=== PATIENT | female | born 1955 | race Caucasian/White ===

== ENCOUNTER 2020-02-16 14:04 | Inpatient (IN) | payer MEDICARE ==
[~2020-02-16] VITALS: Ht 165.1 cm; Wt 108.5 kg
--- NOTE | 2020-02-16 14:41 | EKG ---
[facility] [address] [place] [address] Test Date: 2020-02-16 Test Time: 14:36:49 Pat Name: AZEB PABON Department: Room: Gender: F Principal Scientist: : 1955 Requested By: GLENROY LEACH Order Number: [id number] Reading MD: Chivo Mcclendon Measurements Intervals [place] Rate: 96 P: 3 [place]: 142 QRS: -36 QRSD: 96 T: 28 QT: 350 QTc: 449 Interpretive Statements SINUS RHYTHM ABNORMAL LEFT AXIS DEVIATION QRS(T) CONTOUR ABNORMALITY CONSISTENT WITH INFERIOR INFARCT PROBABLY OLD ABNORMAL ECG RI6.01 No previous ECG available for comparison Electronically Signed On 02-17-2020 12:02:42 CDT by Chivo Mcclendon
--- NOTE | 2020-02-16 14:55 | RAD ---
PORTABLE CHEST 1V History: Reason: cough / Spl. Instructions: / History: Comparison: None. Findings: Low lung volumes with patchy bibasilar opacities. No pleural effusion. No pneumothorax. Normal heart size. Impression: 1. Low lung volumes with patchy bibasilar opacities, most likely atelectasis. Electronically signed by: Theo Reyes DO (02/16/2020 2:53 PM) [id number]
--- NOTE | 2020-02-16 14:58 | PHYS DOC ---
Past Medical History Past Medical History: Diabetes-Type II, Hypertension, Stroke Additional Past Medical Histor: RT SIDE DEFICIT Past Surgical History: No Surgical History Smoking Status: Former Smoker Alcohol Use: None General Adult EDM: Chief Complaint: ABDOMINAL PAIN HPI: HPI: Patient is a 64 year old female who presents with here by EMS for right-sided abdominal pain. Is unknown how long the patient has had pain. Patient has had a past stroke of which she has some speech deficits and right-sided deficits. Patient is a poor historian. Patient lives at a care facility. Patient states that she was at [facility] this morning and had a scan but unable to tell me what kind of scan or if she was in the ED or who her primary care provider is. I did have my ER provider looked the patient up at [facility] and there is nothing showing for a inpatient or outpatient CT or visit today. Patient's mother came in to the ED and I spoke with her and she states she does not know either. She states she does not know what is going on with her daughter but just knew that she sounded different on the phone so she brought her in. Patient also complains of a cough. She is denies chest pain, shortness of breath, fever, back pain, dizziness, headache, new weakness, vision change. Patient does try to answer all questions appropriately. She is alert and oriented. Patient unable to give me a # when asked about her pain. Review of Systems: Review of Systems: GI: Right-sided abdominal pain, denies nausea, vomiting, bloody stools. + diarrhea. [] Heart Score: Risk Factors: Risk Factors: DM, Current or recent (<one month) smoker, HTN, HLP, family history of CAD, obesity. Risk Scores: Score 0 - 3: 2.5% MACE over next 6 weeks - Discharge Home Score 4 - 6: 20.3% MACE over next 6 weeks - Admit for Clinical Observation Score 7 - 10: 72.7% MACE over next 6 weeks - Early Invasive Strategies Current Medications: Current Medications Medications (Trade) Dose Ordered Sig/Perlita Start Time Stop Time Status Last Admin Dose Admin Fentanyl Citrate (Fentanyl 2ml Vial) 50 mcg 1X ONCE 02/16/20 15:15 02/16/20 15:16 Allergies: Allergies: Allergies Coded Allergies Type Severity Reaction Last Updated Verified No Known Drug Allergies 02/16/20 No Physical Exam: PE: Constitutional: Well developed, well nourished, no acute distress, non-toxic appearance. [] HENT: Normocephalic, atraumatic, bilateral external ears normal, oropharynx moist, no oral exudates, nose normal. [] Eyes: PERRLA, EOMI, conjunctiva normal, no discharge. [] Neck: Normal range of motion, no tenderness, supple, no stridor. [] Cardiovascular:Heart rate regular rhythm, no murmur [] Lungs & Thorax: Bilateral breath sounds clear to auscultation [] Abdomen: Bowel sounds normal, soft, right side tenderness, no masses, no pulsatile masses. [] Skin: Warm, dry, no erythema, no rash. [] Back: No tenderness, no CVA tenderness. [] Extremities: No tenderness, no cyanosis, no clubbing, ROM intact, no edema. [] Neurologic: Alert and oriented X 3, normal motor function, normal sensory function, no focal deficits noted. [] Psychologic: Affect normal, judgement normal, mood normal. [] Current Patient Data: Vital Signs: Vital Signs Date Time Temp Pulse Resp B/P (MAP) Pulse Ox O2 Delivery O2 Flow Rate FiO2 02/16/20 14:04 98.0 95 16 165/82 (109) 96 Room Air 98.0 EKG: EK and read by DR Lagunas as Sinus Rhythm and no STEMI[] Radiology/Procedures: Radiology/Procedures: [] Impression: [facility] [address] [place], [place] [id number] IMAGING REPORT Signed PATIENT: AZEB PABON ACCOUNT: [id number] : 1955 LOCATION: ER AGE: 64 SEX: F EXAM STATUS: PRE ER ORD. PHYSICIAN: GLENROY LEACH APRN REASON: cough PROCEDURE: PORTABLE CHEST 1V PORTABLE CHEST 1V History: Reason: cough / Spl. Instructions: / History: Comparison: None. Findings: Low lung volumes with patchy bibasilar opacities. No pleural effusion. No pneumothorax. Normal heart size. Impression: 1. Low lung volumes with patchy bibasilar opacities, most likely atelectasis. Electronically signed by: Theo Reyes DO (02/16/2020 2:53 PM) [id number] DICTATED and SIGNED BY: THEO REYES DO DATE: 02/16/20 1451 [facility] [address] [place] [address] IMAGING REPORT Signed PATIENT: AZEB PABON ACCOUNT: [id number] : 1955 LOCATION: ER AGE: 64 SEX: F EXAM STATUS: REG ER ORD. PHYSICIAN: GLENROY LEACH APRN REASON: gall bladder, pancreatitis, ct done at [facility] PROCEDURE: ABDOMEN LTD ABDOMEN LTD History: Reason: gall bladder, pancreatitis, ct done at [facility] / [facility]. Instructions: / History: Comparison: CT February 16, 2020. Technique: Transabdominal ultrasound images are obtained of the right upper quadrant. Findings: Visualized pancreas is normal seen due to overlying bowel gas. Liver is increased in echogenicity. Right hepatic lobe measures 20.1 cm. Portal flow is hepatopedal. Cholelithiasis. No gallbladder wall thickening. No pericholecystic fluid. Dilated common bile duct measures up to 1.1 cm. The right kidney measures 11.8 x 4.9 x 5.5 cm. No hydronephrosis. IVC not well seen due to overlying bowel gas. IMPRESSION: 1. Dilated common bile duct. MRCP can further evaluate as clinically warranted. 2. Cholelithiasis. 3. Hepatomegaly with increased echotexture, may indicate steatosis. Electronically signed by: Theo Reyes DO (02/16/2020 4:58 PM) [id number] DICTATED and SIGNED BY: THEO REYES DO DATE: 02/16/20 1658 Course & Med Decision Making: Course & Med Decision Making Pertinent Labs and Imaging studies reviewed. (See chart for details) COVID-19 CRITERIA: The patient was evaluated during the global COVID-19 pandemic, and that diagnosis was suspected/considered upon their initial presentation. Their evaluation, treatment and testing was consistent with current guidelines for patients who present with complaints or symptoms that may be related to COVID-19. Patient has right-sided abdominal pain tenderness palpation. Abdomen is otherwise soft and nontender. Patient denies vomiting. Patient states she does have diarrhea. Again it is unknown how long this is been going on for. Kaycee lemus has a history of diabetes, hypertension and a previous stroke. Patient has never been to this facility before. Patient's EKG is sinus rhythm and no STEMI. Lungs are clear in upper lobes and diminished in lower lobes. Patient denies any blood in her stools. Patient given 1G Rocephin in the ED for UTI. Patient to be admitted for pancreatitis to Dr Reynolds. Dr Reynolds states to call surgery. I have called spoken to Dr Villafana who states the pancreatitis has to be taken care of first and to consult GI. I will consult GI. [] Robinson Disclaimer: Robinson Disclaimer: This electronic medical record was generated, in whole or in part, using a voice recognition dictation system. COVID-19 Patient Risks: Age 65 or older: No Sign of co-morbidity: Yes Exp to person + for COVID: No Exp to PUI: No Travel from affected area: No Lower respiratory symptoms: Yes Other: No PPE Use: Full PPE with N95 mask or PAPR: Yes Departure Departure Impression: Primary Impression: Pancreatitis Qualified Codes: K85.90 - Acute pancreatitis without necrosis or infection, unspecified Additional Impressions: Suspected 2019 novel coronavirus infection UTI (urinary tract infection) Qualified Codes: N39.0 - Urinary tract infection, site not specified Disposition: ADMITTED INPATIENT Admitting Physician: IRMA Condition: STABLE 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
[2020-02-16] MEDS ORDERED: fentaNYL PF VIAL 100 MCG/2 ML VIAL IVP ONE ×2 (15:15→17:15)
[2020-02-16 15:21] LABS: BASO # 0.1 x10^3/uL (0.0-0.2); BASO % 1 % (0-3); EOS % 0 % (0-3); HEMATOCRIT 46.7 % (36.0-47.0); HEMOGLOBIN 15.9 g/dL (12.0-15.5); LYMPH # 1.5 x10^3/uL (1.0-4.8); LYMPH % 5 % (24-48); MEAN CORPUSCULAR HEMOGLOBIN 30 pg (25-35); MEAN CORPUSCULAR HGB CONC 34 g/dL (31-37); MEAN CORPUSCULAR VOLUME 87 fL (79-100); MONO # 1.8 x10^3/uL (0.0-1.1); MONO % 6 % (0-9); NEUT # 25.3 x10^3/uL (1.8-7.7); NEUT % 88 % (31-73); PLATELET COUNT 622 x10^3/uL (140-400); RED BLOOD COUNT 5.36 x10^6/uL (3.50-5.40); RED CELL DISTRIBUTION WIDTH 19.4 % (11.5-14.5); WHITE BLOOD COUNT 28.8 x10^3/uL (4.0-11.0)
[2020-02-16 15:23] LABS: BILIRUBIN,URINE LARGE (NEG); CLARITY,URINE CLOUDY; COLOR,URINE RED; NITRITE,URINE POSITIVE (NEG); PROTEIN,URINE 30 mg/dL (NEG-TRACE)
[2020-02-16 15:30] LABS: BARBITURATES NEG (NEG); BENZODIAZEPINES NEG (NEG); CANNABINOIDS NEG (NEG); COCAINE NEG (NEG); METHADONE NEG (NEG); OPIATES NEG (NEG); PHENCYCLIDINE NEG (NEG)
[2020-02-16 15:32] LABS: BACTERIA,URINE MANY /HPF (0-FEW); RBC,URINE 0 /HPF (0-2); SQUAMOUS EPITHELIAL CELL,UR FEW /LPF; WBC,URINE >40 /HPF (0-4)
[2020-02-16 15:35] LABS: AMPHETAMINE/METHAMPHETAMINE NEG (NEG)
[2020-02-16 16:26] LABS: CALCIUM 9.4 mg/dL (8.5-10.1); CREATININE 0.8 mg/dL (0.6-1.0); GFR 72.7; POTASSIUM 3.6 mmol/L (3.5-5.1)
[2020-02-16] MEDS ORDERED: IV NORMAL SALINE 1000ML BAG 1,000 ML IV ONE ×2 (16:30→17:15)
[2020-02-16] MEDS ORDERED: cefTRIAXone IV Push 1 GM VIAL. IVP ONE (16:30)
[2020-02-16 16:38] LABS: ALBUMIN 3.5 g/dL (3.4-5.0); PROTHROMBIN TIME PATIENT 14.7 SEC (11.7-14.0); TOTAL BILIRUBIN 7.6 mg/dL (0.2-1.0); TOTAL PROTEIN 6.9 g/dL (6.4-8.2)
[2020-02-16 16:49] LABS: % BANDS 1 % (0-9); % BASOS 1 % (0-3); % LYMPHS 6 % (24-48); % METAS 3 % (0-0); % MONOS 4 % (0-10); % SEGS 85 % (35-66)
[2020-02-16 16:50] LABS: ANISOCYTOSIS SLIGHT; PLT ESTIMATE INCREASED (ADEQUATE)
--- NOTE | 2020-02-16 17:01 | RAD ---
ABDOMEN LTD History: Reason: gall bladder, pancreatitis, ct done at [facility]. Instructions: / History: Comparison: CT February 16, 2020. Technique: Transabdominal ultrasound images are obtained of the right upper quadrant. Findings: Visualized pancreas is normal seen due to overlying bowel gas. Liver is increased in echogenicity. Right hepatic lobe measures 20.1 cm. Portal flow is hepatopedal. Cholelithiasis. No gallbladder wall thickening. No pericholecystic fluid. Dilated common bile duct measures up to 1.1 cm. The right kidney measures 11.8 x 4.9 x 5.5 cm. No hydronephrosis. IVC not well seen due to overlying bowel gas. IMPRESSION: 1. Dilated common bile duct. MRCP can further evaluate as clinically warranted. 2. Cholelithiasis. 3. Hepatomegaly with increased echotexture, may indicate steatosis. Electronically signed by: Theo Reyes DO (02/16/2020 4:58 PM) [id number]
[2020-02-16] MEDS ORDERED: ONDANSETRON PF 4 MG/2 ML VIAL. IV PRN ×2 (17:15→17:45)
--- NOTE | 2020-02-16 17:36 | PDOC1 ---
History and Physical Date of Admission Date of Admission DATE: 02/16/20 TIME: 17:29 Identification/Chief Complaint Chief Complaint SEEN IN ER WITH 15 DAY HX EPIGASTRIC PAIN , 64 year old female who presents with here by EMS for right-sided abdominal pain. Patient has had a past stroke of which she has some speech deficits and right- sided deficits. Patient is a poor historian. Patient lives at a care facility. Patient states that she was at [facility] this morning and had a scan but unable to tell me what kind of scan or if she was in the ED Past Medical History Past Medical History Past Medical History Past Medical History: Diabetes-Type II, Hypertension, Stroke Additional Past Medical Histor: RT SIDE DEFICIT Past Surgical History: No Surgical History Smoking Status: Former Smoker Alcohol Use: None fhx OBESITY Cardiovascular: HTN Musculoskeletal: Osteoarthritis Endocrine: Diabetes Family History Family History: High Cholestrol, Hypertension Social History Smoke: No ALCOHOL: none Drugs: None Current Problem List Problem List Problems Medical Problems: (1) Pancreatitis Status: Acute (2) Suspected 2019 novel coronavirus infection Status: Acute (3) UTI (urinary tract infection) Status: Acute Current Medications Current Medications Current Medications Fentanyl Citrate (Fentanyl 2ml Vial) 50 mcg 1X ONCE IVP Last administered on 02/16/20at 15:11; Start 02/16/20 at 15:15; Stop 02/16/20 at 15:16; Status DC Ceftriaxone Sodium (Rocephin) 1 gm 1X ONCE IVP Last administered on 02/16/20at 17:02; Start 02/16/20 at 16:30; Stop 02/16/20 at 16:31; Status DC Sodium Chloride 1,000 ml @ 1,000 mls/hr 1X ONCE IV Last administered on 02/16/20at 17:02; Start 02/16/20 at 16:30; Stop 02/16/20 at 17:29 Fentanyl Citrate (Fentanyl 2ml Vial) 50 mcg 1X ONCE IVP Last administered on 02/16/20at 17:11; Start 02/16/20 at 17:15; Stop 02/16/20 at 17:16; Status DC Sodium Chloride 1,000 ml @ 1,000 mls/hr 1X ONCE IV Last administered on 02/16/20at 17:11; Start 02/16/20 at 17:15; Stop 02/16/20 at 18:14 Ondansetron HCl (Zofran) 4 mg PRN Q8HRS PRN IV NAUSEA/VOMITING; Start 02/16/20 at 17:15; Stop 02/17/20 at 17:14 Fentanyl Citrate (Fentanyl 2ml Vial) 50 mcg PRN Q1HR PRN IV PAIN; Start 02/16/20 at 17:15; Stop 02/17/20 at 17:14 Sodium Chloride 1,000 ml @ 150 mls/hr Q6H40M IV ; Start 02/16/20 at 17:14; Stop 02/17/20 at 17:13 Allergies Allergies: Coded Allergies: No Known Drug Allergies (Unverified , 02/16/20) ROS Review of System GI: Right-sided abdominal pain X 15 DAYS , denies nausea, vomiting, bloody stools. + diarrhea. [] 14 PT ROS OTHERWISE NEG General: YES: Fatigue; No: Chills, Night Sweats, Malaise, Appetite, Other PSYCHOLOGICAL ROS: No: Anxiety, Behavioral Disorder, Concentration difficultie, Decreased libido, Depression, Disorientation, Hallucinations, Hostility, Irrit ablity, Memory difficulties, Mood Swings, Obsessive thoughts, Physical abuse, Sexual abuse, Sleep disturbances, Suicidal ideation, Other Eyes: No Blurry vision, No Decreased vision, No Double vision, No Dry eyes, No Excessive tearing, No Eye Pain, No Itchy Eyes, No Loss of vision, No Photophobia, No Scotomata, No Uses contacts, No Uses glasses, No Other HEENT: No: Heacaches, Visual Changes, Hearing change, Nasal congestion, Nasal discharge, Oral lesions, Sinus pain, Sore Throat, Epistaxis, Sneezing, Snoring, Tinnitus, Vertigo, Vocal changes, Other ALLERGY AND IMMUNOLOGY: No: Hives, Insect Bite Sensitivity, Itchy/Watery Eyes, Nasal Congestion, Post Nasal Drip, Seasonal Allergies, Other Hematological and Lymphatic: No: Bleeding Problems, Blood Clots, Blood Transfusions, Brusing, Night Sweats, Pallor, Swollen Lymph Nodes, Other ENDOCRINE: No: Breast Changes, Galactorrhea, Hair Pattern Changes, Hot Flashes, Malaise/lethargy, Mood Swings, Palpitations, Polydipsia/polyuria, Skin Changes, Temperature Intolerance, Unexpected Weight Changes, Other Respiratory: No: Cough, Hemoptysis, Orthopnea, Pleuritic Pain, Shortness of breath, SOB with excertion, Sputum Changes, Stridor, Tachypnea, Wheezing, Other Cardiovascular: No Chest Pain, No Palpitations, No Orthopnea, No Paroxysmal Noc. Dyspnea, No Edema, No Lt Headedness, No Other Gastrointestinal: Yes Abdominal Pain, Yes Diarrhea; No Nausea, No Vomiting, No Constipation, No Melena, No Hematochezia, No Other Genitourinary: No Dysuria, No Frequency, No Incontinence, No Hematuria, No Retention, No Discharge, No Urgency, No Pain, No Flank Pain, No Other, No , No , No , No , No , No , No Musculoskeletal: Yes Gait Disturbance, Yes Joint Stiffness, Yes Muscular Weakness Neurological: Yes Confusion, Yes Gait Disturbance, Yes Other (remote cva); No Behavorial Changes, No Bowel/Bladder ControlChng, No Dizziness, No Headaches, No Impaired Coord/balance, No Memory Loss, No Numbness/Tingling, No Seizures, No Speech Problems, No Tremors, No Visual Changes, No Weakness Skin: No Dry Skin, No Eczema, No Hair Changes, No Lumps, No Mole Changes, No Mottling, No Nail Changes, No Pruritus, No Rash, No Skin Lesion Changes, No Other, No Acne Physical Exam Physical Exam Constitutional: Well developed, well nourished, no acute distress, non-toxic appearance. [] HENT: Normocephalic, atraumatic, bilateral external ears normal, oropharynx moist, no oral exudates, nose normal. [] Eyes: PERRLA, EOMI, conjunctiva normal, no discharge. [] Neck: Normal range of motion, no tenderness, supple, no stridor. [] Cardiovascular:Heart rate regular rhythm, no murmur [] Lungs & Thorax: Bilateral breath sounds clear to auscultation [] Abdomen: Bowel sounds normal, soft, right side tenderness, no masses, no pulsatile masses. [] Skin: Warm, dry, no erythema, POS JAUNDICE [] Back: No tenderness, no CVA tenderness. [] Extremities: No tenderness, no cyanosis, no clubbing, ROM intact, no edema. [] Neurologic: Alert no focal deficits noted. [] Psychologic: Affect normal,mood normal. [] General: Alert, Cooperative, No acute distress HEENT: Atraumatic, EOMI, Other (ICTERIC) Lungs: Clear to auscultation, Normal air movement Heart: RRR, no thrills Breasts: Not examined Abdomen: Other (EPIGASTRIC TENDERNESS) Rectal Exam: not examined PELVIC: Examination not indicated Extremities: No cyanosis, No edema Skin: Other (JAUNDICED) Neuro: Cranial nerves 3-12 NL Vitals Vitals Vital Signs Date Time Temp Pulse Resp B/P (MAP) Pulse Ox O2 Delivery O2 Flow Rate FiO2 02/16/20 17:11 15 94 Room Air 02/16/20 17:00 108 168/71 (103) 02/16/20 14:04 98.0 98.0 Labs Labs Laboratory Tests Test 02/16/20 14:45 02/16/20 15:10 02/16/20 16:02 White Blood Count 28.8 x10^3/uL (4.0-11.0) Red Blood Count 5.36 x10^6/uL (3.50-5.40) Hemoglobin 15.9 g/dL (12.0-15.5) Hematocrit 46.7 % (36.0-47.0) Mean Corpuscular Volume 87 fL (79-100) Mean Corpuscular Hemoglobin 30 pg (25-35) Mean Corpuscular Hemoglobin Concent 34 g/dL (31-37) Red Cell Distribution Width 19.4 % (11.5-14.5) Platelet Count 622 x10^3/uL (140-400) Neutrophils (%) (Auto) 88 % (31-73) Lymphocytes (%) (Auto) 5 % (24-48) Monocytes (%) (Auto) 6 % (0-9) Eosinophils (%) (Auto) 0 % (0-3) Basophils (%) (Auto) 1 % (0-3) Neutrophils # (Auto) 25.3 x10^3/uL (1.8-7.7) Lymphocytes # (Auto) 1.5 x10^3/uL (1.0-4.8) Monocytes # (Auto) 1.8 x10^3/uL (0.0-1.1) Eosinophils # (Auto) 0.0 x10^3/uL (0.0-0.7) Basophils # (Auto) 0.1 x10^3/uL (0.0-0.2) Segmented Neutrophils % 85 % (35-66) Band Neutrophils % 1 % (0-9) Lymphocytes % 6 % (24-48) Monocytes % 4 % (0-10) Basophils % 1 % (0-3) Metamyelocytes % 3 % (0-0) Platelet Estimate Increased (ADEQUATE) Large Platelets Few Giant Platelets Occ Anisocytosis Slight Urine Collection Type Unknown Urine Color Red Urine Clarity Cloudy Urine pH 5.0 (<5.0-8.0) Urine Specific Pattison >=1.030 (1.000-1.030) Urine Protein 30 mg/dL (NEG-TRACE) Urine Glucose (UA) Negative mg/dL (NEG) Urine Ketones (Stick) 15 mg/dL (NEG) Urine Blood Negative (NEG) Urine Nitrite Positive (NEG) Urine Bilirubin Large (NEG) Urine Urobilinogen Dipstick 2.0 mg/dL (0.2 mg/dL) Urine Leukocyte Esterase Moderate (NEG) Urine RBC 0 /HPF (0-2) Urine WBC >40 /HPF (0-4) Urine Squamous Epithelial Cells Few /LPF Urine Bacteria Many /HPF (0-FEW) Urine Opiates Screen Neg (NEG) Urine Methadone Screen Neg (NEG) Urine Barbiturates Neg (NEG) Urine Phencyclidine Screen Neg (NEG) Urine Amphetamine/Methamphetamine Neg (NEG) Urine Benzodiazepines Screen Neg (NEG) Urine Cocaine Screen Neg (NEG) Urine Cannabinoids Screen Neg (NEG) Urine Ethyl Alcohol Neg (NEG) Prothrombin Time 14.7 SEC (11.7-14.0) Prothromb Time International Ratio 1.2 (0.8-1.1) Sodium Level 138 mmol/L (136-145) Potassium Level 3.6 mmol/L (3.5-5.1) Chloride Level 99 mmol/L (98-107) Carbon Dioxide Level 25 mmol/L (21-32) Anion Gap 14 (6-14) Blood Urea Nitrogen 17 mg/dL (7-20) Creatinine 0.8 mg/dL (0.6-1.0) Estimated GFR (Cockcroft-Gault) 72.7 BUN/Creatinine Ratio 21 (6-20) Glucose Level 123 mg/dL (70-99) Lactic Acid Level 1.4 mmol/L (0.4-2.0) Calcium Level 9.4 mg/dL (8.5-10.1) Total Bilirubin 7.6 mg/dL (0.2-1.0) Aspartate Amino Transf (AST/SGOT) 208 U/L (15-37) Alanine Aminotransferase (ALT/SGPT) 249 U/L (14-59) Alkaline Phosphatase 380 U/L (46-116) Troponin I Quantitative < 0.017 ng/mL (0.000-0.055) Total Protein 6.9 g/dL (6.4-8.2) Albumin 3.5 g/dL (3.4-5.0) Albumin/Globulin Ratio 1.0 (1.0-1.7) Lipase 4679 U/L (73-393) Laboratory Tests Test 02/16/20 14:45 02/16/20 15:10 02/16/20 16:02 White Blood Count 28.8 x10^3/uL (4.0-11.0) Red Blood Count 5.36 x10^6/uL (3.50-5.40) Hemoglobin 15.9 g/dL (12.0-15.5) Hematocrit 46.7 % (36.0-47.0) Mean Corpuscular Volume 87 fL (79-100) Mean Corpuscular Hemoglobin 30 pg (25-35) Mean Corpuscular Hemoglobin Concent 34 g/dL (31-37) Red Cell Distribution Width 19.4 % (11.5-14.5) Platelet Count 622 x10^3/uL (140-400) Neutrophils (%) (Auto) 88 % (31-73) Lymphocytes (%) (Auto) 5 % (24-48) Monocytes (%) (Auto) 6 % (0-9) Eosinophils (%) (Auto) 0 % (0-3) Basophils (%) (Auto) 1 % (0-3) Neutrophils # (Auto) 25.3 x10^3/uL (1.8-7.7) Lymphocytes # (Auto) 1.5 x10^3/uL (1.0-4.8) Monocytes # (Auto) 1.8 x10^3/uL (0.0-1.1) Eosinophils # (Auto) 0.0 x10^3/uL (0.0-0.7) Basophils # (Auto) 0.1 x10^3/uL (0.0-0.2) Segmented Neutrophils % 85 % (35-66) Band Neutrophils % 1 % (0-9) Lymphocytes % 6 % (24-48) Monocytes % 4 % (0-10) Basophils % 1 % (0-3) Metamyelocytes % 3 % (0-0) Platelet Estimate Increased (ADEQUATE) Large Platelets Few Giant Platelets Occ Anisocytosis Slight Urine Collection Type Unknown Urine Color Red Urine Clarity Cloudy Urine pH 5.0 (<5.0-8.0) Urine Specific Pattison >=1.030 (1.000-1.030) Urine Protein 30 mg/dL (NEG-TRACE) Urine Glucose (UA) Negative mg/dL (NEG) Urine Ketones (Stick) 15 mg/dL (NEG) Urine Blood Negative (NEG) Urine Nitrite Positive (NEG) Urine Bilirubin Large (NEG) Urine Urobilinogen Dipstick 2.0 mg/dL (0.2 mg/dL) Urine Leukocyte Esterase Moderate (NEG) Urine RBC 0 /HPF (0-2) Urine WBC >40 /HPF (0-4) Urine Squamous Epithelial Cells Few /LPF Urine Bacteria Many /HPF (0-FEW) Urine Opiates Screen Neg (NEG) Urine Methadone Screen Neg (NEG) Urine Barbiturates Neg (NEG) Urine Phencyclidine Screen Neg (NEG) Urine Amphetamine/Methamphetamine Neg (NEG) Urine Benzodiazepines Screen Neg (NEG) Urine Cocaine Screen Neg (NEG) Urine Cannabinoids Screen Neg (NEG) Urine Ethyl Alcohol Neg (NEG) Prothrombin Time 14.7 SEC (11.7-14.0) Prothromb Time International Ratio 1.2 (0.8-1.1) Sodium Level 138 mmol/L (136-145) Potassium Level 3.6 mmol/L (3.5-5.1) Chloride Level 99 mmol/L (98-107) Carbon Dioxide Level 25 mmol/L (21-32) Anion Gap 14 (6-14) Blood Urea Nitrogen 17 mg/dL (7-20) Creatinine 0.8 mg/dL (0.6-1.0) Estimated GFR (Cockcroft-Gault) 72.7 BUN/Creatinine Ratio 21 (6-20) Glucose Level 123 mg/dL (70-99) Lactic Acid Level 1.4 mmol/L (0.4-2.0) Calcium Level 9.4 mg/dL (8.5-10.1) Total Bilirubin 7.6 mg/dL (0.2-1.0) Aspartate Amino Transf (AST/SGOT) 208 U/L (15-37) Alanine Aminotransferase (ALT/SGPT) 249 U/L (14-59) Alkaline Phosphatase 380 U/L (46-116) Troponin I Quantitative < 0.017 ng/mL (0.000-0.055) Total Protein 6.9 g/dL (6.4-8.2) Albumin 3.5 g/dL (3.4-5.0) Albumin/Globulin Ratio 1.0 (1.0-1.7) Lipase 4679 U/L (73-393) Images Images PORTABLE CHEST 1V History: Reason: cough / Spl. Instructions: / History: Comparison: None. Findings: Low lung volumes with patchy bibasilar opacities. No pleural effusion. No pneumothorax. Normal heart size. Impression: 1. Low lung volumes with patchy bibasilar opacities, most likely atelectasis. Electronically signed by: Vibha Jackson DO (02/16/2020 2:53 PM) [id number] DICTATED and SIGNED BY: VIBHA JACKSON DO DATE: 02/16/20 1453 ABDOMEN LTD History: Reason: gall bladder, pancreatitis, ct done at [facility] / Spl. Instructions: / History: Comparison: CT February 16, 2020. Technique: Transabdominal ultrasound images are obtained of the right upper quadrant. Findings: Visualized pancreas is normal seen due to overlying bowel gas. Liver is increased in echogenicity. Right hepatic lobe measures 20.1 cm. Portal flow is hepatopedal. Cholelithiasis. No gallbladder wall thickening. No pericholecystic fluid. Dilated common bile duct measures up to 1.1 cm. The right kidney measures 11.8 x 4.9 x 5.5 cm. No hydronephrosis. IVC not well seen due to overlying bowel gas. IMPRESSION: 1. Dilated common bile duct. MRCP can further evaluate as clinically warranted. 2. Cholelithiasis. 3. Hepatomegaly with increased echotexture, may indicate steatosis. Electronically signed by: Vibha Jackson DO (02/16/2020 4:58 PM) [id number] DICTATED and SIGNED BY: VIBHA JACKSON DO DATE: 02/16/20 1658 VTE Prophylaxis Ordered VTE Prophylaxis Devices: Yes VTE Pharmacological Prophylaxi: Yes Assessment/Plan Assessment/Plan IMPRESSION: 1. GALLSTONE Pancreatitis, acute 2. Dilated common bile duct. MRCP can further evaluate as clinically warranted. 3. Cholelithiasis. 4. Hepatomegaly with increased echotexture, // steatosis. 5. morbid obesity 6. transaminitis 7. diabetes 8. HYPERTENSION 9. HX CVA 10. UTI 11. Low lung volumes with patchy bibasilar opacities, most likely atelectasis. plan admit nop iv fluid SUPPORT CONSULT GI Bowel rest HEPATITIS DX PANEL GEN SURGERY CONSULT FALL PRECAUTIONS EMPERIC IV ZOSYN DVT prophylaxis iv pain control incentive spirometry accuchecks 75 min pt exam, chart review, > 50% of time spent with exam, chart review, pt care coordination Justicifation of Admission Dx: Justifications for Admission: Justification of Admission Dx: Yes Chronic Renal Failure: Hypertension Sepsis: Infection FIORELLA KATE MD Feb 16, 2020 17:36
[2020-02-16] MEDS ORDERED: ALBUTEROL SULFATE 2.5 MG/3 ML NEBU. NEB PRN (17:45)
[2020-02-16] MEDS ORDERED: 0.9 % SODIUM CHLORIDE 10 ML DISP.SYRIN. IV PRN (17:45)
[2020-02-16] MEDS ORDERED: SODIUM PHOSPHATES 19/7GM 133 ML ENEMA. PR PRN (17:45)
[2020-02-16] MEDS ORDERED: ACETAMINOPHEN 650 MG SUPP.RECT. PR PRN (17:45)
[2020-02-16] MEDS ORDERED: guaiFENesin ORAL 200 MG/10 ML LIQUID. PO PRN (17:45)
[2020-02-16] MEDS ORDERED: DOCUSATE SODIUM 100 MG CAPSULE. PO PRN (17:45)
[2020-02-16 18:30] VITALS: BP 139/66
[2020-02-16] MEDS: PIPERACILLIN/TAZOBACTAM 3.375 GM in IV NORMAL SALINE 50ML 50 ML IV SCH (18:33)
[2020-02-16] MEDS: IV NORMAL SALINE 1000ML BAG 1,000 ML IV SCH ×2 (18:33→23:54)
[2020-02-16 20:00] VITALS: BP 166/70
[2020-02-16] MEDS ORDERED: ENOXAPARIN 40 MG/0.4 ML SYRINGE. SQ SCH (21:00)
[2020-02-17] VITALS (7 sets, daily range): BP systolic 111–147; BP diastolic 60–76
[2020-02-17] MEDS: PIPERACILLIN/TAZOBACTAM 3.375 GM in IV NORMAL SALINE 50ML 50 ML IV SCH ×5 (00:32→23:43)
[2020-02-17] MEDS ORDERED: CRESTOR5 MG PO (01:21)
[2020-02-17] MEDS ORDERED: BENA10TA55 PO (01:21)
[2020-02-17] MEDS ORDERED: PANT40TA77 PO (01:21)
[2020-02-17] MEDS ORDERED: CITA20TA6 PO (01:21)
[2020-02-17] MEDS ORDERED: METO-313 PO (01:21)
[2020-02-17] MEDS: IV NORMAL SALINE 1000ML BAG 1,000 ML IV SCH ×6 (02:45→23:43)
[2020-02-17 05:20] LABS: BASO # 0.2 x10^3/uL (0.0-0.2); BASO % 1 % (0-3); EOS % 0 % (0-3); HEMATOCRIT 46.1 % (36.0-47.0); HEMOGLOBIN 15.2 g/dL (12.0-15.5); LYMPH # 1.2 x10^3/uL (1.0-4.8); LYMPH % 5 % (24-48); MEAN CORPUSCULAR HEMOGLOBIN 29 pg (25-35); MEAN CORPUSCULAR HGB CONC 33 g/dL (31-37); MEAN CORPUSCULAR VOLUME 88 fL (79-100); MONO # 1.2 x10^3/uL (0.0-1.1); MONO % 5 % (0-9); NEUT # 19.8 x10^3/uL (1.8-7.7); NEUT % 88 % (31-73); PLATELET COUNT 486 x10^3/uL (140-400); RED BLOOD COUNT 5.24 x10^6/uL (3.50-5.40); RED CELL DISTRIBUTION WIDTH 19.3 % (11.5-14.5); WHITE BLOOD COUNT 22.5 x10^3/uL (4.0-11.0)
[2020-02-17 05:38] LABS: ALBUMIN 2.9 g/dL (3.4-5.0); ALBUMIN/GLOBULIN RATIO 0.8 (1.0-1.7); CALCIUM 8.9 mg/dL (8.5-10.1); CREATININE 0.9 mg/dL (0.6-1.0); GFR 63.4; POTASSIUM 3.3 mmol/L (3.5-5.1); TOTAL BILIRUBIN 4.6 mg/dL (0.2-1.0); TOTAL PROTEIN 6.7 g/dL (6.4-8.2)
[2020-02-17] MEDS: fentaNYL PF VIAL 100 MCG/2 ML VIAL IV PRN ×2 (08:30→15:55)
--- NOTE | 2020-02-17 08:56 | PDOC2 ---
CONSULT Date of Consult Date of Consult DATE: 02/17/20 TIME: 08:51 History of Present Illness Reason for Visit: The patient is a 64 year old female who was admitted due to abdominal pain. There is concern for potential covid infection and she is currently in the covid unit. Her covid test is pending and I elected to postpone examination until that result is known. Her records show evaluation for abdominal pain with findings consistent with gallstone pancreatitis and abnormal liver testing. Past Medical History Cardiovascular: HTN Musculoskeletal: Osteoarthritis Endocrine: Diabetes Family History Family History: High Cholestrol, Hypertension Social History No ALCOHOL: none Drugs: None Current Problem List Problem List Problems Medical Problems: (1) Pancreatitis Status: Acute (2) Suspected 2019 novel coronavirus infection Status: Acute (3) UTI (urinary tract infection) Status: Acute Current Medications Current Medications Current Medications Fentanyl Citrate (Fentanyl 2ml Vial) 50 mcg 1X ONCE IVP Last administered on 02/16/20at 15:11; Start 02/16/20 at 15:15; Stop 02/16/20 at 15:16; Status DC Ceftriaxone Sodium (Rocephin) 1 gm 1X ONCE IVP Last administered on 02/16/20at 17:02; Start 02/16/20 at 16:30; Stop 02/16/20 at 16:31; Status DC Sodium Chloride 1,000 ml @ 1,000 mls/hr 1X ONCE IV Last administered on 02/16/20at 17:02; Start 02/16/20 at 16:30; Stop 02/16/20 at 17:29; Status DC Fentanyl Citrate (Fentanyl 2ml Vial) 50 mcg 1X ONCE IVP Last administered on 02/16/20at 17:11; Start 02/16/20 at 17:15; Stop 02/16/20 at 17:16; Status DC Sodium Chloride 1,000 ml @ 1,000 mls/hr 1X ONCE IV Last administered on 02/16/20at 17:11; Start 02/16/20 at 17:15; Stop 02/16/20 at 18:14; Status DC Ondansetron HCl (Zofran) 4 mg PRN Q8HRS PRN IV NAUSEA/VOMITING; Start 02/16/20 at 17:15; Stop 02/17/20 at 17:14 Fentanyl Citrate (Fentanyl 2ml Vial) 50 mcg PRN Q1HR PRN IV PAIN Last administered on 02/17/20at 08:30; Start 02/16/20 at 17:15; Stop 02/17/20 at 17:14 Sodium Chloride 1,000 ml @ 150 mls/hr Q6H40M IV Last administered on 02/16/20at 18:33; Start 02/16/20 at 17:14; Stop 02/17/20 at 17:13 Hydralazine HCl (Apresoline Inj) 10 mg PRN Q4HRS PRN IVP ELEVATED BP, SEE COMMENTS; Start 02/16/20 at 17:45 Sodium Chloride (Normal Saline Flush) 3 ml QSHIFT PRN IV AFTER MEDS AND BLOOD DRAWS; Start 02/16/20 at 17:45 Sodium Chloride 1,000 ml @ 100 mls/hr Q10H IV Last administered on 02/17/20at 02:45; Start 02/16/20 at 17:43 Ondansetron HCl (Zofran) 4 mg PRN Q4HRS PRN IV NAUSEA/VOMITING Last administered on 02/16/20at 23:39; Start 02/16/20 at 17:45 Acetaminophen (Tylenol Supp) 650 mg PRN Q4HRS PRN HI TEMP OVER 100.4F OR MILD PAIN; Start 02/16/20 at 17:45 Sodium Monofluorophosphate (Fleet Adult) 133 ml PRN DAILY PRN HI CONSTIPATION; Start 02/16/20 at 17:45 Docusate Sodium (Colace) 100 mg PRN BID PRN PO HARD STOOLS; Start 02/16/20 at 17:45 Albuterol Sulfate (Ventolin Neb Soln) 2.5 mg PRN Q4HRS PRN NEB SHORTNESS OF BREATH; Start 02/16/20 at 17:45 Guaifenesin (Robitussin) 200 mg PRN Q4HRS PRN PO COUGH; Start 02/16/20 at 17:45 Lorazepam (Ativan) 0.5 mg PRN Q4HRS PRN PO ANXIETY / AGITATION; Start 02/16/20 at 17:45 Enoxaparin Sodium (Lovenox 40mg Syringe) 40 mg BID SQ Last administered on 02/16/20at 22:16; Start 02/16/20 at 21:00; Stop 02/17/20 at 08:18; Status DC Piperacillin Sod/ Tazobactam Sod 3.375 gm/Sodium Chloride 50 ml @ 100 mls/hr Q6HRS IV Last administered on 02/17/20at 06:11; Start 02/16/20 at 18:00 Enoxaparin Sodium (Lovenox 40mg Syringe) 40 mg Q24H SQ ; Start 02/17/20 at 21:00 Active Scripts Active Reported Crestor (Rosuvastatin Calcium) 5 Mg Tablet 10 Mg PO HS Pantoprazole Sodium (Pantoprazole Sodium) 40 Mg Tablet.dr 40 Mg PO DAILYAC Benazepril Hcl 10 Mg Tablet 10 Mg PO DAILY Lopressor (Metoprolol Tartrate) 100 Mg Tablet 1 Tab PO DAILY 30 Days Citalopram Hbr (Citalopram Hydrobromide) 20 Mg Tablet 1 Tab PO DAILY Allergies Allergies: Coded Allergies: No Known Drug Allergies (Unverified , 02/16/20) ROS Review of System Deferred at this time due to covid, records also show aphasia due to prior stroke Physical Exam Physical Exam deferred until covid testing results are known Vitals VITALS Vital Signs Date Time Temp Pulse Resp B/P (MAP) Pulse Ox O2 Delivery O2 Flow Rate FiO2 02/17/20 08:30 20 93 Room Air 02/17/20 04:00 98.1 115 147/76 (99) 98.1 Labs Labs Laboratory Tests Test 02/16/20 14:45 02/16/20 15:10 02/16/20 16:02 02/16/20 17:15 White Blood Count 28.8 x10^3/uL (4.0-11.0) Red Blood Count 5.36 x10^6/uL (3.50-5.40) Hemoglobin 15.9 g/dL (12.0-15.5) Hematocrit 46.7 % (36.0-47.0) Mean Corpuscular Volume 87 fL (79-100) Mean Corpuscular Hemoglobin 30 pg (25-35) Mean Corpuscular Hemoglobin Concent 34 g/dL (31-37) Red Cell Distribution Width 19.4 % (11.5-14.5) Platelet Count 622 x10^3/uL (140-400) Neutrophils (%) (Auto) 88 % (31-73) Lymphocytes (%) (Auto) 5 % (24-48) Monocytes (%) (Auto) 6 % (0-9) Eosinophils (%) (Auto) 0 % (0-3) Basophils (%) (Auto) 1 % (0-3) Neutrophils # (Auto) 25.3 x10^3/uL (1.8-7.7) Lymphocytes # (Auto) 1.5 x10^3/uL (1.0-4.8) Monocytes # (Auto) 1.8 x10^3/uL (0.0-1.1) Eosinophils # (Auto) 0.0 x10^3/uL (0.0-0.7) Basophils # (Auto) 0.1 x10^3/uL (0.0-0.2) Segmented Neutrophils % 85 % (35-66) Band Neutrophils % 1 % (0-9) Lymphocytes % 6 % (24-48) Monocytes % 4 % (0-10) Basophils % 1 % (0-3) Metamyelocytes % 3 % (0-0) Platelet Estimate Increased (ADEQUATE) Large Platelets Few Giant Platelets Occ Anisocytosis Slight Urine Collection Type Unknown Urine Color Red Urine Clarity Cloudy Urine pH 5.0 (<5.0-8.0) Urine Specific [place] >=1.030 (1.000-1.030) Urine Protein 30 mg/dL (NEG-TRACE) Urine Glucose (UA) Negative mg/dL (NEG) Urine Ketones (Stick) 15 mg/dL (NEG) Urine Blood Negative (NEG) Urine Nitrite Positive (NEG) Urine Bilirubin Large (NEG) Urine Urobilinogen Dipstick 2.0 mg/dL (0.2 mg/dL) Urine Leukocyte Esterase Moderate (NEG) Urine RBC 0 /HPF (0-2) Urine WBC >40 /HPF (0-4) Urine Squamous Epithelial Cells Few /LPF Urine Bacteria Many /HPF (0-FEW) Urine Opiates Screen Neg (NEG) Urine Methadone Screen Neg (NEG) Urine Barbiturates Neg (NEG) Urine Phencyclidine Screen Neg (NEG) Urine Amphetamine/Methamphetamine Neg (NEG) Urine Benzodiazepines Screen Neg (NEG) Urine Cocaine Screen Neg (NEG) Urine Cannabinoids Screen Neg (NEG) Urine Ethyl Alcohol Neg (NEG) Prothrombin Time 14.7 SEC (11.7-14.0) Prothromb Time International Ratio 1.2 (0.8-1.1) Sodium Level 138 mmol/L (136-145) Potassium Level 3.6 mmol/L (3.5-5.1) Chloride Level 99 mmol/L (98-107) Carbon Dioxide Level 25 mmol/L (21-32) Anion Gap 14 (6-14) Blood Urea Nitrogen 17 mg/dL (7-20) Creatinine 0.8 mg/dL (0.6-1.0) Estimated GFR (Cockcroft-Gault) 72.7 BUN/Creatinine Ratio 21 (6-20) Glucose Level 123 mg/dL (70-99) Lactic Acid Level 1.4 mmol/L (0.4-2.0) Calcium Level 9.4 mg/dL (8.5-10.1) Total Bilirubin 7.6 mg/dL (0.2-1.0) Aspartate Amino Transf (AST/SGOT) 208 U/L (15-37) Alanine Aminotransferase (ALT/SGPT) 249 U/L (14-59) Alkaline Phosphatase 380 U/L (46-116) Troponin I Quantitative < 0.017 ng/mL (0.000-0.055) Total Protein 6.9 g/dL (6.4-8.2) Albumin 3.5 g/dL (3.4-5.0) Albumin/Globulin Ratio 1.0 (1.0-1.7) Lipase 4679 U/L (73-393) Coronavirus (COVID-19)(PCR) Not detected (NOT DETECT.) Test 02/16/20 18:07 02/17/20 04:20 Hepatitis A IgM Antibody Nonreactive (Nonreactive) Hepatitis B Surface Antigen Nonreactive (Nonreactive) Hepatitis B Core IgM Antibody Nonreactive (Nonreactive) Hepatitis C IgG Antibody Nonreactive (Nonreactive) White Blood Count 22.5 x10^3/uL (4.0-11.0) Red Blood Count 5.24 x10^6/uL (3.50-5.40) Hemoglobin 15.2 g/dL (12.0-15.5) Hematocrit 46.1 % (36.0-47.0) Mean Corpuscular Volume 88 fL (79-100) Mean Corpuscular Hemoglobin 29 pg (25-35) Mean Corpuscular Hemoglobin Concent 33 g/dL (31-37) Red Cell Distribution Width 19.3 % (11.5-14.5) Platelet Count 486 x10^3/uL (140-400) Neutrophils (%) (Auto) 88 % (31-73) Lymphocytes (%) (Auto) 5 % (24-48) Monocytes (%) (Auto) 5 % (0-9) Eosinophils (%) (Auto) 0 % (0-3) Basophils (%) (Auto) 1 % (0-3) Neutrophils # (Auto) 19.8 x10^3/uL (1.8-7.7) Lymphocytes # (Auto) 1.2 x10^3/uL (1.0-4.8) Monocytes # (Auto) 1.2 x10^3/uL (0.0-1.1) Eosinophils # (Auto) 0.0 x10^3/uL (0.0-0.7) Basophils # (Auto) 0.2 x10^3/uL (0.0-0.2) Sodium Level 141 mmol/L (136-145) Potassium Level 3.3 mmol/L (3.5-5.1) Chloride Level 103 mmol/L (98-107) Carbon Dioxide Level 27 mmol/L (21-32) Anion Gap 11 (6-14) Blood Urea Nitrogen 19 mg/dL (7-20) Creatinine 0.9 mg/dL (0.6-1.0) Estimated GFR (Cockcroft-Gault) 63.4 BUN/Creatinine Ratio 21 (6-20) Glucose Level 128 mg/dL (70-99) Calcium Level 8.9 mg/dL (8.5-10.1) Total Bilirubin 4.6 mg/dL (0.2-1.0) Aspartate Amino Transf (AST/SGOT) 131 U/L (15-37) Alanine Aminotransferase (ALT/SGPT) 191 U/L (14-59) Alkaline Phosphatase 325 U/L (46-116) Total Protein 6.7 g/dL (6.4-8.2) Albumin 2.9 g/dL (3.4-5.0) Albumin/Globulin Ratio 0.8 (1.0-1.7) Lipase 1514 U/L (73-393) Laboratory Tests Test 02/16/20 14:45 02/16/20 15:10 02/16/20 16:02 02/16/20 17:15 White Blood Count 28.8 x10^3/uL (4.0-11.0) Red Blood Count 5.36 x10^6/uL (3.50-5.40) Hemoglobin 15.9 g/dL (12.0-15.5) Hematocrit 46.7 % (36.0-47.0) Mean Corpuscular Volume 87 fL (79-100) Mean Corpuscular Hemoglobin 30 pg (25-35) Mean Corpuscular Hemoglobin Concent 34 g/dL (31-37) Red Cell Distribution Width 19.4 % (11.5-14.5) Platelet Count 622 x10^3/uL (140-400) Neutrophils (%) (Auto) 88 % (31-73) Lymphocytes (%) (Auto) 5 % (24-48) Monocytes (%) (Auto) 6 % (0-9) Eosinophils (%) (Auto) 0 % (0-3) Basophils (%) (Auto) 1 % (0-3) Neutrophils # (Auto) 25.3 x10^3/uL (1.8-7.7) Lymphocytes # (Auto) 1.5 x10^3/uL (1.0-4.8) Monocytes # (Auto) 1.8 x10^3/uL (0.0-1.1) Eosinophils # (Auto) 0.0 x10^3/uL (0.0-0.7) Basophils # (Auto) 0.1 x10^3/uL (0.0-0.2) Segmented Neutrophils % 85 % (35-66) Band Neutrophils % 1 % (0-9) Lymphocytes % 6 % (24-48) Monocytes % 4 % (0-10) Basophils % 1 % (0-3) Metamyelocytes % 3 % (0-0) Platelet Estimate Increased (ADEQUATE) Large Platelets Few Giant Platelets Occ Anisocytosis Slight Urine Collection Type Unknown Urine Color Red Urine Clarity Cloudy Urine pH 5.0 (<5.0-8.0) Urine Specific [place] >=1.030 (1.000-1.030) Urine Protein 30 mg/dL (NEG-TRACE) Urine Glucose (UA) Negative mg/dL (NEG) Urine Ketones (Stick) 15 mg/dL (NEG) Urine Blood Negative (NEG) Urine Nitrite Positive (NEG) Urine Bilirubin Large (NEG) Urine Urobilinogen Dipstick 2.0 mg/dL (0.2 mg/dL) Urine Leukocyte Esterase Moderate (NEG) Urine RBC 0 /HPF (0-2) Urine WBC >40 /HPF (0-4) Urine Squamous Epithelial Cells Few /LPF Urine Bacteria Many /HPF (0-FEW) Urine Opiates Screen Neg (NEG) Urine Methadone Screen Neg (NEG) Urine Barbiturates Neg (NEG) Urine Phencyclidine Screen Neg (NEG) Urine Amphetamine/Methamphetamine Neg (NEG) Urine Benzodiazepines Screen Neg (NEG) Urine Cocaine Screen Neg (NEG) Urine Cannabinoids Screen Neg (NEG) Urine Ethyl Alcohol Neg (NEG) Prothrombin Time 14.7 SEC (11.7-14.0) Prothromb Time International Ratio 1.2 (0.8-1.1) Sodium Level 138 mmol/L (136-145) Potassium Level 3.6 mmol/L (3.5-5.1) Chloride Level 99 mmol/L (98-107) Carbon Dioxide Level 25 mmol/L (21-32) Anion Gap 14 (6-14) Blood Urea Nitrogen 17 mg/dL (7-20) Creatinine 0.8 mg/dL (0.6-1.0) Estimated GFR (Cockcroft-Gault) 72.7 BUN/Creatinine Ratio 21 (6-20) Glucose Level 123 mg/dL (70-99) Lactic Acid Level 1.4 mmol/L (0.4-2.0) Calcium Level 9.4 mg/dL (8.5-10.1) Total Bilirubin 7.6 mg/dL (0.2-1.0) Aspartate Amino Transf (AST/SGOT) 208 U/L (15-37) Alanine Aminotransferase (ALT/SGPT) 249 U/L (14-59) Alkaline Phosphatase 380 U/L (46-116) Troponin I Quantitative < 0.017 ng/mL (0.000-0.055) Total Protein 6.9 g/dL (6.4-8.2) Albumin 3.5 g/dL (3.4-5.0) Albumin/Globulin Ratio 1.0 (1.0-1.7) Lipase 4679 U/L (73-393) Coronavirus (COVID-19)(PCR) Not detected (NOT DETECT.) Test 02/16/20 18:07 02/17/20 04:20 Hepatitis A IgM Antibody Nonreactive (Nonreactive) Hepatitis B Surface Antigen Nonreactive (Nonreactive) Hepatitis B Core IgM Antibody Nonreactive (Nonreactive) Hepatitis C IgG Antibody Nonreactive (Nonreactive) White Blood Count 22.5 x10^3/uL (4.0-11.0) Red Blood Count 5.24 x10^6/uL (3.50-5.40) Hemoglobin 15.2 g/dL (12.0-15.5) Hematocrit 46.1 % (36.0-47.0) Mean Corpuscular Volume 88 fL (79-100) Mean Corpuscular Hemoglobin 29 pg (25-35) Mean Corpuscular Hemoglobin Concent 33 g/dL (31-37) Red Cell Distribution Width 19.3 % (11.5-14.5) Platelet Count 486 x10^3/uL (140-400) Neutrophils (%) (Auto) 88 % (31-73) Lymphocytes (%) (Auto) 5 % (24-48) Monocytes (%) (Auto) 5 % (0-9) Eosinophils (%) (Auto) 0 % (0-3) Basophils (%) (Auto) 1 % (0-3) Neutrophils # (Auto) 19.8 x10^3/uL (1.8-7.7) Lymphocytes # (Auto) 1.2 x10^3/uL (1.0-4.8) Monocytes # (Auto) 1.2 x10^3/uL (0.0-1.1) Eosinophils # (Auto) 0.0 x10^3/uL (0.0-0.7) Basophils # (Auto) 0.2 x10^3/uL (0.0-0.2) Sodium Level 141 mmol/L (136-145) Potassium Level 3.3 mmol/L (3.5-5.1) Chloride Level 103 mmol/L (98-107) Carbon Dioxide Level 27 mmol/L (21-32) Anion Gap 11 (6-14) Blood Urea Nitrogen 19 mg/dL (7-20) Creatinine 0.9 mg/dL (0.6-1.0) Estimated GFR (Cockcroft-Gault) 63.4 BUN/Creatinine Ratio 21 (6-20) Glucose Level 128 mg/dL (70-99) Calcium Level 8.9 mg/dL (8.5-10.1) Total Bilirubin 4.6 mg/dL (0.2-1.0) Aspartate Amino Transf (AST/SGOT) 131 U/L (15-37) Alanine Aminotransferase (ALT/SGPT) 191 U/L (14-59) Alkaline Phosphatase 325 U/L (46-116) Total Protein 6.7 g/dL (6.4-8.2) Albumin 2.9 g/dL (3.4-5.0) Albumin/Globulin Ratio 0.8 (1.0-1.7) Lipase 1514 U/L (73-393) Assessment/Plan Assessment/Plan 64 year old female with abdominal pain, findings of pancreatitis, elevated LFTs, likely from gallstones. LFTs trending down today, ?passed a stone. Continue with observation, supportive care, GI consultation. Will need lap teresita after resolution of pancreatitis. DAVE EVANS MD Feb 17, 2020 08:56
--- NOTE | 2020-02-17 11:09 | PDOC ---
[employer] PROGRESS NOTE Chief Complaint Chief Complaint Gallstone pancreatitis Dilated common bile duct. MRCP can further evaluate as clinically warranted. Cholelithiasis. Hepatomegaly with increased echotexture, // steatosis. Obesity Transaminitis Diabetes Hypertension HX CVA Severe UTI Low lung volumes with patchy bibasilar opacities, most likely atelectasis. History of Present Illness History of Present Illness 02/17/2020 Patient seen and examined in the ICU She is trying to walk with physical therapy Her urine is extremely dark orange with cloudiness Chart reviewed Discussed with RN and physical therapist Vitals/I&O Vitals/I&O: Vital Signs Date Time Temp Pulse Resp B/P (MAP) Pulse Ox O2 Delivery O2 Flow Rate FiO2 02/17/20 08:30 20 93 Room Air 02/17/20 04:00 98.1 115 147/76 (99) 98.1 I & O 02/16/20 02/16/20 02/17/20 15:00 23:00 07:00 Intake Total 780 ml Output Total 180 ml 210 ml Balance -180 ml 570 ml Physical Exam General: Alert, Cooperative, mild distress, Other (Extremely weak can barely get out of the chair with the therapist helping her) Heart: Regular rate, Normal S1 Lungs: Clear Abdomen: Other (EPIGASTRIC TENDERNESS) Extremities: No cyanosis, No edema Skin: Other (JAUNDICED) Labs Labs: Laboratory Tests Test 02/16/20 14:45 02/16/20 15:10 02/16/20 16:02 02/16/20 17:15 White Blood Count 28.8 x10^3/uL (4.0-11.0) Red Blood Count 5.36 x10^6/uL (3.50-5.40) Hemoglobin 15.9 g/dL (12.0-15.5) Hematocrit 46.7 % (36.0-47.0) Mean Corpuscular Volume 87 fL (79-100) Mean Corpuscular Hemoglobin 30 pg (25-35) Mean Corpuscular Hemoglobin Concent 34 g/dL (31-37) Red Cell Distribution Width 19.4 % (11.5-14.5) Platelet Count 622 x10^3/uL (140-400) Neutrophils (%) (Auto) 88 % (31-73) Lymphocytes (%) (Auto) 5 % (24-48) Monocytes (%) (Auto) 6 % (0-9) Eosinophils (%) (Auto) 0 % (0-3) Basophils (%) (Auto) 1 % (0-3) Neutrophils # (Auto) 25.3 x10^3/uL (1.8-7.7) Lymphocytes # (Auto) 1.5 x10^3/uL (1.0-4.8) Monocytes # (Auto) 1.8 x10^3/uL (0.0-1.1) Eosinophils # (Auto) 0.0 x10^3/uL (0.0-0.7) Basophils # (Auto) 0.1 x10^3/uL (0.0-0.2) Segmented Neutrophils % 85 % (35-66) Band Neutrophils % 1 % (0-9) Lymphocytes % 6 % (24-48) Monocytes % 4 % (0-10) Basophils % 1 % (0-3) Metamyelocytes % 3 % (0-0) Platelet Estimate Increased (ADEQUATE) Large Platelets Few Giant Platelets Occ Anisocytosis Slight Urine Collection Type Unknown Urine Color Red Urine Clarity Cloudy Urine pH 5.0 (<5.0-8.0) Urine Specific [place] >=1.030 (1.000-1.030) Urine Protein 30 mg/dL (NEG-TRACE) Urine Glucose (UA) Negative mg/dL (NEG) Urine Ketones (Stick) 15 mg/dL (NEG) Urine Blood Negative (NEG) Urine Nitrite Positive (NEG) Urine Bilirubin Large (NEG) Urine Urobilinogen Dipstick 2.0 mg/dL (0.2 mg/dL) Urine Leukocyte Esterase Moderate (NEG) Urine RBC 0 /HPF (0-2) Urine WBC >40 /HPF (0-4) Urine Squamous Epithelial Cells Few /LPF Urine Bacteria Many /HPF (0-FEW) Urine Opiates Screen Neg (NEG) Urine Methadone Screen Neg (NEG) Urine Barbiturates Neg (NEG) Urine Phencyclidine Screen Neg (NEG) Urine Amphetamine/Methamphetamine Neg (NEG) Urine Benzodiazepines Screen Neg (NEG) Urine Cocaine Screen Neg (NEG) Urine Cannabinoids Screen Neg (NEG) Urine Ethyl Alcohol Neg (NEG) Prothrombin Time 14.7 SEC (11.7-14.0) Prothromb Time International Ratio 1.2 (0.8-1.1) Sodium Level 138 mmol/L (136-145) Potassium Level 3.6 mmol/L (3.5-5.1) Chloride Level 99 mmol/L (98-107) Carbon Dioxide Level 25 mmol/L (21-32) Anion Gap 14 (6-14) Blood Urea Nitrogen 17 mg/dL (7-20) Creatinine 0.8 mg/dL (0.6-1.0) Estimated GFR (Cockcroft-Gault) 72.7 BUN/Creatinine Ratio 21 (6-20) Glucose Level 123 mg/dL (70-99) Lactic Acid Level 1.4 mmol/L (0.4-2.0) Calcium Level 9.4 mg/dL (8.5-10.1) Total Bilirubin 7.6 mg/dL (0.2-1.0) Aspartate Amino Transf (AST/SGOT) 208 U/L (15-37) Alanine Aminotransferase (ALT/SGPT) 249 U/L (14-59) Alkaline Phosphatase 380 U/L (46-116) Troponin I Quantitative < 0.017 ng/mL (0.000-0.055) Total Protein 6.9 g/dL (6.4-8.2) Albumin 3.5 g/dL (3.4-5.0) Albumin/Globulin Ratio 1.0 (1.0-1.7) Lipase 4679 U/L (73-393) Coronavirus (COVID-19)(PCR) Not detected (NOT DETECT.) Test 02/16/20 18:07 02/17/20 04:20 Hepatitis A IgM Antibody Nonreactive (Nonreactive) Hepatitis B Surface Antigen Nonreactive (Nonreactive) Hepatitis B Core IgM Antibody Nonreactive (Nonreactive) Hepatitis C IgG Antibody Nonreactive (Nonreactive) White Blood Count 22.5 x10^3/uL (4.0-11.0) Red Blood Count 5.24 x10^6/uL (3.50-5.40) Hemoglobin 15.2 g/dL (12.0-15.5) Hematocrit 46.1 % (36.0-47.0) Mean Corpuscular Volume 88 fL (79-100) Mean Corpuscular Hemoglobin 29 pg (25-35) Mean Corpuscular Hemoglobin Concent 33 g/dL (31-37) Red Cell Distribution Width 19.3 % (11.5-14.5) Platelet Count 486 x10^3/uL (140-400) Neutrophils (%) (Auto) 88 % (31-73) Lymphocytes (%) (Auto) 5 % (24-48) Monocytes (%) (Auto) 5 % (0-9) Eosinophils (%) (Auto) 0 % (0-3) Basophils (%) (Auto) 1 % (0-3) Neutrophils # (Auto) 19.8 x10^3/uL (1.8-7.7) Lymphocytes # (Auto) 1.2 x10^3/uL (1.0-4.8) Monocytes # (Auto) 1.2 x10^3/uL (0.0-1.1) Eosinophils # (Auto) 0.0 x10^3/uL (0.0-0.7) Basophils # (Auto) 0.2 x10^3/uL (0.0-0.2) Sodium Level 141 mmol/L (136-145) Potassium Level 3.3 mmol/L (3.5-5.1) Chloride Level 103 mmol/L (98-107) Carbon Dioxide Level 27 mmol/L (21-32) Anion Gap 11 (6-14) Blood Urea Nitrogen 19 mg/dL (7-20) Creatinine 0.9 mg/dL (0.6-1.0) Estimated GFR (Cockcroft-Gault) 63.4 BUN/Creatinine Ratio 21 (6-20) Glucose Level 128 mg/dL (70-99) Calcium Level 8.9 mg/dL (8.5-10.1) Total Bilirubin 4.6 mg/dL (0.2-1.0) Aspartate Amino Transf (AST/SGOT) 131 U/L (15-37) Alanine Aminotransferase (ALT/SGPT) 191 U/L (14-59) Alkaline Phosphatase 325 U/L (46-116) Total Protein 6.7 g/dL (6.4-8.2) Albumin 2.9 g/dL (3.4-5.0) Albumin/Globulin Ratio 0.8 (1.0-1.7) Lipase 1514 U/L (73-393) Review of Systems Review of Systems: Complains of weakness and abdominal pain Assessment and Plan Assessmemt and Plan Gallstone pancreatitis Dilated common bile duct. MRCP can further evaluate as clinically warranted. Cholelithiasis. Hepatomegaly with increased echotexture, // steatosis. Obesity Transaminitis Diabetes Hypertension HX CVA Severe UTI Low lung volumes with patchy bibasilar opacities, most likely atelectasis. Plan ICU monitoring IV antibiotics IV fluids GI consult Bowel rest General surgery consult PRN pain meds and antiemetic meds Fall precautions DVT prophylaxis Incentive spirometry Trend labs Home meds Appreciate subspecialist input Comment Review of Relevant I have reviewed the following items shae (where applicable) has been applied. Medications: Current Medications Medications (Trade) Dose Ordered Sig/Perlita Route PRN Reason Start Time Stop Time Status Last Admin Dose Admin Fentanyl Citrate (Fentanyl 2ml Vial) 50 mcg 1X ONCE IVP 02/16/20 15:15 02/16/20 15:16 DC 02/16/20 15:11 Ceftriaxone Sodium (Rocephin) 1 gm 1X ONCE IVP 02/16/20 16:30 02/16/20 16:31 DC 02/16/20 17:02 Sodium Chloride 1,000 ml @ 1,000 mls/hr 1X ONCE IV 02/16/20 16:30 02/16/20 17:29 DC 02/16/20 17:02 Fentanyl Citrate (Fentanyl 2ml Vial) 50 mcg 1X ONCE IVP 02/16/20 17:15 02/16/20 17:16 DC 02/16/20 17:11 Sodium Chloride 1,000 ml @ 1,000 mls/hr 1X ONCE IV 02/16/20 17:15 02/16/20 18:14 DC 02/16/20 17:11 Fentanyl Citrate (Fentanyl 2ml Vial) 50 mcg PRN Q1HR PRN IV PAIN 02/16/20 17:15 02/17/20 17:14 02/17/20 08:30 Sodium Chloride 1,000 ml @ 150 mls/hr Q6H40M IV 02/16/20 17:14 02/17/20 17:13 02/16/20 18:33 Sodium Chloride 1,000 ml @ 100 mls/hr Q10H IV 02/16/20 17:43 02/17/20 02:45 Ondansetron HCl (Zofran) 4 mg PRN Q4HRS PRN IV NAUSEA/VOMITING 02/16/20 17:45 02/16/20 23:39 Enoxaparin Sodium (Lovenox 40mg Syringe) 40 mg BID SQ 02/16/20 21:00 02/17/20 08:18 DC 02/16/20 22:16 Piperacillin Sod/ Tazobactam Sod 3.375 gm/Sodium Chloride 50 ml @ 100 mls/hr Q6HRS IV 02/16/20 18:00 02/17/20 06:11 Justicifation of Admission Dx: Justifications for Admission: Justification of Admission Dx: Yes Chronic Renal Failure: Hypertension Sepsis: Infection MARITZA MARTIN III DO Feb 17, 2020 11:09
--- NOTE | 2020-02-17 11:23 | PDOC2 ---
GI CONSULT Reason For Consult: gallstones, pancreatitis HPI: HPI: 64 y/o female w/ h/o stroke - somewhat limited historian. Ill for a couple weeks w/ upper abd pain, vomiting, and diarrhea. Reviewed chart and d/w nurse - no IV access, plans to d/w IR. Denies reflux/heartburn, dysphagia, hematemesis, hematochezia, and melena. Summary list includes pantoprazole. No previous EGD or colonoscopy. Denies GB, liver, pancreas, and PUD history. PMH: PMH: HTN, DM, CVA hysterectomy FH: Family History: No pertinent hx Social History: Smoke: Quit ALCOHOL: none Drugs: None ROS: GEN: Denies fevers, chills, sweats HEENT: Denies blurred vision, sore throat CV: Denies chest pain RESP: Denies shortness of air, cough GI: Per HPI : Denies hematuria, dysuria ENDO: Denies weight changes NEURO: Denies confusion, dizziness MSK: +weakness SKIN: Denies jaundice, pruritus Vitals: Vitals: Vital Signs Date Time Temp Pulse Resp B/P (MAP) Pulse Ox O2 Delivery O2 Flow Rate FiO2 02/17/20 08:30 20 93 Room Air 02/17/20 04:00 98.1 115 147/76 (99) 98.1 Labs: Labs: Laboratory Tests Test 02/16/20 14:45 02/16/20 15:10 02/16/20 16:02 02/16/20 17:15 White Blood Count 28.8 x10^3/uL (4.0-11.0) Red Blood Count 5.36 x10^6/uL (3.50-5.40) Hemoglobin 15.9 g/dL (12.0-15.5) Hematocrit 46.7 % (36.0-47.0) Mean Corpuscular Volume 87 fL (79-100) Mean Corpuscular Hemoglobin 30 pg (25-35) Mean Corpuscular Hemoglobin Concent 34 g/dL (31-37) Red Cell Distribution Width 19.4 % (11.5-14.5) Platelet Count 622 x10^3/uL (140-400) Neutrophils (%) (Auto) 88 % (31-73) Lymphocytes (%) (Auto) 5 % (24-48) Monocytes (%) (Auto) 6 % (0-9) Eosinophils (%) (Auto) 0 % (0-3) Basophils (%) (Auto) 1 % (0-3) Neutrophils # (Auto) 25.3 x10^3/uL (1.8-7.7) Lymphocytes # (Auto) 1.5 x10^3/uL (1.0-4.8) Monocytes # (Auto) 1.8 x10^3/uL (0.0-1.1) Eosinophils # (Auto) 0.0 x10^3/uL (0.0-0.7) Basophils # (Auto) 0.1 x10^3/uL (0.0-0.2) Segmented Neutrophils % 85 % (35-66) Band Neutrophils % 1 % (0-9) Lymphocytes % 6 % (24-48) Monocytes % 4 % (0-10) Basophils % 1 % (0-3) Metamyelocytes % 3 % (0-0) Platelet Estimate Increased (ADEQUATE) Large Platelets Few Giant Platelets Occ Anisocytosis Slight Urine Collection Type Unknown Urine Color Red Urine Clarity Cloudy Urine pH 5.0 (<5.0-8.0) Urine Specific [place] >=1.030 (1.000-1.030) Urine Protein 30 mg/dL (NEG-TRACE) Urine Glucose (UA) Negative mg/dL (NEG) Urine Ketones (Stick) 15 mg/dL (NEG) Urine Blood Negative (NEG) Urine Nitrite Positive (NEG) Urine Bilirubin Large (NEG) Urine Urobilinogen Dipstick 2.0 mg/dL (0.2 mg/dL) Urine Leukocyte Esterase Moderate (NEG) Urine RBC 0 /HPF (0-2) Urine WBC >40 /HPF (0-4) Urine Squamous Epithelial Cells Few /LPF Urine Bacteria Many /HPF (0-FEW) Urine Opiates Screen Neg (NEG) Urine Methadone Screen Neg (NEG) Urine Barbiturates Neg (NEG) Urine Phencyclidine Screen Neg (NEG) Urine Amphetamine/Methamphetamine Neg (NEG) Urine Benzodiazepines Screen Neg (NEG) Urine Cocaine Screen Neg (NEG) Urine Cannabinoids Screen Neg (NEG) Urine Ethyl Alcohol Neg (NEG) Prothrombin Time 14.7 SEC (11.7-14.0) Prothromb Time International Ratio 1.2 (0.8-1.1) Sodium Level 138 mmol/L (136-145) Potassium Level 3.6 mmol/L (3.5-5.1) Chloride Level 99 mmol/L (98-107) Carbon Dioxide Level 25 mmol/L (21-32) Anion Gap 14 (6-14) Blood Urea Nitrogen 17 mg/dL (7-20) Creatinine 0.8 mg/dL (0.6-1.0) Estimated GFR (Cockcroft-Gault) 72.7 BUN/Creatinine Ratio 21 (6-20) Glucose Level 123 mg/dL (70-99) Lactic Acid Level 1.4 mmol/L (0.4-2.0) Calcium Level 9.4 mg/dL (8.5-10.1) Total Bilirubin 7.6 mg/dL (0.2-1.0) Aspartate Amino Transf (AST/SGOT) 208 U/L (15-37) Alanine Aminotransferase (ALT/SGPT) 249 U/L (14-59) Alkaline Phosphatase 380 U/L (46-116) Troponin I Quantitative < 0.017 ng/mL (0.000-0.055) Total Protein 6.9 g/dL (6.4-8.2) Albumin 3.5 g/dL (3.4-5.0) Albumin/Globulin Ratio 1.0 (1.0-1.7) Lipase 4679 U/L (73-393) Coronavirus (COVID-19)(PCR) Not detected (NOT DETECT.) Test 02/16/20 18:07 02/17/20 04:20 Hepatitis A IgM Antibody Nonreactive (Nonreactive) Hepatitis B Surface Antigen Nonreactive (Nonreactive) Hepatitis B Core IgM Antibody Nonreactive (Nonreactive) Hepatitis C IgG Antibody Nonreactive (Nonreactive) White Blood Count 22.5 x10^3/uL (4.0-11.0) Red Blood Count 5.24 x10^6/uL (3.50-5.40) Hemoglobin 15.2 g/dL (12.0-15.5) Hematocrit 46.1 % (36.0-47.0) Mean Corpuscular Volume 88 fL (79-100) Mean Corpuscular Hemoglobin 29 pg (25-35) Mean Corpuscular Hemoglobin Concent 33 g/dL (31-37) Red Cell Distribution Width 19.3 % (11.5-14.5) Platelet Count 486 x10^3/uL (140-400) Neutrophils (%) (Auto) 88 % (31-73) Lymphocytes (%) (Auto) 5 % (24-48) Monocytes (%) (Auto) 5 % (0-9) Eosinophils (%) (Auto) 0 % (0-3) Basophils (%) (Auto) 1 % (0-3) Neutrophils # (Auto) 19.8 x10^3/uL (1.8-7.7) Lymphocytes # (Auto) 1.2 x10^3/uL (1.0-4.8) Monocytes # (Auto) 1.2 x10^3/uL (0.0-1.1) Eosinophils # (Auto) 0.0 x10^3/uL (0.0-0.7) Basophils # (Auto) 0.2 x10^3/uL (0.0-0.2) Sodium Level 141 mmol/L (136-145) Potassium Level 3.3 mmol/L (3.5-5.1) Chloride Level 103 mmol/L (98-107) Carbon Dioxide Level 27 mmol/L (21-32) Anion Gap 11 (6-14) Blood Urea Nitrogen 19 mg/dL (7-20) Creatinine 0.9 mg/dL (0.6-1.0) Estimated GFR (Cockcroft-Gault) 63.4 BUN/Creatinine Ratio 21 (6-20) Glucose Level 128 mg/dL (70-99) Calcium Level 8.9 mg/dL (8.5-10.1) Total Bilirubin 4.6 mg/dL (0.2-1.0) Aspartate Amino Transf (AST/SGOT) 131 U/L (15-37) Alanine Aminotransferase (ALT/SGPT) 191 U/L (14-59) Alkaline Phosphatase 325 U/L (46-116) Total Protein 6.7 g/dL (6.4-8.2) Albumin 2.9 g/dL (3.4-5.0) Albumin/Globulin Ratio 0.8 (1.0-1.7) Lipase 1514 U/L (73-393) Allergies: Coded Allergies: No Known Drug Allergies (Unverified , 02/16/20) Medications: Current Medications Medications (Trade) Dose Ordered Sig/Perlita Route PRN Reason Start Time Stop Time Status Last Admin Dose Admin Fentanyl Citrate (Fentanyl 2ml Vial) 50 mcg 1X ONCE IVP 02/16/20 15:15 02/16/20 15:16 DC 02/16/20 15:11 Ceftriaxone Sodium (Rocephin) 1 gm 1X ONCE IVP 02/16/20 16:30 02/16/20 16:31 DC 02/16/20 17:02 Sodium Chloride 1,000 ml @ 1,000 mls/hr 1X ONCE IV 02/16/20 16:30 02/16/20 17:29 DC 02/16/20 17:02 Fentanyl Citrate (Fentanyl 2ml Vial) 50 mcg 1X ONCE IVP 02/16/20 17:15 02/16/20 17:16 DC 02/16/20 17:11 Sodium Chloride 1,000 ml @ 1,000 mls/hr 1X ONCE IV 02/16/20 17:15 02/16/20 18:14 DC 02/16/20 17:11 Fentanyl Citrate (Fentanyl 2ml Vial) 50 mcg PRN Q1HR PRN IV PAIN 02/16/20 17:15 02/17/20 17:14 02/17/20 08:30 Sodium Chloride 1,000 ml @ 150 mls/hr Q6H40M IV 02/16/20 17:14 02/17/20 17:13 02/16/20 18:33 Sodium Chloride 1,000 ml @ 100 mls/hr Q10H IV 02/16/20 17:43 02/17/20 02:45 Ondansetron HCl (Zofran) 4 mg PRN Q4HRS PRN IV NAUSEA/VOMITING 02/16/20 17:45 02/16/20 23:39 Enoxaparin Sodium (Lovenox 40mg Syringe) 40 mg BID SQ 02/16/20 21:00 02/17/20 08:18 DC 02/16/20 22:16 Piperacillin Sod/ Tazobactam Sod 3.375 gm/Sodium Chloride 50 ml @ 100 mls/hr Q6HRS IV 02/16/20 18:00 02/17/20 06:11 Imaging: Imaging: CT A/P 02/16/20 @ [facility] Lower chest: -linear bibasilar atelectasis. Abdomen and pelvis: -inflammatory changes adjacent to the pancreas and extending into the right paracolic recess with pancreatic edema most prominent at pancreatic head and neck -inflammatory changes also extend within the left upper abdomen with fluid along the posterior spleen, no peripancreatic fluid collections -mild duodenal wall thickening adjacent to the inflammatory changes - likely reactive -cholelithiasis, mildly dilated CBD and possible intrahepatic biliary ductal dilatation vs periportal edema -enlarged spleen measuring 15cm, left adrenal adenoma, left renal cyst, no hydronephrosis, decompresed urinary bladder w/ focus of gas -colonic diverticulosis, normal appendix, no evidence of bowel obstruction, atheromatous plaque throughout the nonaneurysmal abdominal aorta and branch vessels, likely reactive small retroperitoneal lymph nodes and periportal lymph nodes -prior hysterectomy Bones: -heterogeneous appearance of the pelvis and sacrum with hemorrhagic appearance of the thoracolumbar spine and proximal femurs, multilevel lumbar spondylosis CXR 02/16/20 Impression: 1. Low lung volumes with patchy bibasilar opacities, most likely atelectasis. RUQ US 02/16/20 Findings: Visualized pancreas is normal seen due to overlying bowel gas. Liver is increased in echogenicity. Right hepatic lobe measures 20.1 cm. Portal flow is hepatopedal. Cholelithiasis. No gallbladder wall thickening. No pericholecystic fluid. Dilated common bile duct measures up to 1.1 cm. The right kidney measures 11.8 x 4.9 x 5.5 cm. No hydronephrosis. IVC not well seen due to overlying bowel gas. IMPRESSION: 1. Dilated common bile duct. MRCP can further evaluate as clinically warranted. 2. Cholelithiasis. 3. Hepatomegaly with increased echotexture, may indicate steatosis. PE: GEN: NAD HEENT: Atraumatic, PERRL LUNGS: CTAB HEART: tachycardic ABD: quiet, soft, epigastric discomfort EXTREMITY: No edema SKIN: No rashes, no jaundice NEURO/PSYCH: awake and alert, struggles for words, right-sided weakness A/P: A/P: Gallstone pancreatitis, elevated LFTs w/ dilated CBD Vomiting, diarrhea Tachycardia, leukocytosis, UTI - cultures pending, antibiotics per Dr. Bravo CRC screen - none Diverticulosis Hepatic steatosis, splenomegaly H/o CVA, DM -- Continue NPO - hopefully IV issues can be addressed. 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 Monitor LFTs and for diarrhea, check stool studies if indicated. Surgery following - cholecystectomy eventually. KRYS ROBLEDO Feb 17, 2020 11:23
--- NOTE | 2020-02-17 15:39 | RAD ---
Procedure: Ultrasound-guided placement of left internal jugular central venous catheter02/17/2020 1:35 PM Clinical Indication: No functional venous access. Inability to obtain venous access. 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 Informed consent was obtained. A timeout procedure was performed. All elements of maximal sterile barrier technique including the use of a cap, mask, sterile gown, sterile gloves, large sterile sheet, appropriate hand hygiene, and 2% chlorhexidine for cutaneous antisepsis (or acceptable alternative antiseptic per current guidelines) were followed for this procedure. The patient was prepped and draped in the usual sterile fashion. Ultrasound interrogation of the right neck demonstrated appropriate vein for central venous access. The left internal jugular vein was found to be patent.. A 21-gauge micropuncture was then used to gain access to this vein under ultrasound guidance. A hard copy ultrasound image was recorded. A guidewire was advanced centrally. 5 Polish sheath was placed. Over a wire following dilatation, a triple-lumen central venous catheter was advanced centrally. Catheter was found to flush and aspirate normally. Follow-up chest radiograph demonstrates tip at the cavoatrial junction. Catheter secured in place and a sterile dressing was applied. No immediate complications were identified. Impression: Successful ultrasound-guided placement of left internal jugular triple-lumen central venous catheter
[2020-02-17] MEDS ORDERED: POTASSIUM CHLORIDE 20MEQ 100 ML IV ONE (15:45)
--- NOTE | 2020-02-17 16:10 | RAD ---
CHEST AP ONLY Clinical indications: Post central line placement COMPARISON: February 16, 2020. Findings: Left IJ central line has been placed and the tip is seen within the lower SVC at the junction with the right atrium. No pneumothorax or pleural effusion or lung consolidation or pulmonary edema is seen. Decreased lung volumes are again evident. The heart size and pulmonary vasculature and mediastinum and both bunny are stable. IMPRESSION: Placement of left IJ central line without pneumothorax. Electronically signed by: Manolo Daniels MD (02/17/2020 4:07 PM) [id number]
[2020-02-17] MEDS ORDERED: fentaNYL PF VIAL 100 MCG/2 ML VIAL IVP PRN (17:45)
[2020-02-17] MEDS ORDERED: DEXTROSE 50% 25 GM / 50ML DISP.SYRIN. IV PRN (19:00)
[2020-02-17] MEDS: MORPHINE SULFATE 2 MG/ML VIAL. IV PRN (19:15)
[2020-02-17] MEDS: ENOXAPARIN 40 MG/0.4 ML SYRINGE. SQ SCH (21:13)
[2020-02-18] MEDS: MORPHINE SULFATE 2 MG/ML VIAL. IV PRN ×2 (03:18→16:02)
[2020-02-18 03:50] VITALS: BP 154/70
[2020-02-18 04:55] LABS: BASO # 0.1 x10^3/uL (0.0-0.2); BASO % 1 % (0-3); EOS % 0 % (0-3); HEMATOCRIT 41.4 % (36.0-47.0); HEMOGLOBIN 13.4 g/dL (12.0-15.5); LYMPH # 1.2 x10^3/uL (1.0-4.8); LYMPH % 6 % (24-48); MEAN CORPUSCULAR HEMOGLOBIN 29 pg (25-35); MEAN CORPUSCULAR HGB CONC 32 g/dL (31-37); MEAN CORPUSCULAR VOLUME 89 fL (79-100); MONO # 1.2 x10^3/uL (0.0-1.1); MONO % 6 % (0-9); NEUT # 17.5 x10^3/uL (1.8-7.7); NEUT % 88 % (31-73); PLATELET COUNT 430 x10^3/uL (140-400); RED BLOOD COUNT 4.66 x10^6/uL (3.50-5.40); RED CELL DISTRIBUTION WIDTH 19.2 % (11.5-14.5)
[2020-02-18 05:27] LABS: ALBUMIN 2.6 g/dL (3.4-5.0); ALBUMIN/GLOBULIN RATIO 0.7 (1.0-1.7); CALCIUM 9.2 mg/dL (8.5-10.1); CREATININE 0.9 mg/dL (0.6-1.0); GFR 63.4; POTASSIUM 3.5 mmol/L (3.5-5.1); TOTAL PROTEIN 6.5 g/dL (6.4-8.2)
[2020-02-18] MEDS: PIPERACILLIN/TAZOBACTAM 3.375 GM in IV NORMAL SALINE 50ML 50 ML IV SCH ×4 (05:45→23:47)
[2020-02-18 07:00] VITALS: BP 156/73
[2020-02-18] MEDS: INSULIN LISPRO 300 UNITS/3 ML VIAL. SQ SCH ×3 (08:00→16:43)
[2020-02-18] MEDS: PANTOPRAZOLE IV PUSH 40 MG VIAL. IVP SCH (08:32)
[2020-02-18] MEDS: IV NORMAL SALINE 1000ML BAG 1,000 ML IV SCH ×2 (08:38→23:47)
[2020-02-18 11:00] VITALS: BP 148/76
[2020-02-18] MEDS ORDERED: IOHEXOL 300 MG/ML 100ML VIAL. IV ONE (11:00)
[2020-02-18] MEDS ORDERED: IOHEXOL 240 MG/ML 50ML VIAL. PO ONE (11:00)
--- NOTE | 2020-02-18 11:12 | PDOC ---
Subjective: Subjective: Abdomen feels better today. Would like to eat and drink. Objective: Vital Signs: Vital Signs Date Time Temp Pulse Resp B/P (MAP) Pulse Ox O2 Delivery O2 Flow Rate FiO2 02/18/20 08:00 Room Air 02/18/20 07:00 97.8 117 18 156/73 (100) 98 97.8 Labs: Laboratory Tests Test 02/18/20 03:30 02/18/20 08:25 White Blood Count 20.0 x10^3/uL Red Blood Count 4.66 x10^6/uL Hemoglobin 13.4 g/dL Hematocrit 41.4 % Mean Corpuscular Volume 89 fL Mean Corpuscular Hemoglobin 29 pg Mean Corpuscular Hemoglobin Concent 32 g/dL Red Cell Distribution Width 19.2 % Platelet Count 430 x10^3/uL Neutrophils (%) (Auto) 88 % Lymphocytes (%) (Auto) 6 % Monocytes (%) (Auto) 6 % Eosinophils (%) (Auto) 0 % Basophils (%) (Auto) 1 % Neutrophils # (Auto) 17.5 x10^3/uL Lymphocytes # (Auto) 1.2 x10^3/uL Monocytes # (Auto) 1.2 x10^3/uL Eosinophils # (Auto) 0.0 x10^3/uL Basophils # (Auto) 0.1 x10^3/uL Sodium Level 144 mmol/L Potassium Level 3.5 mmol/L Chloride Level 106 mmol/L Carbon Dioxide Level 27 mmol/L Anion Gap 11 Blood Urea Nitrogen 23 mg/dL Creatinine 0.9 mg/dL Estimated GFR (Cockcroft-Gault) 63.4 BUN/Creatinine Ratio 26 Glucose Level 86 mg/dL Calcium Level 9.2 mg/dL Total Bilirubin 2.0 mg/dL Aspartate Amino Transf (AST/SGOT) 41 U/L Alanine Aminotransferase (ALT/SGPT) 116 U/L Alkaline Phosphatase 255 U/L Total Protein 6.5 g/dL Albumin 2.6 g/dL Albumin/Globulin Ratio 0.7 Lipase 167 U/L Glucose (Fingerstick) 84 mg/dL BLOOD CULTURE Preliminary NO GROWTH AFTER 1 DAY Imaging: CXR 02/16 IMPRESSION: Placement of left IJ central line without pneumothorax. PE: GEN: NAD LUNGS: clear anteriorly HEART: tachycardic ABD: quiet BS, soft, non-tender NEURO/PSYCH: A & O 3, struggles to find words A/P: Gallstone pancreatitis, elevated LFTs w/ dilated CBD Leukocytosis, UTI -- WBC, LFTs, and lipase better. Tachycardia noted. Would continue NPO, follow surgery recs re: timing of cholecystectomy. Note orders to repeat CT. Justicifation of Admission Dx: Justifications for Admission: Justification of Admission Dx: Yes Chronic Renal Failure: Hypertension Sepsis: Infection KRYS ROBLEDO Feb 18, 2020 11:12
[2020-02-18] MEDS ORDERED: CONTRAST GIVEN. MC PRN (11:15)
--- NOTE | 2020-02-18 13:41 | PDOC ---
PROGRESS NOTES Chief Complaint Chief Complaint Gallstone pancreatitis Dilated common bile duct. MRCP can further evaluate as clinically warranted. Cholelithiasis. No surgical intervention planned at the present time. Hepatomegaly with increased echotexture, // steatosis. Obesity Transaminitis Diabetes Hypertension HX CVA Severe UTI Low lung volumes with patchy bibasilar opacities, most likely atelectasis. Plan: continue with pain management diet as per [employer] sales consultant. History of Present Illness History of Present Illness 02/17/2020 Patient seen and examined in the ICU She is trying to walk with physical therapy Her urine is extremely dark orange with cloudiness Chart reviewed Discussed with RN and physical therapist 02/18/2020 No acute events reported overnight, case discussed with nursing staff patient in no acute distress no complaints during my visit Vitals Vitals Vital Signs Date Time Temp Pulse Resp B/P (MAP) Pulse Ox O2 Delivery O2 Flow Rate FiO2 02/18/20 11:00 97.8 115 18 148/76 (100) 91 Room Air 97.8 Physical Exam General: Alert, Cooperative, mild distress, Other (Extremely weak can barely get out of the chair with the therapist helping her) Heart: Regular rate, Normal S1 Lungs: Clear Abdomen: Other (EPIGASTRIC TENDERNESS) Extremities: No cyanosis, No edema Skin: Other (JAUNDICED) Labs LABS Laboratory Tests Test 02/18/20 03:30 02/18/20 08:25 02/18/20 11:38 White Blood Count 20.0 x10^3/uL (4.0-11.0) Red Blood Count 4.66 x10^6/uL (3.50-5.40) Hemoglobin 13.4 g/dL (12.0-15.5) Hematocrit 41.4 % (36.0-47.0) Mean Corpuscular Volume 89 fL (79-100) Mean Corpuscular Hemoglobin 29 pg (25-35) Mean Corpuscular Hemoglobin Concent 32 g/dL (31-37) Red Cell Distribution Width 19.2 % (11.5-14.5) Platelet Count 430 x10^3/uL (140-400) Neutrophils (%) (Auto) 88 % (31-73) Lymphocytes (%) (Auto) 6 % (24-48) Monocytes (%) (Auto) 6 % (0-9) Eosinophils (%) (Auto) 0 % (0-3) Basophils (%) (Auto) 1 % (0-3) Neutrophils # (Auto) 17.5 x10^3/uL (1.8-7.7) Lymphocytes # (Auto) 1.2 x10^3/uL (1.0-4.8) Monocytes # (Auto) 1.2 x10^3/uL (0.0-1.1) Eosinophils # (Auto) 0.0 x10^3/uL (0.0-0.7) Basophils # (Auto) 0.1 x10^3/uL (0.0-0.2) Sodium Level 144 mmol/L (136-145) Potassium Level 3.5 mmol/L (3.5-5.1) Chloride Level 106 mmol/L (98-107) Carbon Dioxide Level 27 mmol/L (21-32) Anion Gap 11 (6-14) Blood Urea Nitrogen 23 mg/dL (7-20) Creatinine 0.9 mg/dL (0.6-1.0) Estimated GFR (Cockcroft-Gault) 63.4 BUN/Creatinine Ratio 26 (6-20) Glucose Level 86 mg/dL (70-99) Calcium Level 9.2 mg/dL (8.5-10.1) Total Bilirubin 2.0 mg/dL (0.2-1.0) Aspartate Amino Transf (AST/SGOT) 41 U/L (15-37) Alanine Aminotransferase (ALT/SGPT) 116 U/L (14-59) Alkaline Phosphatase 255 U/L (46-116) Total Protein 6.5 g/dL (6.4-8.2) Albumin 2.6 g/dL (3.4-5.0) Albumin/Globulin Ratio 0.7 (1.0-1.7) Lipase 167 U/L (73-393) Glucose (Fingerstick) 84 mg/dL (70-99) 78 mg/dL (70-99) Assessment and Plan Assessmemt and Plan Problems Medical Problems: (1) Pancreatitis Status: Acute (2) Suspected 2019 novel coronavirus infection Status: Acute (3) UTI (urinary tract infection) Status: Acute Comment Review of Relevant I have reviewed the following items shae (where applicable) has been applied. Labs Laboratory Tests Test 02/16/20 14:45 02/16/20 15:10 02/16/20 16:02 02/16/20 17:15 White Blood Count 28.8 x10^3/uL (4.0-11.0) Red Blood Count 5.36 x10^6/uL (3.50-5.40) Hemoglobin 15.9 g/dL (12.0-15.5) Hematocrit 46.7 % (36.0-47.0) Mean Corpuscular Volume 87 fL (79-100) Mean Corpuscular Hemoglobin 30 pg (25-35) Mean Corpuscular Hemoglobin Concent 34 g/dL (31-37) Red Cell Distribution Width 19.4 % (11.5-14.5) Platelet Count 622 x10^3/uL (140-400) Neutrophils (%) (Auto) 88 % (31-73) Lymphocytes (%) (Auto) 5 % (24-48) Monocytes (%) (Auto) 6 % (0-9) Eosinophils (%) (Auto) 0 % (0-3) Basophils (%) (Auto) 1 % (0-3) Neutrophils # (Auto) 25.3 x10^3/uL (1.8-7.7) Lymphocytes # (Auto) 1.5 x10^3/uL (1.0-4.8) Monocytes # (Auto) 1.8 x10^3/uL (0.0-1.1) Eosinophils # (Auto) 0.0 x10^3/uL (0.0-0.7) Basophils # (Auto) 0.1 x10^3/uL (0.0-0.2) Segmented Neutrophils % 85 % (35-66) Band Neutrophils % 1 % (0-9) Lymphocytes % 6 % (24-48) Monocytes % 4 % (0-10) Basophils % 1 % (0-3) Metamyelocytes % 3 % (0-0) Platelet Estimate Increased (ADEQUATE) Large Platelets Few Giant Platelets Occ Anisocytosis Slight Urine Collection Type Unknown Urine Color Red Urine Clarity Cloudy Urine pH 5.0 (<5.0-8.0) Urine Specific Braman >=1.030 (1.000-1.030) Urine Protein 30 mg/dL (NEG-TRACE) Urine Glucose (UA) Negative mg/dL (NEG) Urine Ketones (Stick) 15 mg/dL (NEG) Urine Blood Negative (NEG) Urine Nitrite Positive (NEG) Urine Bilirubin Large (NEG) Urine Urobilinogen Dipstick 2.0 mg/dL (0.2 mg/dL) Urine Leukocyte Esterase Moderate (NEG) Urine RBC 0 /HPF (0-2) Urine WBC >40 /HPF (0-4) Urine Squamous Epithelial Cells Few /LPF Urine Bacteria Many /HPF (0-FEW) Urine Opiates Screen Neg (NEG) Urine Methadone Screen Neg (NEG) Urine Barbiturates Neg (NEG) Urine Phencyclidine Screen Neg (NEG) Urine Amphetamine/Methamphetamine Neg (NEG) Urine Benzodiazepines Screen Neg (NEG) Urine Cocaine Screen Neg (NEG) Urine Cannabinoids Screen Neg (NEG) Urine Ethyl Alcohol Neg (NEG) Prothrombin Time 14.7 SEC (11.7-14.0) Prothromb Time International Ratio 1.2 (0.8-1.1) Sodium Level 138 mmol/L (136-145) Potassium Level 3.6 mmol/L (3.5-5.1) Chloride Level 99 mmol/L (98-107) Carbon Dioxide Level 25 mmol/L (21-32) Anion Gap 14 (6-14) Blood Urea Nitrogen 17 mg/dL (7-20) Creatinine 0.8 mg/dL (0.6-1.0) Estimated GFR (Cockcroft-Gault) 72.7 BUN/Creatinine Ratio 21 (6-20) Glucose Level 123 mg/dL (70-99) Lactic Acid Level 1.4 mmol/L (0.4-2.0) Calcium Level 9.4 mg/dL (8.5-10.1) Total Bilirubin 7.6 mg/dL (0.2-1.0) Aspartate Amino Transf (AST/SGOT) 208 U/L (15-37) Alanine Aminotransferase (ALT/SGPT) 249 U/L (14-59) Alkaline Phosphatase 380 U/L (46-116) Troponin I Quantitative < 0.017 ng/mL (0.000-0.055) Total Protein 6.9 g/dL (6.4-8.2) Albumin 3.5 g/dL (3.4-5.0) Albumin/Globulin Ratio 1.0 (1.0-1.7) Lipase 4679 U/L (73-393) Coronavirus (COVID-19)(PCR) Not detected (NOT DETECT.) Test 02/16/20 18:07 02/17/20 04:20 02/18/20 03:30 02/18/20 08:25 Hepatitis A IgM Antibody Nonreactive (Nonreactive) Hepatitis B Surface Antigen Nonreactive (Nonreactive) Hepatitis B Core IgM Antibody Nonreactive (Nonreactive) Hepatitis C IgG Antibody Nonreactive (Nonreactive) White Blood Count 22.5 x10^3/uL (4.0-11.0) 20.0 x10^3/uL (4.0-11.0) Red Blood Count 5.24 x10^6/uL (3.50-5.40) 4.66 x10^6/uL (3.50-5.40) Hemoglobin 15.2 g/dL (12.0-15.5) 13.4 g/dL (12.0-15.5) Hematocrit 46.1 % (36.0-47.0) 41.4 % (36.0-47.0) Mean Corpuscular Volume 88 fL (79-100) 89 fL (79-100) Mean Corpuscular Hemoglobin 29 pg (25-35) 29 pg (25-35) Mean Corpuscular Hemoglobin Concent 33 g/dL (31-37) 32 g/dL (31-37) Red Cell Distribution Width 19.3 % (11.5-14.5) 19.2 % (11.5-14.5) Platelet Count 486 x10^3/uL (140-400) 430 x10^3/uL (140-400) Neutrophils (%) (Auto) 88 % (31-73) 88 % (31-73) Lymphocytes (%) (Auto) 5 % (24-48) 6 % (24-48) Monocytes (%) (Auto) 5 % (0-9) 6 % (0-9) Eosinophils (%) (Auto) 0 % (0-3) 0 % (0-3) Basophils (%) (Auto) 1 % (0-3) 1 % (0-3) Neutrophils # (Auto) 19.8 x10^3/uL (1.8-7.7) 17.5 x10^3/uL (1.8-7.7) Lymphocytes # (Auto) 1.2 x10^3/uL (1.0-4.8) 1.2 x10^3/uL (1.0-4.8) Monocytes # (Auto) 1.2 x10^3/uL (0.0-1.1) 1.2 x10^3/uL (0.0-1.1) Eosinophils # (Auto) 0.0 x10^3/uL (0.0-0.7) 0.0 x10^3/uL (0.0-0.7) Basophils # (Auto) 0.2 x10^3/uL (0.0-0.2) 0.1 x10^3/uL (0.0-0.2) Sodium Level 141 mmol/L (136-145) 144 mmol/L (136-145) Potassium Level 3.3 mmol/L (3.5-5.1) 3.5 mmol/L (3.5-5.1) Chloride Level 103 mmol/L (98-107) 106 mmol/L (98-107) Carbon Dioxide Level 27 mmol/L (21-32) 27 mmol/L (21-32) Anion Gap 11 (6-14) 11 (6-14) Blood Urea Nitrogen 19 mg/dL (7-20) 23 mg/dL (7-20) Creatinine 0.9 mg/dL (0.6-1.0) 0.9 mg/dL (0.6-1.0) Estimated GFR (Cockcroft-Gault) 63.4 63.4 BUN/Creatinine Ratio 21 (6-20) 26 (6-20) Glucose Level 128 mg/dL (70-99) 86 mg/dL (70-99) Calcium Level 8.9 mg/dL (8.5-10.1) 9.2 mg/dL (8.5-10.1) Total Bilirubin 4.6 mg/dL (0.2-1.0) 2.0 mg/dL (0.2-1.0) Aspartate Amino Transf (AST/SGOT) 131 U/L (15-37) 41 U/L (15-37) Alanine Aminotransferase (ALT/SGPT) 191 U/L (14-59) 116 U/L (14-59) Alkaline Phosphatase 325 U/L (46-116) 255 U/L (46-116) Total Protein 6.7 g/dL (6.4-8.2) 6.5 g/dL (6.4-8.2) Albumin 2.9 g/dL (3.4-5.0) 2.6 g/dL (3.4-5.0) Albumin/Globulin Ratio 0.8 (1.0-1.7) 0.7 (1.0-1.7) Lipase 1514 U/L (73-393) 167 U/L (73-393) Glucose (Fingerstick) 84 mg/dL (70-99) Test 02/18/20 11:38 Glucose (Fingerstick) 78 mg/dL (70-99) Laboratory Tests Test 02/18/20 03:30 02/18/20 08:25 02/18/20 11:38 White Blood Count 20.0 x10^3/uL (4.0-11.0) Red Blood Count 4.66 x10^6/uL (3.50-5.40) Hemoglobin 13.4 g/dL (12.0-15.5) Hematocrit 41.4 % (36.0-47.0) Mean Corpuscular Volume 89 fL (79-100) Mean Corpuscular Hemoglobin 29 pg (25-35) Mean Corpuscular Hemoglobin Concent 32 g/dL (31-37) Red Cell Distribution Width 19.2 % (11.5-14.5) Platelet Count 430 x10^3/uL (140-400) Neutrophils (%) (Auto) 88 % (31-73) Lymphocytes (%) (Auto) 6 % (24-48) Monocytes (%) (Auto) 6 % (0-9) Eosinophils (%) (Auto) 0 % (0-3) Basophils (%) (Auto) 1 % (0-3) Neutrophils # (Auto) 17.5 x10^3/uL (1.8-7.7) Lymphocytes # (Auto) 1.2 x10^3/uL (1.0-4.8) Monocytes # (Auto) 1.2 x10^3/uL (0.0-1.1) Eosinophils # (Auto) 0.0 x10^3/uL (0.0-0.7) Basophils # (Auto) 0.1 x10^3/uL (0.0-0.2) Sodium Level 144 mmol/L (136-145) Potassium Level 3.5 mmol/L (3.5-5.1) Chloride Level 106 mmol/L (98-107) Carbon Dioxide Level 27 mmol/L (21-32) Anion Gap 11 (6-14) Blood Urea Nitrogen 23 mg/dL (7-20) Creatinine 0.9 mg/dL (0.6-1.0) Estimated GFR (Cockcroft-Gault) 63.4 BUN/Creatinine Ratio 26 (6-20) Glucose Level 86 mg/dL (70-99) Calcium Level 9.2 mg/dL (8.5-10.1) Total Bilirubin 2.0 mg/dL (0.2-1.0) Aspartate Amino Transf (AST/SGOT) 41 U/L (15-37) Alanine Aminotransferase (ALT/SGPT) 116 U/L (14-59) Alkaline Phosphatase 255 U/L (46-116) Total Protein 6.5 g/dL (6.4-8.2) Albumin 2.6 g/dL (3.4-5.0) Albumin/Globulin Ratio 0.7 (1.0-1.7) Lipase 167 U/L (73-393) Glucose (Fingerstick) 84 mg/dL (70-99) 78 mg/dL (70-99) Microbiology 02/16/20 Blood Culture - Preliminary, Resulted NO GROWTH AFTER 1 DAY 02/16/20 Urine Culture - Preliminary, Resulted Medications Current Medications Fentanyl Citrate (Fentanyl 2ml Vial) 50 mcg 1X ONCE IVP Last administered on 02/16/20at 15:11; Start 02/16/20 at 15:15; Stop 02/16/20 at 15:16; Status DC Ceftriaxone Sodium (Rocephin) 1 gm 1X ONCE IVP Last administered on 02/16/20at 17:02; Start 02/16/20 at 16:30; Stop 02/16/20 at 16:31; Status DC Sodium Chloride 1,000 ml @ 1,000 mls/hr 1X ONCE IV Last administered on 02/16/20at 17:02; Start 02/16/20 at 16:30; Stop 02/16/20 at 17:29; Status DC Fentanyl Citrate (Fentanyl 2ml Vial) 50 mcg 1X ONCE IVP Last administered on 02/16/20at 17:11; Start 02/16/20 at 17:15; Stop 02/16/20 at 17:16; Status DC Sodium Chloride 1,000 ml @ 1,000 mls/hr 1X ONCE IV Last administered on 02/16/20at 17:11; Start 02/16/20 at 17:15; Stop 02/16/20 at 18:14; Status DC Ondansetron HCl (Zofran) 4 mg PRN Q8HRS PRN IV NAUSEA/VOMITING; Start 02/16/20 at 17:15; Stop 02/17/20 at 17:14; Status Cancel Fentanyl Citrate (Fentanyl 2ml Vial) 50 mcg PRN Q1HR PRN IV PAIN Last administered on 02/17/20at 15:55; Start 02/16/20 at 17:15; Stop 02/17/20 at 17:27; Status DC Sodium Chloride 1,000 ml @ 150 mls/hr Q6H40M IV Last administered on 02/16/20at 18:33; Start 02/16/20 at 17:14; Stop 02/17/20 at 17:27; Status DC Hydralazine HCl (Apresoline Inj) 10 mg PRN Q4HRS PRN IVP ELEVATED BP, SEE COMMENTS; Start 02/16/20 at 17:45 Sodium Chloride (Normal Saline Flush) 3 ml QSHIFT PRN IV AFTER MEDS AND BLOOD DRAWS; Start 02/16/20 at 17:45 Sodium Chloride 1,000 ml @ 100 mls/hr Q10H IV Last administered on 02/18/20at 08:38; Start 02/16/20 at 17:43 Ondansetron HCl (Zofran) 4 mg PRN Q4HRS PRN IV NAUSEA/VOMITING Last administered on 02/16/20at 23:39; Start 02/16/20 at 17:45 Acetaminophen (Tylenol Supp) 650 mg PRN Q4HRS PRN MN TEMP OVER 100.4F OR MILD PAIN; Start 02/16/20 at 17:45 Sodium Monofluorophosphate (Fleet Adult) 133 ml PRN DAILY PRN MN CONSTIPATION; Start 02/16/20 at 17:45 Docusate Sodium (Colace) 100 mg PRN BID PRN PO HARD STOOLS; Start 02/16/20 at 17:45 Albuterol Sulfate (Ventolin Neb Soln) 2.5 mg PRN Q4HRS PRN NEB SHORTNESS OF BREATH; Start 02/16/20 at 17:45 Guaifenesin (Robitussin) 200 mg PRN Q4HRS PRN PO COUGH; Start 02/16/20 at 17:45 Lorazepam (Ativan) 0.5 mg PRN Q4HRS PRN PO ANXIETY / AGITATION; Start 02/16/20 at 17:45 Enoxaparin Sodium (Lovenox 40mg Syringe) 40 mg BID SQ Last administered on 02/16/20at 22:16; Start 02/16/20 at 21:00; Stop 02/17/20 at 08:18; Status DC Piperacillin Sod/ Tazobactam Sod 3.375 gm/Sodium Chloride 50 ml @ 100 mls/hr Q6HRS IV Last administered on 02/18/20at 12:27; Start 02/16/20 at 18:00 Enoxaparin Sodium (Lovenox 40mg Syringe) 40 mg Q24H SQ Last administered on 02/17/20at 21:13; Start 02/17/20 at 21:00 Pantoprazole Sodium (PROTONIX VIAL for IV PUSH) 40 mg DAILYAC IVP Last administered on 02/18/20at 08:32; Start 02/18/20 at 07:30 Potassium Chloride/Water 100 ml @ 50 mls/hr 1X ONCE IV Last administered on 02/17/20at 16:30; Start 02/17/20 at 15:45; Stop 02/17/20 at 17:44; Status DC Fentanyl Citrate (Fentanyl 2ml Vial) 50 mcg PRN Q1HR PRN IVP PAIN Last administered on 02/17/20at 17:50; Start 02/17/20 at 17:45 Morphine Sulfate (Morphine Sulfate) 4 mg PRN Q2HR PRN IV MODERATE PAIN Last administered on 02/18/20at 03:18; Start 02/17/20 at 19:00 Morphine Sulfate (Morphine Sulfate) 6 mg PRN Q2HR PRN IV SEVERE PAIN Last administered on 02/17/20at 19:15; Start 02/17/20 at 19:00 Insulin Human Lispro (HumaLOG) 0-5 UNITS TIDWMEALS SQ ; Start 02/18/20 at 08:00 Dextrose (Dextrose 50%-Water Syringe) 12.5 gm PRN Q15MIN PRN IV SEE COMMENTS; Start 02/17/20 at 19:00 Iohexol (Omnipaque 300 Mg/ml) 75 ml 1X ONCE IV ; Start 02/18/20 at 11:00; Stop 02/18/20 at 11:01; Status DC Iohexol (Omnipaque 240 Mg/ml) 50 ml 1X ONCE PO Last administered on 02/18/20at 11:10; Start 02/18/20 at 11:00; Stop 02/18/20 at 11:01; Status DC Info (CONTRAST GIVEN -- Rx MONITORING) 1 each PRN DAILY PRN MC SEE COMMENTS; Start 02/18/20 at 11:15; Stop 02/20/20 at 11:14 Active Scripts Active Reported Crestor (Rosuvastatin Calcium) 5 Mg Tablet 10 Mg PO HS Pantoprazole Sodium (Pantoprazole Sodium) 40 Mg Tablet.dr 40 Mg PO DAILYAC Benazepril Hcl 10 Mg Tablet 10 Mg PO DAILY Lopressor (Metoprolol Tartrate) 100 Mg Tablet 1 Tab PO DAILY 30 Days Citalopram Hbr (Citalopram Hydrobromide) 20 Mg Tablet 1 Tab PO DAILY Vitals/I & O Vital Sign - Last 24 Hours 02/17/20 02/17/20 02/17/20 02/17/20 15:55 19:45 20:15 23:17 Temp 98.1 97.6 98.1 97.6 Pulse 125 114 Resp 20 16 16 B/P (MAP) 139/64 (89) 135/60 (85) Pulse Ox 96 91 95 O2 Delivery Room Air Room Air Room Air Room Air 02/18/20 02/18/20 02/18/20 02/18/20 03:50 07:00 08:00 11:00 Temp 97.9 97.8 97.8 97.9 97.8 97.8 Pulse 112 117 115 Resp 16 18 18 B/P (MAP) 154/70 (98) 156/73 (100) 148/76 (100) Pulse Ox 92 98 91 O2 Delivery Nasal Cannula Room Air Room Air Room Air Intake and Output 02/17/20 02/17/20 02/18/20 15:00 23:00 07:00 Intake Total 0 ml 0 ml Output Total 320 ml 25 ml 500 ml Balance -320 ml -25 ml -500 ml [email or web address] MD Feb 18, 2020 13:41
--- NOTE | 2020-02-18 14:39 | PDOC ---
PROGRESS NOTES Subjective Subjective pt appears comfortable Objective Objective Vital Signs Date Time Temp Pulse Resp B/P (MAP) Pulse Ox O2 Delivery O2 Flow Rate FiO2 02/18/20 11:00 97.8 115 18 148/76 (100) 91 Room Air 97.8 Intake and Output 02/18/20 07:00 Intake Total 0 ml Output Total 845 ml Balance -845 ml Intake Oral 0 ml Output Urine Total 845 ml Physical Exam Abdomen: Soft (tender in RUQ and upper mid abdomen with palpation) Heart: Regular rate Extremities: No clubbing, No cyanosis General: Alert Lungs: Clear to auscultation Assessment Assessment Problems Medical Problems: (1) Pancreatitis Status: Acute (2) Suspected 2019 novel coronavirus infection Status: Acute (3) UTI (urinary tract infection) Status: Acute Plan Plan of Care Gallstone pancreatitis, remains tender, will check CT scan to FU extent of pancreatitis Comment Review of Relevant I have reviewed the following items shae (where applicable) has been applied. Labs Laboratory Tests Test 02/16/20 14:45 02/16/20 15:10 02/16/20 16:02 02/16/20 17:15 White Blood Count 28.8 x10^3/uL (4.0-11.0) Red Blood Count 5.36 x10^6/uL (3.50-5.40) Hemoglobin 15.9 g/dL (12.0-15.5) Hematocrit 46.7 % (36.0-47.0) Mean Corpuscular Volume 87 fL (79-100) Mean Corpuscular Hemoglobin 30 pg (25-35) Mean Corpuscular Hemoglobin Concent 34 g/dL (31-37) Red Cell Distribution Width 19.4 % (11.5-14.5) Platelet Count 622 x10^3/uL (140-400) Neutrophils (%) (Auto) 88 % (31-73) Lymphocytes (%) (Auto) 5 % (24-48) Monocytes (%) (Auto) 6 % (0-9) Eosinophils (%) (Auto) 0 % (0-3) Basophils (%) (Auto) 1 % (0-3) Neutrophils # (Auto) 25.3 x10^3/uL (1.8-7.7) Lymphocytes # (Auto) 1.5 x10^3/uL (1.0-4.8) Monocytes # (Auto) 1.8 x10^3/uL (0.0-1.1) Eosinophils # (Auto) 0.0 x10^3/uL (0.0-0.7) Basophils # (Auto) 0.1 x10^3/uL (0.0-0.2) Segmented Neutrophils % 85 % (35-66) Band Neutrophils % 1 % (0-9) Lymphocytes % 6 % (24-48) Monocytes % 4 % (0-10) Basophils % 1 % (0-3) Metamyelocytes % 3 % (0-0) Platelet Estimate Increased (ADEQUATE) Large Platelets Few Giant Platelets Occ Anisocytosis Slight Urine Collection Type Unknown Urine Color Red Urine Clarity Cloudy Urine pH 5.0 (<5.0-8.0) Urine Specific [place] >=1.030 (1.000-1.030) Urine Protein 30 mg/dL (NEG-TRACE) Urine Glucose (UA) Negative mg/dL (NEG) Urine Ketones (Stick) 15 mg/dL (NEG) Urine Blood Negative (NEG) Urine Nitrite Positive (NEG) Urine Bilirubin Large (NEG) Urine Urobilinogen Dipstick 2.0 mg/dL (0.2 mg/dL) Urine Leukocyte Esterase Moderate (NEG) Urine RBC 0 /HPF (0-2) Urine WBC >40 /HPF (0-4) Urine Squamous Epithelial Cells Few /LPF Urine Bacteria Many /HPF (0-FEW) Urine Opiates Screen Neg (NEG) Urine Methadone Screen Neg (NEG) Urine Barbiturates Neg (NEG) Urine Phencyclidine Screen Neg (NEG) Urine Amphetamine/Methamphetamine Neg (NEG) Urine Benzodiazepines Screen Neg (NEG) Urine Cocaine Screen Neg (NEG) Urine Cannabinoids Screen Neg (NEG) Urine Ethyl Alcohol Neg (NEG) Prothrombin Time 14.7 SEC (11.7-14.0) Prothromb Time International Ratio 1.2 (0.8-1.1) Sodium Level 138 mmol/L (136-145) Potassium Level 3.6 mmol/L (3.5-5.1) Chloride Level 99 mmol/L (98-107) Carbon Dioxide Level 25 mmol/L (21-32) Anion Gap 14 (6-14) Blood Urea Nitrogen 17 mg/dL (7-20) Creatinine 0.8 mg/dL (0.6-1.0) Estimated GFR (Cockcroft-Gault) 72.7 BUN/Creatinine Ratio 21 (-20) Glucose Level 123 mg/dL (70-99) Lactic Acid Level 1.4 mmol/L (0.4-2.0) Calcium Level 9.4 mg/dL (8.5-10.1) Total Bilirubin 7.6 mg/dL (0.2-1.0) Aspartate Amino Transf (AST/SGOT) 208 U/L (15-37) Alanine Aminotransferase (ALT/SGPT) 249 U/L (14-59) Alkaline Phosphatase 380 U/L (46-116) Troponin I Quantitative < 0.017 ng/mL (0.000-0.055) Total Protein 6.9 g/dL (6.4-8.2) Albumin 3.5 g/dL (3.4-5.0) Albumin/Globulin Ratio 1.0 (1.0-1.7) Lipase 4679 U/L (73-393) Coronavirus (COVID-19)(PCR) Not detected (NOT DETECT.) Test 02/16/20 18:07 02/17/20 04:20 02/18/20 03:30 02/18/20 08:25 Hepatitis A IgM Antibody Nonreactive (Nonreactive) Hepatitis B Surface Antigen Nonreactive (Nonreactive) Hepatitis B Core IgM Antibody Nonreactive (Nonreactive) Hepatitis C IgG Antibody Nonreactive (Nonreactive) White Blood Count 22.5 x10^3/uL (4.0-11.0) 20.0 x10^3/uL (4.0-11.0) Red Blood Count 5.24 x10^6/uL (3.50-5.40) 4.66 x10^6/uL (3.50-5.40) Hemoglobin 15.2 g/dL (12.0-15.5) 13.4 g/dL (12.0-15.5) Hematocrit 46.1 % (36.0-47.0) 41.4 % (36.0-47.0) Mean Corpuscular Volume 88 fL (79-100) 89 fL (79-100) Mean Corpuscular Hemoglobin 29 pg (25-35) 29 pg (25-35) Mean Corpuscular Hemoglobin Concent 33 g/dL (31-37) 32 g/dL (31-37) Red Cell Distribution Width 19.3 % (11.5-14.5) 19.2 % (11.5-14.5) Platelet Count 486 x10^3/uL (140-400) 430 x10^3/uL (140-400) Neutrophils (%) (Auto) 88 % (31-73) 88 % (31-73) Lymphocytes (%) (Auto) 5 % (24-48) 6 % (24-48) Monocytes (%) (Auto) 5 % (0-9) 6 % (0-9) Eosinophils (%) (Auto) 0 % (0-3) 0 % (0-3) Basophils (%) (Auto) 1 % (0-3) 1 % (0-3) Neutrophils # (Auto) 19.8 x10^3/uL (1.8-7.7) 17.5 x10^3/uL (1.8-7.7) Lymphocytes # (Auto) 1.2 x10^3/uL (1.0-4.8) 1.2 x10^3/uL (1.0-4.8) Monocytes # (Auto) 1.2 x10^3/uL (0.0-1.1) 1.2 x10^3/uL (0.0-1.1) Eosinophils # (Auto) 0.0 x10^3/uL (0.0-0.7) 0.0 x10^3/uL (0.0-0.7) Basophils # (Auto) 0.2 x10^3/uL (0.0-0.2) 0.1 x10^3/uL (0.0-0.2) Sodium Level 141 mmol/L (136-145) 144 mmol/L (136-145) Potassium Level 3.3 mmol/L (3.5-5.1) 3.5 mmol/L (3.5-5.1) Chloride Level 103 mmol/L (98-107) 106 mmol/L (98-107) Carbon Dioxide Level 27 mmol/L (21-32) 27 mmol/L (21-32) Anion Gap 11 (6-14) 11 (6-14) Blood Urea Nitrogen 19 mg/dL (7-20) 23 mg/dL (7-20) Creatinine 0.9 mg/dL (0.6-1.0) 0.9 mg/dL (0.6-1.0) Estimated GFR (Cockcroft-Gault) 63.4 63.4 BUN/Creatinine Ratio 21 (6-20) 26 (6-20) Glucose Level 128 mg/dL (70-99) 86 mg/dL (70-99) Calcium Level 8.9 mg/dL (8.5-10.1) 9.2 mg/dL (8.5-10.1) Total Bilirubin 4.6 mg/dL (0.2-1.0) 2.0 mg/dL (0.2-1.0) Aspartate Amino Transf (AST/SGOT) 131 U/L (15-37) 41 U/L (15-37) Alanine Aminotransferase (ALT/SGPT) 191 U/L (14-59) 116 U/L (14-59) Alkaline Phosphatase 325 U/L (46-116) 255 U/L (46-116) Total Protein 6.7 g/dL (6.4-8.2) 6.5 g/dL (6.4-8.2) Albumin 2.9 g/dL (3.4-5.0) 2.6 g/dL (3.4-5.0) Albumin/Globulin Ratio 0.8 (1.0-1.7) 0.7 (1.0-1.7) Lipase 1514 U/L (73-393) 167 U/L (73-393) Glucose (Fingerstick) 84 mg/dL (70-99) Test 02/18/20 11:38 Glucose (Fingerstick) 78 mg/dL (70-99) Laboratory Tests Test 02/18/20 03:30 02/18/20 08:25 02/18/20 11:38 White Blood Count 20.0 x10^3/uL (4.0-11.0) Red Blood Count 4.66 x10^6/uL (3.50-5.40) Hemoglobin 13.4 g/dL (12.0-15.5) Hematocrit 41.4 % (36.0-47.0) Mean Corpuscular Volume 89 fL (79-100) Mean Corpuscular Hemoglobin 29 pg (25-35) Mean Corpuscular Hemoglobin Concent 32 g/dL (31-37) Red Cell Distribution Width 19.2 % (11.5-14.5) Platelet Count 430 x10^3/uL (140-400) Neutrophils (%) (Auto) 88 % (31-73) Lymphocytes (%) (Auto) 6 % (24-48) Monocytes (%) (Auto) 6 % (0-9) Eosinophils (%) (Auto) 0 % (0-3) Basophils (%) (Auto) 1 % (0-3) Neutrophils # (Auto) 17.5 x10^3/uL (1.8-7.7) Lymphocytes # (Auto) 1.2 x10^3/uL (1.0-4.8) Monocytes # (Auto) 1.2 x10^3/uL (0.0-1.1) Eosinophils # (Auto) 0.0 x10^3/uL (0.0-0.7) Basophils # (Auto) 0.1 x10^3/uL (0.0-0.2) Sodium Level 144 mmol/L (136-145) Potassium Level 3.5 mmol/L (3.5-5.1) Chloride Level 106 mmol/L (98-107) Carbon Dioxide Level 27 mmol/L (21-32) Anion Gap 11 (6-14) Blood Urea Nitrogen 23 mg/dL (7-20) Creatinine 0.9 mg/dL (0.6-1.0) Estimated GFR (Cockcroft-Gault) 63.4 BUN/Creatinine Ratio 26 (6-20) Glucose Level 86 mg/dL (70-99) Calcium Level 9.2 mg/dL (8.5-10.1) Total Bilirubin 2.0 mg/dL (0.2-1.0) Aspartate Amino Transf (AST/SGOT) 41 U/L (15-37) Alanine Aminotransferase (ALT/SGPT) 116 U/L (14-59) Alkaline Phosphatase 255 U/L (46-116) Total Protein 6.5 g/dL (6.4-8.2) Albumin 2.6 g/dL (3.4-5.0) Albumin/Globulin Ratio 0.7 (1.0-1.7) Lipase 167 U/L (73-393) Glucose (Fingerstick) 84 mg/dL (70-99) 78 mg/dL (70-99) Microbiology 02/16/20 Blood Culture - Preliminary, Resulted NO GROWTH AFTER 1 DAY 02/16/20 Urine Culture - Preliminary, Resulted Medications Current Medications Fentanyl Citrate (Fentanyl 2ml Vial) 50 mcg 1X ONCE IVP Last administered on 02/16/20at 15:11; Start 02/16/20 at 15:15; Stop 02/16/20 at 15:16; Status DC Ceftriaxone Sodium (Rocephin) 1 gm 1X ONCE IVP Last administered on 02/16/20at 17:02; Start 02/16/20 at 16:30; Stop 02/16/20 at 16:31; Status DC Sodium Chloride 1,000 ml @ 1,000 mls/hr 1X ONCE IV Last administered on 02/16/20at 17:02; Start 02/16/20 at 16:30; Stop 02/16/20 at 17:29; Status DC Fentanyl Citrate (Fentanyl 2ml Vial) 50 mcg 1X ONCE IVP Last administered on 02/16/20at 17:11; Start 02/16/20 at 17:15; Stop 02/16/20 at 17:16; Status DC Sodium Chloride 1,000 ml @ 1,000 mls/hr 1X ONCE IV Last administered on 02/16/20at 17:11; Start 02/16/20 at 17:15; Stop 02/16/20 at 18:14; Status DC Ondansetron HCl (Zofran) 4 mg PRN Q8HRS PRN IV NAUSEA/VOMITING; Start 02/16/20 at 17:15; Stop 02/17/20 at 17:14; Status Cancel Fentanyl Citrate (Fentanyl 2ml Vial) 50 mcg PRN Q1HR PRN IV PAIN Last administered on 02/17/20at 15:55; Start 02/16/20 at 17:15; Stop 02/17/20 at 17:27; Status DC Sodium Chloride 1,000 ml @ 150 mls/hr Q6H40M IV Last administered on 02/16/20at 18:33; Start 02/16/20 at 17:14; Stop 02/17/20 at 17:27; Status DC Hydralazine HCl (Apresoline Inj) 10 mg PRN Q4HRS PRN IVP ELEVATED BP, SEE COMMENTS; Start 02/16/20 at 17:45 Sodium Chloride (Normal Saline Flush) 3 ml QSHIFT PRN IV AFTER MEDS AND BLOOD DRAWS; Start 02/16/20 at 17:45 Sodium Chloride 1,000 ml @ 100 mls/hr Q10H IV Last administered on 02/18/20at 08:38; Start 02/16/20 at 17:43 Ondansetron HCl (Zofran) 4 mg PRN Q4HRS PRN IV NAUSEA/VOMITING Last administered on 02/16/20at 23:39; Start 02/16/20 at 17:45 Acetaminophen (Tylenol Supp) 650 mg PRN Q4HRS PRN DE TEMP OVER 100.4F OR MILD PAIN; Start 02/16/20 at 17:45 Sodium Monofluorophosphate (Fleet Adult) 133 ml PRN DAILY PRN DE CONSTIPATION; Start 02/16/20 at 17:45 Docusate Sodium (Colace) 100 mg PRN BID PRN PO HARD STOOLS; Start 02/16/20 at 17:45 Albuterol Sulfate (Ventolin Neb Soln) 2.5 mg PRN Q4HRS PRN NEB SHORTNESS OF BREATH; Start 02/16/20 at 17:45 Guaifenesin (Robitussin) 200 mg PRN Q4HRS PRN PO COUGH; Start 02/16/20 at 17:45 Lorazepam (Ativan) 0.5 mg PRN Q4HRS PRN PO ANXIETY / AGITATION; Start 02/16/20 a t 17:45 Enoxaparin Sodium (Lovenox 40mg Syringe) 40 mg BID SQ Last administered on 02/16/20at 22:16; Start 02/16/20 at 21:00; Stop 02/17/20 at 08:18; Status DC Piperacillin Sod/ Tazobactam Sod 3.375 gm/Sodium Chloride 50 ml @ 100 mls/hr Q6HRS IV Last administered on 02/18/20at 12:27; Start 02/16/20 at 18:00 Enoxaparin Sodium (Lovenox 40mg Syringe) 40 mg Q24H SQ Last administered on at 21:13; Start 02/17/20 at 21:00 Pantoprazole Sodium (PROTONIX VIAL for IV PUSH) 40 mg DAILYAC IVP Last administered on 02/18/20at 08:32; Start 02/18/20 at 07:30 Potassium Chloride/Water 100 ml @ 50 mls/hr 1X ONCE IV Last administered on 02/17/20at 16:30; Start 02/17/20 at 15:45; Stop 02/17/20 at 17:44; Status DC Fentanyl Citrate (Fentanyl 2ml Vial) 50 mcg PRN Q1HR PRN IVP PAIN Last administered on 02/17/20at 17:50; Start 02/17/20 at 17:45 Morphine Sulfate (Morphine Sulfate) 4 mg PRN Q2HR PRN IV MODERATE PAIN Last administered on 02/18/20at 03:18; Start 02/17/20 at 19:00 Morphine Sulfate (Morphine Sulfate) 6 mg PRN Q2HR PRN IV SEVERE PAIN Last administered on 02/17/20at 19:15; Start 02/17/20 at 19:00 Insulin Human Lispro (HumaLOG) 0-5 UNITS TIDWMEALS SQ ; Start 02/18/20 at 08:00 Dextrose (Dextrose 50%-Water Syringe) 12.5 gm PRN Q15MIN PRN IV SEE COMMENTS; Start 02/17/20 at 19:00 Iohexol (Omnipaque 300 Mg/ml) 75 ml 1X ONCE IV ; Start 02/18/20 at 11:00; Stop 02/18/20 at 11:01; Status DC Iohexol (Omnipaque 240 Mg/ml) 50 ml 1X ONCE PO Last administered on 02/18/20at 11:10; Start 02/18/20 at 11:00; Stop 02/18/20 at 11:01; Status DC Info (CONTRAST GIVEN -- Rx MONITORING) 1 each PRN DAILY PRN MC SEE COMMENTS; Start 02/18/20 at 11:15; Stop 02/20/20 at 11:14 Active Scripts Active Reported Crestor (Rosuvastatin Calcium) 5 Mg Tablet 10 Mg PO HS Pantoprazole Sodium (Pantoprazole Sodium) 40 Mg Tablet.dr 40 Mg PO DAILYAC Benazepril Hcl 10 Mg Tablet 10 Mg PO DAILY Lopressor (Metoprolol Tartrate) 100 Mg Tablet 1 Tab PO DAILY 30 Days Citalopram Hbr (Citalopram Hydrobromide) 20 Mg Tablet 1 Tab PO DAILY Vitals/I & O Vital Sign - Last 24 Hours 602/17/20 02/17/20 02/17/20 15:55 19:45 20:15 23:17 Temp 98.1 97.6 98.1 97.6 Pulse 125 114 Resp 20 16 16 B/P (MAP) 139/64 (89) 135/60 (85) Pulse Ox 96 91 95 O2 Delivery Room Air Room Air Room Air Room Air 02/18/20 02/18/20 02/18/20 02/18/20 03:50 07:00 08:00 11:00 Temp 97.9 97.8 97.8 97.9 97.8 97.8 Pulse 112 117 115 Resp 16 18 18 B/P (MAP) 154/70 (98) 156/73 (100) 148/76 (100) Pulse Ox 92 98 91 O2 Delivery Nasal Cannula Room Air Room Air Room Air Intake and Output 02/17/20 02/17/20 02/18/20 15:00 23:00 07:00 Intake Total 0 ml 0 ml Output Total 320 ml 25 ml 500 ml Balance -320 ml -25 ml -500 ml DAVE EVANS MD Feb 18, 2020 14:39
[2020-02-18 15:00] VITALS: BP 138/72
--- NOTE | 2020-02-18 15:40 | RAD ---
Exam: CT abdomen and pelvis with contrast INDICATION: Pancreatitis TECHNIQUE: Sequential axial images through the abdomen and pelvis obtained following the administration of 75 mL of Omni 300 IV contrast. Sagittal and coronal reformatted images were reconstructed from the axial data and reviewed. Comparisons: None FINDINGS: Heart size is normal. No pericardial effusion. Trace left pleural effusion. Bibasilar atelectasis. Liver is unremarkable. Trace perihepatic ascites. Spleen is enlarged. Gallbladder is nonenlarged. There is gallstone noted within the gallbladder. There is a left adrenal nodule measuring approximately 1.9 cm. Pancreas demonstrates homogenous enhancement. There is fat stranding surrounding the pancreas. No peripancreatic fluid collection or ductal dilatation. Kidneys demonstrate symmetric enhancement. No perinephric inflammation. No renal or ureteral calculi are identified. Bladder is decompressed not well evaluated. [place]over balloon noted within the bladder. Uterus is absent. No abnormal adnexal. Diverticulosis noted within the descending and sigmoid colon. Small and large large bowel are unremarkable. No obstruction. No free intra-abdominal air or fluid. Abdominal aorta has a normal course and caliber. Abdominal vasculature is patent. No enlarged abdominal lymph nodes are identified. No suspicious osseous lesions or acute fractures. IMPRESSION: 1. Findings of acute interstitial pancreatitis. No evidence for necrosis or peripancreatic fluid collection. 2. Cholelithiasis. 3. Small amount of perihepatic ascites, likely reactive. 4. Left adrenal nodule measuring up to 1.9 cm incompletely characterized on this CT. 5. Diverticulosis without evidence of acute diverticulitis. Exposure: One or more of the following in the visualized dose reduction techniques were utilized for this examination: 1. Automated exposure control 2. Adjustment of the MA and/or KV according to patient size 3. Use of iterative of reconstructive technique Electronically signed by: Yaneli Storey MD (02/18/2020 3:36 PM) [id number]
[2020-02-18 19:00] VITALS: BP 179/83
[2020-02-18] MEDS: ENOXAPARIN 40 MG/0.4 ML SYRINGE. SQ SCH (20:47)
[2020-02-18 23:00] VITALS: BP 167/79
[2020-02-19] VITALS (13 sets, daily range): BP systolic 123–178; BP diastolic 54–76
[2020-02-19] MEDS: LORazepam 0.5 MG TABLET PO PRN (03:29)
[2020-02-19] MEDS: IV NORMAL SALINE 1000ML BAG 1,000 ML IV SCH ×3 (03:57→16:34)
[2020-02-19] MEDS: PIPERACILLIN/TAZOBACTAM 3.375 GM in IV NORMAL SALINE 50ML 50 ML IV SCH ×4 (05:34→23:48)
[2020-02-19 06:00] LABS: ALBUMIN 2.4 g/dL (3.4-5.0); ALBUMIN/GLOBULIN RATIO 0.8 (1.0-1.7); CALCIUM 8.5 mg/dL (8.5-10.1); CREATININE 0.6 mg/dL (0.6-1.0); GFR 101.3; POTASSIUM 3.5 mmol/L (3.5-5.1); TOTAL BILIRUBIN 1.5 mg/dL (0.2-1.0); TOTAL PROTEIN 5.5 g/dL (6.4-8.2)
[2020-02-19 06:10] LABS: BASO # 0.1 x10^3/uL (0.0-0.2); BASO % 1 % (0-3); EOS % 0 % (0-3); HEMOGLOBIN 12.9 g/dL (12.0-15.5); LYMPH % 6 % (24-48); MEAN CORPUSCULAR HEMOGLOBIN 29 pg (25-35); MEAN CORPUSCULAR HGB CONC 32 g/dL (31-37); MEAN CORPUSCULAR VOLUME 90 fL (79-100); MONO % 6 % (0-9); NEUT # 14.6 x10^3/uL (1.8-7.7); NEUT % 88 % (31-73); PLATELET COUNT 348 x10^3/uL (140-400); RED BLOOD COUNT 4.46 x10^6/uL (3.50-5.40); RED CELL DISTRIBUTION WIDTH 19.5 % (11.5-14.5); WHITE BLOOD COUNT 16.7 x10^3/uL (4.0-11.0)
[2020-02-19] MEDS ORDERED: HYDROmorphone 2 MG/ML VIAL IV PRN (07:00)
[2020-02-19] MEDS ORDERED: fentaNYL PF VIAL 100 MCG/2 ML VIAL IV PRN ×2 (07:00)
[2020-02-19] MEDS ORDERED: PROCHLORPERAZINE 10 MG/2 ML VIAL. IV PRN (07:00)
[2020-02-19] MEDS ORDERED: IV RINGERS,LACTATED 1000ML 1,000 ML IV SCH (07:00)
[2020-02-19] MEDS ORDERED: MORPHINE SULFATE 2 MG/ML VIAL. IV PRN (07:00)
[2020-02-19] MEDS: INSULIN LISPRO 300 UNITS/3 ML VIAL. SQ SCH ×3 (07:19→17:00)
[2020-02-19] MEDS: PANTOPRAZOLE IV PUSH 40 MG VIAL. IVP SCH (09:07)
[2020-02-19] MEDS ORDERED: LABETALOL 20 MG/4 ML DISP.SYRIN. IVP PRN (09:15)
--- NOTE | 2020-02-19 10:13 | PDOC ---
Subjective: Subjective: A little pain, wants to eat. Objective: Vital Signs: Vital Signs Date Time Temp Pulse Resp B/P (MAP) Pulse Ox O2 Delivery O2 Flow Rate FiO2 02/19/20 08:00 Room Air 02/19/20 07:32 98.7 115 20 155/72 (99) 93 98.7 Labs: Laboratory Tests Test 02/18/20 11:38 02/18/20 16:25 02/18/20 20:50 02/19/20 03:42 Glucose (Fingerstick) 78 mg/dL 70 mg/dL 71 mg/dL White Blood Count 16.7 x10^3/uL Red Blood Count 4.46 x10^6/uL Hemoglobin 12.9 g/dL Hematocrit 40.0 % Mean Corpuscular Volume 90 fL Mean Corpuscular Hemoglobin 29 pg Mean Corpuscular Hemoglobin Concent 32 g/dL Red Cell Distribution Width 19.5 % Platelet Count 348 x10^3/uL Neutrophils (%) (Auto) 88 % Lymphocytes (%) (Auto) 6 % Monocytes (%) (Auto) 6 % Eosinophils (%) (Auto) 0 % Basophils (%) (Auto) 1 % Neutrophils # (Auto) 14.6 x10^3/uL Lymphocytes # (Auto) 1.0 x10^3/uL Monocytes # (Auto) 1.0 x10^3/uL Eosinophils # (Auto) 0.0 x10^3/uL Basophils # (Auto) 0.1 x10^3/uL Sodium Level 146 mmol/L Potassium Level 3.5 mmol/L Chloride Level 108 mmol/L Carbon Dioxide Level 24 mmol/L Anion Gap 14 Blood Urea Nitrogen 14 mg/dL Creatinine 0.6 mg/dL Estimated GFR (Cockcroft-Gault) 101.3 BUN/Creatinine Ratio 23 Glucose Level 60 mg/dL Calcium Level 8.5 mg/dL Total Bilirubin 1.5 mg/dL Aspartate Amino Transf (AST/SGOT) 31 U/L Alanine Aminotransferase (ALT/SGPT) 76 U/L Alkaline Phosphatase 197 U/L Total Protein 5.5 g/dL Albumin 2.4 g/dL Albumin/Globulin Ratio 0.8 Test 02/19/20 06:15 02/19/20 07:16 Glucose (Fingerstick) 71 mg/dL 88 mg/dL URINE CULTURE Final Final GREATER THAN 100,000 CFU/ML GRAM NEGATIVE RODS on 02/18/20 at 1314 FINAL ID= [[email or web address] [email or web address]] Imaging: CT A/P 02/18/20 IMPRESSION: 1. Findings of acute interstitial pancreatitis. No evidence for necrosis or peripancreatic fluid collection. 2. Cholelithiasis. 3. Small amount of perihepatic ascites, likely reactive. 4. Left adrenal nodule measuring up to 1.9 cm incompletely characterized on this CT. 5. Diverticulosis without evidence of acute diverticulitis. PE: GEN: NAD LUNGS: CTAB HEART: RRR ABD: quiet, soft, less tender NEURO/PSYCH: A & O 3 A/P: Gallstone pancreatitis, dilated CBD Leukocytosis, elevated LFTs - better UTI - per primary -- Timing of cholecystectomy/IOC and diet per surgery. Justicifation of Admission Dx: Justifications for Admission: Justification of Admission Dx: Yes Chronic Renal Failure: Hypertension Sepsis: Infection KRYS ROBLEDO Feb 19, 2020 10:13
[2020-02-19] MEDS ORDERED: BUPIVACAINE MPF 0.5% 30 ML VIAL. ONE (12:17)
[2020-02-19] MEDS ORDERED: IOHEXOL 300 MG/ML 50 ML VIAL. ONE (12:17)
[2020-02-19] MEDS ORDERED: SURGICEL HEMOSTAT 4X8 EACH. ONE (12:17)
[2020-02-19] MEDS ORDERED: DEXAMETHASONE SOD PHOS 4 MG/ML VIAL ONE (12:47)
[2020-02-19] MEDS ORDERED: LIDOCAINE 2% PF 5 ML VIAL. ONE (12:47)
[2020-02-19] MEDS ORDERED: ONDANSETRON PF 4 MG/2 ML VIAL. ONE (12:47)
[2020-02-19] MEDS ORDERED: PROPOFOL 50 ML IV ONE (12:47)
[2020-02-19] MEDS ORDERED: ceFAZolin SODIUM 2 GM in IV DEXTROSE 5% 50 ML IV ONE (13:00)
[2020-02-19] MEDS ORDERED: fentaNYL PF VIAL 100 MCG/2 ML VIAL ONE ×3 (13:01→15:00)
[2020-02-19] MEDS ORDERED: METOPROLOL TARTRATE 5 MG/5 ML VIAL. IVP ONE (13:33)
--- NOTE | 2020-02-19 13:55 | PDOC ---
PROGRESS NOTES Chief Complaint Chief Complaint Gallstone pancreatitis Dilated common bile duct. MRCP can further evaluate as clinically warranted. Cholelithiasis. No surgical intervention planned at the present time. Hepatomegaly with increased echotexture, // steatosis. Obesity Transaminitis Diabetes Hypertension HX CVA Severe UTI Low lung volumes with patchy bibasilar opacities, most likely atelectasis. Plan: continue with pain management diet as per data warehouse consultant. Hopefully we can start clears soon History of Present Illness History of Present Illness 02/17/2020 Patient seen and examined in the ICU She is trying to walk with physical therapy Her urine is extremely dark orange with cloudiness Chart reviewed Discussed with RN and physical therapist 02/18/2020 No acute events reported overnight, case discussed with nursing staff patient in no acute distress no complaints during my visit 02/19/2020 Patient with no new complaints. Her pain is still present but not as prominent as it was yesterday or the day before. Seems to be eager to try some clear l iquids sometimes gets frustrated due to her aphasia reassurance has been provided plan of care explained in detail Vitals Vitals Vital Signs Date Time Temp Pulse Resp B/P (MAP) Pulse Ox O2 Delivery O2 Flow Rate FiO2 02/19/20 12:42 99.0 89 15 178/71 95 Room Air 99.0 Physical Exam General: Alert Heart: Regular rate Lungs: Clear Abdomen: Soft (tender in RUQ and upper mid abdomen with palpation) Extremities: No clubbing, No cyanosis Skin: Other (JAUNDICED) Labs LABS Laboratory Tests Test 02/18/20 16:25 02/18/20 20:50 02/19/20 03:42 02/19/20 06:15 Glucose (Fingerstick) 70 mg/dL (70-99) 71 mg/dL (70-99) 71 mg/dL (70-99) White Blood Count 16.7 x10^3/uL (4.0-11.0) Red Blood Count 4.46 x10^6/uL (3.50-5.40) Hemoglobin 12.9 g/dL (12.0-15.5) Hematocrit 40.0 % (36.0-47.0) Mean Corpuscular Volume 90 fL (79-100) Mean Corpuscular Hemoglobin 29 pg (25-35) Mean Corpuscular Hemoglobin Concent 32 g/dL (31-37) Red Cell Distribution Width 19.5 % (11.5-14.5) Platelet Count 348 x10^3/uL (140-400) Neutrophils (%) (Auto) 88 % (31-73) Lymphocytes (%) (Auto) 6 % (24-48) Monocytes (%) (Auto) 6 % (0-9) Eosinophils (%) (Auto) 0 % (0-3) Basophils (%) (Auto) 1 % (0-3) Neutrophils # (Auto) 14.6 x10^3/uL (1.8-7.7) Lymphocytes # (Auto) 1.0 x10^3/uL (1.0-4.8) Monocytes # (Auto) 1.0 x10^3/uL (0.0-1.1) Eosinophils # (Auto) 0.0 x10^3/uL (0.0-0.7) Basophils # (Auto) 0.1 x10^3/uL (0.0-0.2) Sodium Level 146 mmol/L (136-145) Potassium Level 3.5 mmol/L (3.5-5.1) Chloride Level 108 mmol/L (98-107) Carbon Dioxide Level 24 mmol/L (21-32) Anion Gap 14 (6-14) Blood Urea Nitrogen 14 mg/dL (7-20) Creatinine 0.6 mg/dL (0.6-1.0) Estimated GFR (Cockcroft-Gault) 101.3 BUN/Creatinine Ratio 23 (6-20) Glucose Level 60 mg/dL (70-99) Calcium Level 8.5 mg/dL (8.5-10.1) Total Bilirubin 1.5 mg/dL (0.2-1.0) Aspartate Amino Transf (AST/SGOT) 31 U/L (15-37) Alanine Aminotransferase (ALT/SGPT) 76 U/L (14-59) Alkaline Phosphatase 197 U/L (46-116) Total Protein 5.5 g/dL (6.4-8.2) Albumin 2.4 g/dL (3.4-5.0) Albumin/Globulin Ratio 0.8 (1.0-1.7) Test 02/19/20 07:16 02/19/20 10:54 Glucose (Fingerstick) 88 mg/dL (70-99) 74 mg/dL (70-99) Assessment and Plan Assessmemt and Plan Problems Medical Problems: (1) Pancreatitis Status: Acute (2) Suspected 2019 novel coronavirus infection Status: Acute (3) UTI (urinary tract infection) Status: Acute Comment Review of Relevant I have reviewed the following items shae (where applicable) has been applied. Labs Laboratory Tests Test 02/18/20 03:30 02/18/20 08:25 02/18/20 11:38 02/18/20 16:25 White Blood Count 20.0 x10^3/uL (4.0-11.0) Red Blood Count 4.66 x10^6/uL (3.50-5.40) Hemoglobin 13.4 g/dL (12.0-15.5) Hematocrit 41.4 % (36.0-47.0) Mean Corpuscular Volume 89 fL (79-100) Mean Corpuscular Hemoglobin 29 pg (25-35) Mean Corpuscular Hemoglobin Concent 32 g/dL (31-37) Red Cell Distribution Width 19.2 % (11.5-14.5) Platelet Count 430 x10^3/uL (140-400) Neutrophils (%) (Auto) 88 % (31-73) Lymphocytes (%) (Auto) 6 % (24-48) Monocytes (%) (Auto) 6 % (0-9) Eosinophils (%) (Auto) 0 % (0-3) Basophils (%) (Auto) 1 % (0-3) Neutrophils # (Auto) 17.5 x10^3/uL (1.8-7.7) Lymphocytes # (Auto) 1.2 x10^3/uL (1.0-4.8) Monocytes # (Auto) 1.2 x10^3/uL (0.0-1.1) Eosinophils # (Auto) 0.0 x10^3/uL (0.0-0.7) Basophils # (Auto) 0.1 x10^3/uL (0.0-0.2) Sodium Level 144 mmol/L (136-145) Potassium Level 3.5 mmol/L (3.5-5.1) Chloride Level 106 mmol/L (98-107) Carbon Dioxide Level 27 mmol/L (21-32) Anion Gap 11 (6-14) Blood Urea Nitrogen 23 mg/dL (7-20) Creatinine 0.9 mg/dL (0.6-1.0) Estimated GFR (Cockcroft-Gault) 63.4 BUN/Creatinine Ratio 26 (6-20) Glucose Level 86 mg/dL (70-99) Calcium Level 9.2 mg/dL (8.5-10.1) Total Bilirubin 2.0 mg/dL (0.2-1.0) Aspartate Amino Transf (AST/SGOT) 41 U/L (15-37) Alanine Aminotransferase (ALT/SGPT) 116 U/L (14-59) Alkaline Phosphatase 255 U/L (46-116) Total Protein 6.5 g/dL (6.4-8.2) Albumin 2.6 g/dL (3.4-5.0) Albumin/Globulin Ratio 0.7 (1.0-1.7) Lipase 167 U/L (73-393) Glucose (Fingerstick) 84 mg/dL (70-99) 78 mg/dL (70-99) 70 mg/dL (70-99) Test 02/18/20 20:50 02/19/20 03:42 02/19/20 06:15 02/19/20 07:16 Glucose (Fingerstick) 71 mg/dL (70-99) 71 mg/dL (70-99) 88 mg/dL (70-99) White Blood Count 16.7 x10^3/uL (4.0-11.0) Red Blood Count 4.46 x10^6/uL (3.50-5.40) Hemoglobin 12.9 g/dL (12.0-15.5) Hematocrit 40.0 % (36.0-47.0) Mean Corpuscular Volume 90 fL (79-100) Mean Corpuscular Hemoglobin 29 pg (25-35) Mean Corpuscular Hemoglobin Concent 32 g/dL (31-37) Red Cell Distribution Width 19.5 % (11.5-14.5) Platelet Count 348 x10^3/uL (140-400) Neutrophils (%) (Auto) 88 % (31-73) Lymphocytes (%) (Auto) 6 % (24-48) Monocytes (%) (Auto) 6 % (0-9) Eosinophils (%) (Auto) 0 % (0-3) Basophils (%) (Auto) 1 % (0-3) Neutrophils # (Auto) 14.6 x10^3/uL (1.8-7.7) Lymphocytes # (Auto) 1.0 x10^3/uL (1.0-4.8) Monocytes # (Auto) 1.0 x10^3/uL (0.0-1.1) Eosinophils # (Auto) 0.0 x10^3/uL (0.0-0.7) Basophils # (Auto) 0.1 x10^3/uL (0.0-0.2) Sodium Level 146 mmol/L (136-145) Potassium Level 3.5 mmol/L (3.5-5.1) Chloride Level 108 mmol/L (98-107) Carbon Dioxide Level 24 mmol/L (21-32) Anion Gap 14 (6-14) Blood Urea Nitrogen 14 mg/dL (7-20) Creatinine 0.6 mg/dL (0.6-1.0) Estimated GFR (Cockcroft-Gault) 101.3 BUN/Creatinine Ratio 23 (-20) Glucose Level 60 mg/dL (70-99) Calcium Level 8.5 mg/dL (8.5-10.1) Total Bilirubin 1.5 mg/dL (0.2-1.0) Aspartate Amino Transf (AST/SGOT) 31 U/L (15-37) Alanine Aminotransferase (ALT/SGPT) 76 U/L (14-59) Alkaline Phosphatase 197 U/L (46-116) Total Protein 5.5 g/dL (6.4-8.2) Albumin 2.4 g/dL (3.4-5.0) Albumin/Globulin Ratio 0.8 (1.0-1.7) Test 02/19/20 10:54 Glucose (Fingerstick) 74 mg/dL (70-99) Laboratory Tests Test 02/18/20 16:25 02/18/20 20:50 02/19/20 03:42 02/19/20 06:15 Glucose (Fingerstick) 70 mg/dL (70-99) 71 mg/dL (70-99) 71 mg/dL (70-99) White Blood Count 16.7 x10^3/uL (4.0-11.0) Red Blood Count 4.46 x10^6/uL (3.50-5.40) Hemoglobin 12.9 g/dL (12.0-15.5) Hematocrit 40.0 % (36.0-47.0) Mean Corpuscular Volume 90 fL (79-100) Mean Corpuscular Hemoglobin 29 pg (25-35) Mean Corpuscular Hemoglobin Concent 32 g/dL (31-37) Red Cell Distribution Width 19.5 % (11.5-14.5) Platelet Count 348 x10^3/uL (140-400) Neutrophils (%) (Auto) 88 % (31-73) Lymphocytes (%) (Auto) 6 % (24-48) Monocytes (%) (Auto) 6 % (0-9) Eosinophils (%) (Auto) 0 % (0-3) Basophils (%) (Auto) 1 % (0-3) Neutrophils # (Auto) 14.6 x10^3/uL (1.8-7.7) Lymphocytes # (Auto) 1.0 x10^3/uL (1.0-4.8) Monocytes # (Auto) 1.0 x10^3/uL (0.0-1.1) Eosinophils # (Auto) 0.0 x10^3/uL (0.0-0.7) Basophils # (Auto) 0.1 x10^3/uL (0.0-0.2) Sodium Level 146 mmol/L (136-145) Potassium Level 3.5 mmol/L (3.5-5.1) Chloride Level 108 mmol/L (98-107) Carbon Dioxide Level 24 mmol/L (21-32) Anion Gap 14 (6-14) Blood Urea Nitrogen 14 mg/dL (7-20) Creatinine 0.6 mg/dL (0.6-1.0) Estimated GFR (Cockcroft-Gault) 101.3 BUN/Creatinine Ratio 23 (6-20) Glucose Level 60 mg/dL (70-99) Calcium Level 8.5 mg/dL (8.5-10.1) Total Bilirubin 1.5 mg/dL (0.2-1.0) Aspartate Amino Transf (AST/SGOT) 31 U/L (15-37) Alanine Aminotransferase (ALT/SGPT) 76 U/L (14-59) Alkaline Phosphatase 197 U/L (46-116) Total Protein 5.5 g/dL (6.4-8.2) Albumin 2.4 g/dL (3.4-5.0) Albumin/Globulin Ratio 0.8 (1.0-1.7) Test 02/19/20 07:16 02/19/20 10:54 Glucose (Fingerstick) 88 mg/dL (70-99) 74 mg/dL (70-99) Microbiology 02/16/20 Blood Culture - Preliminary, Resulted NO GROWTH AFTER 2 DAYS 02/16/20 Urine Culture - Final, Complete 02/16/20 Antimicrobic Susceptibility - Final, Complete Medications Current Medications Fentanyl Citrate (Fentanyl 2ml Vial) 50 mcg 1X ONCE IVP Last administered on 02/16/20at 15:11; Start 02/16/20 at 15:15; Stop 02/16/20 at 15:16; Status DC Ceftriaxone Sodium (Rocephin) 1 gm 1X ONCE IVP Last administered on 02/16/20at 17:02; Start 02/16/20 at 16:30; Stop 02/16/20 at 16:31; Status DC Sodium Chloride 1,000 ml @ 1,000 mls/hr 1X ONCE IV Last administered on 02/16/20at 17:02; Start 02/16/20 at 16:30; Stop 02/16/20 at 17:29; Status DC Fentanyl Citrate (Fentanyl 2ml Vial) 50 mcg 1X ONCE IVP Last administered on 02/16/20at 17:11; Start 02/16/20 at 17:15; Stop 02/16/20 at 17:16; Status DC Sodium Chloride 1,000 ml @ 1,000 mls/hr 1X ONCE IV Last administered on 02/16/20at 17:11; Start 02/16/20 at 17:15; Stop 02/16/20 at 18:14; Status DC Ondansetron HCl (Zofran) 4 mg PRN Q8HRS PRN IV NAUSEA/VOMITING; Start 02/16/20 at 17:15; Stop 02/17/20 at 17:14; Status Cancel Fentanyl Citrate (Fentanyl 2ml Vial) 50 mcg PRN Q1HR PRN IV PAIN Last administered on 02/17/20at 15:55; Start 02/16/20 at 17:15; Stop 02/17/20 at 17:27; Status DC Sodium Chloride 1,000 ml @ 150 mls/hr Q6H40M IV Last administered on 02/16/20at 18:33; Start 02/16/20 at 17:14; Stop 02/17/20 at 17:27; Status DC Hydralazine HCl (Apresoline Inj) 10 mg PRN Q4HRS PRN IVP ELEVATED BP, SEE COMMENTS; Start 02/16/20 at 17:45 Sodium Chloride (Normal Saline Flush) 3 ml QSHIFT PRN IV AFTER MEDS AND BLOOD DRAWS; Start 02/16/20 at 17:45 Sodium Chloride 1,000 ml @ 100 mls/hr Q10H IV Last administered on 02/19/20at 11:53; Start 02/16/20 at 17:43 Ondansetron HCl (Zofran) 4 mg PRN Q4HRS PRN IV NAUSEA/VOMITING Last administered on 02/16/20at 23:39; Start 02/16/20 at 17:45 Acetaminophen (Tylenol Supp) 650 mg PRN Q4HRS PRN NM TEMP OVER 100.4F OR MILD PAIN; Start 02/16/20 at 17:45 Sodium Monofluorophosphate (Fleet Adult) 133 ml PRN DAILY PRN NM CONSTIPATION; Start 02/16/20 at 17:45 Docusate Sodium (Colace) 100 mg PRN BID PRN PO HARD STOOLS; Start 02/16/20 at 17:45 Albuterol Sulfate (Ventolin Neb Soln) 2.5 mg PRN Q4HRS PRN NEB SHORTNESS OF BREATH; Start 02/16/20 at 17:45 Guaifenesin (Robitussin) 200 mg PRN Q4HRS PRN PO COUGH; Start 02/16/20 at 17:45 Lorazepam (Ativan) 0.5 mg PRN Q4HRS PRN PO ANXIETY / AGITATION Last administered on 02/19/20at 03:29; Start 02/16/20 at 17:45 Enoxaparin Sodium (Lovenox 40mg Syringe) 40 mg BID SQ Last administered on 02/16/20at 22:16; Start 02/16/20 at 21:00; Stop 02/17/20 at 08:18; Status DC Piperacillin Sod/ Tazobactam Sod 3.375 gm/Sodium Chloride 50 ml @ 100 mls/hr Q6HRS IV Last administered on 02/19/20at 11:52; Start 02/16/20 at 18:00 Enoxaparin Sodium (Lovenox 40mg Syringe) 40 mg Q24H SQ Last administered on 02/17/20at 21:13; Start 02/17/20 at 21:00 Pantoprazole Sodium (PROTONIX VIAL for IV PUSH) 40 mg DAILYAC IVP Last administered on 02/19/20at 09:07; Start 02/18/20 at 07:30 Potassium Chloride/Water 100 ml @ 50 mls/hr 1X ONCE IV Last administered on 02/17/20at 16:30; Start 02/17/20 at 15:45; Stop 02/17/20 at 17:44; Status DC Fentanyl Citrate (Fentanyl 2ml Vial) 50 mcg PRN Q1HR PRN IVP SEVERE PAIN (2nd Choice) Last administered on 02/17/20at 17:50; Start 02/17/20 at 17:45 Morphine Sulfate (Morphine Sulfate) 4 mg PRN Q2HR PRN IV MODERATE PAIN Last administered on 02/18/20at 16:02; Start 02/17/20 at 19:00 Morphine Sulfate (Morphine Sulfate) 6 mg PRN Q2HR PRN IV SEVERE PAIN Last administered on 02/17/20at 19:15; Start 02/17/20 at 19:00 Insulin Human Lispro (HumaLOG) 0-5 UNITS TIDWMEALS SQ ; Start 02/18/20 at 08:00 Dextrose (Dextrose 50%-Water Syringe) 12.5 gm PRN Q15MIN PRN IV SEE COMMENTS Last administered on 02/19/20at 06:20; Start 02/17/20 at 19:00 Iohexol (Omnipaque 300 Mg/ml) 75 ml 1X ONCE IV ; Start 02/18/20 at 11:00; Stop 02/18/20 at 11:01; Status DC Iohexol (Omnipaque 240 Mg/ml) 50 ml 1X ONCE PO Last administered on 02/18/20at 11:10; Start 02/18/20 at 11:00; Stop 02/18/20 at 11:01; Status DC Info (CONTRAST GIVEN -- Rx MONITORING) 1 each PRN DAILY PRN SEE COMMENTS; Start 02/18/20 at 11:15; Stop 02/20/20 at 11:14 Fentanyl Citrate (Fentanyl 2ml Vial) 25 mcg PRN Q5MIN PRN IV MILD PAIN 1-3; Start 02/19/20 at 07:00; Stop 02/20/20 at 06:59 Fentanyl Citrate (Fentanyl 2ml Vial) 50 mcg PRN Q5MIN PRN IV MODERATE TO SEVERE PAIN; Start 02/19/20 at 07:00; Stop 02/20/20 at 06:59 Morphine Sulfate (Morphine Sulfate) 1 mg PRN Q10MIN PRN IV SEVERE PAIN 7-10; Start 02/19/20 at 07:00; Stop 02/20/20 at 06:59 Ringer's Solution 1,000 ml @ 30 mls/hr Q24H IV Last administered on 02/19/20at 12:48; Start 02/19/20 at 07:00; Stop 02/19/20 at 18:59 Hydromorphone HCl (Dilaudid) 0.5 mg PRN Q10MIN PRN IV SEV PAIN, Second choice; Start 02/19/20 at 07:00; Stop 02/20/20 at 06:59 Prochlorperazine Edisylate (Compazine) 5 mg PACU PRN PRN IV NAUSEA, MRX1; Start 02/19/20 at 07:00; Stop 02/20/20 at 06:59 Labetalol HCl (Normodyne Iv Push) 10 mg PRN Q4HRS PRN IVP HYPERTENSION; Start 02/19/20 at 09:15 Iohexol (Omnipaque 300 Mg/ml) 50 ml STK-MED ONCE .ROUTE Last administered on 02/19/20at 13:24; Start 02/19/20 at 12:17; Stop 02/19/20 at 12:17; Status DC Cellulose (Surgicel Hemostat 4x8) 1 each STK-MED ONCE .ROUTE ; Start 02/19/20 at 12:17; Stop 02/19/20 at 12:17; Status DC Bupivacaine HCl (Sensorcaine Mpf 0.5%) 30 ml STK-MED ONCE .ROUTE Last administered on 02/19/20at 13:24; Start 02/19/20 at 12:17; Stop 02/19/20 at 12:17; Status DC Cefazolin Sodium 2 gm/Dextrose 50 ml @ 100 mls/hr 1X ONCE IV ; Start 02/19/20 at 13:00; Stop 02/19/20 at 13:22; Status DC Lidocaine HCl (Lidocaine Pf 2% Vial) 5 ml STK-MED ONCE .ROUTE ; Start 02/19/20 at 12:47; Stop 02/19/20 at 12:47; Status DC Propofol 50 ml @ As Directed STK-MED ONCE IV ; Start 02/19/20 at 12:47; Stop 02/19/20 at 12:47; Status DC Ondansetron HCl (Zofran) 4 mg STK-MED ONCE .ROUTE ; Start 02/19/20 at 12:47; Stop 02/19/20 at 12:47; Status DC Dexamethasone Sodium Phosphate (Decadron) 4 mg STK-MED ONCE .ROUTE ; Start 02/19/20 at 12:47; Stop 02/19/20 at 12:47; Status DC Fentanyl Citrate (Fentanyl 2ml Vial) 100 mcg STK-MED ONCE .ROUTE ; Start 02/19/20 at 13:01; Stop 02/19/20 at 13:01; Status DC Metoprolol Tartrate (Lopressor Vial) 5 mg STK-MED ONCE IVP ; Start 02/19/20 at 13:33; Stop 02/19/20 at 13:33; Status DC Active Scripts Active Reported Crestor (Rosuvastatin Calcium) 5 Mg Tablet 10 Mg PO HS Pantoprazole Sodium (Pantoprazole Sodium) 40 Mg Tablet.dr 40 Mg PO DAILYAC Benazepril Hcl 10 Mg Tablet 10 Mg PO DAILY Lopressor (Metoprolol Tartrate) 100 Mg Tablet 1 Tab PO DAILY 30 Days Citalopram Hbr (Citalopram Hydrobromide) 20 Mg Tablet 1 Tab PO DAILY Vitals/I & O Vital Sign - Last 24 Hours 02/18/20 02/18/20 02/18/20 02/18/20 15:00 16:02 16:40 19:00 Temp 97.5 97.9 97.5 97.9 Pulse 115 96 Resp 18 18 B/P (MAP) 138/72 (94) 179/83 (115) Pulse Ox 91 91 91 98 O2 Delivery Room Air Room Air Room Air Room Air 02/18/20 02/18/20 02/19/20 02/19/20 20:00 23:00 03:00 07:32 Temp 97.9 98.1 98.7 97.9 98.1 98.7 Pulse 110 101 115 Resp 18 18 20 B/P (MAP) 167/79 (108) 178/67 (104) 155/72 (99) Pulse Ox 92 94 93 O2 Delivery Room Air Room Air Room Air Room Air 02/19/20 02/19/20 02/19/20 08:00 11:23 12:42 Temp 99.0 99.0 99.0 99.0 Pulse 89 89 Resp 20 15 B/P (MAP) 178/71 (106) 178/71 Pulse Ox 95 95 O2 Delivery Room Air Room Air Room Air Intake and Output 0 02/18/20 02/18/20 02/19/20 14:59 22:59 06:59 Output Total 900 ml 600 ml Balance -900 ml -600 ml RASHARD SANCHEZ MD Feb 19, 2020 13:54
[2020-02-19] MEDS ORDERED: SEVOFLURANE > 120 MINUTES. IH ONE (14:14)
[2020-02-19] MEDS ORDERED: ROCURONIUM 50 MG/5 ML VIAL. ONE (14:43)
[2020-02-19] MEDS ORDERED: NEOSTIGMINE METHYLSULFATE 5 MG/5 ML SYRINGE. ONE (14:58)
[2020-02-19] MEDS ORDERED: GLYCOPYRROLATE 1 MG/5 ML VIAL. ONE (14:59)
--- NOTE | 2020-02-19 16:34 | PDOC4 ---
Operative Note Operative Note Operative Note: Preoperative Diagnosis: Gallstone pancreatitis Postoperative Diagnosis: Gallstone pancreatitis, severe acute and chronic calculus cholecystitis Procedure: Laparoscopic converted to open cholecystectomy Surgeon: Broderick Metal Flow Coordinator: Geetha Fisher FA, Salisa Frost FA Anesthesia: Gen EBL: 200 ml Specimen: Gallbladder to pathology Drains: 19 Fr LUIS E drain Complications: None Indication: The patient is a 64-year-old female who was admitted with abdominal pain. Her evaluation is consistent with gallstone pancreatitis. Her liver function tests and white count were markedly elevated however they had improved. The plan is to proceed with a laparoscopic cholecystectomy for definitive surgical treatment. The risks of surgery were discussed which include bleeding, infection, bile duct injury, bile leak, pain, potential need for additional surgery procedure. She understands and would like to proceed. Description: The patient was taken to the operating room and placed supine on the operating table. General anesthesia was performed. The abdomen was prepped with ChloraPrep and draped in a standard surgical manner. A small supraumbilical incision was made in the skin through which a Veress needle was inserted. Pneumoperitoneum was created and the laparoscope was introduced. In the upper mid abdomen a 12 mm trocar was inserted. In the right upper quadrant two 5 mm trochars were inserted. Initial inspection showed some free fluid consistent with pancreatitis. In the area of the gallbladder there were marked adhesions which obscured visualization. These adhesions were gradually taken down revealing a densely fibrotic and hardened gallbladder. The gallbladder appeared both acutely inflamed and very chronically scarred. This made mobilization and dissection very difficult. We did retract the gallbladder cephalad and began dissecting along the wall inferiorly. There were no clearly identifiable structures due to a somewhat encasing fibrotic reaction. We elected to convert to an open procedure given these findings. A right subcostal incision was made with a scalpel. Cautery dissection was carried down to the fascia. The anterior and posterior fascial layers were divided with cautery. The Omni retractor was used for the remainder of the case to facilitate exposure. The laparoscopic ports were removed. The gallbladder was mobilized in a top-down manner. We then gradually identified what appeared to be a dilated, fibrotic cystic duct. The gallbladder was opened and several large stones were extracted. We fully freed the gallbladder and clipped what appeared to be the cystic artery. We attempted to cannulate the cystic duct for a cholangiogram. We encountered some stones and sludge which were extracted. Following this however we had continued difficulty due to apparent obstruction of the cystic duct. After repeated attempts we elected to forego the cholangiogram and secure the cystic duct. The duct was ligated with 2-0 silk and the gallbladder was fully excised and sent to pathology. The right upper quadrant was irrigated with sterile saline which was suctioned. Hemostasis was good. A 19 [place] LUIS E drain was left in the gallbladder fossa with an exit site in the right lateral port incision. This was secured to the skin with 2-0 silk. The posterior fascia layer was closed with 0 PDS. The anterior fascia layer was closed with 1 PDS. The subcutaneous tissue was closed with 3-0 Vicryl. Skin was approximated with 4-0 Monocryl. Steri-Strips and a sterile dressing were applied. The patient tolerated the procedure well and was sent to the recovery room in stable condition. At the end the case all counts were correct. DAVE EVANS MD Feb 19, 2020 16:34
[2020-02-19] MEDS ORDERED: NALOXONE 0.4 MG/ML VIAL. IV PRN (16:45)
[2020-02-19] MEDS ORDERED: HYDROmorphone 12mg/30ml PCA 30 ML IV PRN (16:45)
[2020-02-19] MEDS: ENOXAPARIN 40 MG/0.4 ML SYRINGE. SQ SCH (21:00)
[2020-02-20 03:07] VITALS: BP 146/80
[2020-02-20 05:11] LABS: BASO % 0 % (0-3); EOS % 0 % (0-3); HEMATOCRIT 37.2 % (36.0-47.0); LYMPH # 0.7 x10^3/uL (1.0-4.8); LYMPH % 4 % (24-48); MEAN CORPUSCULAR HEMOGLOBIN 29 pg (25-35); MEAN CORPUSCULAR HGB CONC 32 g/dL (31-37); MEAN CORPUSCULAR VOLUME 89 fL (79-100); MONO # 0.9 x10^3/uL (0.0-1.1); MONO % 6 % (0-9); NEUT # 14.8 x10^3/uL (1.8-7.7); NEUT % 90 % (31-73); PLATELET COUNT 362 x10^3/uL (140-400); RED BLOOD COUNT 4.16 x10^6/uL (3.50-5.40); RED CELL DISTRIBUTION WIDTH 19.2 % (11.5-14.5); WHITE BLOOD COUNT 16.4 x10^3/uL (4.0-11.0)
[2020-02-20] MEDS: IV NORMAL SALINE 1000ML BAG 1,000 ML IV SCH ×4 (05:44→17:33)
[2020-02-20 05:48] LABS: ALBUMIN 2.1 g/dL (3.4-5.0); ALBUMIN/GLOBULIN RATIO 0.6 (1.0-1.7); CALCIUM 7.9 mg/dL (8.5-10.1); CREATININE 0.8 mg/dL (0.6-1.0); GFR 72.7; POTASSIUM 3.3 mmol/L (3.5-5.1); TOTAL PROTEIN 5.9 g/dL (6.4-8.2)
[2020-02-20] MEDS: PIPERACILLIN/TAZOBACTAM 3.375 GM in IV NORMAL SALINE 50ML 50 ML IV SCH ×3 (05:48→17:41)
[2020-02-20 07:39] VITALS: BP 158/74
[2020-02-20] MEDS: INSULIN LISPRO 300 UNITS/3 ML VIAL. SQ SCH ×3 (08:00→17:00)
[2020-02-20] MEDS ORDERED: LABETALOL 20 MG/4 ML DISP.SYRIN. IVP PRN (08:45)
[2020-02-20] MEDS: PANTOPRAZOLE IV PUSH 40 MG VIAL. IVP SCH (09:06)
--- NOTE | 2020-02-20 09:57 | PDOC ---
Subjective: Subjective: Has pain but doing okay. Wants to eat. Objective: Objective: Reviewed op note. Vital Signs: Vital Signs Date Time Temp Pulse Resp B/P (MAP) Pulse Ox O2 Delivery O2 Flow Rate FiO2 02/20/20 08:00 Nasal Cannula 2.0 02/20/20 07:39 97.6 99 18 158/74 (102) 96 97.6 Labs: Laboratory Tests Test 02/19/20 10:54 02/19/20 17:02 02/19/20 20:56 02/20/20 04:45 Glucose (Fingerstick) 74 mg/dL 98 mg/dL 116 mg/dL White Blood Count 16.4 x10^3/uL Red Blood Count 4.16 x10^6/uL Hemoglobin 12.0 g/dL Hematocrit 37.2 % Mean Corpuscular Volume 89 fL Mean Corpuscular Hemoglobin 29 pg Mean Corpuscular Hemoglobin Concent 32 g/dL Red Cell Distribution Width 19.2 % Platelet Count 362 x10^3/uL Neutrophils (%) (Auto) 90 % Lymphocytes (%) (Auto) 4 % Monocytes (%) (Auto) 6 % Eosinophils (%) (Auto) 0 % Basophils (%) (Auto) 0 % Neutrophils # (Auto) 14.8 x10^3/uL Lymphocytes # (Auto) 0.7 x10^3/uL Monocytes # (Auto) 0.9 x10^3/uL Eosinophils # (Auto) 0.0 x10^3/uL Basophils # (Auto) 0.0 x10^3/uL Sodium Level 147 mmol/L Potassium Level 3.3 mmol/L Chloride Level 109 mmol/L Carbon Dioxide Level 29 mmol/L Anion Gap 9 Blood Urea Nitrogen 11 mg/dL Creatinine 0.8 mg/dL Estimated GFR (Cockcroft-Gault) 72.7 BUN/Creatinine Ratio 14 Glucose Level 96 mg/dL Calcium Level 7.9 mg/dL Total Bilirubin 1.0 mg/dL Aspartate Amino Transf (AST/SGOT) 47 U/L Alanine Aminotransferase (ALT/SGPT) 60 U/L Alkaline Phosphatase 159 U/L Total Protein 5.9 g/dL Albumin 2.1 g/dL Albumin/Globulin Ratio 0.6 Test 02/20/20 07:30 Glucose (Fingerstick) 75 mg/dL PE: GEN: NAD, nurse present LUNGS: NC 2L HEART: borderline tachycardic ABD: soft, tender RUQ, drain serous NEURO/PSYCH: A & O 3 A/P: Gallstone pancreatitis, dilated CBD - s/p open teresita 02/19/20 Leukocytosis, elevated LFTs - better UTI -- WBC and LFTs improving, will follow. Diet per surgery. Justicifation of Admission Dx: Justifications for Admission: Justification of Admission Dx: Yes Chronic Renal Failure: Hypertension Sepsis: Infection KRYS ROBLEDO Feb 20, 2020 09:57
[2020-02-20 11:03] VITALS: BP 155/80
--- NOTE | 2020-02-20 11:04 | PDOC ---
PROGRESS NOTES Subjective Subjective looks well today Objective Objective Vital Signs Date Time Temp Pulse Resp B/P (MAP) Pulse Ox O2 Delivery O2 Flow Rate FiO2 02/20/20 08:00 Nasal Cannula 2.0 02/20/20 07:39 97.6 99 18 158/74 (102) 96 97.6 Intake and Output 02/20/20 07:00 Intake Total 1750 ml Output Total 1350 ml Balance 400 ml Intake Oral 0 ml IV Total 1750 ml Output Urine Total 1000 ml Drainage Total 150 ml Estimated Blood Loss 200 ml Physical Exam Abdomen: Soft (LUIS E serosang) Assessment Assessment Problems Medical Problems: (1) Pancreatitis Status: Acute (2) Suspected 2019 novel coronavirus infection Status: Acute (3) UTI (urinary tract infection) Status: Acute Plan Plan of Care POD 1, postop care, start PO Comment Review of Relevant I have reviewed the following items shae (where applicable) has been applied. Labs Laboratory Tests Test 02/18/20 11:38 02/18/20 16:25 02/18/20 20:50 02/19/20 03:42 Glucose (Fingerstick) 78 mg/dL (70-99) 70 mg/dL (70-99) 71 mg/dL (70-99) White Blood Count 16.7 x10^3/uL (4.0-11.0) Red Blood Count 4.46 x10^6/uL (3.50-5.40) Hemoglobin 12.9 g/dL (12.0-15.5) Hematocrit 40.0 % (36.0-47.0) Mean Corpuscular Volume 90 fL (79-100) Mean Corpuscular Hemoglobin 29 pg (25-35) Mean Corpuscular Hemoglobin Concent 32 g/dL (31-37) Red Cell Distribution Width 19.5 % (11.5-14.5) Platelet Count 348 x10^3/uL (140-400) Neutrophils (%) (Auto) 88 % (31-73) Lymphocytes (%) (Auto) 6 % (24-48) Monocytes (%) (Auto) 6 % (0-9) Eosinophils (%) (Auto) 0 % (0-3) Basophils (%) (Auto) 1 % (0-3) Neutrophils # (Auto) 14.6 x10^3/uL (1.8-7.7) Lymphocytes # (Auto) 1.0 x10^3/uL (1.0-4.8) Monocytes # (Auto) 1.0 x10^3/uL (0.0-1.1) Eosinophils # (Auto) 0.0 x10^3/uL (0.0-0.7) Basophils # (Auto) 0.1 x10^3/uL (0.0-0.2) Sodium Level 146 mmol/L (136-145) Potassium Level 3.5 mmol/L (3.5-5.1) Chloride Level 108 mmol/L (98-107) Carbon Dioxide Level 24 mmol/L (21-32) Anion Gap 14 (6-14) Blood Urea Nitrogen 14 mg/dL (7-20) Creatinine 0.6 mg/dL (0.6-1.0) Estimated GFR (Cockcroft-Gault) 101.3 BUN/Creatinine Ratio 23 (6-20) Glucose Level 60 mg/dL (70-99) Calcium Level 8.5 mg/dL (8.5-10.1) Total Bilirubin 1.5 mg/dL (0.2-1.0) Aspartate Amino Transf (AST/SGOT) 31 U/L (15-37) Alanine Aminotransferase (ALT/SGPT) 76 U/L (14-59) Alkaline Phosphatase 197 U/L (46-116) Total Protein 5.5 g/dL (6.4-8.2) Albumin 2.4 g/dL (3.4-5.0) Albumin/Globulin Ratio 0.8 (1.0-1.7) Test 02/19/20 06:15 02/19/20 07:16 02/19/20 10:54 02/19/20 17:02 Glucose (Fingerstick) 71 mg/dL (70-99) 88 mg/dL (70-99) 74 mg/dL (70-99) 98 mg/dL (70-99) Test 02/19/20 20:56 02/20/20 04:45 02/20/20 07:30 02/20/20 10:46 Glucose (Fingerstick) 116 mg/dL (70-99) 75 mg/dL (70-99) 70 mg/dL (70-99) White Blood Count 16.4 x10^3/uL (4.0-11.0) Red Blood Count 4.16 x10^6/uL (3.50-5.40) Hemoglobin 12.0 g/dL (12.0-15.5) Hematocrit 37.2 % (36.0-47.0) Mean Corpuscular Volume 89 fL (79-100) Mean Corpuscular Hemoglobin 29 pg (25-35) Mean Corpuscular Hemoglobin Concent 32 g/dL (31-37) Red Cell Distribution Width 19.2 % (11.5-14.5) Platelet Count 362 x10^3/uL (140-400) Neutrophils (%) (Auto) 90 % (31-73) Lymphocytes (%) (Auto) 4 % (24-48) Monocytes (%) (Auto) 6 % (0-9) Eosinophils (%) (Auto) 0 % (0-3) Basophils (%) (Auto) 0 % (0-3) Neutrophils # (Auto) 14.8 x10^3/uL (1.8-7.7) Lymphocytes # (Auto) 0.7 x10^3/uL (1.0-4.8) Monocytes # (Auto) 0.9 x10^3/uL (0.0-1.1) Eosinophils # (Auto) 0.0 x10^3/uL (0.0-0.7) Basophils # (Auto) 0.0 x10^3/uL (0.0-0.2) Sodium Level 147 mmol/L (136-145) Potassium Level 3.3 mmol/L (3.5-5.1) Chloride Level 109 mmol/L (98-107) Carbon Dioxide Level 29 mmol/L (21-32) Anion Gap 9 (6-14) Blood Urea Nitrogen 11 mg/dL (7-20) Creatinine 0.8 mg/dL (0.6-1.0) Estimated GFR (Cockcroft-Gault) 72.7 BUN/Creatinine Ratio 14 (6-20) Glucose Level 96 mg/dL (70-99) Calcium Level 7.9 mg/dL (8.5-10.1) Total Bilirubin 1.0 mg/dL (0.2-1.0) Aspartate Amino Transf (AST/SGOT) 47 U/L (15-37) Alanine Aminotransferase (ALT/SGPT) 60 U/L (14-59) Alkaline Phosphatase 159 U/L (46-116) Total Protein 5.9 g/dL (6.4-8.2) Albumin 2.1 g/dL (3.4-5.0) Albumin/Globulin Ratio 0.6 (1.0-1.7) Laboratory Tests Test 02/19/20 17:02 02/19/20 20:56 02/20/20 04:45 02/20/20 07:30 Glucose (Fingerstick) 98 mg/dL (70-99) 116 mg/dL (70-99) 75 mg/dL (70-99) White Blood Count 16.4 x10^3/uL (4.0-11.0) Red Blood Count 4.16 x10^6/uL (3.50-5.40) Hemoglobin 12.0 g/dL (12.0-15.5) Hematocrit 37.2 % (36.0-47.0) Mean Corpuscular Volume 89 fL (79-100) Mean Corpuscular Hemoglobin 29 pg (25-35) Mean Corpuscular Hemoglobin Concent 32 g/dL (31-37) Red Cell Distribution Width 19.2 % (11.5-14.5) Platelet Count 362 x10^3/uL (140-400) Neutrophils (%) (Auto) 90 % (31-73) Lymphocytes (%) (Auto) 4 % (24-48) Monocytes (%) (Auto) 6 % (0-9) Eosinophils (%) (Auto) 0 % (0-3) Basophils (%) (Auto) 0 % (0-3) Neutrophils # (Auto) 14.8 x10^3/uL (1.8-7.7) Lymphocytes # (Auto) 0.7 x10^3/uL (1.0-4.8) Monocytes # (Auto) 0.9 x10^3/uL (0.0-1.1) Eosinophils # (Auto) 0.0 x10^3/uL (0.0-0.7) Basophils # (Auto) 0.0 x10^3/uL (0.0-0.2) Sodium Level 147 mmol/L (136-145) Potassium Level 3.3 mmol/L (3.5-5.1) Chloride Level 109 mmol/L (98-107) Carbon Dioxide Level 29 mmol/L (21-32) Anion Gap 9 (6-14) Blood Urea Nitrogen 11 mg/dL (7-20) Creatinine 0.8 mg/dL (0.6-1.0) Estimated GFR (Cockcroft-Gault) 72.7 BUN/Creatinine Ratio 14 (6-20) Glucose Level 96 mg/dL (70-99) Calcium Level 7.9 mg/dL (8.5-10.1) Total Bilirubin 1.0 mg/dL (0.2-1.0) Aspartate Amino Transf (AST/SGOT) 47 U/L (15-37) Alanine Aminotransferase (ALT/SGPT) 60 U/L (14-59) Alkaline Phosphatase 159 U/L (46-116) Total Protein 5.9 g/dL (6.4-8.2) Albumin 2.1 g/dL (3.4-5.0) Albumin/Globulin Ratio 0.6 (1.0-1.7) Test 02/20/20 10:46 Glucose (Fingerstick) 70 mg/dL (70-99) Microbiology 02/16/20 Blood Culture - Preliminary, Resulted NO GROWTH AFTER 3 DAYS 02/16/20 Urine Culture - Final, Complete 02/16/20 Antimicrobic Susceptibility - Final, Complete Medications Current Medications Fentanyl Citrate (Fentanyl 2ml Vial) 50 mcg 1X ONCE IVP Last administered on 02/16/20at 15:11; Start 02/16/20 at 15:15; Stop 02/16/20 at 15:16; Status DC Ceftriaxone Sodium (Rocephin) 1 gm 1X ONCE IVP Last administered on 02/16/20at 17:02; Start 02/16/20 at 16:30; Stop 02/16/20 at 16:31; Status DC Sodium Chloride 1,000 ml @ 1,000 mls/hr 1X ONCE IV Last administered on 02/16/20at 17:02; Start 02/16/20 at 16:30; Stop 02/16/20 at 17:29; Status DC Fentanyl Citrate (Fentanyl 2ml Vial) 50 mcg 1X ONCE IVP Last administered on 02/16/20at 17:11; Start 02/16/20 at 17:15; Stop 02/16/20 at 17:16; Status DC Sodium Chloride 1,000 ml @ 1,000 mls/hr 1X ONCE IV Last administered on 02/16/20at 17:11; Start 02/16/20 at 17:15; Stop 02/16/20 at 18:14; Status DC Ondansetron HCl (Zofran) 4 mg PRN Q8HRS PRN IV NAUSEA/VOMITING; Start 02/16/20 at 17:15; Stop 02/17/20 at 17:14; Status Cancel Fentanyl Citrate (Fentanyl 2ml Vial) 50 mcg PRN Q1HR PRN IV PAIN Last administered on 02/17/20at 15:55; Start 02/16/20 at 17:15; Stop 02/17/20 at 17:27; Status DC Sodium Chloride 1,000 ml @ 150 mls/hr Q6H40M IV Last administered on 02/16/20at 18:33; Start 02/16/20 at 17:14; Stop 02/17/20 at 17:27; Status DC Hydralazine HCl (Apresoline Inj) 10 mg PRN Q4HRS PRN IVP ELEVATED BP, SEE COMMENTS; Start 02/16/20 at 17:45 Sodium Chloride (Normal Saline Flush) 3 ml QSHIFT PRN IV AFTER MEDS AND BLOOD DRAWS; Start 02/16/20 at 17:45 Sodium Chloride 1,000 ml @ 100 mls/hr Q10H IV Last administered on 02/20/20at 05:44; Start 02/16/20 at 17:43 Ondansetron HCl (Zofran) 4 mg PRN Q4HRS PRN IV NAUSEA/VOMITING Last administered on 02/16/20at 23:39; Start 02/16/20 at 17:45 Acetaminophen (Tylenol Supp) 650 mg PRN Q4HRS PRN ID TEMP OVER 100.4F OR MILD PAIN; Start 02/16/20 at 17:45 Sodium Monofluorophosphate (Fleet Adult) 133 ml PRN DAILY PRN ID CONSTIPATION; Start 02/16/20 at 17:45 Docusate Sodium (Colace) 100 mg PRN BID PRN PO HARD STOOLS; Start 02/16/20 at 17:45 Albuterol Sulfate (Ventolin Neb Soln) 2.5 mg PRN Q4HRS PRN NEB SHORTNESS OF BREATH; Start 02/16/20 at 17:45 Guaifenesin (Robitussin) 200 mg PRN Q4HRS PRN PO COUGH; Start 02/16/20 at 17:45 Lorazepam (Ativan) 0.5 mg PRN Q4HRS PRN PO ANXIETY / AGITATION Last administered on 02/19/20 03:29; Start 02/16/20 at 17:45 Enoxaparin Sodium (Lovenox 40mg Syringe) 40 mg BID SQ Last administered on 02/16/20 22:16; Start 02/16/20 at 21:00; Stop 02/17/20 at 08:18; Status DC Piperacillin Sod/ Tazobactam Sod 3.375 gm/Sodium Chloride 50 ml @ 100 mls/hr Q6HRS IV Last administered on 02/20/20 05:48; Start 02/16/20 at 18:00 Enoxaparin Sodium (Lovenox 40mg Syringe) 40 mg Q24H SQ Last administered on 02/17/20 21:13; Start 02/17/20 at 21:00 Pantoprazole Sodium (PROTONIX VIAL for IV PUSH) 40 mg DAILYAC IVP Last administered on 02/20/20 09:06; Start 02/18/20 at 07:30 Potassium Chloride/Water 100 ml @ 50 mls/hr 1X ONCE IV Last administered on 02/17/20 16:30; Start 02/17/20 at 15:45; Stop 02/17/20 at 17:44; Status DC Fentanyl Citrate (Fentanyl 2ml Vial) 50 mcg PRN Q1HR PRN IVP SEVERE PAIN (2nd Choice) Last administered on 02/17/20 17:50; Start 02/17/20 at 17:45 Morphine Sulfate (Morphine Sulfate) 4 mg PRN Q2HR PRN IV MODERATE PAIN Last administered on 02/18/20 16:02; Start 02/17/20 at 19:00 Morphine Sulfate (Morphine Sulfate) 6 mg PRN Q2HR PRN IV SEVERE PAIN Last administered on 02/17/20 19:15; Start 02/17/20 at 19:00 Insulin Human Lispro (HumaLOG) 0-5 UNITS TIDWMEALS SQ ; Start 02/18/20 at 08:00 Dextrose (Dextrose 50%-Water Syringe) 12.5 gm PRN Q15MIN PRN IV SEE COMMENTS Last administered on 6/4/20at 06:20; Start 02/17/20 at 19:00 Iohexol (Omnipaque 300 Mg/ml) 75 ml 1X ONCE IV ; Start 02/18/20 at 11:00; Stop 02/18/20 at 11:01; Status DC Iohexol (Omnipaque 240 Mg/ml) 50 ml 1X ONCE PO Last administered on 02/18/20at 11:10; Start 02/18/20 at 11:00; Stop 02/18/20 at 11:01; Status DC Info (CONTRAST GIVEN -- Rx MONITORING) 1 each PRN DAILY PRN MC SEE COMMENTS; Start 02/18/20 at 11:15; Stop 02/20/20 at 11:14 Fentanyl Citrate (Fentanyl 2ml Vial) 25 mcg PRN Q5MIN PRN IV MILD PAIN 1-3; Start 02/19/20 at 07:00; Stop 02/20/20 at 06:59; Status DC Fentanyl Citrate (Fentanyl 2ml Vial) 50 mcg PRN Q5MIN PRN IV MODERATE TO SEVERE PAIN Last administered on 02/19/20at 17:41; Start 02/19/20 at 07:00; Stop 02/20/20 at 06:59; Status DC Morphine Sulfate (Morphine Sulfate) 1 mg PRN Q10MIN PRN IV SEVERE PAIN 7-10; Start 02/19/20 at 07:00; Stop 02/20/20 at 06:59; Status DC Ringer's Solution 1,000 ml @ 30 mls/hr Q24H IV Last administered on 02/19/20at 12:48; Start 02/19/20 at 07:00; Stop 02/19/20 at 18:59; Status DC Hydromorphone HCl (Dilaudid) 0.5 mg PRN Q10MIN PRN IV SEV PAIN, Second choice; Start 02/19/20 at 07:00; Stop 02/20/20 at 06:59; Status DC Prochlorperazine Edisylate (Compazine) 5 mg PACU PRN PRN IV NAUSEA, MRX1 Last administered on 02/19/20at 17:27; Start 02/19/20 at 07:00; Stop 02/20/20 at 06:59; Status DC Labetalol HCl (Normodyne Iv Push) 10 mg PRN Q4HRS PRN IVP HYPERTENSION Last administered on 02/19/20at 17:40; Start 02/19/20 at 09:15 Iohexol (Omnipaque 300 Mg/ml) 50 ml STK-MED ONCE .ROUTE ; Start 02/19/20 at 12:17; Stop 02/19/20 at 12:17; Status DC Cellulose (Surgicel Hemostat 4x8) 1 each STK-MED ONCE .ROUTE ; Start 02/19/20 at 12:17; Stop 02/19/20 at 12:17; Status DC Bupivacaine HCl (Sensorcaine Mpf 0.5%) 30 ml STK-MED ONCE .ROUTE ; Start 02/19/20 at 12:17; Stop 02/19/20 at 12:17; Status DC Cefazolin Sodium 2 gm/Dextrose 50 ml @ 100 mls/hr 1X ONCE IV ; Start 02/19/20 at 13:00; Stop 02/19/20 at 13:22; Status DC Lidocaine HCl (Lidocaine Pf 2% Vial) 5 ml STK-MED ONCE .ROUTE ; Start 02/19/20 at 12:47; Stop 02/19/20 at 12:47; Status DC Propofol 50 ml @ As Directed STK-MED ONCE IV ; Start 02/19/20 at 12:47; Stop 02/19/20 at 12:47; Status DC Ondansetron HCl (Zofran) 4 mg STK-MED ONCE .ROUTE ; Start 02/19/20 at 12:47; Stop 02/19/20 at 12:47; Status DC Dexamethasone Sodium Phosphate (Decadron) 4 mg STK-MED ONCE .ROUTE ; Start 02/19/20 at 12:47; Stop 02/19/20 at 12:47; Status DC Fentanyl Citrate (Fentanyl 2ml Vial) 100 mcg STK-MED ONCE .ROUTE ; Start 02/19/20 at 13:01; Stop 02/19/20 at 13:01; Status DC Metoprolol Tartrate (Lopressor Vial) 5 mg STK-MED ONCE IVP ; Start 02/19/20 at 13:33; Stop 02/19/20 at 13:33; Status DC Fentanyl Citrate (Fentanyl 2ml Vial) 100 mcg STK-MED ONCE .ROUTE ; Start 02/19/20 at 14:10; Stop 02/19/20 at 14:10; Status DC Sevoflurane (Ultane) 90 ml STK-MED ONCE IH ; Start 02/19/20 at 14:14; Stop 02/19/20 at 14:15; Status DC Rocuronium [place] (Zemuron) 50 mg STK-MED ONCE .ROUTE ; Start 02/19/20 at 14:43; Stop 02/19/20 at 14:44; Status DC Neostigmine [place] (Neostigmine Methylsulfate) 5 mg STK-MED ONCE .ROUTE ; Start 02/19/20 at 14:58; Stop 02/19/20 at 14:59; Status DC Glycopyrrolate (Robinul) 1 mg STK-MED ONCE .ROUTE ; Start 02/19/20 at 14:59; Stop 02/19/20 at 14:59; Status DC Fentanyl Citrate (Fentanyl 2ml Vial) 100 mcg STK-MED ONCE .ROUTE ; Start 02/19/20 at 15:00; Stop 02/19/20 at 15:01; Status DC Naloxone HCl (Narcan) 0.4 mg PRN Q2MIN PRN IV SEE INSTRUCTIONS; Start 02/19/20 at 16:45 Sodium Chloride 1,000 ml @ 25 mls/hr Q24H IV ; Start 02/19/20 at 16:34 Hydromorphone HCl 30 ml @ 0 mls/hr CONT PRN PRN IV PER PROTOCOL Last administered on 02/19/20at 17:10; Start 02/19/20 at 16:45 Labetalol HCl (Normodyne Iv Push) 10 mg Q4HRS PRN IVP HYPERTENSION; Start 02/20/20 at 08:45; Status UNV Active Scripts Active Reported Crestor (Rosuvastatin Calcium) 5 Mg Tablet 10 Mg PO HS Pantoprazole Sodium (Pantoprazole Sodium) 40 Mg Tablet.dr 40 Mg PO DAILYAC Benazepril Hcl 10 Mg Tablet 10 Mg PO DAILY Lopressor (Metoprolol Tartrate) 100 Mg Tablet 1 Tab PO DAILY 30 Days Citalopram Hbr (Citalopram Hydrobromide) 20 Mg Tablet 1 Tab PO DAILY Vitals/I & O Vital Sign - Last 24 Hours 02/19/20 02/19/20 02/19/20 02/19/20 11:23 12:42 16:49 16:49 Temp 99.0 99.0 98.7 99.0 99.0 98.7 Pulse 89 89 101 Resp 20 15 22 B/P (MAP) 178/71 (106) 178/71 184/71 Pulse Ox 95 95 98 O2 Delivery Room Air Room Air Simple Mask Mask O2 Flow Rate 10 10 02/19/20 02/19/20 02/19/20 02/19/20 17:04 17:10 17:19 17:34 Pulse 90 100 100 Resp 20 20 B/P (MAP) 176/90 186/70 170/73 Pulse Ox 100 99 93 94 O2 Delivery Simple Mask Simple Mask Nasal Cannula Nasal Cannula O2 Flow Rate 10 10.0 2 4 02/19/20 02/19/20 02/19/20 02/19/20 17:40 17:41 18:00 18:03 Temp 99.4 99.4 Pulse 88 93 Resp 20 16 B/P (MAP) 170/73 150/76 (100) Pulse Ox 93 91 O2 Delivery Nasal Cannula Nasal Cannula Nasal Cannula O2 Flow Rate 2.0 4 3.0 02/19/20 02/19/20 02/19/20 02/19/20 18:16 18:38 19:00 19:15 Temp 99.4 99.4 Pulse 84 87 96 91 Resp 20 B/P (MAP) 142/74 (96) 148/55 (86) 164/72 (102) 140/58 (85) Pulse Ox 98 91 O2 Delivery Nasal Cannula Nasal Cannula O2 Flow Rate 3.0 02/19/20 02/19/20 02/19/20 02/19/20 19:45 19:45 20:15 21:15 Pulse 93 95 94 B/P (MAP) 150/66 (94) 131/54 (79) 123/54 (77) O2 Delivery Nasal Cannula O2 Flow Rate 4.0 02/19/20 02/19/20 02/20/20 02/20/20 22:15 23:05 03:07 07:39 Temp 97.6 99.3 97.6 97.6 99.3 97.6 Pulse 90 100 104 99 Resp 18 20 18 B/P (MAP) 139/64 (89) 133/76 (95) 146/80 (102) 158/74 (102) Pulse Ox 96 96 96 O2 Delivery Nasal Cannula Nasal Cannula Nasal Cannula O2 Flow Rate 2.0 02/20/20 08:00 O2 Delivery Nasal Cannula O2 Flow Rate 2.0 Intake and Output 02/19/20 02/19/20 02/20/20 15:00 23:00 07:00 Intake Total 0 ml 1700 ml 50 ml Output Total 725 ml 625 ml Balance 0 ml 975 ml -575 ml DAVE EVANS MD Feb 20, 2020 11:04
[2020-02-20 15:07] VITALS: BP 156/75
--- NOTE | 2020-02-20 15:14 | PDOC ---
PROGRESS NOTES Chief Complaint Chief Complaint Gallstone pancreatitis Dilated common bile duct. MRCP can further evaluate as clinically warranted. Cholelithiasis. No surgical intervention planned at the present time. Hepatomegaly with increased echotexture, // steatosis. Obesity Transaminitis Diabetes Hypertension HX CVA Severe UTI Low lung volumes with patchy bibasilar opacities, most likely atelectasis. 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 Appreciate surgical recommendations History of Present Illness History of Present Illness 02/17/2020 Patient seen and examined in the ICU She is trying to walk with physical therapy Her urine is extremely dark orange with cloudiness Chart reviewed Discussed with RN and physical therapist 02/18/2020 No acute events reported overnight, case discussed with nursing staff patient in no acute distress no complaints during my visit 02/19/2020 Patient with no new complaints. Her pain is still present but not as prominent as it was yesterday or the day before. Seems to be eager to try some clear liquids sometimes gets frustrated due to her aphasia reassurance has been provided plan of care explained in detail 02/20/2020 No acute events reported overnight, case discussed with nursing staff patient in no acute distress no complaints during my visit Vitals Vitals Vital Signs Date Time Temp Pulse Resp B/P (MAP) Pulse Ox O2 Delivery O2 Flow Rate FiO2 02/20/20 11:03 97.7 99 18 155/80 (105) 94 Nasal Cannula 2.0 97.7 Physical Exam General: Alert Heart: Regular rate Lungs: Clear Abdomen: Soft (LUIS E serosang) Extremities: No clubbing, No cyanosis Skin: Other (JAUNDICED) Labs LABS Laboratory Tests Test 02/19/20 17:02 02/19/20 20:56 02/20/20 04:45 02/20/20 07:30 Glucose (Fingerstick) 98 mg/dL (70-99) 116 mg/dL (70-99) 75 mg/dL (70-99) White Blood Count 16.4 x10^3/uL (4.0-11.0) Red Blood Count 4.16 x10^6/uL (3.50-5.40) Hemoglobin 12.0 g/dL (12.0-15.5) Hematocrit 37.2 % (36.0-47.0) Mean Corpuscular Volume 89 fL (79-100) Mean Corpuscular Hemoglobin 29 pg (25-35) Mean Corpuscular Hemoglobin Concent 32 g/dL (31-37) Red Cell Distribution Width 19.2 % (11.5-14.5) Platelet Count 362 x10^3/uL (140-400) Neutrophils (%) (Auto) 90 % (31-73) Lymphocytes (%) (Auto) 4 % (24-48) Monocytes (%) (Auto) 6 % (0-9) Eosinophils (%) (Auto) 0 % (0-3) Basophils (%) (Auto) 0 % (0-3) Neutrophils # (Auto) 14.8 x10^3/uL (1.8-7.7) Lymphocytes # (Auto) 0.7 x10^3/uL (1.0-4.8) Monocytes # (Auto) 0.9 x10^3/uL (0.0-1.1) Eosinophils # (Auto) 0.0 x10^3/uL (0.0-0.7) Basophils # (Auto) 0.0 x10^3/uL (0.0-0.2) Sodium Level 147 mmol/L (136-145) Potassium Level 3.3 mmol/L (3.5-5.1) Chloride Level 109 mmol/L (98-107) Carbon Dioxide Level 29 mmol/L (21-32) Anion Gap 9 (6-14) Blood Urea Nitrogen 11 mg/dL (7-20) Creatinine 0.8 mg/dL (0.6-1.0) Estimated GFR (Cockcroft-Gault) 72.7 BUN/Creatinine Ratio 14 (6-20) Glucose Level 96 mg/dL (70-99) Calcium Level 7.9 mg/dL (8.5-10.1) Total Bilirubin 1.0 mg/dL (0.2-1.0) Aspartate Amino Transf (AST/SGOT) 47 U/L (15-37) Alanine Aminotransferase (ALT/SGPT) 60 U/L (14-59) Alkaline Phosphatase 159 U/L (46-116) Total Protein 5.9 g/dL (6.4-8.2) Albumin 2.1 g/dL (3.4-5.0) Albumin/Globulin Ratio 0.6 (1.0-1.7) Test 02/20/20 10:46 Glucose (Fingerstick) 70 mg/dL (70-99) Assessment and Plan Assessmemt and Plan Problems Medical Problems: (1) Pancreatitis Status: Acute (2) Suspected 2019 novel coronavirus infection Status: Acute (3) UTI (urinary tract infection) Status: Acute Comment Review of Relevant I have reviewed the following items shae (where applicable) has been applied. Labs Laboratory Tests Test 02/18/20 16:25 02/18/20 20:50 02/19/20 03:42 02/19/20 06:15 Glucose (Fingerstick) 70 mg/dL (70-99) 71 mg/dL (70-99) 71 mg/dL (70-99) White Blood Count 16.7 x10^3/uL (4.0-11.0) Red Blood Count 4.46 x10^6/uL (3.50-5.40) Hemoglobin 12.9 g/dL (12.0-15.5) Hematocrit 40.0 % (36.0-47.0) Mean Corpuscular Volume 90 fL (79-100) Mean Corpuscular Hemoglobin 29 pg (25-35) Mean Corpuscular Hemoglobin Concent 32 g/dL (31-37) Red Cell Distribution Width 19.5 % (11.5-14.5) Platelet Count 348 x10^3/uL (140-400) Neutrophils (%) (Auto) 88 % (31-73) Lymphocytes (%) (Auto) 6 % (24-48) Monocytes (%) (Auto) 6 % (0-9) Eosinophils (%) (Auto) 0 % (0-3) Basophils (%) (Auto) 1 % (0-3) Neutrophils # (Auto) 14.6 x10^3/uL (1.8-7.7) Lymphocytes # (Auto) 1.0 x10^3/uL (1.0-4.8) Monocytes # (Auto) 1.0 x10^3/uL (0.0-1.1) Eosinophils # (Auto) 0.0 x10^3/uL (0.0-0.7) Basophils # (Auto) 0.1 x10^3/uL (0.0-0.2) Sodium Level 146 mmol/L (136-145) Potassium Level 3.5 mmol/L (3.5-5.1) Chloride Level 108 mmol/L (98-107) Carbon Dioxide Level 24 mmol/L (21-32) Anion Gap 14 (6-14) Blood Urea Nitrogen 14 mg/dL (7-20) Creatinine 0.6 mg/dL (0.6-1.0) Estimated GFR (Cockcroft-Gault) 101.3 BUN/Creatinine Ratio 23 (6-20) Glucose Level 60 mg/dL (70-99) Calcium Level 8.5 mg/dL (8.5-10.1) Total Bilirubin 1.5 mg/dL (0.2-1.0) Aspartate Amino Transf (AST/SGOT) 31 U/L (15-37) Alanine Aminotransferase (ALT/SGPT) 76 U/L (14-59) Alkaline Phosphatase 197 U/L (46-116) Total Protein 5.5 g/dL (6.4-8.2) Albumin 2.4 g/dL (3.4-5.0) Albumin/Globulin Ratio 0.8 (1.0-1.7) Test 02/19/20 07:16 02/19/20 10:54 02/19/20 17:02 02/19/20 20:56 Glucose (Fingerstick) 88 mg/dL (70-99) 74 mg/dL (70-99) 98 mg/dL (70-99) 116 mg/dL (70-99) Test 02/20/20 04:45 02/20/20 07:30 02/20/20 10:46 White Blood Count 16.4 x10^3/uL (4.0-11.0) Red Blood Count 4.16 x10^6/uL (3.50-5.40) Hemoglobin 12.0 g/dL (12.0-15.5) Hematocrit 37.2 % (36.0-47.0) Mean Corpuscular Volume 89 fL (79-100) Mean Corpuscular Hemoglobin 29 pg (25-35) Mean Corpuscular Hemoglobin Concent 32 g/dL (31-37) Red Cell Distribution Width 19.2 % (11.5-14.5) Platelet Count 362 x10^3/uL (140-400) Neutrophils (%) (Auto) 90 % (31-73) Lymphocytes (%) (Auto) 4 % (24-48) Monocytes (%) (Auto) 6 % (0-9) Eosinophils (%) (Auto) 0 % (0-3) Basophils (%) (Auto) 0 % (0-3) Neutrophils # (Auto) 14.8 x10^3/uL (1.8-7.7) Lymphocytes # (Auto) 0.7 x10^3/uL (1.0-4.8) Monocytes # (Auto) 0.9 x10^3/uL (0.0-1.1) Eosinophils # (Auto) 0.0 x10^3/uL (0.0-0.7) Basophils # (Auto) 0.0 x10^3/uL (0.0-0.2) Sodium Level 147 mmol/L (136-145) Potassium Level 3.3 mmol/L (3.5-5.1) Chloride Level 109 mmol/L (98-107) Carbon Dioxide Level 29 mmol/L (21-32) Anion Gap 9 (6-14) Blood Urea Nitrogen 11 mg/dL (7-20) Creatinine 0.8 mg/dL (0.6-1.0) Estimated GFR (Cockcroft-Gault) 72.7 BUN/Creatinine Ratio 14 (6-20) Glucose Level 96 mg/dL (70-99) Calcium Level 7.9 mg/dL (8.5-10.1) Total Bilirubin 1.0 mg/dL (0.2-1.0) Aspartate Amino Transf (AST/SGOT) 47 U/L (15-37) Alanine Aminotransferase (ALT/SGPT) 60 U/L (14-59) Alkaline Phosphatase 159 U/L (46-116) Total Protein 5.9 g/dL (6.4-8.2) Albumin 2.1 g/dL (3.4-5.0) Albumin/Globulin Ratio 0.6 (1.0-1.7) Glucose (Fingerstick) 75 mg/dL (70-99) 70 mg/dL (70-99) Laboratory Tests Test 02/19/20 17:02 02/19/20 20:56 02/20/20 04:45 02/20/20 07:30 Glucose (Fingerstick) 98 mg/dL (70-99) 116 mg/dL (70-99) 75 mg/dL (70-99) White Blood Count 16.4 x10^3/uL (4.0-11.0) Red Blood Count 4.16 x10^6/uL (3.50-5.40) Hemoglobin 12.0 g/dL (12.0-15.5) Hematocrit 37.2 % (36.0-47.0) Mean Corpuscular Volume 89 fL (79-100) Mean Corpuscular Hemoglobin 29 pg (25-35) Mean Corpuscular Hemoglobin Concent 32 g/dL (31-37) Red Cell Distribution Width 19.2 % (11.5-14.5) Platelet Count 362 x10^3/uL (140-400) Neutrophils (%) (Auto) 90 % (31-73) Lymphocytes (%) (Auto) 4 % (24-48) Monocytes (%) (Auto) 6 % (0-9) Eosinophils (%) (Auto) 0 % (0-3) Basophils (%) (Auto) 0 % (0-3) Neutrophils # (Auto) 14.8 x10^3/uL (1.8-7.7) Lymphocytes # (Auto) 0.7 x10^3/uL (1.0-4.8) Monocytes # (Auto) 0.9 x10^3/uL (0.0-1.1) Eosinophils # (Auto) 0.0 x10^3/uL (0.0-0.7) Basophils # (Auto) 0.0 x10^3/uL (0.0-0.2) Sodium Level 147 mmol/L (136-145) Potassium Level 3.3 mmol/L (3.5-5.1) Chloride Level 109 mmol/L (98-107) Carbon Dioxide Level 29 mmol/L (21-32) Anion Gap 9 (6-14) Blood Urea Nitrogen 11 mg/dL (7-20) Creatinine 0.8 mg/dL (0.6-1.0) Estimated GFR (Cockcroft-Gault) 72.7 BUN/Creatinine Ratio 14 (6-20) Glucose Level 96 mg/dL (70-99) Calcium Level 7.9 mg/dL (8.5-10.1) Total Bilirubin 1.0 mg/dL (0.2-1.0) Aspartate Amino Transf (AST/SGOT) 47 U/L (15-37) Alanine Aminotransferase (ALT/SGPT) 60 U/L (14-59) Alkaline Phosphatase 159 U/L (46-116) Total Protein 5.9 g/dL (6.4-8.2) Albumin 2.1 g/dL (3.4-5.0) Albumin/Globulin Ratio 0.6 (1.0-1.7) Test 02/20/20 10:46 Glucose (Fingerstick) 70 mg/dL (70-99) Microbiology 02/16/20 Blood Culture - Preliminary, Resulted NO GROWTH AFTER 3 DAYS 02/16/20 Urine Culture - Final, Complete 02/16/20 Antimicrobic Susceptibility - Final, Complete Medications Current Medications Fentanyl Citrate (Fentanyl 2ml Vial) 50 mcg 1X ONCE IVP Last administered on 02/16/20at 15:11; Start 02/16/20 at 15:15; Stop 02/16/20 at 15:16; Status DC Ceftriaxone Sodium (Rocephin) 1 gm 1X ONCE IVP Last administered on 02/16/20at 17:02; Start 02/16/20 at 16:30; Stop 02/16/20 at 16:31; Status DC Sodium Chloride 1,000 ml @ 1,000 mls/hr 1X ONCE IV Last administered on 02/16/20at 17:02; Start 02/16/20 at 16:30; Stop 02/16/20 at 17:29; Status DC Fentanyl Citrate (Fentanyl 2ml Vial) 50 mcg 1X ONCE IVP Last administered on 02/16/20at 17:11; Start 02/16/20 at 17:15; Stop 02/16/20 at 17:16; Status DC Sodium Chloride 1,000 ml @ 1,000 mls/hr 1X ONCE IV Last administered on 02/16/20at 17:11; Start 02/16/20 at 17:15; Stop 02/16/20 at 18:14; Status DC Ondansetron HCl (Zofran) 4 mg PRN Q8HRS PRN IV NAUSEA/VOMITING; Start 02/16/20 at 17:15; Stop 02/17/20 at 17:14; Status Cancel Fentanyl Citrate (Fentanyl 2ml Vial) 50 mcg PRN Q1HR PRN IV PAIN Last administered on 02/17/20at 15:55; Start 02/16/20 at 17:15; Stop 02/17/20 at 17:27; Status DC Sodium Chloride 1,000 ml @ 150 mls/hr Q6H40M IV Last administered on 02/16/20at 18:33; Start 02/16/20 at 17:14; Stop 02/17/20 at 17:27; Status DC Hydralazine HCl (Apresoline Inj) 10 mg PRN Q4HRS PRN IVP ELEVATED BP, SEE COMMENTS; Start 02/16/20 at 17:45 Sodium Chloride (Normal Saline Flush) 3 ml QSHIFT PRN IV AFTER MEDS AND BLOOD DRAWS; Start 02/16/20 at 17:45 Sodium Chloride 1,000 ml @ 100 mls/hr Q10H IV Last administered on 02/20/20at 05:44; Start 02/16/20 at 17:43 Ondansetron HCl (Zofran) 4 mg PRN Q4HRS PRN IV NAUSEA/VOMITING Last administered on 02/16/20at 23:39; Start 02/16/20 at 17:45 Acetaminophen (Tylenol Supp) 650 mg PRN Q4HRS PRN [place] TEMP OVER 100.4F OR MILD PAIN; Start 02/16/20 at 17:45 Sodium Monofluorophosphate (Fleet Adult) 133 ml PRN DAILY PRN [place] CONSTIPATION; Start 02/16/20 at 17:45 Docusate Sodium (Colace) 100 mg PRN BID PRN PO HARD STOOLS; Start 02/16/20 at 17:45 Albuterol Sulfate (Ventolin Neb Soln) 2.5 mg PRN Q4HRS PRN NEB SHORTNESS OF BREATH; Start 02/16/20 at 17:45 Guaifenesin (Robitussin) 200 mg PRN Q4HRS PRN PO COUGH; Start 02/16/20 at 17:45 Lorazepam (Ativan) 0.5 mg PRN Q4HRS PRN PO ANXIETY / AGITATION Last administered on 02/19/20at 03:29; Start 02/16/20 at 17:45 Enoxaparin Sodium (Lovenox 40mg Syringe) 40 mg BID SQ Last administered on 02/16/20at 22:16; Start 02/16/20 at 21:00; Stop 02/17/20 at 08:18; Status DC Piperacillin Sod/ Tazobactam Sod 3.375 gm/Sodium Chloride 50 ml @ 100 mls/hr Q6HRS IV Last administered on 02/20/20at 12:53; Start 02/16/20 at 18:00 Enoxaparin Sodium (Lovenox 40mg Syringe) 40 mg Q24H SQ Last administered on 02/17/20at 21:13; Start 02/17/20 at 21:00 Pantoprazole Sodium (PROTONIX VIAL for IV PUSH) 40 mg DAILYAC IVP Last administered on 02/20/20at 09:06; Start 02/18/20 at 07:30 Potassium Chloride/Water 100 ml @ 50 mls/hr 1X ONCE IV Last administered on 02/17/20at 16:30; Start 02/17/20 at 15:45; Stop 02/17/20 at 17:44; Status DC Fentanyl Citrate (Fentanyl 2ml Vial) 50 mcg PRN Q1HR PRN IVP SEVERE PAIN (2nd Choice) Last administered on 02/17/20at 17:50; Start 02/17/20 at 17:45 Morphine Sulfate (Morphine Sulfate) 4 mg PRN Q2HR PRN IV MODERATE PAIN Last administered on 02/18/20at 16:02; Start 02/17/20 at 19:00 Morphine Sulfate (Morphine Sulfate) 6 mg PRN Q2HR PRN IV SEVERE PAIN Last administered on 02/17/20at 19:15; Start 02/17/20 at 19:00 Insulin Human Lispro (HumaLOG) 0-5 UNITS TIDWMEALS SQ ; Start 02/18/20 at 08:00 Dextrose (Dextrose 50%-Water Syringe) 12.5 gm PRN Q15MIN PRN IV SEE COMMENTS Last administered on 02/19/20at 06:20; Start 02/17/20 at 19:00 Iohexol (Omnipaque 300 Mg/ml) 75 ml 1X ONCE IV ; Start 02/18/20 at 11:00; Stop 02/18/20 at 11:01; Status DC Iohexol (Omnipaque 240 Mg/ml) 50 ml 1X ONCE PO Last administered on 02/18/20at 11:10; Start 02/18/20 at 11:00; Stop 02/18/20 at 11:01; Status DC Info (CONTRAST GIVEN -- Rx MONITORING) 1 each PRN DAILY PRN MC SEE COMMENTS; Start 02/18/20 at 11:15; Stop 02/20/20 at 11:14; Status DC Fentanyl Citrate (Fentanyl 2ml Vial) 25 mcg PRN Q5MIN PRN IV MILD PAIN 1-3; Start 02/19/20 at 07:00; Stop 02/20/20 at 06:59; Status DC Fentanyl Citrate (Fentanyl 2ml Vial) 50 mcg PRN Q5MIN PRN IV MODERATE TO SEVERE PAIN Last administered on 02/19/20at 17:41; Start 02/19/20 at 07:00; Stop 02/20/20 at 06:59; Status DC Morphine Sulfate (Morphine Sulfate) 1 mg PRN Q10MIN PRN IV SEVERE PAIN 7-10; Start 02/19/20 at 07:00; Stop 02/20/20 at 06:59; Status DC Ringer's Solution 1,000 ml @ 30 mls/hr Q24H IV Last administered on 02/19/20at 12:48; Start 02/19/20 at 07:00; Stop 02/19/20 at 18:59; Status DC Hydromorphone HCl (Dilaudid) 0.5 mg PRN Q10MIN PRN IV SEV PAIN, Second choice; Start 02/19/20 at 07:00; Stop 02/20/20 at 06:59; Status DC Prochlorperazine Edisylate (Compazine) 5 mg PACU PRN PRN IV NAUSEA, MRX1 Last administered on 02/19/20at 17:27; Start 02/19/20 at 07:00; Stop 02/20/20 at 06:59; Status DC Labetalol HCl (Normodyne Iv Push) 10 mg PRN Q4HRS PRN IVP HYPERTENSION Last administered on 02/19/20at 17:40; Start 02/19/20 at 09:15 Iohexol (Omnipaque 300 Mg/ml) 50 ml STK-MED ONCE .ROUTE ; Start 02/19/20 at 12:17; Stop 02/19/20 at 12:17; Status DC Cellulose (Surgicel Hemostat 4x8) 1 each STK-MED ONCE .ROUTE ; Start 02/19/20 at 12:17; Stop 02/19/20 at 12:17; Status DC Bupivacaine HCl (Sensorcaine Mpf 0.5%) 30 ml STK-MED ONCE .ROUTE ; Start 02/19/20 at 12:17; Stop 02/19/20 at 12:17; Status DC Cefazolin Sodium 2 gm/Dextrose 50 ml @ 100 mls/hr 1X ONCE IV ; Start 02/19/20 at 13:00; Stop 02/19/20 at 13:22; Status DC Lidocaine HCl (Lidocaine Pf 2% Vial) 5 ml STK-MED ONCE .ROUTE ; Start 02/19/20 at 12:47; Stop 02/19/20 at 12:47; Status DC Propofol 50 ml @ As Directed STK-MED ONCE IV ; Start 02/19/20 at 12:47; Stop 02/19/20 at 12:47; Status DC Ondansetron HCl (Zofran) 4 mg STK-MED ONCE .ROUTE ; Start 02/19/20 at 12:47; Stop 02/19/20 at 12:47; Status DC Dexamethasone Sodium Phosphate (Decadron) 4 mg STK-MED ONCE .ROUTE ; Start 02/19/20 at 12:47; Stop 02/19/20 at 12:47; Status DC Fentanyl Citrate (Fentanyl 2ml Vial) 100 mcg STK-MED ONCE .ROUTE ; Start 02/19/20 at 13:01; Stop 02/19/20 at 13:01; Status DC Metoprolol Tartrate (Lopressor Vial) 5 mg STK-MED ONCE IVP ; Start 02/19/20 at 13:33; Stop 02/19/20 at 13:33; Status DC Fentanyl Citrate (Fentanyl 2ml Vial) 100 mcg STK-MED ONCE .ROUTE ; Start 02/19/20 at 14:10; Stop 02/19/20 at 14:10; Status DC Sevoflurane (Ultane) 90 ml STK-MED ONCE IH ; Start 02/19/20 at 14:14; Stop 02/19/20 at 14:15; Status DC Rocuronium [place]pe (Zemuron) 50 mg STK-MED ONCE .ROUTE ; Start 02/19/20 at 14:43; Stop 02/19/20 at 14:44; Status DC Neostigmine [place] (Neostigmine Methylsulfate) 5 mg STK-MED ONCE .ROUTE ; Start 02/19/20 at 14:58; Stop 02/19/20 at 14:59; Status DC Glycopyrrolate (Robinul) 1 mg STK-MED ONCE .ROUTE ; Start 02/19/20 at 14:59; Stop 02/19/20 at 14:59; Status DC Fentanyl Citrate (Fentanyl 2ml Vial) 100 mcg STK-MED ONCE .ROUTE ; Start 02/19/20 at 15:00; Stop 02/19/20 at 15:01; Status DC Naloxone HCl (Narcan) 0.4 mg PRN Q2MIN PRN IV SEE INSTRUCTIONS; Start 02/19/20 at 16:45 Sodium Chloride 1,000 ml @ 25 mls/hr Q24H IV ; Start 02/19/20 at 16:34 Hydromorphone HCl 30 ml @ 0 mls/hr CONT PRN PRN IV PER PROTOCOL Last administered on 02/19/20at 17:10; Start 02/19/20 at 16:45 Labetalol HCl (Normodyne Iv Push) 10 mg Q4HRS PRN IVP HYPERTENSION; Start 02/20/20 at 08:45; Status UNV Active Scripts Active Reported Crestor (Rosuvastatin Calcium) 5 Mg Tablet 10 Mg PO HS Pantoprazole Sodium (Pantoprazole Sodium) 40 Mg Tablet.dr 40 Mg PO DAILYAC Benazepril Hcl 10 Mg Tablet 10 Mg PO DAILY Lopressor (Metoprolol Tartrate) 100 Mg Tablet 1 Tab PO DAILY 30 Days Citalopram Hbr (Citalopram Hydrobromide) 20 Mg Tablet 1 Tab PO DAILY Vitals/I & O Vital Sign - Last 24 Hours 02/19/20 02/19/20 02/19/20 02/19/20 16:49 16:49 17:04 17:10 Temp 98.7 98.7 Pulse 101 90 Resp 22 20 22 B/P (MAP) 184/71 176/90 Pulse Ox 98 100 99 O2 Delivery Simple Mask Mask Simple Mask Simple Mask O2 Flow Rate 10 10 10 10.0 02/19/20 02/19/20 02/19/20 02/19/20 17:19 17:34 17:40 17:41 Pulse 100 100 88 Resp 22 20 20 B/P (MAP) 186/70 170/73 170/73 Pulse Ox 93 94 93 O2 Delivery Nasal Cannula Nasal Cannula Nasal Cannula O2 Flow Rate 2 4 2.0 02/19/20 02/19/20 02/19/20 6/4/20 18:00 18:03 18:16 18:38 Temp 99.4 99.4 Pulse 93 84 87 Resp 16 B/P (MAP) 150/76 (100) 142/74 (96) 148/55 (86) Pulse Ox 91 98 O2 Delivery Nasal Cannula Nasal Cannula Nasal Cannula O2 Flow Rate 4 3.0 3.0 02/19/20 02/19/20 02/19/20 02/19/20 19:00 19:15 19:45 19:45 Temp 99.4 99.4 Pulse 96 91 93 Resp 20 B/P (MAP) 164/72 (102) 140/58 (85) 150/66 (94) Pulse Ox 91 O2 Delivery Nasal Cannula Nasal Cannula O2 Flow Rate 4.0 02/19/20 02/19/20 02/19/20 02/19/20 20:15 21:15 22:15 23:05 Temp 97.6 97.6 Pulse 95 94 90 100 Resp B/P (MAP) 131/54 (79) 123/54 (77) 139/64 (89) 133/76 (95) Pulse Ox 96 O2 Delivery Nasal Cannula 02/20/20 02/20/20 02/20/20 02/20/20 03:07 07:39 08:00 11:03 Temp 99.3 97.6 97.7 99.3 97.6 97.7 Pulse 104 99 99 Resp 20 18 18 B/P (MAP) 146/80 (102) 158/74 (102) 155/80 (105) Pulse Ox 96 96 94 O2 Delivery Nasal Cannula Nasal Cannula Nasal Cannula Nasal Cannula O2 Flow Rate 2.0 2.0 2.0 Intake and Output 02/19/20 02/19/20 02/20/20 15:00 23:00 07:00 Intake Total 0 ml 1700 ml 50 ml Output Total 725 ml 625 ml Balance 0 ml 975 ml -575 ml RASHARD SANCHEZ MD Feb 20, 2020 15:14
[2020-02-20 19:00] VITALS: BP 129/60
[2020-02-20] MEDS: LACTOBACILLUS RHAMNOSUS GG 1 CAPSULE. PO SCH (21:45)
[2020-02-20] MEDS: ENOXAPARIN 40 MG/0.4 ML SYRINGE. SQ SCH (21:46)
[2020-02-20 23:02] VITALS: BP 143/67
[2020-02-21] MEDS: PIPERACILLIN/TAZOBACTAM 3.375 GM in IV NORMAL SALINE 50ML 50 ML IV SCH ×4 (00:16→17:32)
[2020-02-21 03:03] VITALS: BP 154/68
[2020-02-21] MEDS: IV NORMAL SALINE 1000ML BAG 1,000 ML IV SCH ×2 (05:55→16:36)
[2020-02-21 05:56] LABS: ALBUMIN 1.9 g/dL (3.4-5.0); DIRECT BILIRUBIN 0.7 mg/dL (0.0-0.2); TOTAL BILIRUBIN 0.9 mg/dL (0.2-1.0); TOTAL PROTEIN 5.4 g/dL (6.4-8.2)
[2020-02-21 07:52] VITALS: BP 150/66
[2020-02-21] MEDS: INSULIN LISPRO 300 UNITS/3 ML VIAL. SQ SCH ×3 (08:00→17:00)
[2020-02-21] MEDS: LACTOBACILLUS RHAMNOSUS GG 1 CAPSULE. PO SCH ×2 (11:18→22:01)
[2020-02-21] MEDS: PANTOPRAZOLE IV PUSH 40 MG VIAL. IVP SCH (11:19)
[2020-02-21 11:20] VITALS: BP 146/57
--- NOTE | 2020-02-21 12:29 | PDOC ---
PROGRESS NOTES Subjective Subjective looks well, wants food Objective Objective Vital Signs Date Time Temp Pulse Resp B/P (MAP) Pulse Ox O2 Delivery O2 Flow Rate FiO2 02/21/20 11:20 97.9 100 18 146/57 (86) 94 Nasal Cannula 97.9 02/20/20 20:15 2.0 Intake and Output 02/21/20 07:00 Intake Total 1130 ml Output Total 990 ml Balance 140 ml Intake Oral 1130 ml Output Urine Total 600 ml Drainage Total 390 ml # Voids 4 Physical Exam Abdomen: Soft (LUIS E with serous fluid) Assessment Assessment Problems Medical Problems: (1) Pancreatitis Status: Acute (2) Suspected 2019 novel coronavirus infection Status: Acute (3) UTI (urinary tract infection) Status: Acute Plan Plan of Care Advance diet Comment Review of Relevant I have reviewed the following items shae (where applicable) has been applied. Labs Laboratory Tests Test 02/19/20 17:02 02/19/20 20:56 02/20/20 04:45 02/20/20 07:30 Glucose (Fingerstick) 98 mg/dL (70-99) 116 mg/dL (70-99) 75 mg/dL (70-99) White Blood Count 16.4 x10^3/uL (4.0-11.0) Red Blood Count 4.16 x10^6/uL (3.50-5.40) Hemoglobin 12.0 g/dL (12.0-15.5) Hematocrit 37.2 % (36.0-47.0) Mean Corpuscular Volume 89 fL (79-100) Mean Corpuscular Hemoglobin 29 pg (25-35) Mean Corpuscular Hemoglobin Concent 32 g/dL (31-37) Red Cell Distribution Width 19.2 % (11.5-14.5) Platelet Count 362 x10^3/uL (140-400) Neutrophils (%) (Auto) 90 % (31-73) Lymphocytes (%) (Auto) 4 % (24-48) Monocytes (%) (Auto) 6 % (0-9) Eosinophils (%) (Auto) 0 % (0-3) Basophils (%) (Auto) 0 % (0-3) Neutrophils # (Auto) 14.8 x10^3/uL (1.8-7.7) Lymphocytes # (Auto) 0.7 x10^3/uL (1.0-4.8) Monocytes # (Auto) 0.9 x10^3/uL (0.0-1.1) Eosinophils # (Auto) 0.0 x10^3/uL (0.0-0.7) Basophils # (Auto) 0.0 x10^3/uL (0.0-0.2) Sodium Level 147 mmol/L (136-145) Potassium Level 3.3 mmol/L (3.5-5.1) Chloride Level 109 mmol/L (98-107) Carbon Dioxide Level 29 mmol/L (21-32) Anion Gap 9 (6-14) Blood Urea Nitrogen 11 mg/dL (7-20) Creatinine 0.8 mg/dL (0.6-1.0) Estimated GFR (Cockcroft-Gault) 72.7 BUN/Creatinine Ratio 14 (6-20) Glucose Level 96 mg/dL (70-99) Calcium Level 7.9 mg/dL (8.5-10.1) Total Bilirubin 1.0 mg/dL (0.2-1.0) Aspartate Amino Transf (AST/SGOT) 47 U/L (15-37) Alanine Aminotransferase (ALT/SGPT) 60 U/L (14-59) Alkaline Phosphatase 159 U/L (46-116) Total Protein 5.9 g/dL (6.4-8.2) Albumin 2.1 g/dL (3.4-5.0) Albumin/Globulin Ratio 0.6 (1.0-1.7) Test 02/20/20 10:46 02/20/20 16:17 02/20/20 20:40 02/21/20 05:15 Glucose (Fingerstick) 70 mg/dL (70-99) 93 mg/dL (70-99) 113 mg/dL (70-99) Total Bilirubin 0.9 mg/dL (0.2-1.0) Direct Bilirubin 0.7 mg/dL (0.0-0.2) Aspartate Amino Transf (AST/SGOT) 27 U/L (15-37) Alanine Aminotransferase (ALT/SGPT) 41 U/L (14-59) Alkaline Phosphatase 130 U/L (46-116) Total Protein 5.4 g/dL (6.4-8.2) Albumin 1.9 g/dL (3.4-5.0) Test 02/21/20 07:09 02/21/20 11:09 Glucose (Fingerstick) 94 mg/dL (70-99) 96 mg/dL (70-99) Laboratory Tests Test 02/20/20 16:17 02/20/20 20:40 02/21/20 05:15 02/21/20 07:09 Glucose (Fingerstick) 93 mg/dL (70-99) 113 mg/dL (70-99) 94 mg/dL (70-99) Total Bilirubin 0.9 mg/dL (0.2-1.0) Direct Bilirubin 0.7 mg/dL (0.0-0.2) Aspartate Amino Transf (AST/SGOT) 27 U/L (15-37) Alanine Aminotransferase (ALT/SGPT) 41 U/L (14-59) Alkaline Phosphatase 130 U/L (46-116) Total Protein 5.4 g/dL (6.4-8.2) Albumin 1.9 g/dL (3.4-5.0) Test 02/21/20 11:09 Glucose (Fingerstick) 96 mg/dL (70-99) Microbiology 02/16/20 Blood Culture - Preliminary, Resulted NO GROWTH AFTER 4 DAYS 02/16/20 Urine Culture - Final, Complete 02/16/20 Antimicrobic Susceptibility - Final, Complete Medications Current Medications Fentanyl Citrate (Fentanyl 2ml Vial) 50 mcg 1X ONCE IVP Last administered on 02/16/20at 15:11; Start 02/16/20 at 15:15; Stop 02/16/20 at 15:16; Status DC Ceftriaxone Sodium (Rocephin) 1 gm 1X ONCE IVP Last administered on 02/16/20at 17:02; Start 02/16/20 at 16:30; Stop 02/16/20 at 16:31; Status DC Sodium Chloride 1,000 ml @ 1,000 mls/hr 1X ONCE IV Last administered on 02/16/20at 17:02; Start 02/16/20 at 16:30; Stop 02/16/20 at 17:29; Status DC Fentanyl Citrate (Fentanyl 2ml Vial) 50 mcg 1X ONCE IVP Last administered on 02/16/20at 17:11; Start 02/16/20 at 17:15; Stop 02/16/20 at 17:16; Status DC Sodium Chloride 1,000 ml @ 1,000 mls/hr 1X ONCE IV Last administered on 02/16/20at 17:11; Start 02/16/20 at 17:15; Stop 02/16/20 at 18:14; Status DC Ondansetron HCl (Zofran) 4 mg PRN Q8HRS PRN IV NAUSEA/VOMITING; Start 02/16/20 at 17:15; Stop 02/17/20 at 17:14; Status Cancel Fentanyl Citrate (Fentanyl 2ml Vial) 50 mcg PRN Q1HR PRN IV PAIN Last administered on 02/17/20at 15:55; Start 02/16/20 at 17:15; Stop 02/17/20 at 17:27; Status DC Sodium Chloride 1,000 ml @ 150 mls/hr Q6H40M IV Last administered on 02/16/20at 18:33; Start 02/16/20 at 17:14; Stop 02/17/20 at 17:27; Status DC Hydralazine HCl (Apresoline Inj) 10 mg PRN Q4HRS PRN IVP ELEVATED BP, SEE COMMENTS; Start 02/16/20 at 17:45 Sodium Chloride (Normal Saline Flush) 3 ml QSHIFT PRN IV AFTER MEDS AND BLOOD DRAWS; Start 02/16/20 at 17:45 Sodium Chloride 1,000 ml @ 100 mls/hr Q10H IV Last administered on 02/21/20at 05:55; Start 02/16/20 at 17:43 Ondansetron HCl (Zofran) 4 mg PRN Q4HRS PRN IV NAUSEA/VOMITING Last administered on 02/16/20at 23:39; Start 02/16/20 at 17:45 Acetaminophen (Tylenol Supp) 650 mg PRN Q4HRS PRN SC TEMP OVER 100.4F OR MILD PAIN; Start 02/16/20 at 17:45 Sodium Monofluorophosphate (Fleet Adult) 133 ml PRN DAILY PRN SC CONSTIPATION; Start 02/16/20 at 17:45 Docusate Sodium (Colace) 100 mg PRN BID PRN PO HARD STOOLS; Start 02/16/20 at 17:45 Albuterol Sulfate (Ventolin Neb Soln) 2.5 mg PRN Q4HRS PRN NEB SHORTNESS OF BREATH; Start 02/16/20 at 17:45 Guaifenesin (Robitussin) 200 mg PRN Q4HRS PRN PO COUGH; Start 02/16/20 at 17:45 Lorazepam (Ativan) 0.5 mg PRN Q4HRS PRN PO ANXIETY / AGITATION Last administered on 02/19/20at 03:29; Start 02/16/20 at 17:45 Enoxaparin Sodium (Lovenox 40mg Syringe) 40 mg BID SQ Last administered on 02/16/20at 22:16; Start 02/16/20 at 21:00; Stop 02/17/20 at 08:18; Status DC Piperacillin Sod/ Tazobactam Sod 3.375 gm/Sodium Chloride 50 ml @ 100 mls/hr Q6HRS IV Last administered on 02/21/20at 11:19; Start 02/16/20 at 18:00 Enoxaparin Sodium (Lovenox 40mg Syringe) 40 mg Q24H SQ Last administered on 02/20/20at 21:46; Start 02/17/20 at 21:00 Pantoprazole Sodium (PROTONIX VIAL for IV PUSH) 40 mg DAILYAC IVP Last administered on 02/21/20at 11:19; Start 02/18/20 at 07:30 Potassium Chloride/Water 100 ml @ 50 mls/hr 1X ONCE IV Last administered on 02/17/20at 16:30; Start 02/17/20 at 15:45; Stop 02/17/20 at 17:44; Status DC Fentanyl Citrate (Fentanyl 2ml Vial) 50 mcg PRN Q1HR PRN IVP SEVERE PAIN (2nd Choice) Last administered on 02/17/20at 17:50; Start 02/17/20 at 17:45 Morphine Sulfate (Morphine Sulfate) 4 mg PRN Q2HR PRN IV MODERATE PAIN Last administered on 02/18/20 16:02; Start 02/17/20 at 19:00 Morphine Sulfate (Morphine Sulfate) 6 mg PRN Q2HR PRN IV SEVERE PAIN Last administered on 02/17/20at 19:15; Start 02/17/20 at 19:00 Insulin Human Lispro (HumaLOG) 0-5 UNITS TIDWMEALS SQ ; Start 02/18/20 at 08:00 Dextrose (Dextrose 50%-Water Syringe) 12.5 gm PRN Q15MIN PRN IV SEE COMMENTS Last administered on 02/19/20at 06:20; Start 02/17/20 at 19:00 Iohexol (Omnipaque 300 Mg/ml) 75 ml 1X ONCE IV ; Start 02/18/20 at 11:00; Stop 02/18/20 at 11:01; Status DC Iohexol (Omnipaque 240 Mg/ml) 50 ml 1X ONCE PO Last administered on 02/18/20at 11:10; Start 02/18/20 at 11:00; Stop 02/18/20 at 11:01; Status DC Info (CONTRAST GIVEN -- Rx MONITORING) 1 each PRN DAILY PRN MC SEE COMMENTS; Start 02/18/20 at 11:15; Stop 02/20/20 at 11:14; Status DC Fentanyl Citrate (Fentanyl 2ml Vial) 25 mcg PRN Q5MIN PRN IV MILD PAIN 1-3; Start 02/19/20 at 07:00; Stop 02/20/20 at 06:59; Status DC Fentanyl Citrate (Fentanyl 2ml Vial) 50 mcg PRN Q5MIN PRN IV MODERATE TO SEVERE PAIN Last administered on 02/19/20at 17:41; Start 02/19/20 at 07:00; Stop 02/20/20 at 06:59; Status DC Morphine Sulfate (Morphine Sulfate) 1 mg PRN Q10MIN PRN IV SEVERE PAIN 7-10; Start 02/19/20 at 07:00; Stop 02/20/20 at 06:59; Status DC Ringer's Solution 1,000 ml @ 30 mls/hr Q24H IV Last administered on 02/19/20at 12:48; Start 02/19/20 at 07:00; Stop 02/19/20 at 18:59; Status DC Hydromorphone HCl (Dilaudid) 0.5 mg PRN Q10MIN PRN IV SEV PAIN, Second choice; Start 02/19/20 at 07:00; Stop 02/20/20 at 06:59; Status DC Prochlorperazine Edisylate (Compazine) 5 mg PACU PRN PRN IV NAUSEA, MRX1 Last administered on 02/19/20at 17:27; Start 02/19/20 at 07:00; Stop 02/20/20 at 06:59; Status DC Labetalol HCl (Normodyne Iv Push) 10 mg PRN Q4HRS PRN IVP HYPERTENSION Last adm inistered on 02/19/20at 17:40; Start 02/19/20 at 09:15 Iohexol (Omnipaque 300 Mg/ml) 50 ml STK-MED ONCE .ROUTE ; Start 02/19/20 at 1 2:17; Stop 02/19/20 at 12:17; Status DC Cellulose (Surgicel Hemostat 4x8) 1 each STK-MED ONCE .ROUTE ; Start 02/19/20 at 12:17; Stop 02/19/20 at 12:17; Status DC Bupivacaine HCl (Sensorcaine Mpf 0.5%) 30 ml STK-MED ONCE .ROUTE ; Start 02/19/20 at 12:17; Stop 02/19/20 at 12:17; Status DC Cefazolin Sodium 2 gm/Dextrose 50 ml @ 100 mls/hr 1X ONCE IV ; Start 02/19/20 at 13:00; Stop 02/19/20 at 13:22; Status DC Lidocaine HCl (Lidocaine Pf 2% Vial) 5 ml STK-MED ONCE .ROUTE ; Start 02/19/20 at 12:47; Stop 02/19/20 at 12:47; Status DC Propofol 50 ml @ As Directed STK-MED ONCE IV ; Start 02/19/20 at 12:47; Stop 02/19/20 at 12:47; Status DC Ondansetron HCl (Zofran) 4 mg STK-MED ONCE .ROUTE ; Start 02/19/20 at 12:47; Stop 02/19/20 at 12:47; Status DC Dexamethasone Sodium Phosphate (Decadron) 4 mg STK-MED ONCE .ROUTE ; Start 02/19/20 at 12:47; Stop 02/19/20 at 12:47; Status DC Fentanyl Citrate (Fentanyl 2ml Vial) 100 mcg STK-MED ONCE .ROUTE ; Start 02/19/20 at 13:01; Stop 02/19/20 at 13:01; Status DC Metoprolol Tartrate (Lopressor Vial) 5 mg STK-MED ONCE IVP ; Start 02/19/20 at 13:33; Stop 02/19/20 at 13:33; Status DC Fentanyl Citrate (Fentanyl 2ml Vial) 100 mcg STK-MED ONCE .ROUTE ; Start 02/19/20 at 14:10; Stop 02/19/20 at 14:10; Status DC Sevoflurane (Ultane) 90 ml STK-MED ONCE IH ; Start 02/19/20 at 14:14; Stop 02/19/20 at 14:15; Status DC Rocuronium [place] (Zemuron) 50 mg STK-MED ONCE .ROUTE ; Start 02/19/20 at 14:43; Stop 02/19/20 at 14:44; Status DC Neostigmine [place] (Neostigmine Methylsulfate) 5 mg STK-MED ONCE .ROUTE ; Start 02/19/20 at 14:58; Stop 02/19/20 at 14:59; Status DC Glycopyrrolate (Robinul) 1 mg STK-MED ONCE .ROUTE ; Start 02/19/20 at 14:59; Stop 02/19/20 at 14:59; Status DC Fentanyl Citrate (Fentanyl 2ml Vial) 100 mcg STK-MED ONCE .ROUTE ; Start 02/19/20 at 15:00; Stop 02/19/20 at 15:01; Status DC Naloxone HCl (Narcan) 0.4 mg PRN Q2MIN PRN IV SEE INSTRUCTIONS; Start 02/19/20 at 16:45 Sodium Chloride 1,000 ml @ 25 mls/hr Q24H IV ; Start 02/19/20 at 16:34 Hydromorphone HCl 30 ml @ 0 mls/hr CONT PRN PRN IV PER PROTOCOL Last administered on 02/19/20at 17:10; Start 02/19/20 at 16:45 Labetalol HCl (Normodyne Iv Push) 10 mg Q4HRS PRN IVP HYPERTENSION; Start 02/20/20 at 08:45; Status UNV Lactobacillus Rhamnosus (Culturelle) 1 cap BID PO Last administered on 02/21/20at 11:18; Start 02/20/20 at 21:00 Active Scripts Active Reported Crestor (Rosuvastatin Calcium) 5 Mg Tablet 10 Mg PO HS Pantoprazole Sodium (Pantoprazole Sodium) 40 Mg Tablet.dr 40 Mg PO DAILYAC Benazepril Hcl 10 Mg Tablet 10 Mg PO DAILY Lopressor (Metoprolol Tartrate) 100 Mg Tablet 1 Tab PO DAILY 30 Days Citalopram Hbr (Citalopram Hydrobromide) 20 Mg Tablet 1 Tab PO DAILY Vitals/I & O Vital Sign - Last 24 Hours 02/20/20 02/20/20 02/20/20 02/20/20 15:07 19:00 20:15 23:02 Temp 97.4 97.6 97.8 97.4 97.6 97.8 Pulse 113 112 100 Resp 20 B/P (MAP) 156/75 (102) 129/60 (83) 143/67 (92) Pulse Ox 95 95 94 O2 Delivery Nasal Cannula Nasal Cannula Nasal Cannula Nasal Cannula O2 Flow Rate 2.0 2.0 02/21/20 02/21/20 02/21/20 03:03 07:52 11:20 Temp 98.1 98.1 97.9 98.1 98.1 97.9 Pulse 110 105 100 Resp 18 18 B/P (MAP) 154/68 (96) 150/66 (94) 146/57 (86) Pulse Ox 95 96 94 O2 Delivery Nasal Cannula Nasal Cannula Nasal Cannula Intake and Output 02/20/20 02/20/20 02/21/20 15:00 23:00 07:00 Intake Total 450 ml 480 ml 200 ml Output Total 650 ml 340 ml Balance -200 ml 480 ml -140 ml DAVE EVANS MD Feb 21, 2020 12:29
[2020-02-21] MEDS: HYDROcodone/APAP 5/325MG 1 TAB TABLET PO PRN (13:21)
[2020-02-21 15:05] VITALS: BP 147/63
[2020-02-21] MEDS: MORPHINE SULFATE 2 MG/ML VIAL. IV PRN ×2 (16:35→22:02)
--- NOTE | 2020-02-21 17:27 | PDOC ---
PROGRESS NOTES Chief Complaint Chief Complaint Gallstone pancreatitis Dilated common bile duct. MRCP can further evaluate as clinically warranted. Cholelithiasis. No surgical intervention planned at the present time. Hepatomegaly with increased echotexture, // steatosis. Obesity Transaminitis Diabetes Hypertension HX CVA Severe UTI Low lung volumes with patchy bibasilar opacities, most likely atelectasis. Plan: continue with pain management diet as per director medical surgical. Appreciate surgical recommendations History of Present Illness History of Present Illness 02/17/2020 Patient seen and examined in the ICU She is trying to walk with physical therapy Her urine is extremely dark orange with cloudiness Chart reviewed Discussed with RN and physical therapist 02/18/2020 No acute events reported overnight, case discussed with nursing staff patient in no acute distress no complaints during my visit 02/19/2020 Patient with no new complaints. Her pain is still present but not as prominent as it was yesterday or the day before. Seems to be eager to try some clear liquids sometimes gets frustrated due to her aphasia reassurance has been provided plan of care explained in detail 02/20/2020 No acute events reported overnight, case discussed with nursing staff patient in no acute distress no complaints during my visit 02/21/2020 No acute events reported overnight, case discussed with nursing staff patient in no acute distress no complaints during my visit, advancing diet as per training consultant Vitals Vitals Vital Signs Date Time Temp Pulse Resp B/P (MAP) Pulse Ox O2 Delivery O2 Flow Rate FiO2 02/21/20 17:05 17 Room Air 02/21/20 15:05 98.0 108 147/63 (91) 96 2.0 98.0 Physical Exam General: Alert Heart: Regular rate Lungs: Clear Abdomen: Soft (LUIS E with serous fluid) Extremities: No clubbing, No cyanosis Skin: Other (JAUNDICED) Labs LABS Laboratory Tests Test 02/20/20 20:40 02/21/20 05:15 02/21/20 07:09 02/21/20 11:09 Glucose (Fingerstick) 113 mg/dL (70-99) 94 mg/dL (70-99) 96 mg/dL (70-99) Total Bilirubin 0.9 mg/dL (0.2-1.0) Direct Bilirubin 0.7 mg/dL (0.0-0.2) Aspartate Amino Transf (AST/SGOT) 27 U/L (15-37) Alanine Aminotransferase (ALT/SGPT) 41 U/L (14-59) Alkaline Phosphatase 130 U/L (46-116) Total Protein 5.4 g/dL (6.4-8.2) Albumin 1.9 g/dL (3.4-5.0) Test 02/21/20 16:03 Glucose (Fingerstick) 100 mg/dL (70-99) Assessment and Plan Assessmemt and Plan Problems Medical Problems: (1) Pancreatitis Status: Acute (2) Suspected 2019 novel coronavirus infection Status: Acute (3) UTI (urinary tract infection) Status: Acute Comment Review of Relevant I have reviewed the following items shae (where applicable) has been applied. Labs Laboratory Tests Test 02/19/20 20:56 02/20/20 04:45 02/20/20 07:30 02/20/20 10:46 Glucose (Fingerstick) 116 mg/dL (70-99) 75 mg/dL (70-99) 70 mg/dL (70-99) White Blood Count 16.4 x10^3/uL (4.0-11.0) Red Blood Count 4.16 x10^6/uL (3.50-5.40) Hemoglobin 12.0 g/dL (12.0-15.5) Hematocrit 37.2 % (36.0-47.0) Mean Corpuscular Volume 89 fL (79-100) Mean Corpuscular Hemoglobin 29 pg (25-35) Mean Corpuscular Hemoglobin Concent 32 g/dL (31-37) Red Cell Distribution Width 19.2 % (11.5-14.5) Platelet Count 362 x10^3/uL (140-400) Neutrophils (%) (Auto) 90 % (31-73) Lymphocytes (%) (Auto) 4 % (24-48) Monocytes (%) (Auto) 6 % (0-9) Eosinophils (%) (Auto) 0 % (0-3) Basophils (%) (Auto) 0 % (0-3) Neutrophils # (Auto) 14.8 x10^3/uL (1.8-7.7) Lymphocytes # (Auto) 0.7 x10^3/uL (1.0-4.8) Monocytes # (Auto) 0.9 x10^3/uL (0.0-1.1) Eosinophils # (Auto) 0.0 x10^3/uL (0.0-0.7) Basophils # (Auto) 0.0 x10^3/uL (0.0-0.2) Sodium Level 147 mmol/L (136-145) Potassium Level 3.3 mmol/L (3.5-5.1) Chloride Level 109 mmol/L (98-107) Carbon Dioxide Level 29 mmol/L (21-32) Anion Gap 9 (6-14) Blood Urea Nitrogen 11 mg/dL (7-20) Creatinine 0.8 mg/dL (0.6-1.0) Estimated GFR (Cockcroft-Gault) 72.7 BUN/Creatinine Ratio 14 (6-20) Glucose Level 96 mg/dL (70-99) Calcium Level 7.9 mg/dL (8.5-10.1) Total Bilirubin 1.0 mg/dL (0.2-1.0) Aspartate Amino Transf (AST/SGOT) 47 U/L (15-37) Alanine Aminotransferase (ALT/SGPT) 60 U/L (14-59) Alkaline Phosphatase 159 U/L (46-116) Total Protein 5.9 g/dL (6.4-8.2) Albumin 2.1 g/dL (3.4-5.0) Albumin/Globulin Ratio 0.6 (1.0-1.7) Test 02/20/20 16:17 02/20/20 20:40 02/21/20 05:15 02/21/20 07:09 Glucose (Fingerstick) 93 mg/dL (70-99) 113 mg/dL (70-99) 94 mg/dL (70-99) Total Bilirubin 0.9 mg/dL (0.2-1.0) Direct Bilirubin 0.7 mg/dL (0.0-0.2) Aspartate Amino Transf (AST/SGOT) 27 U/L (15-37) Alanine Aminotransferase (ALT/SGPT) 41 U/L (14-59) Alkaline Phosphatase 130 U/L (46-116) Total Protein 5.4 g/dL (6.4-8.2) Albumin 1.9 g/dL (3.4-5.0) Test 02/21/20 11:09 02/21/20 16:03 Glucose (Fingerstick) 96 mg/dL (70-99) 100 mg/dL (70-99) Laboratory Tests Test 02/20/20 20:40 02/21/20 05:15 02/21/20 07:09 02/21/20 11:09 Glucose (Fingerstick) 113 mg/dL (70-99) 94 mg/dL (70-99) 96 mg/dL (70-99) Total Bilirubin 0.9 mg/dL (0.2-1.0) Direct Bilirubin 0.7 mg/dL (0.0-0.2) Aspartate Amino Transf (AST/SGOT) 27 U/L (15-37) Alanine Aminotransferase (ALT/SGPT) 41 U/L (14-59) Alkaline Phosphatase 130 U/L (46-116) Total Protein 5.4 g/dL (6.4-8.2) Albumin 1.9 g/dL (3.4-5.0) Test 02/21/20 16:03 Glucose (Fingerstick) 100 mg/dL (70-99) Microbiology 02/16/20 Blood Culture - Final, Complete NO GROWTH AFTER 5 DAYS 02/16/20 Urine Culture - Final, Complete 02/16/20 Antimicrobic Susceptibility - Final, Complete Medications Current Medications Fentanyl Citrate (Fentanyl 2ml Vial) 50 mcg 1X ONCE IVP Last administered on 02/16/20at 15:11; Start 02/16/20 at 15:15; Stop 02/16/20 at 15:16; Status DC Ceftriaxone Sodium (Rocephin) 1 gm 1X ONCE IVP Last administered on 02/16/20at 17:02; Start 02/16/20 at 16:30; Stop 02/16/20 at 16:31; Status DC Sodium Chloride 1,000 ml @ 1,000 mls/hr 1X ONCE IV Last administered on 02/16/20at 17:02; Start 02/16/20 at 16:30; Stop 02/16/20 at 17:29; Status DC Fentanyl Citrate (Fentanyl 2ml Vial) 50 mcg 1X ONCE IVP Last administered on 02/16/20at 17:11; Start 02/16/20 at 17:15; Stop 02/16/20 at 17:16; Status DC Sodium Chloride 1,000 ml @ 1,000 mls/hr 1X ONCE IV Last administered on 02/16/20at 17:11; Start 02/16/20 at 17:15; Stop 02/16/20 at 18:14; Status DC Ondansetron HCl (Zofran) 4 mg PRN Q8HRS PRN IV NAUSEA/VOMITING; Start 02/16/20 at 17:15; Stop 02/17/20 at 17:14; Status Cancel Fentanyl Citrate (Fentanyl 2ml Vial) 50 mcg PRN Q1HR PRN IV PAIN Last administered on 02/17/20at 15:55; Start 02/16/20 at 17:15; Stop 02/17/20 at 17:27; Status DC Sodium Chloride 1,000 ml @ 150 mls/hr Q6H40M IV Last administered on 02/16/20at 18:33; Start 02/16/20 at 17:14; Stop 02/17/20 at 17:27; Status DC Hydralazine HCl (Apresoline Inj) 10 mg PRN Q4HRS PRN IVP ELEVATED BP, SEE COMMENTS; Start 02/16/20 at 17:45 Sodium Chloride (Normal Saline Flush) 3 ml QSHIFT PRN IV AFTER MEDS AND BLOOD DRAWS; Start 02/16/20 at 17:45 Sodium Chloride 1,000 ml @ 100 mls/hr Q10H IV Last administered on 02/21/20at 16:36; Start 02/16/20 at 17:43 Ondansetron HCl (Zofran) 4 mg PRN Q4HRS PRN IV NAUSEA/VOMITING Last administered on 02/16/20at 23:39; Start 02/16/20 at 17:45 Acetaminophen (Tylenol Supp) 650 mg PRN Q4HRS PRN WI TEMP OVER 100.4F OR MILD PAIN; Start 02/16/20 at 17:45 Sodium Monofluorophosphate (Fleet Adult) 133 ml PRN DAILY PRN WI CONSTIPATION; Start 02/16/20 at 17:45 Docusate Sodium (Colace) 100 mg PRN BID PRN PO HARD STOOLS; Start 02/16/20 at 17:45 Albuterol Sulfate (Ventolin Neb Soln) 2.5 mg PRN Q4HRS PRN NEB SHORTNESS OF BREATH; Start 02/16/20 at 17:45 Guaifenesin (Robitussin) 200 mg PRN Q4HRS PRN PO COUGH; Start 02/16/20 at 17:45 Lorazepam (Ativan) 0.5 mg PRN Q4HRS PRN PO ANXIETY / AGITATION Last administered on 02/19/20 03:29; Start 02/16/20 at 17:45 Enoxaparin Sodium (Lovenox 40mg Syringe) 40 mg BID SQ Last administered on 02/16/20 22:16; Start 02/16/20 at 21:00; Stop 02/17/20 at 08:18; Status DC Piperacillin Sod/ Tazobactam Sod 3.375 gm/Sodium Chloride 50 ml @ 100 mls/hr Q6HRS IV Last administered on 02/21/20 11:19; Start 02/16/20 at 18:00 Enoxaparin Sodium (Lovenox 40mg Syringe) 40 mg Q24H SQ Last administered on 02/20/20 21:46; Start 02/17/20 at 21:00 Pantoprazole Sodium (PROTONIX VIAL for IV PUSH) 40 mg DAILYAC IVP Last administered on 02/21/20at 11:19; Start 02/18/20 at 07:30 Potassium Chloride/Water 100 ml @ 50 mls/hr 1X ONCE IV Last administered on 02/17/20 16:30; Start 02/17/20 at 15:45; Stop 02/17/20 at 17:44; Status DC Fentanyl Citrate (Fentanyl 2ml Vial) 50 mcg PRN Q1HR PRN IVP SEVERE PAIN (2nd Choice) Last administered on 02/17/20at 17:50; Start 02/17/20 at 17:45 Morphine Sulfate (Morphine Sulfate) 4 mg PRN Q2HR PRN IV MODERATE PAIN Last administered on 02/21/20 16:35; Start 02/17/20 at 19:00 Morphine Sulfate (Morphine Sulfate) 6 mg PRN Q2HR PRN IV SEVERE PAIN Last administered on 02/17/20 19:15; Start 02/17/20 at 19:00 Insulin Human Lispro (HumaLOG) 0-5 UNITS TIDWMEALS SQ ; Start 02/18/20 at 08:00 Dextrose (Dextrose 50%-Water Syringe) 12.5 gm PRN Q15MIN PRN IV SEE COMMENTS Last administered on 02/19/20at 06:20; Start 02/17/20 at 19:00 Iohexol (Omnipaque 300 Mg/ml) 75 ml 1X ONCE IV ; Start 02/18/20 at 11:00; Stop 02/18/20 at 11:01; Status DC Iohexol (Omnipaque 240 Mg/ml) 50 ml 1X ONCE PO Last administered on 02/18/20at 11:10; Start 02/18/20 at 11:00; Stop 02/18/20 at 11:01; Status DC Info (CONTRAST GIVEN -- Rx MONITORING) 1 each PRN DAILY PRN MC SEE COMMENTS; Start 02/18/20 at 11:15; Stop 02/20/20 at 11:14; Status DC Fentanyl Citrate (Fentanyl 2ml Vial) 25 mcg PRN Q5MIN PRN IV MILD PAIN 1-3; Start 02/19/20 at 07:00; Stop 02/20/20 at 06:59; Status DC Fentanyl Citrate (Fentanyl 2ml Vial) 50 mcg PRN Q5MIN PRN IV MODERATE TO SEVERE PAIN Last administered on 02/19/20at 17:41; Start 02/19/20 at 07:00; Stop 02/20/20 at 06:59; Status DC Morphine Sulfate (Morphine Sulfate) 1 mg PRN Q10MIN PRN IV SEVERE PAIN 7-10; Start 02/19/20 at 07:00; Stop 02/20/20 at 06:59; Status DC Ringer's Solution 1,000 ml @ 30 mls/hr Q24H IV Last administered on 02/19/20at 12:48; Start 02/19/20 at 07:00; Stop 02/19/20 at 18:59; Status DC Hydromorphone HCl (Dilaudid) 0.5 mg PRN Q10MIN PRN IV SEV PAIN, Second choice; Start 02/19/20 at 07:00; Stop 02/20/20 at 06:59; Status DC Prochlorperazine Edisylate (Compazine) 5 mg PACU PRN PRN IV NAUSEA, MRX1 Last administered on 02/19/20at 17:27; Start 02/19/20 at 07:00; Stop 02/20/20 at 06:59; Status DC Labetalol HCl (Normodyne Iv Push) 10 mg PRN Q4HRS PRN IVP HYPERTENSION Last administered on 02/19/20at 17:40; Start 02/19/20 at 09:15 Iohexol (Omnipaque 300 Mg/ml) 50 ml STK-MED ONCE .ROUTE ; Start 02/19/20 at 12:17; Stop 02/19/20 at 12:17; Status DC Cellulose (Surgicel Hemostat 4x8) 1 each STK-MED ONCE .ROUTE ; Start 02/19/20 at 12:17; Stop 02/19/20 at 12:17; Status DC Bupivacaine HCl (Sensorcaine Mpf 0.5%) 30 ml STK-MED ONCE .ROUTE ; Start 02/19/20 at 12:17; Stop 02/19/20 at 12:17; Status DC Cefazolin Sodium 2 gm/Dextrose 50 ml @ 100 mls/hr 1X ONCE IV ; Start 02/19/20 at 13:00; Stop 02/19/20 at 13:22; Status DC Lidocaine HCl (Lidocaine Pf 2% Vial) 5 ml STK-MED ONCE .ROUTE ; Start 02/19/20 at 12:47; Stop 02/19/20 at 12:47; Status DC Propofol 50 ml @ As Directed STK-MED ONCE IV ; Start 02/19/20 at 12:47; Stop 02/19/20 at 12:47; Status DC Ondansetron HCl (Zofran) 4 mg STK-MED ONCE .ROUTE ; Start 02/19/20 at 12:47; Stop 02/19/20 at 12:47; Status DC Dexamethasone Sodium Phosphate (Decadron) 4 mg STK-MED ONCE .ROUTE ; Start 02/19/20 at 12:47; Stop 02/19/20 at 12:47; Status DC Fentanyl Citrate (Fentanyl 2ml Vial) 100 mcg STK-MED ONCE .ROUTE ; Start 02/19/20 at 13:01; Stop 02/19/20 at 13:01; Status DC Metoprolol Tartrate (Lopressor Vial) 5 mg STK-MED ONCE IVP ; Start 02/19/20 at 13:33; Stop 02/19/20 at 13:33; Status DC Fentanyl Citrate (Fentanyl 2ml Vial) 100 mcg STK-MED ONCE .ROUTE ; Start 02/19/20 at 14:10; Stop 02/19/20 at 14:10; Status DC Sevoflurane (Ultane) 90 ml STK-MED ONCE IH ; Start 02/19/20 at 14:14; Stop 02/19/20 at 14:15; Status DC Rocuronium [place] (Zemuron) 50 mg STK-MED ONCE .ROUTE ; Start 02/19/20 at 14:43; Stop 02/19/20 at 14:44; Status DC Neostigmine [place] (Neostigmine Methylsulfate) 5 mg STK-MED ONCE .ROUTE ; Start 02/19/20 at 14:58; Stop 02/19/20 at 14:59; Status DC Glycopyrrolate (Robinul) 1 mg STK-MED ONCE .ROUTE ; Start 02/19/20 at 14:59; Stop 02/19/20 at 14:59; Status DC Fentanyl Citrate (Fentanyl 2ml Vial) 100 mcg STK-MED ONCE .ROUTE ; Start 02/19/20 at 15:00; Stop 02/19/20 at 15:01; Status DC Naloxone HCl (Narcan) 0.4 mg PRN Q2MIN PRN IV SEE INSTRUCTIONS; Start 02/19/20 at 16:45; Stop 02/21/20 at 12:31; Status DC Sodium Chloride 1,000 ml @ 25 mls/hr Q24H IV ; Start 02/19/20 at 16:34; Stop 02/21/20 at 12:31; Status DC Hydromorphone HCl 30 ml @ 0 mls/hr CONT PRN PRN IV PER PROTOCOL Last administered on 02/19/20at 17:10; Start 02/19/20 at 16:45; Stop 02/21/20 at 12:31; Status DC Labetalol HCl (Normodyne Iv Push) 10 mg Q4HRS PRN IVP HYPERTENSION; Start 02/20/20 at 08:45; Status UNV Lactobacillus Rhamnosus (Culturelle) 1 cap BID PO Last administered on 02/21/20at 11:18; Start 02/20/20 at 21:00 Acetaminophen/ Hydrocodone Bitart (Lortab 5/325) 1 tab PRN Q4HRS PRN PO MODERATE PAIN; Start 02/21/20 at 12:30 Acetaminophen/ Hydrocodone Bitart (Lortab 5/325) 2 tab PRN Q4HRS PRN PO SEVERE PAIN Last administered on 02/21/20at 13:21; Start 02/21/20 at 12:45 Active Scripts Active Reported Crestor (Rosuvastatin Calcium) 5 Mg Tablet 10 Mg PO HS Pantoprazole Sodium (Pantoprazole Sodium) 40 Mg Tablet.dr 40 Mg PO DAILYAC Benazepril Hcl 10 Mg Tablet 10 Mg PO DAILY Lopressor (Metoprolol Tartrate) 100 Mg Tablet 1 Tab PO DAILY 30 Days Citalopram Hbr (Citalopram Hydrobromide) 20 Mg Tablet 1 Tab PO DAILY Vitals/I & O Vital Sign - Last 24 Hours 02/20/20 02/20/20 02/20/20 02/21/20 19:00 20:15 23:02 03:03 Temp 97.6 97.8 98.1 97.6 97.8 98.1 Pulse 112 100 110 Resp 20 20 18 B/P (MAP) 129/60 (83) 143/67 (92) 154/68 (96) Pulse Ox 95 94 95 O2 Delivery Nasal Cannula Nasal Cannula Nasal Cannula Nasal Cannula O2 Flow Rate 2.0 02/21/20 02/21/20 02/21/20 02/21/20 07:52 11:20 13:21 14:21 Temp 98.1 97.9 98.1 97.9 Pulse 105 100 Resp 20 18 18 17 B/P (MAP) 150/66 (94) 146/57 (86) Pulse Ox 96 94 O2 Delivery Nasal Cannula Nasal Cannula Nasal Cannula Nasal Cannula O2 Flow Rate 2.0 2.0 02/21/20 02/21/20 02/21/20 15:05 16:35 17:05 Temp 98.0 98.0 Pulse 108 Resp 18 17 B/P (MAP) 147/63 (91) Pulse Ox 96 O2 Delivery Nasal Cannula Room Air Room Air O2 Flow Rate 2.0 Intake and Output 02/20/20 02/20/20 02/21/20 15:00 23:00 07:00 Intake Total 450 ml 480 ml 200 ml Output Total 650 ml 340 ml Balance -200 ml 480 ml -140 ml RASHARD SANCHEZ MD Feb 21, 2020 17:27
[2020-02-21 19:00] VITALS: BP 144/78
[2020-02-21] MEDS: ENOXAPARIN 40 MG/0.4 ML SYRINGE. SQ SCH (22:01)
[2020-02-21 23:08] VITALS: BP 148/79
[2020-02-22] MEDS: PIPERACILLIN/TAZOBACTAM 3.375 GM in IV NORMAL SALINE 50ML 50 ML IV SCH ×4 (01:14→17:37)
[2020-02-22] MEDS: MORPHINE SULFATE 2 MG/ML VIAL. IV PRN ×4 (01:14→21:08)
[2020-02-22 03:00] VITALS: BP 153/66
[2020-02-22] MEDS: IV NORMAL SALINE 1000ML BAG 1,000 ML IV SCH ×2 (06:28→14:03)
[2020-02-22 07:00] VITALS: BP 172/81
[2020-02-22] MEDS: INSULIN LISPRO 300 UNITS/3 ML VIAL. SQ SCH ×3 (08:00→17:00)
[2020-02-22] MEDS: LACTOBACILLUS RHAMNOSUS GG 1 CAPSULE. PO SCH ×2 (08:54→21:07)
[2020-02-22] MEDS: PANTOPRAZOLE IV PUSH 40 MG VIAL. IVP SCH (08:54)
[2020-02-22] MEDS: LORazepam 0.5 MG TABLET PO PRN ×2 (10:37→22:00)
[2020-02-22] MEDS: HYDROcodone/APAP 5/325MG 1 TAB TABLET PO PRN ×2 (10:38→17:38)
[2020-02-22 11:00] VITALS: BP 157/70
--- NOTE | 2020-02-22 11:01 | PDOC ---
PROGRESS NOTES Chief Complaint Chief Complaint Gallstone pancreatitis Dilated common bile duct. MRCP can further evaluate as clinically warranted. Cholelithiasis. No surgical intervention planned at the present time. Hepatomegaly with increased echotexture, // steatosis. Obesity Transaminitis Diabetes Hypertension HX CVA Severe UTI Low lung volumes with patchy bibasilar opacities, most likely atelectasis. Plan: continue with pain management diet as per e business consultant. Appreciate surgical recommendations History of Present Illness History of Present Illness 02/17/2020 Patient seen and examined in the ICU She is trying to walk with physical therapy Her urine is extremely dark orange with cloudiness Chart reviewed Discussed with RN and physical therapist 02/18/2020 No acute events reported overnight, case discussed with nursing staff patient in no acute distress no complaints during my visit 02/19/2020 Patient with no new complaints. Her pain is still present but not as prominent as it was yesterday or the day before. Seems to be eager to try some clear liquids sometimes gets frustrated due to her aphasia reassurance has been provided plan of care explained in detail 02/20/2020 No acute events reported overnight, case discussed with nursing staff patient in no acute distress no complaints during my visit 02/21/2020 No acute events reported overnight, case discussed with nursing staff patient in no acute distress no complaints during my visit, advancing diet as per datapower consultant 02/22/2020 Patient seems to have improvement but still quite painful over her abdominal area. She has been able to tolerate some solids but seems to be quite picky when it comes to her food. I have related the message to the nursing staff who will aid the patient Vitals Vitals Vital Signs Date Time Temp Pulse Resp B/P (MAP) Pulse Ox O2 Delivery O2 Flow Rate FiO2 02/22/20 10:38 18 Room Air 02/22/20 08:00 2.0 02/22/20 07:00 97.9 96 172/81 (111) 90 97.9 Physical Exam General: Alert Heart: Regular rate Lungs: Clear Abdomen: Soft (LUIS E with serous fluid) Extremities: No clubbing, No cyanosis Skin: Other (JAUNDICED) Labs LABS Laboratory Tests Test 02/21/20 11:09 02/21/20 16:03 02/21/20 20:27 02/22/20 07:02 Glucose (Fingerstick) 96 mg/dL (70-99) 100 mg/dL (70-99) 104 mg/dL (70-99) 109 mg/dL (70-99) Review of Systems Review of Systems Pertinent as per HPI otherwise 10 point review of system is negative Assessment and Plan Assessmemt and Plan Problems Medical Problems: (1) Pancreatitis Status: Acute (2) Suspected 2019 novel coronavirus infection Status: Acute (3) UTI (urinary tract infection) Status: Acute Comment Review of Relevant I have reviewed the following items shae (where applicable) has been applied. Labs Laboratory Tests Test 02/20/20 16:17 02/20/20 20:40 02/21/20 05:15 02/21/20 07:09 Glucose (Fingerstick) 93 mg/dL (70-99) 113 mg/dL (70-99) 94 mg/dL (70-99) Total Bilirubin 0.9 mg/dL (0.2-1.0) Direct Bilirubin 0.7 mg/dL (0.0-0.2) Aspartate Amino Transf (AST/SGOT) 27 U/L (15-37) Alanine Aminotransferase (ALT/SGPT) 41 U/L (14-59) Alkaline Phosphatase 130 U/L (46-116) Total Protein 5.4 g/dL (6.4-8.2) Albumin 1.9 g/dL (3.4-5.0) Test 02/21/20 11:09 02/21/20 16:03 02/21/20 20:27 02/22/20 07:02 Glucose (Fingerstick) 96 mg/dL (70-99) 100 mg/dL (70-99) 104 mg/dL (70-99) 109 mg/dL (70-99) Laboratory Tests Test 02/21/20 11:09 02/21/20 16:03 02/21/20 20:27 02/22/20 07:02 Glucose (Fingerstick) 96 mg/dL (70-99) 100 mg/dL (70-99) 104 mg/dL (70-99) 109 mg/dL (70-99) Microbiology 02/16/20 Blood Culture - Final, Complete NO GROWTH AFTER 5 DAYS 02/16/20 Urine Culture - Final, Complete 02/16/20 Antimicrobic Susceptibility - Final, Complete Medications Current Medications Fentanyl Citrate (Fentanyl 2ml Vial) 50 mcg 1X ONCE IVP Last administered on 02/16/20at 15:11; Start 02/16/20 at 15:15; Stop 02/16/20 at 15:16; Status DC Ceftriaxone Sodium (Rocephin) 1 gm 1X ONCE IVP Last administered on 02/16/20at 17:02; Start 02/16/20 at 16:30; Stop 02/16/20 at 16:31; Status DC Sodium Chloride 1,000 ml @ 1,000 mls/hr 1X ONCE IV Last administered on 02/16/20at 17:02; Start 02/16/20 at 16:30; Stop 02/16/20 at 17:29; Status DC Fentanyl Citrate (Fentanyl 2ml Vial) 50 mcg 1X ONCE IVP Last administered on 02/16/20at 17:11; Start 02/16/20 at 17:15; Stop 02/16/20 at 17:16; Status DC Sodium Chloride 1,000 ml @ 1,000 mls/hr 1X ONCE IV Last administered on 02/16/20at 17:11; Start 02/16/20 at 17:15; Stop 02/16/20 at 18:14; Status DC Ondansetron HCl (Zofran) 4 mg PRN Q8HRS PRN IV NAUSEA/VOMITING; Start 02/16/20 at 17:15; Stop 02/17/20 at 17:14; Status Cancel Fentanyl Citrate (Fentanyl 2ml Vial) 50 mcg PRN Q1HR PRN IV PAIN Last administered on 02/17/20at 15:55; Start 02/16/20 at 17:15; Stop 02/17/20 at 17:27; Status DC Sodium Chloride 1,000 ml @ 150 mls/hr Q6H40M IV Last administered on 02/16/20at 18:33; Start 02/16/20 at 17:14; Stop 02/17/20 at 17:27; Status DC Hydralazine HCl (Apresoline Inj) 10 mg PRN Q4HRS PRN IVP ELEVATED BP, SEE COMMENTS; Start 02/16/20 at 17:45 Sodium Chloride (Normal Saline Flush) 3 ml QSHIFT PRN IV AFTER MEDS AND BLOOD DRAWS; Start 02/16/20 at 17:45 Sodium Chloride 1,000 ml @ 100 mls/hr Q10H IV Last administered on 02/22/20at 06:28; Start 02/16/20 at 17:43 Ondansetron HCl (Zofran) 4 mg PRN Q4HRS PRN IV NAUSEA/VOMITING Last admin istered on 02/16/20at 23:39; Start 02/16/20 at 17:45 Acetaminophen (Tylenol Supp) 650 mg PRN Q4HRS PRN NM TEMP OVER 100.4F OR MILD PAIN; Start 02/16/20 at 17:45 Sodium Monofluorophosphate (Fleet Adult) 133 ml PRN DAILY PRN NM CONSTIPATION; Start 02/16/20 at 17:45 Docusate Sodium (Colace) 100 mg PRN BID PRN PO HARD STOOLS; Start 02/16/20 at 17:45 Albuterol Sulfate (Ventolin Neb Soln) 2.5 mg PRN Q4HRS PRN NEB SHORTNESS OF BREATH; Start 02/16/20 at 17:45 Guaifenesin (Robitussin) 200 mg PRN Q4HRS PRN PO COUGH; Start 02/16/20 at 17:45 Lorazepam (Ativan) 0.5 mg PRN Q4HRS PRN PO ANXIETY / AGITATION Last administered on 02/22/20at 10:37; Start 02/16/20 at 17:45 Enoxaparin Sodium (Lovenox 40mg Syringe) 40 mg BID SQ Last administered on 02/16/20at 22:16; Start 02/16/20 at 21:00; Stop 02/17/20 at 08:18; Status DC Piperacillin Sod/ Tazobactam Sod 3.375 gm/Sodium Chloride 50 ml @ 100 mls/hr Q6HRS IV Last administered on 02/22/20at 08:52; Start 02/16/20 at 18:00 Enoxaparin Sodium (Lovenox 40mg Syringe) 40 mg Q24H SQ Last administered on 02/21/20at 22:01; Start 02/17/20 at 21:00 Pantoprazole Sodium (PROTONIX VIAL for IV PUSH) 40 mg DAILYAC IVP Last administered on 02/22/20at 08:54; Start 02/18/20 at 07:30 Potassium Chloride/Water 100 ml @ 50 mls/hr 1X ONCE IV Last administered on 02/17/20at 16:30; Start 02/17/20 at 15:45; Stop 02/17/20 at 17:44; Status DC Fentanyl Citrate (Fentanyl 2ml Vial) 50 mcg PRN Q1HR PRN IVP SEVERE PAIN (2nd Choice) Last administered on 02/17/20at 17:50; Start 02/17/20 at 17:45 Morphine Sulfate (Morphine Sulfate) 4 mg PRN Q2HR PRN IV MODERATE PAIN Last administered on 02/22/20at 06:27; Start 02/17/20 at 19:00 Morphine Sulfate (Morphine Sulfate) 6 mg PRN Q2HR PRN IV SEVERE PAIN Last administered on 02/17/20at 19:15; Start 02/17/20 at 19:00 Insulin Human Lispro (HumaLOG) 0-5 UNITS TIDWMEALS SQ ; Start 02/18/20 at 08:00 Dextrose (Dextrose 50%-Water Syringe) 12.5 gm PRN Q15MIN PRN IV SEE COMMENTS Last administered on 02/19/20at 06:20; Start 02/17/20 at 19:00 Iohexol (Omnipaque 300 Mg/ml) 75 ml 1X ONCE IV ; Start 02/18/20 at 11:00; Stop 02/18/20 at 11:01; Status DC Iohexol (Omnipaque 240 Mg/ml) 50 ml 1X ONCE PO Last administered on 02/18/20at 11:10; Start 02/18/20 at 11:00; Stop 02/18/20 at 11:01; Status DC Info (CONTRAST GIVEN -- Rx MONITORING) 1 each PRN DAILY PRN MC SEE COMMENTS; Start 02/18/20 at 11:15; Stop 02/20/20 at 11:14; Status DC Fentanyl Citrate (Fentanyl 2ml Vial) 25 mcg PRN Q5MIN PRN IV MILD PAIN 1-3; Start 02/19/20 at 07:00; Stop 02/20/20 at 06:59; Status DC Fentanyl Citrate (Fentanyl 2ml Vial) 50 mcg PRN Q5MIN PRN IV MODERATE TO SEVERE PAIN Last administered on 02/19/20at 17:41; Start 02/19/20 at 07:00; Stop 02/20/20 at 06:59; Status DC Morphine Sulfate (Morphine Sulfate) 1 mg PRN Q10MIN PRN IV SEVERE PAIN 7-10; Start 02/19/20 at 07:00; Stop 02/20/20 at 06:59; Status DC Ringer's Solution 1,000 ml @ 30 mls/hr Q24H IV Last administered on 02/19/20at 12:48; Start 02/19/20 at 07:00; Stop 02/19/20 at 18:59; Status DC Hydromorphone HCl (Dilaudid) 0.5 mg PRN Q10MIN PRN IV SEV PAIN, Second choice; Start 02/19/20 at 07:00; Stop 02/20/20 at 06:59; Status DC Prochlorperazine Edisylate (Compazine) 5 mg PACU PRN PRN IV NAUSEA, MRX1 Last administered on 02/19/20at 17:27; Start 02/19/20 at 07:00; Stop 02/20/20 at 06:59; Status DC Labetalol HCl (Normodyne Iv Push) 10 mg PRN Q4HRS PRN IVP HYPERTENSION Last administered on 02/19/20at 17:40; Start 02/19/20 at 09:15 Iohexol (Omnipaque 300 Mg/ml) 50 ml STK-MED ONCE .ROUTE ; Start 02/19/20 at 12:17; Stop 02/19/20 at 12:17; Status DC Cellulose (Surgicel Hemostat 4x8) 1 each STK-MED ONCE .ROUTE ; Start 02/19/20 at 12:17; Stop 02/19/20 at 12:17; Status DC Bupivacaine HCl (Sensorcaine Mpf 0.5%) 30 ml STK-MED ONCE .ROUTE ; Start 02/19/20 at 12:17; Stop 02/19/20 at 12:17; Status DC Cefazolin Sodium 2 gm/Dextrose 50 ml @ 100 mls/hr 1X ONCE IV ; Start 02/19/20 at 13:00; Stop 02/19/20 at 13:22; Status DC Lidocaine HCl (Lidocaine Pf 2% Vial) 5 ml STK-MED ONCE .ROUTE ; Start 02/19/20 at 12:47; Stop 02/19/20 at 12:47; Status DC Propofol 50 ml @ As Directed STK-MED ONCE IV ; Start 02/19/20 at 12:47; Stop 02/19/20 at 12:47; Status DC Ondansetron HCl (Zofran) 4 mg STK-MED ONCE .ROUTE ; Start 02/19/20 at 12:47; Stop 02/19/20 at 12:47; Status DC Dexamethasone Sodium Phosphate (Decadron) 4 mg STK-MED ONCE .ROUTE ; Start 02/19/20 at 12:47; Stop 02/19/20 at 12:47; Status DC Fentanyl Citrate (Fentanyl 2ml Vial) 100 mcg STK-MED ONCE .ROUTE ; Start 02/19/20 at 13:01; Stop 02/19/20 at 13:01; Status DC Metoprolol Tartrate (Lopressor Vial) 5 mg STK-MED ONCE IVP ; Start 02/19/20 at 13:33; Stop 02/19/20 at 13:33; Status DC Fentanyl Citrate (Fentanyl 2ml Vial) 100 mcg STK-MED ONCE .ROUTE ; Start 02/19/20 at 14:10; Stop 02/19/20 at 14:10; Status DC Sevoflurane (Ultane) 90 ml STK-MED ONCE IH ; Start 02/19/20 at 14:14; Stop 02/19/20 at 14:15; Status DC Rocuronium Avera (Zemuron) 50 mg STK-MED ONCE .ROUTE ; Start 02/19/20 at 14:43; Stop 02/19/20 at 14:44; Status DC Neostigmine Avera (Neostigmine Methylsulfate) 5 mg STK-MED ONCE .ROUTE ; Start 02/19/20 at 14:58; Stop 02/19/20 at 14:59; Status DC Glycopyrrolate (Robinul) 1 mg STK-MED ONCE .ROUTE ; Start 02/19/20 at 14:59; Stop 02/19/20 at 14:59; Status DC Fentanyl Citrate (Fentanyl 2ml Vial) 100 mcg STK-MED ONCE .ROUTE ; Start 02/19/20 at 15:00; Stop 02/19/20 at 15:01; Status DC Naloxone HCl (Narcan) 0.4 mg PRN Q2MIN PRN IV SEE INSTRUCTIONS; Start 02/19/20 at 16:45; Stop 02/21/20 at 12:31; Status DC Sodium Chloride 1,000 ml @ 25 mls/hr Q24H IV ; Start 02/19/20 at 16:34; Stop 02/21/20 at 12:31; Status DC Hydromorphone HCl 30 ml @ 0 mls/hr CONT PRN PRN IV PER PROTOCOL Last administered on 02/19/20at 17:10; Start 02/19/20 at 16:45; Stop 02/21/20 at 12:31; Status DC Labetalol HCl (Normodyne Iv Push) 10 mg Q4HRS PRN IVP HYPERTENSION; Start 02/20/20 at 08:45; Status UNV Lactobacillus Rhamnosus (Culturelle) 1 cap BID PO Last administered on 02/22/20at 08:54; Start 02/20/20 at 21:00 Acetaminophen/ Hydrocodone Bitart (Lortab 5/325) 1 tab PRN Q4HRS PRN PO MODERATE PAIN; Start 02/21/20 at 12:30 Acetaminophen/ Hydrocodone Bitart (Lortab 5/325) 2 tab PRN Q4HRS PRN PO SEVERE PAIN Last administered on 02/22/20at 10:38; Start 02/21/20 at 12:45 Active Scripts Active Reported Crestor (Rosuvastatin Calcium) 5 Mg Tablet 10 Mg PO HS Pantoprazole Sodium (Pantoprazole Sodium) 40 Mg Tablet.dr 40 Mg PO DAILYAC Benazepril Hcl 10 Mg Tablet 10 Mg PO DAILY Lopressor (Metoprolol Tartrate) 100 Mg Tablet 1 Tab PO DAILY 30 Days Citalopram Hbr (Citalopram Hydrobromide) 20 Mg Tablet 1 Tab PO DAILY Vitals/I & O Vital Sign - Last 24 Hours 02/21/20 02/21/20 02/21/20 02/21/20 11:20 13:21 14:21 15:05 Temp 97.9 98.0 97.9 98.0 Pulse 100 108 Resp 18 18 17 18 B/P (MAP) 146/57 (86) 147/63 (91) Pulse Ox 94 96 O2 Delivery Nasal Cannula Nasal Cannula Nasal Cannula Nasal Cannula O2 Flow Rate 2.0 2.0 2.0 02/21/20 02/21/20 02/21/20 02/21/20 16:35 17:05 19:00 20:00 Temp 98.0 98.0 Pulse 115 Resp 18 17 20 B/P (MAP) 144/78 (100) Pulse Ox 92 O2 Delivery Room Air Room Air Room Air Room Air 02/21/20 02/21/20 02/21/20 02/22/20 22:02 22:32 23:08 01:14 Temp 98.9 98.9 Pulse 104 Resp 18 20 B/P (MAP) 148/79 (102) Pulse Ox 92 92 92 92 O2 Delivery Nasal Cannula Nasal Cannula Room Air Nasal Cannula O2 Flow Rate 2.0 2.0 02/22/20 02/22/20 02/22/20 02/22/20 01:44 03:00 06:27 06:57 Temp 98.7 98.7 Pulse 105 Resp 20 17 B/P (MAP) 153/66 (95) Pulse Ox 92 92 92 O2 Delivery Room Air Room Air Room Air Room Air 02/22/20 02/22/20 02/22/20 07:00 08:00 10:38 Temp 97.9 97.9 Pulse 96 Resp 19 18 B/P (MAP) 172/81 (111) Pulse Ox 90 O2 Delivery Room Air Room Air Room Air O2 Flow Rate 2.0 Intake and Output 02/21/20 02/21/20 02/22/20 15:00 23:00 07:00 Intake Total 780 ml 700 ml 120 ml Output Total 100 ml 645 ml 210 ml Balance 680 ml 55 ml -90 ml RASHARD SANCHEZ MD Feb 22, 2020 11:01
[2020-02-22 15:00] VITALS: BP 160/85
[2020-02-22 19:20] VITALS: BP 159/59
--- NOTE | 2020-02-22 19:46 | PDOC ---
PROGRESS NOTES Subjective Subjective looks well, wants food Objective Objective Vital Signs Date Time Temp Pulse Resp B/P (MAP) Pulse Ox O2 Delivery O2 Flow Rate FiO2 02/22/20 17:38 18 Room Air 02/22/20 15:00 97.8 100 160/85 (110) 92 2.0 97.8 Intake and Output 02/22/20 07:00 Intake Total 1600 ml Output Total 955 ml Balance 645 ml Intake Oral 1600 ml Drainage Total 955 ml # Voids 7 Physical Exam Abdomen: Soft (tender at incision) Assessment Assessment Problems Medical Problems: (1) Pancreatitis Status: Acute (2) Suspected 2019 novel coronavirus infection Status: Acute (3) UTI (urinary tract infection) Status: Acute Plan Plan of Care advance diet Comment Review of Relevant I have reviewed the following items shae (where applicable) has been applied. Labs Laboratory Tests Test 02/20/20 20:40 02/21/20 05:15 02/21/20 07:09 02/21/20 11:09 Glucose (Fingerstick) 113 mg/dL (70-99) 94 mg/dL (70-99) 96 mg/dL (70-99) Total Bilirubin 0.9 mg/dL (0.2-1.0) Direct Bilirubin 0.7 mg/dL (0.0-0.2) Aspartate Amino Transf (AST/SGOT) 27 U/L (15-37) Alanine Aminotransferase (ALT/SGPT) 41 U/L (14-59) Alkaline Phosphatase 130 U/L (46-116) Total Protein 5.4 g/dL (6.4-8.2) Albumin 1.9 g/dL (3.4-5.0) Test 02/21/20 16:03 02/21/20 20:27 02/22/20 07:02 02/22/20 10:53 Glucose (Fingerstick) 100 mg/dL (70-99) 104 mg/dL (70-99) 109 mg/dL (70-99) 132 mg/dL (70-99) Test 02/22/20 16:31 Glucose (Fingerstick) 100 mg/dL (70-99) Laboratory Tests Test 02/21/20 20:27 02/22/20 07:02 02/22/20 10:53 02/22/20 16:31 Glucose (Fingerstick) 104 mg/dL (70-99) 109 mg/dL (70-99) 132 mg/dL (70-99) 100 mg/dL (70-99) Microbiology 02/16/20 Blood Culture - Final, Complete NO GROWTH AFTER 5 DAYS 02/16/20 Urine Culture - Final, Complete 02/16/20 Antimicrobic Susceptibility - Final, Complete Medications Current Medications Fentanyl Citrate (Fentanyl 2ml Vial) 50 mcg 1X ONCE IVP Last administered on 02/16/20at 15:11; Start 02/16/20 at 15:15; Stop 02/16/20 at 15:16; Status DC Ceftriaxone Sodium (Rocephin) 1 gm 1X ONCE IVP Last administered on 02/16/20at 17:02; Start 02/16/20 at 16:30; Stop 02/16/20 at 16:31; Status DC Sodium Chloride 1,000 ml @ 1,000 mls/hr 1X ONCE IV Last administered on 02/16/20at 17:02; Start 02/16/20 at 16:30; Stop 02/16/20 at 17:29; Status DC Fentanyl Citrate (Fentanyl 2ml Vial) 50 mcg 1X ONCE IVP Last administered on 02/16/20at 17:11; Start 02/16/20 at 17:15; Stop 02/16/20 at 17:16; Status DC Sodium Chloride 1,000 ml @ 1,000 mls/hr 1X ONCE IV Last administered on 02/16/20at 17:11; Start 02/16/20 at 17:15; Stop 02/16/20 at 18:14; Status DC Ondansetron HCl (Zofran) 4 mg PRN Q8HRS PRN IV NAUSEA/VOMITING; Start 02/16/20 at 17:15; Stop 02/17/20 at 17:14; Status Cancel Fentanyl Citrate (Fentanyl 2ml Vial) 50 mcg PRN Q1HR PRN IV PAIN Last administered on 02/17/20at 15:55; Start 02/16/20 at 17:15; Stop 02/17/20 at 17:27; Status DC Sodium Chloride 1,000 ml @ 150 mls/hr Q6H40M IV Last administered on 02/16/20at 18:33; Start 02/16/20 at 17:14; Stop 02/17/20 at 17:27; Status DC Hydralazine HCl (Apresoline Inj) 10 mg PRN Q4HRS PRN IVP ELEVATED BP, SEE COMMENTS; Start 02/16/20 at 17:45 Sodium Chloride (Normal Saline Flush) 3 ml QSHIFT PRN IV AFTER MEDS AND BLOOD DRAWS; Start 02/16/20 at 17:45 Sodium Chloride 1,000 ml @ 100 mls/hr Q10H IV Last administered on 02/22/20at 14:03; Start 02/16/20 at 17:43 Ondansetron HCl (Zofran) 4 mg PRN Q4HRS PRN IV NAUSEA/VOMITING Last administered on 02/16/20at 23:39; Start 02/16/20 at 17:45 Acetaminophen (Tylenol Supp) 650 mg PRN Q4HRS PRN ID TEMP OVER 100.4F OR MILD PAIN; Start 02/16/20 at 17:45 Sodium Monofluorophosphate (Fleet Adult) 133 ml PRN DAILY PRN ID CONSTIPATION; Start 02/16/20 at 17:45 Docusate Sodium (Colace) 100 mg PRN BID PRN PO HARD STOOLS; Start 02/16/20 at 17:45 Albuterol Sulfate (Ventolin Neb Soln) 2.5 mg PRN Q4HRS PRN NEB SHORTNESS OF BREATH; Start 02/16/20 at 17:45 Guaifenesin (Robitussin) 200 mg PRN Q4HRS PRN PO COUGH; Start 02/16/20 at 17:45 Lorazepam (Ativan) 0.5 mg PRN Q4HRS PRN PO ANXIETY / AGITATION Last administered on 02/22/20at 10:37; Start 02/16/20 at 17:45 Enoxaparin Sodium (Lovenox 40mg Syringe) 40 mg BID SQ Last administered on 02/16/20at 22:16; Start 02/16/20 at 21:00; Stop 02/17/20 at 08:18; Status DC Piperacillin Sod/ Tazobactam Sod 3.375 gm/Sodium Chloride 50 ml @ 100 mls/hr Q6HRS IV Last administered on 02/22/20at 17:37; Start 02/16/20 at 18:00 Enoxaparin Sodium (Lovenox 40mg Syringe) 40 mg Q24H SQ Last administered on 02/21/20at 22:01; Start 02/17/20 at 21:00 Pantoprazole Sodium (PROTONIX VIAL for IV PUSH) 40 mg DAILYAC IVP Last administered on 02/22/20at 08:54; Start 02/18/20 at 07:30 Potassium Chloride/Water 100 ml @ 50 mls/hr 1X ONCE IV Last administered on 02/17/20at 16:30; Start 02/17/20 at 15:45; Stop 02/17/20 at 17:44; Status DC Fentanyl Citrate (Fentanyl 2ml Vial) 50 mcg PRN Q1HR PRN IVP SEVERE PAIN (2nd Choice) Last administered on 02/17/20at 17:50; Start 02/17/20 at 17:45 Morphine Sulfate (Morphine Sulfate) 4 mg PRN Q2HR PRN IV MODERATE PAIN Last administered on 02/22/20at 06:27; Start 02/17/20 at 19:00 Morphine Sulfate (Morphine Sulfate) 6 mg PRN Q2HR PRN IV SEVERE PAIN Last administered on 02/22/20at 14:03; Start 02/17/20 at 19:00 Insulin Human Lispro (HumaLOG) 0-5 UNITS TIDWMEALS SQ ; Start 02/18/20 at 08:00 Dextrose (Dextrose 50%-Water Syringe) 12.5 gm PRN Q15MIN PRN IV SEE COMMENTS Last administered on 02/19/20at 06:20; Start 02/17/20 at 19:00 Iohexol (Omnipaque 300 Mg/ml) 75 ml 1X ONCE IV ; Start 02/18/20 at 11:00; Stop 02/18/20 at 11:01; Status DC Iohexol (Omnipaque 240 Mg/ml) 50 ml 1X ONCE PO Last administered on 02/18/20at 11:10; Start 02/18/20 at 11:00; Stop 02/18/20 at 11:01; Status DC Info (CONTRAST GIVEN -- Rx MONITORING) 1 each PRN DAILY PRN MC SEE COMMENTS; Start 02/18/20 at 11:15; Stop 02/20/20 at 11:14; Status DC Fentanyl Citrate (Fentanyl 2ml Vial) 25 mcg PRN Q5MIN PRN IV MILD PAIN 1-3; Start 02/19/20 at 07:00; Stop 02/20/20 at 06:59; Status DC Fentanyl Citrate (Fentanyl 2ml Vial) 50 mcg PRN Q5MIN PRN IV MODERATE TO SEVERE PAIN Last administered on 02/19/20at 17:41; Start 02/19/20 at 07:00; Stop 02/20/20 at 06:59; Status DC Morphine Sulfate (Morphine Sulfate) 1 mg PRN Q10MIN PRN IV SEVERE PAIN 7-10; Start 02/19/20 at 07:00; Stop 02/20/20 at 06:59; Status DC Ringer's Solution 1,000 ml @ 30 mls/hr Q24H IV Last administered on 02/19/20at 12:48; Start 02/19/20 at 07:00; Stop 02/19/20 at 18:59; Status DC Hydromorphone HCl (Dilaudid) 0.5 mg PRN Q10MIN PRN IV SEV PAIN, Second choice; Start 02/19/20 at 07:00; Stop 02/20/20 at 06:59; Status DC Prochlorperazine Edisylate (Compazine) 5 mg PACU PRN PRN IV NAUSEA, MRX1 Last administered on 02/19/20at 17:27; Start 02/19/20 at 07:00; Stop 02/20/20 at 06:59; Status DC Labetalol HCl (Normodyne Iv Push) 10 mg PRN Q4HRS PRN IVP HYPERTENSION Last administered on 02/19/20at 17:40; Start 02/19/20 at 09:15 Iohexol (Omnipaque 300 Mg/ml) 50 ml STK-MED ONCE .ROUTE ; Start 02/19/20 at 12:17; Stop 02/19/20 at 12:17; Status DC Cellulose (Surgicel Hemostat 4x8) 1 each STK-MED ONCE .ROUTE ; Start 02/19/20 at 12:17; Stop 02/19/20 at 12:17; Status DC Bupivacaine HCl (Sensorcaine Mpf 0.5%) 30 ml STK-MED ONCE .ROUTE ; Start 02/19/20 at 12:17; Stop 02/19/20 at 12:17; Status DC Cefazolin Sodium 2 gm/Dextrose 50 ml @ 100 mls/hr 1X ONCE IV ; Start 02/19/20 at 13:00; Stop 02/19/20 at 13:22; Status DC Lidocaine HCl (Lidocaine Pf 2% Vial) 5 ml STK-MED ONCE .ROUTE ; Start 02/19/20 at 12:47; Stop 02/19/20 at 12:47; Status DC Propofol 50 ml @ As Directed STK-MED ONCE IV ; Start 02/19/20 at 12:47; Stop 02/19/20 at 12:47; Status DC Ondansetron HCl (Zofran) 4 mg STK-MED ONCE .ROUTE ; Start 02/19/20 at 12:47; Stop 02/19/20 at 12:47; Status DC Dexamethasone Sodium Phosphate (Decadron) 4 mg STK-MED ONCE .ROUTE ; Start 02/19/20 at 12:47; Stop 02/19/20 at 12:47; Status DC Fentanyl Citrate (Fentanyl 2ml Vial) 100 mcg STK-MED ONCE .ROUTE ; Start 02/19/20 at 13:01; Stop 02/19/20 at 13:01; Status DC Metoprolol Tartrate (Lopressor Vial) 5 mg STK-MED ONCE IVP ; Start 02/19/20 at 13:33; Stop 02/19/20 at 13:33; Status DC Fentanyl Citrate (Fentanyl 2ml Vial) 100 mcg STK-MED ONCE .ROUTE ; Start 02/19/20 at 14:10; Stop 02/19/20 at 14:10; Status DC Sevoflurane (Ultane) 90 ml STK-MED ONCE IH ; Start 02/19/20 at 14:14; Stop 02/19/20 at 14:15; Status DC Rocuronium Laotto (Zemuron) 50 mg STK-MED ONCE .ROUTE ; Start 02/19/20 at 14:43; Stop 02/19/20 at 14:44; Status DC Neostigmine Laotto (Neostigmine Methylsulfate) 5 mg STK-MED ONCE .ROUTE ; Start 02/19/20 at 14:58; Stop 02/19/20 at 14:59; Status DC Glycopyrrolate (Robinul) 1 mg STK-MED ONCE .ROUTE ; Start 02/19/20 at 14:59; Stop 02/19/20 at 14:59; Status DC Fentanyl Citrate (Fentanyl 2ml Vial) 100 mcg STK-MED ONCE .ROUTE ; Start 02/19/20 at 15:00; Stop 02/19/20 at 15:01; Status DC Naloxone HCl (Narcan) 0.4 mg PRN Q2MIN PRN IV SEE INSTRUCTIONS; Start 02/19/20 at 16:45; Stop 02/21/20 at 12:31; Status DC Sodium Chloride 1,000 ml @ 25 mls/hr Q24H IV ; Start 02/19/20 at 16:34; Stop 02/21/20 at 12:31; Status DC Hydromorphone HCl 30 ml @ 0 mls/hr CONT PRN PRN IV PER PROTOCOL Last adm inistered on 02/19/20at 17:10; Start 02/19/20 at 16:45; Stop 02/21/20 at 12:31; Status DC Labetalol HCl (Normodyne Iv Push) 10 mg Q4HRS PRN IVP HYPERTENSION; Start 02/20/20 at 08:45; Status UNV Lactobacillus Rhamnosus (Culturelle) 1 cap BID PO Last administered on 02/22/20at 08:54; Start 02/20/20 at 21:00 Acetaminophen/ Hydrocodone Bitart (Lortab 5/325) 1 tab PRN Q4HRS PRN PO MODERATE PAIN; Start 02/21/20 at 12:30 Acetaminophen/ Hydrocodone Bitart (Lortab 5/325) 2 tab PRN Q4HRS PRN PO SEVERE PAIN Last administered on 02/22/20at 17:38; Start 02/21/20 at 12:45 Active Scripts Active Reported Crestor (Rosuvastatin Calcium) 5 Mg Tablet 10 Mg PO HS Pantoprazole Sodium (Pantoprazole Sodium) 40 Mg Tablet.dr 40 Mg PO DAILYAC Benazepril Hcl 10 Mg Tablet 10 Mg PO DAILY Lopressor (Metoprolol Tartrate) 100 Mg Tablet 1 Tab PO DAILY 30 Days Citalopram Hbr (Citalopram Hydrobromide) 20 Mg Tablet 1 Tab PO DAILY Vitals/I & O Vital Sign - Last 24 Hours 02/21/20 02/21/20 02/21/20 02/21/20 20:00 22:02 22:32 23:08 Temp 98.9 98.9 Pulse 104 Resp 18 20 B/P (MAP) 148/79 (102) Pulse Ox 92 92 92 O2 Delivery Room Air Nasal Cannula Nasal Cannula Room Air O2 Flow Rate 2.0 2.0 02/22/20 02/22/20 02/22/20 02/22/20 01:14 01:44 03:00 06:27 Temp 98.7 98.7 Pulse 105 Resp 20 B/P (MAP) 153/66 (95) Pulse Ox 92 92 92 92 O2 Delivery Nasal Cannula Room Air Room Air Room Air 02/22/20 02/22/20 02/22/20 02/22/20 06:57 07:00 08:00 10:38 Temp 97.9 97.9 Pulse 96 Resp 17 19 18 B/P (MAP) 172/81 (111) Pulse Ox 90 O2 Delivery Room Air Room Air Room Air Room Air O2 Flow Rate 2.0 02/22/20 02/22/20 02/22/20 02/22/20 11:00 11:38 14:03 14:33 Temp 97.8 97.8 Pulse 100 Resp 19 18 17 18 B/P (MAP) 157/70 (99) Pulse Ox 92 O2 Delivery Nasal Cannula Room Air Room Air Room Air O2 Flow Rate 2.0 02/22/20 02/22/20 15:00 17:38 Temp 97.8 97.8 Pulse 100 Resp 19 18 B/P (MAP) 160/85 (110) Pulse Ox 92 O2 Delivery Nasal Cannula Room Air O2 Flow Rate 2.0 Intake and Output 02/21/20 02/21/20 02/22/20 15:00 23:00 07:00 Intake Total 780 ml 700 ml 120 ml Output Total 100 ml 645 ml 210 ml Balance 680 ml 55 ml -90 ml DAVE EVANS MD Feb 22, 2020 19:46
[2020-02-22] MEDS: ENOXAPARIN 40 MG/0.4 ML SYRINGE. SQ SCH (21:07)
[2020-02-22 23:00] VITALS: BP 149/70
[2020-02-23] MEDS: PIPERACILLIN/TAZOBACTAM 3.375 GM in IV NORMAL SALINE 50ML 50 ML IV SCH ×4 (00:34→17:17)
[2020-02-23] MEDS: HYDROcodone/APAP 5/325MG 1 TAB TABLET PO PRN ×4 (00:34→22:33)
[2020-02-23] MEDS: IV NORMAL SALINE 1000ML BAG 1,000 ML IV SCH ×2 (00:35→09:17)
[2020-02-23 03:00] VITALS: BP 153/65
[2020-02-23] MEDS: MORPHINE SULFATE 2 MG/ML VIAL. IV PRN ×2 (06:19→12:29)
[2020-02-23 07:00] VITALS: BP 112/91
[2020-02-23] MEDS: INSULIN LISPRO 300 UNITS/3 ML VIAL. SQ SCH ×3 (08:00→16:57)
[2020-02-23] MEDS: LACTOBACILLUS RHAMNOSUS GG 1 CAPSULE. PO SCH ×2 (09:17→21:28)
[2020-02-23] MEDS: PANTOPRAZOLE IV PUSH 40 MG VIAL. IVP SCH (09:17)
--- NOTE | 2020-02-23 10:36 | PDOC ---
Subjective: Subjective: Says a few words - has some pain, ate toast, no stools. Wants to hold my hand. Objective: Vital Signs: Vital Signs Date Time Temp Pulse Resp B/P (MAP) Pulse Ox O2 Delivery O2 Flow Rate FiO2 02/23/20 07:00 97.8 91 18 112/91 (98) 93 Room Air 97.8 02/22/20 15:00 2.0 Labs: Laboratory Tests Test 02/22/20 10:53 02/22/20 16:31 02/22/20 20:50 02/23/20 07:16 Glucose (Fingerstick) 132 mg/dL 100 mg/dL 104 mg/dL 103 mg/dL PE: GEN: NAD LUNGS: clear anteriorly HEART: RRR ABD: has abdominal binder NEURO/PSYCH: A & O 3, right neglect A/P: Gallstone pancreatitis, dilated CBD - s/p open teresita 02/19/20 Leukocytosis (better - WBC checked 02/19), elevated LFTs (better - LFTs checked 02/20) UTI -- Continue support. Justicifation of Admission Dx: Justifications for Admission: Justification of Admission Dx: Yes Chronic Renal Failure: Hypertension Sepsis: Infection KRYS ROBLEDO Feb 23, 2020 10:35
--- NOTE | 2020-02-23 10:40 | PDOC ---
[facility] [employer] 02/23/20 1040: SURGICAL PROGRESS NOTE Subjective had some toast for breakfast no nausea Vital Signs Vital Signs Date Time Temp Pulse Resp B/P (MAP) Pulse Ox O2 Delivery O2 Flow Rate FiO2 02/23/20 07:00 97.8 91 18 112/91 (98) 93 Room Air 97.8 02/22/20 15:00 2.0 I&O Intake and Output 02/23/20 07:00 Intake Total 1720 ml Output Total 1320 ml Balance 400 ml Intake Oral 1720 ml Output Urine Total 1000 ml Drainage Total 320 ml # Voids 3 General: Alert, Cooperative Abdomen: Soft, Other (drain serous, dressing dry) Labs Laboratory Tests Test 02/21/20 11:09 02/21/20 16:03 02/21/20 20:27 02/22/20 07:02 Glucose (Fingerstick) 96 mg/dL (70-99) 100 mg/dL (70-99) 104 mg/dL (70-99) 109 mg/dL (70-99) Test 02/22/20 10:53 02/22/20 16:31 02/22/20 20:50 02/23/20 07:16 Glucose (Fingerstick) 132 mg/dL (70-99) 100 mg/dL (70-99) 104 mg/dL (70-99) 103 mg/dL (70-99) Laboratory Tests Test 02/22/20 10:53 02/22/20 16:31 02/22/20 20:50 02/23/20 07:16 Glucose (Fingerstick) 132 mg/dL (70-99) 100 mg/dL (70-99) 104 mg/dL (70-99) 103 mg/dL (70-99) Problem List Problems Medical Problems: (1) Pancreatitis Status: Acute (2) Suspected 2019 novel coronavirus infection Status: Acute (3) UTI (urinary tract infection) Status: Acute Assessment/Plan open teresita, continue drain Justicifation of Admission Dx: Justifications for Admission: Justification of Admission Dx: Yes Chronic Renal Failure: Hypertension Sepsis: Infection DAVE EVANS MD 02/23/20 1236: SURGICAL PROGRESS NOTE Assessment/Plan Agree with above [facility] [employer] Feb 23, 2020 10:40 DAVE EVANS MD Feb 23, 2020 12:36
[2020-02-23 10:53] VITALS: BP 128/89
[2020-02-23 15:00] VITALS: BP 130/84
--- NOTE | 2020-02-23 16:06 | PATHOLOGY ---
[facility] Accession Number: [id number] . 01 Material submitted: . gallbladder - GALLBLADDER . 01 Clinical history: . Cholelithiasis . 02 Diagnosis: Gallbladder, laparoscopic cholecystectomy: - Cholelithiasis. - Acute, chronic, and focal xanthogranulomatous cholecystitis. (JPM:nato; 02/23/2020) S 02/23/2020 1029 Local . 02 Comment: There is no evidence of malignancy. (JPM:nato; 02/23/2020) . 02 Electronically signed: . Hardik Barfield MD, Pathologist NPI- [id number] . 01 Gross description: . The specimen is received in formalin, labeled "Debbie Pratt, gallbladder". Received is a previously opened, moderately torn gallbladder measuring 6.1 x 3.9 x 3.2 cm in greatest dimensions displaying a pink-roblero to roblero-brown serosal surface. Due to the nature of the specimen, the cystic neck cannot be identified. Opening the specimen reveals a light spivey, smooth to slightly velvety mucosa with a gallbladder wall thickness of 0.1 cm. A single large, granular black calculus is present and no masses or lesions are noted grossly. Specialty Sales Representative sections are submitted in cassette A1. (CAA; 02/20/2020) QAC/QAC 02/23/2020 1028 Local . 02 Pathologist provided ICD-10: K80.12 . 02 CPT . 999653 Specimen Comment: A courtesy copy of this report has been sent to [phone], [phone] Specimen Comment: [id number] Specimen Comment: Report sent to / DR LEACH Performed at: 01 [facility] [address], [place], [place] [id number] MD Raymundo Morton MD Phone: [phone] Performed at: [address] [id number] MD Hardik Barfield MD Phone: [phone]
--- NOTE | 2020-02-23 16:21 | PDOC ---
PROGRESS NOTES Chief Complaint Chief Complaint Gallstone pancreatitis Dilated common bile duct. MRCP can further evaluate as clinically warranted. Cholelithiasis. No surgical intervention planned at the present time. Hepatomegaly with increased echotexture, // steatosis. Obesity Transaminitis Diabetes Hypertension HX CVA Severe UTI Low lung volumes with patchy bibasilar opacities, most likely atelectasis. Plan: continue with pain management diet as per certified ophthalmic surgical assistant. Appreciate surgical recommendations History of Present Illness History of Present Illness 02/17/2020 Patient seen and examined in the ICU She is trying to walk with physical therapy Her urine is extremely dark orange with cloudiness Chart reviewed Discussed with RN and physical therapist 02/18/2020 No acute events reported overnight, case discussed with nursing staff patient in no acute distress no complaints during my visit 02/19/2020 Patient with no new complaints. Her pain is still present but not as prominent as it was yesterday or the day before. Seems to be eager to try some clear liquids sometimes gets frustrated due to her aphasia reassurance has been provided plan of care explained in detail 02/20/2020 No acute events reported overnight, case discussed with nursing staff patient in no acute distress no complaints during my visit 02/21/2020 No acute events reported overnight, case discussed with nursing staff patient in no acute distress no complaints during my visit, advancing diet as per client development consultant 02/22/2020 Patient seems to have improvement but still quite painful over her abdominal area. She has been able to tolerate some solids but seems to be quite picky when it comes to her food. I have related the message to the nursing staff who will aid the patient 02/23/2020 Slowly getting better, ate some toast. Patient in good spirits. no new compalitns, no abdoominal pain reported. Vitals Vitals Vital Signs Date Time Temp Pulse Resp B/P (MAP) Pulse Ox O2 Delivery O2 Flow Rate FiO2 02/23/20 15:00 97.7 92 18 130/84 (99) 93 Room Air 97.7 02/22/20 15:00 2.0 Physical Exam General: Alert, Cooperative Heart: Regular rate Lungs: Clear Abdomen: Soft, Other (drain serous, dressing dry) Extremities: No clubbing, No cyanosis Skin: Other (JAUNDICED) Labs LABS Laboratory Tests Test 02/22/20 16:31 02/22/20 20:50 02/23/20 07:16 02/23/20 11:33 Glucose (Fingerstick) 100 mg/dL (70-99) 104 mg/dL (70-99) 103 mg/dL (70-99) 95 mg/dL (70-99) Assessment and Plan Assessmemt and Plan Problems Medical Problems: (1) Pancreatitis Status: Acute (2) Suspected 2019 novel coronavirus infection Status: Acute (3) UTI (urinary tract infection) Status: Acute Comment Review of Relevant I have reviewed the following items shae (where applicable) has been applied. Labs Laboratory Tests Test 02/21/20 20:27 02/22/20 07:02 02/22/20 10:53 02/22/20 16:31 Glucose (Fingerstick) 104 mg/dL (70-99) 109 mg/dL (70-99) 132 mg/dL (70-99) 100 mg/dL (70-99) Test 02/22/20 20:50 02/23/20 07:16 02/23/20 11:33 Glucose (Fingerstick) 104 mg/dL (70-99) 103 mg/dL (70-99) 95 mg/dL (70-99) Laboratory Tests Test 02/22/20 16:31 02/22/20 20:50 02/23/20 07:16 02/23/20 11:33 Glucose (Fingerstick) 100 mg/dL (70-99) 104 mg/dL (70-99) 103 mg/dL (70-99) 95 mg/dL (70-99) Microbiology 02/16/20 Blood Culture - Final, Complete NO GROWTH AFTER 5 DAYS 02/16/20 Urine Culture - Final, Complete 02/16/20 Antimicrobic Susceptibility - Final, Complete Medications Current Medications Fentanyl Citrate (Fentanyl 2ml Vial) 50 mcg 1X ONCE IVP Last administered on 02/16/20at 15:11; Start 02/16/20 at 15:15; Stop 02/16/20 at 15:16; Status DC Ceftriaxone Sodium (Rocephin) 1 gm 1X ONCE IVP Last administered on 02/16/20at 17:02; Start 02/16/20 at 16:30; Stop 02/16/20 at 16:31; Status DC Sodium Chloride 1,000 ml @ 1,000 mls/hr 1X ONCE IV Last administered on 02/16/20at 17:02; Start 02/16/20 at 16:30; Stop 02/16/20 at 17:29; Status DC Fentanyl Citrate (Fentanyl 2ml Vial) 50 mcg 1X ONCE IVP Last administered on 02/16/20at 17:11; Start 02/16/20 at 17:15; Stop 02/16/20 at 17:16; Status DC Sodium Chloride 1,000 ml @ 1,000 mls/hr 1X ONCE IV Last administered on 02/16/20at 17:11; Start 02/16/20 at 17:15; Stop 02/16/20 at 18:14; Status DC Ondansetron HCl (Zofran) 4 mg PRN Q8HRS PRN IV NAUSEA/VOMITING; Start 02/16/20 at 17:15; Stop 02/17/20 at 17:14; Status Cancel Fentanyl Citrate (Fentanyl 2ml Vial) 50 mcg PRN Q1HR PRN IV PAIN Last administered on 02/17/20at 15:55; Start 02/16/20 at 17:15; Stop 02/17/20 at 17:27; Status DC Sodium Chloride 1,000 ml @ 150 mls/hr Q6H40M IV Last administered on 02/16/20at 18:33; Start 02/16/20 at 17:14; Stop 02/17/20 at 17:27; Status DC Hydralazine HCl (Apresoline Inj) 10 mg PRN Q4HRS PRN IVP ELEVATED BP, SEE COMMENTS; Start 02/16/20 at 17:45 Sodium Chloride (Normal Saline Flush) 3 ml QSHIFT PRN IV AFTER MEDS AND BLOOD DRAWS; Start 02/16/20 at 17:45 Sodium Chloride 1,000 ml @ 100 mls/hr Q10H IV Last administered on 02/23/20at 00:35; Start 02/16/20 at 17:43; Stop 02/23/20 at 16:00; Status DC Ondansetron HCl (Zofran) 4 mg PRN Q4HRS PRN IV NAUSEA/VOMITING Last administered on 02/16/20at 23:39; Start 02/16/20 at 17:45 Acetaminophen (Tylenol Supp) 650 mg PRN Q4HRS PRN MA TEMP OVER 100.4F OR MILD PAIN; Start 02/16/20 at 17:45 Sodium Monofluorophosphate (Fleet Adult) 133 ml PRN DAILY PRN MA CONSTIPATION; Start 02/16/20 at 17:45 Docusate Sodium (Colace) 100 mg PRN BID PRN PO HARD STOOLS; Start 02/16/20 at 17:45 Albuterol Sulfate (Ventolin Neb Soln) 2.5 mg PRN Q4HRS PRN NEB SHORTNESS OF BREATH; Start 02/16/20 at 17:45 Guaifenesin (Robitussin) 200 mg PRN Q4HRS PRN PO COUGH; Start 02/16/20 at 17:45 Lorazepam (Ativan) 0.5 mg PRN Q4HRS PRN PO ANXIETY / AGITATION Last administered on 02/22/20at 22:00; Start 02/16/20 at 17:45 Enoxaparin Sodium (Lovenox 40mg Syringe) 40 mg BID SQ Last administered on 02/16/20at 22:16; Start 02/16/20 at 21:00; Stop 02/17/20 at 08:18; Status DC Piperacillin Sod/ Tazobactam Sod 3.375 gm/Sodium Chloride 50 ml @ 100 mls/hr Q6HRS IV Last administered on 02/23/20at 12:29; Start 02/16/20 at 18:00 Enoxaparin Sodium (Lovenox 40mg Syringe) 40 mg Q24H SQ Last administered on 02/22/20at 21:07; Start 02/17/20 at 21:00 Pantoprazole Sodium (PROTONIX VIAL for IV PUSH) 40 mg DAILYAC IVP Last administered on 02/23/20at 09:17; Start 02/18/20 at 07:30; Stop 02/23/20 at 10:36; Status DC Potassium Chloride/Water 100 ml @ 50 mls/hr 1X ONCE IV Last administered on 02/17/20at 16:30; Start 02/17/20 at 15:45; Stop 02/17/20 at 17:44; Status DC Fentanyl Citrate (Fentanyl 2ml Vial) 50 mcg PRN Q1HR PRN IVP SEVERE PAIN (2nd Choice) Last administered on 02/17/20at 17:50; Start 02/17/20 at 17:45 Morphine Sulfate (Morphine Sulfate) 4 mg PRN Q2HR PRN IV MODERATE PAIN Last administered on 02/23/20at 12:29; Start 02/17/20 at 19:00 Morphine Sulfate (Morphine Sulfate) 6 mg PRN Q2HR PRN IV SEVERE PAIN Last administered on 02/22/20at 21:08; Start 02/17/20 at 19:00 Insulin Human Lispro (HumaLOG) 0-5 UNITS TIDWMEALS SQ ; Start 02/18/20 at 08:00 Dextrose (Dextrose 50%-Water Syringe) 12.5 gm PRN Q15MIN PRN IV SEE COMMENTS Last administered on 02/19/20at 06:20; Start 02/17/20 at 19:00 Iohexol (Omnipaque 300 Mg/ml) 75 ml 1X ONCE IV ; Start 02/18/20 at 11:00; Stop 02/18/20 at 11:01; Status DC Iohexol (Omnipaque 240 Mg/ml) 50 ml 1X ONCE PO Last administered on 02/18/20at 11:10; Start 02/18/20 at 11:00; Stop 02/18/20 at 11:01; Status DC Info (CONTRAST GIVEN -- Rx MONITORING) 1 each PRN DAILY PRN MC SEE COMMENTS; Start 02/18/20 at 11:15; Stop 02/20/20 at 11:14; Status DC Fentanyl Citrate (Fentanyl 2ml Vial) 25 mcg PRN Q5MIN PRN IV MILD PAIN 1-3; Start 02/19/20 at 07:00; Stop 02/20/20 at 06:59; Status DC Fentanyl Citrate (Fentanyl 2ml Vial) 50 mcg PRN Q5MIN PRN IV MODERATE TO SEVERE PAIN Last administered on 02/19/20at 17:41; Start 02/19/20 at 07:00; Stop 02/20/20 at 06:59; Status DC Morphine Sulfate (Morphine Sulfate) 1 mg PRN Q10MIN PRN IV SEVERE PAIN 7-10; Start 02/19/20 at 07:00; Stop 02/20/20 at 06:59; Status DC Ringer's Solution 1,000 ml @ 30 mls/hr Q24H IV Last administered on 02/19/20at 12:48; Start 02/19/20 at 07:00; Stop 02/19/20 at 18:59; Status DC Hydromorphone HCl (Dilaudid) 0.5 mg PRN Q10MIN PRN IV SEV PAIN, Second choice; Start 02/19/20 at 07:00; Stop 02/20/20 at 06:59; Status DC Prochlorperazine Edisylate (Compazine) 5 mg PACU PRN PRN IV NAUSEA, MRX1 Last administered on 02/19/20at 17:27; Start 02/19/20 at 07:00; Stop 02/20/20 at 06:59; Status DC Labetalol HCl (Normodyne Iv Push) 10 mg PRN Q4HRS PRN IVP HYPERTENSION Last administered on 02/19/20at 17:40; Start 02/19/20 at 09:15 Iohexol (Omnipaque 300 Mg/ml) 50 ml STK-MED ONCE .ROUTE ; Start 02/19/20 at 12:17; Stop 02/19/20 at 12:17; Status DC Cellulose (Surgicel Hemostat 4x8) 1 each STK-MED ONCE .ROUTE ; Start 02/19/20 at 12:17; Stop 02/19/20 at 12:17; Status DC Bupivacaine HCl (Sensorcaine Mpf 0.5%) 30 ml STK-MED ONCE .ROUTE ; Start 02/19/20 at 12:17; Stop 02/19/20 at 12:17; Status DC Cefazolin Sodium 2 gm/Dextrose 50 ml @ 100 mls/hr 1X ONCE IV ; Start 02/19/20 at 13:00; Stop 02/19/20 at 13:22; Status DC Lidocaine HCl (Lidocaine Pf 2% Vial) 5 ml STK-MED ONCE .ROUTE ; Start 02/19/20 at 12:47; Stop 02/19/20 at 12:47; Status DC Propofol 50 ml @ As Directed STK-MED ONCE IV ; Start 02/19/20 at 12:47; Stop 02/19/20 at 12:47; Status DC Ondansetron HCl (Zofran) 4 mg STK-MED ONCE .ROUTE ; Start 02/19/20 at 12:47; Stop 02/19/20 at 12:47; Status DC Dexamethasone Sodium Phosphate (Decadron) 4 mg STK-MED ONCE .ROUTE ; Start 02/19/20 at 12:47; Stop 02/19/20 at 12:47; Status DC Fentanyl Citrate (Fentanyl 2ml Vial) 100 mcg STK-MED ONCE .ROUTE ; Start 02/19/20 at 13:01; Stop 02/19/20 at 13:01; Status DC Metoprolol Tartrate (Lopressor Vial) 5 mg STK-MED ONCE IVP ; Start 02/19/20 at 13:33; Stop 02/19/20 at 13:33; Status DC Fentanyl Citrate (Fentanyl 2ml Vial) 100 mcg STK-MED ONCE .ROUTE ; Start 02/19/20 at 14:10; Stop 02/19/20 at 14:10; Status DC Sevoflurane (Ultane) 90 ml STK-MED ONCE IH ; Start 02/19/20 at 14:14; Stop 02/19/20 at 14:15; Status DC Rocuronium Robertson (Zemuron) 50 mg STK-MED ONCE .ROUTE ; Start 02/19/20 at 14:43; Stop 02/19/20 at 14:44; Status DC Neostigmine Robertson (Neostigmine Methylsulfate) 5 mg STK-MED ONCE .ROUTE ; Start 02/19/20 at 14:58; Stop 02/19/20 at 14:59; Status DC Glycopyrrolate (Robinul) 1 mg STK-MED ONCE .ROUTE ; Start 02/19/20 at 14:59; Stop 02/19/20 at 14:59; Status DC Fentanyl Citrate (Fentanyl 2ml Vial) 100 mcg STK-MED ONCE .ROUTE ; Start 02/19/20 at 15:00; Stop 02/19/20 at 15:01; Status DC Naloxone HCl (Narcan) 0.4 mg PRN Q2MIN PRN IV SEE INSTRUCTIONS; Start 02/19/20 at 16:45; Stop 02/21/20 at 12:31; Status DC Sodium Chloride 1,000 ml @ 25 mls/hr Q24H IV ; Start 02/19/20 at 16:34; Stop 02/21/20 at 12:31; Status DC Hydromorphone HCl 30 ml @ 0 mls/hr CONT PRN PRN IV PER PROTOCOL Last administered on 02/19/20at 17:10; Start 02/19/20 at 16:45; Stop 02/21/20 at 12:31; Status DC Labetalol HCl (Normodyne Iv Push) 10 mg Q4HRS PRN IVP HYPERTENSION; Start 02/20/20 at 08:45; Status UNV Lactobacillus Rhamnosus (Culturelle) 1 cap BID PO Last administered on 02/23/20at 09:17; Start 02/20/20 at 21:00 Acetaminophen/ Hydrocodone Bitart (Lortab 5/325) 1 tab PRN Q4HRS PRN PO MODERATE PAIN Last administered on 02/23/20at 16:05; Start 02/21/20 at 12:30 Acetaminophen/ Hydrocodone Bitart (Lortab 5/325) 2 tab PRN Q4HRS PRN PO SEVERE PAIN Last administered on 02/23/20at 09:22; Start 02/21/20 at 12:45 Pantoprazole Sodium (Protonix) 40 mg DAILYAC PO ; Start 02/24/20 at 07:30 Active Scripts Active Reported Crestor (Rosuvastatin Calcium) 5 Mg Tablet 10 Mg PO HS Pantoprazole Sodium (Pantoprazole Sodium) 40 Mg Tablet.dr 40 Mg PO DAILYAC Benazepril Hcl 10 Mg Tablet 10 Mg PO DAILY Lopressor (Metoprolol Tartrate) 100 Mg Tablet 1 Tab PO DAILY 30 Days Citalopram Hbr (Citalopram Hydrobromide) 20 Mg Tablet 1 Tab PO DAILY Vitals/I & O Vital Sign - Last 24 Hours 02/22/20 02/22/20 02/22/20 02/22/20 17:38 18:38 19:20 20:00 Temp 98.0 98.0 Pulse 104 Resp 18 24 B/P (MAP) 159/59 (92) Pulse Ox 93 93 O2 Delivery Room Air Room Air Room Air Room Air 02/22/20 02/22/20 02/22/20 02/23/20 21:08 21:38 23:00 00:34 Temp 98.0 98.0 Pulse 93 Resp 20 18 B/P (MAP) 149/70 (96) Pulse Ox 93 93 93 O2 Delivery Room Air Room Air Room Air 02/23/20 02/23/20 02/23/20 02/23/20 01:34 03:00 06:19 07:00 Temp 98.4 97.8 98.4 97.8 Pulse 90 91 Resp 20 18 B/P (MAP) 153/65 (94) 112/91 (98) Pulse Ox 93 91 91 93 O2 Delivery Room Air Room Air Room Air Room Air 02/23/20 02/23/20 02/23/20 02/23/20 08:00 10:53 12:29 15:00 Temp 97.7 97.7 97.7 97.7 Pulse 90 92 Resp 18 18 B/P (MAP) 128/89 (102) 130/84 (99) Pulse Ox 92 93 O2 Delivery Room Air Room Air Room Air Room Air Intake and Output 02/22/20 02/22/20 02/23/20 14:59 22:59 06:59 Intake Total 600 ml 300 ml 820 ml Output Total 50 ml 155 ml 1115 ml Balance 550 ml 145 ml -295 ml RASHARD SANCHEZ MD Feb 23, 2020 16:21
[2020-02-23 19:21] VITALS: BP 175/78
[2020-02-23] MEDS: ENOXAPARIN 40 MG/0.4 ML SYRINGE. SQ SCH (21:28)
[2020-02-23 23:28] VITALS: BP 175/65
[2020-02-24] MEDS: PIPERACILLIN/TAZOBACTAM 3.375 GM in IV NORMAL SALINE 50ML 50 ML IV SCH ×5 (00:12→23:51)
[2020-02-24 02:52] VITALS: BP 165/72
[2020-02-24] MEDS: HYDROcodone/APAP 5/325MG 1 TAB TABLET PO PRN ×4 (03:53→18:29)
[2020-02-24 07:00] VITALS: BP 170/68
[2020-02-24] MEDS: INSULIN LISPRO 300 UNITS/3 ML VIAL. SQ SCH ×3 (08:00→17:00)
[2020-02-24] MEDS: LACTOBACILLUS RHAMNOSUS GG 1 CAPSULE. PO SCH ×2 (09:11→19:55)
[2020-02-24] MEDS: PANTOPRAZOLE 40 MG TABLET.DR. PO SCH (09:11)
--- NOTE | 2020-02-24 09:59 | PDOC ---
Subjective: Subjective: Doesn't like the pancakes. Has RUQ pain. No n/v. Has stooled. Objective: Objective: D/w nurse/staff - picky eater but really liked goulash. Stooled yesterday. Vital Signs: Vital Signs Date Time Temp Pulse Resp B/P (MAP) Pulse Ox O2 Delivery O2 Flow Rate FiO2 02/24/20 07:00 97.8 84 19 170/68 (102) 92 Room Air 97.8 Labs: Laboratory Tests Test 02/23/20 11:33 02/23/20 16:45 02/23/20 19:34 02/24/20 07:11 Glucose (Fingerstick) 95 mg/dL 103 mg/dL 134 mg/dL 88 mg/dL PE: GEN: NAD - 25% of breakfast consumed LUNGS: CTAB HEART: RRR ABD: soft NEURO/PSYCH: A & O 3 A/P: Gallstone pancreatitis, dilated CBD - s/p open teresita 02/19/20 Elevated LFTs - improved UTI -- Tolerating diet (when she likes the food) and stooling - improved from GI standpoint. Justicifation of Admission Dx: Justifications for Admission: Justification of Admission Dx: Yes Chronic Renal Failure: Hypertension Sepsis: Infection KRYS ROBLEDO Feb 24, 2020 09:59
[2020-02-24 11:00] VITALS: BP 162/64
[2020-02-24 15:04] VITALS: BP 158/60
--- NOTE | 2020-02-24 15:17 | PDOC ---
PROGRESS NOTES Chief Complaint Chief Complaint Gallstone pancreatitis Dilated common bile duct. MRCP can further evaluate as clinically warranted. Cholelithiasis. No surgical intervention planned at the present time. Hepatomegaly with increased echotexture, // steatosis. Obesity Transaminitis Diabetes Hypertension HX CVA Severe UTI Low lung volumes with patchy bibasilar opacities, most likely atelectasis. Plan: continue with pain management diet as per director surgical. Appreciate surgical recommendations History of Present Illness History of Present Illness 02/17/2020 Patient seen and examined in the ICU She is trying to walk with physical therapy Her urine is extremely dark orange with cloudiness Chart reviewed Discussed with RN and physical therapist 02/18/2020 No acute events reported overnight, case discussed with nursing staff patient in no acute distress no complaints during my visit 02/19/2020 Patient with no new complaints. Her pain is still present but not as prominent as it was yesterday or the day before. Seems to be eager to try some clear liquids sometimes gets frustrated due to her aphasia reassurance has been provided plan of care explained in detail 02/20/2020 No acute events reported overnight, case discussed with nursing staff patient in no acute distress no complaints during my visit 02/21/2020 No acute events reported overnight, case discussed with nursing staff patient in no acute distress no complaints during my visit, advancing diet as per sr technical sales consultant 02/22/2020 Patient seems to have improvement but still quite painful over her abdominal area. She has been able to tolerate some solids but seems to be quite picky when it comes to her food. I have related the message to the nursing staff who will aid the patient 02/23/2020 Slowly getting better, ate some toast. Patient in good spirits. no new compalitns, no abdoominal pain reported. 02/24/2020 No acute events reported overnight, case discussed with nursing staff patient in no acute distress no complaints during my visit, patient seems to be a picky eater according to nursing staff since the patient was offered yesterday goulash and she did quite well with the meal, reassurance provided Pathology report available and results are as follow: Material submitted: . gallbladder - GALLBLADDER . 01 Clinical history: . Cholelithiasis . 02 Diagnosis: Gallbladder, laparoscopic cholecystectomy: - Cholelithiasis. - Acute, chronic, and focal xanthogranulomatous cholecystitis. (JPM:nato; 02/23/2020) QMS 02/23/2020 1029 Local . 02 Comment: There is no evidence of malignancy. (JPM:nato; 02/23/2020) Vitals Vitals Vital Signs Date Time Temp Pulse Resp B/P (MAP) Pulse Ox O2 Delivery O2 Flow Rate FiO2 02/24/20 15:04 97.8 80 19 158/60 (92) 94 Room Air 97.8 Physical Exam General: Alert, Cooperative Heart: Regular rate Lungs: Clear Abdomen: Soft, Other (drain serous, dressing dry) Extremities: No clubbing, No cyanosis Skin: Other (JAUNDICED) Labs LABS Laboratory Tests Test 02/23/20 16:45 02/23/20 19:34 02/24/20 07:11 02/24/20 11:44 Glucose (Fingerstick) 103 mg/dL (70-99) 134 mg/dL (70-99) 88 mg/dL (70-99) 99 mg/dL (70-99) Assessment and Plan Assessmemt and Plan Problems Medical Problems: (1) Pancreatitis Status: Acute (2) Suspected 2019 novel coronavirus infection Status: Acute (3) UTI (urinary tract infection) Status: Acute Comment Review of Relevant I have reviewed the following items shae (where applicable) has been applied. Labs Laboratory Tests Test 02/22/20 16:31 02/22/20 20:50 02/23/20 07:16 02/23/20 11:33 Glucose (Fingerstick) 100 mg/dL (70-99) 104 mg/dL (70-99) 103 mg/dL (70-99) 95 mg/dL (70-99) Test 02/23/20 16:45 02/23/20 19:34 02/24/20 07:11 02/24/20 11:44 Glucose (Fingerstick) 103 mg/dL (70-99) 134 mg/dL (70-99) 88 mg/dL (70-99) 99 mg/dL (70-99) Laboratory Tests Test 02/23/20 16:45 02/23/20 19:34 02/24/20 07:11 02/24/20 11:44 Glucose (Fingerstick) 103 mg/dL (70-99) 134 mg/dL (70-99) 88 mg/dL (70-99) 99 mg/dL (70-99) Microbiology 02/16/20 Blood Culture - Final, Complete NO GROWTH AFTER 5 DAYS 02/16/20 Urine Culture - Final, Complete 02/16/20 Antimicrobic Susceptibility - Final, Complete Medications Current Medications Fentanyl Citrate (Fentanyl 2ml Vial) 50 mcg 1X ONCE IVP Last administered on 02/16/20at 15:11; Start 02/16/20 at 15:15; Stop 02/16/20 at 15:16; Status DC Ceftriaxone Sodium (Rocephin) 1 gm 1X ONCE IVP Last administered on 02/16/20at 17:02; Start 02/16/20 at 16:30; Stop 02/16/20 at 16:31; Status DC Sodium Chloride 1,000 ml @ 1,000 mls/hr 1X ONCE IV Last administered on 02/16/20at 17:02; Start 02/16/20 at 16:30; Stop 02/16/20 at 17:29; Status DC Fentanyl Citrate (Fentanyl 2ml Vial) 50 mcg 1X ONCE IVP Last administered on 02/16/20at 17:11; Start 02/16/20 at 17:15; Stop 02/16/20 at 17:16; Status DC Sodium Chloride 1,000 ml @ 1,000 mls/hr 1X ONCE IV Last administered on 02/16/20at 17:11; Start 02/16/20 at 17:15; Stop 02/16/20 at 18:14; Status DC Ondansetron HCl (Zofran) 4 mg PRN Q8HRS PRN IV NAUSEA/VOMITING; Start 02/16/20 at 17:15; Stop 02/17/20 at 17:14; Status Cancel Fentanyl Citrate (Fentanyl 2ml Vial) 50 mcg PRN Q1HR PRN IV PAIN Last administered on 02/17/20at 15:55; Start 02/16/20 at 17:15; Stop 02/17/20 at 17:27; Status DC Sodium Chloride 1,000 ml @ 150 mls/hr Q6H40M IV Last administered on 02/16/20at 18:33; Start 02/16/20 at 17:14; Stop 02/17/20 at 17:27; Status DC Hydralazine HCl (Apresoline Inj) 10 mg PRN Q4HRS PRN IVP ELEVATED BP, 1ST CHOICE; Start 02/16/20 at 17:45 Sodium Chloride (Normal Saline Flush) 3 ml QSHIFT PRN IV AFTER MEDS AND BLOOD DRAWS; Start 02/16/20 at 17:45 Sodium Chloride 1,000 ml @ 100 mls/hr Q10H IV Last administered on 02/23/20at 00:35; Start 02/16/20 at 17:43; Stop 02/23/20 at 16:00; Status DC Ondansetron HCl (Zofran) 4 mg PRN Q4HRS PRN IV NAUSEA/VOMITING Last administered on 02/16/20at 23:39; Start 02/16/20 at 17:45 Acetaminophen (Tylenol Supp) 650 mg PRN Q4HRS PRN SC TEMP OVER 100.4F OR MILD PAIN; Start 02/16/20 at 17:45 Sodium Monofluorophosphate (Fleet Adult) 133 ml PRN DAILY PRN SC CONSTIPATION; Start 02/16/20 at 17:45 Docusate Sodium (Colace) 100 mg PRN BID PRN PO HARD STOOLS; Start 02/16/20 at 17:45 Albuterol Sulfate (Ventolin Neb Soln) 2.5 mg PRN Q4HRS PRN NEB SHORTNESS OF BREATH; Start 02/16/20 at 17:45 Guaifenesin (Robitussin) 200 mg PRN Q4HRS PRN PO COUGH; Start 02/16/20 at 17:45 Lorazepam (Ativan) 0.5 mg PRN Q4HRS PRN PO ANXIETY / AGITATION Last administere d on 02/22/20at 22:00; Start 02/16/20 at 17:45 Enoxaparin Sodium (Lovenox 40mg Syringe) 40 mg BID SQ Last administered on 02/16/20at 22:16; Start 02/16/20 at 21:00; Stop 02/17/20 at 08:18; Status DC Piperacillin Sod/ Tazobactam Sod 3.375 gm/Sodium Chloride 50 ml @ 100 mls/hr Q6HRS IV Last administered on 02/24/20at 11:49; Start 02/16/20 at 18:00 Enoxaparin Sodium (Lovenox 40mg Syringe) 40 mg Q24H SQ Last administered on 02/23/20at 21:28; Start 02/17/20 at 21:00 Pantoprazole Sodium (PROTONIX VIAL for IV PUSH) 40 mg DAILYAC IVP Last administered on 02/23/20 09:17; Start 02/18/20 at 07:30; Stop 02/23/20 at 10:36; Status DC Potassium Chloride/Water 100 ml @ 50 mls/hr 1X ONCE IV Last administered on 02/17/20 16:30; Start 02/17/20 at 15:45; Stop 02/17/20 at 17:44; Status DC Fentanyl Citrate (Fentanyl 2ml Vial) 50 mcg PRN Q1HR PRN IVP SEVERE PAIN (2nd Choice) Last administered on 02/17/20at 17:50; Start 02/17/20 at 17:45 Morphine Sulfate (Morphine Sulfate) 4 mg PRN Q2HR PRN IV MODERATE PAIN Last administered on 02/23/20at 12:29; Start 02/17/20 at 19:00 Morphine Sulfate (Morphine Sulfate) 6 mg PRN Q2HR PRN IV SEVERE PAIN Last administered on 02/22/20at 21:08; Start 02/17/20 at 19:00 Insulin Human Lispro (HumaLOG) 0-5 UNITS TIDWMEALS SQ ; Start 02/18/20 at 08:00 Dextrose (Dextrose 50%-Water Syringe) 12.5 gm PRN Q15MIN PRN IV SEE COMMENTS Last administered on 02/19/20at 06:20; Start 02/17/20 at 19:00 Iohexol (Omnipaque 300 Mg/ml) 75 ml 1X ONCE IV ; Start 02/18/20 at 11:00; Stop 02/18/20 at 11:01; Status DC Iohexol (Omnipaque 240 Mg/ml) 50 ml 1X ONCE PO Last administered on 02/18/20at 11:10; Start 02/18/20 at 11:00; Stop 02/18/20 at 11:01; Status DC Info (CONTRAST GIVEN -- Rx MONITORING) 1 each PRN DAILY PRN MC SEE COMMENTS; Start 02/18/20 at 11:15; Stop 02/20/20 at 11:14; Status DC Fentanyl Citrate (Fentanyl 2ml Vial) 25 mcg PRN Q5MIN PRN IV MILD PAIN 1-3; Start 02/19/20 at 07:00; Stop 02/20/20 at 06:59; Status DC Fentanyl Citrate (Fentanyl 2ml Vial) 50 mcg PRN Q5MIN PRN IV MODERATE TO SEVERE PAIN Last administered on 02/19/20at 17:41; Start 02/19/20 at 07:00; Stop 02/20/20 at 06:59; Status DC Morphine Sulfate (Morphine Sulfate) 1 mg PRN Q10MIN PRN IV SEVERE PAIN 7-10; Start 02/19/20 at 07:00; Stop 02/20/20 at 06:59; Status DC Ringer's Solution 1,000 ml @ 30 mls/hr Q24H IV Last administered on 02/19/20at 12:48; Start 02/19/20 at 07:00; Stop 02/19/20 at 18:59; Status DC Hydromorphone HCl (Dilaudid) 0.5 mg PRN Q10MIN PRN IV SEV PAIN, Second choice; Start 02/19/20 at 07:00; Stop 02/20/20 at 06:59; Status DC Prochlorperazine Edisylate (Compazine) 5 mg PACU PRN PRN IV NAUSEA, MRX1 Last administered on 02/19/20at 17:27; Start 02/19/20 at 07:00; Stop 02/20/20 at 06:59; Status DC Labetalol HCl (Normodyne Iv Push) 10 mg PRN Q4HRS PRN IVP HYPERTENSION, 2ND CHOICE Last administered on 02/19/20at 17:40; Start 02/19/20 at 09:15 Iohexol (Omnipaque 300 Mg/ml) 50 ml STK-MED ONCE .ROUTE ; Start 02/19/20 at 12:17; Stop 02/19/20 at 12:17; Status DC Cellulose (Surgicel Hemostat 4x8) 1 each STK-MED ONCE .ROUTE ; Start 02/19/20 at 12:17; Stop 02/19/20 at 12:17; Status DC Bupivacaine HCl (Sensorcaine Mpf 0.5%) 30 ml STK-MED ONCE .ROUTE ; Start 02/19/20 at 12:17; Stop 02/19/20 at 12:17; Status DC Cefazolin Sodium 2 gm/Dextrose 50 ml @ 100 mls/hr 1X ONCE IV ; Start 02/19/20 at 13:00; Stop 02/19/20 at 13:22; Status DC Lidocaine HCl (Lidocaine Pf 2% Vial) 5 ml STK-MED ONCE .ROUTE ; Start 02/19/20 at 12:47; Stop 02/19/20 at 12:47; Status DC Propofol 50 ml @ As Directed STK-MED ONCE IV ; Start 02/19/20 at 12:47; Stop 02/19/20 at 12:47; Status DC Ondansetron HCl (Zofran) 4 mg STK-MED ONCE .ROUTE ; Start 02/19/20 at 12:47; Stop 02/19/20 at 12:47; Status DC Dexamethasone Sodium Phosphate (Decadron) 4 mg STK-MED ONCE .ROUTE ; Start 02/19/20 at 12:47; Stop 02/19/20 at 12:47; Status DC Fentanyl Citrate (Fentanyl 2ml Vial) 100 mcg STK-MED ONCE .ROUTE ; Start 02/19/20 at 13:01; Stop 02/19/20 at 13:01; Status DC Metoprolol Tartrate (Lopressor Vial) 5 mg STK-MED ONCE IVP ; Start 02/19/20 at 13:33; Stop 02/19/20 at 13:33; Status DC Fentanyl Citrate (Fentanyl 2ml Vial) 100 mcg STK-MED ONCE .ROUTE ; Start 02/19/20 at 14:10; Stop 02/19/20 at 14:10; Status DC Sevoflurane (Ultane) 90 ml STK-MED ONCE IH ; Start 02/19/20 at 14:14; Stop 02/19/20 at 14:15; Status DC Rocuronium [place] Aqu[place] (Zemuron) 50 mg STK-MED ONCE .ROUTE ; Start 02/19/20 at 14:43; Stop 02/19/20 at 14:44; Status DC Neostigmine [place] Aqu[place] (Neostigmine Methylsulfate) 5 mg STK-MED ONCE .ROUTE ; Start 02/19/20 at 14:58; Stop 02/19/20 at 14:59; Status DC Glycopyrrolate (Robinul) 1 mg STK-MED ONCE .ROUTE ; Start 02/19/20 at 14:59; Stop 02/19/20 at 14:59; Status DC Fentanyl Citrate (Fentanyl 2ml Vial) 100 mcg STK-MED ONCE .ROUTE ; Start 02/19/20 at 15:00; Stop 02/19/20 at 15:01; Status DC Naloxone HCl (Narcan) 0.4 mg PRN Q2MIN PRN IV SEE INSTRUCTIONS; Start 02/19/20 at 16:45; Stop 02/21/20 at 12:31; Status DC Sodium Chloride 1,000 ml @ 25 mls/hr Q24H IV ; Start 02/19/20 at 16:34; Stop 02/21/20 at 12:31; Status DC Hydromorphone HCl 30 ml @ 0 mls/hr CONT PRN PRN IV PER PROTOCOL Last administered on 02/19/20at 17:10; Start 02/19/20 at 16:45; Stop 02/21/20 at 12:31; Status DC Labetalol HCl (Normodyne Iv Push) 10 mg Q4HRS PRN IVP HYPERTENSION; Start 02/20/20 at 08:45; Status UNV Lactobacillus Rhamnosus (Culturelle) 1 cap BID PO Last administered on 02/24/20at 09:11; Start 02/20/20 at 21:00 Acetaminophen/ Hydrocodone Bitart (Lortab 5/325) 1 tab PRN Q4HRS PRN PO MODERATE PAIN Last administered on 02/24/20at 11:49; Start 02/21/20 at 12:30 Acetaminophen/ Hydrocodone Bitart (Lortab 5/325) 2 tab PRN Q4HRS PRN PO SEVERE PAIN Last administered on 02/24/20at 09:12; Start 02/21/20 at 12:45 Pantoprazole Sodium (Protonix) 40 mg DAILYAC PO Last administered on 02/24/20at 09:11; Start 02/24/20 at 07:30 Active Scripts Active Reported Crestor (Rosuvastatin Calcium) 5 Mg Tablet 10 Mg PO HS Pantoprazole Sodium (Pantoprazole Sodium) 40 Mg Tablet.dr 40 Mg PO DAILYAC Benazepril Hcl 10 Mg Tablet 10 Mg PO DAILY Lopressor (Metoprolol Tartrate) 100 Mg Tablet 1 Tab PO DAILY 30 Days Citalopram Hbr (Citalopram Hydrobromide) 20 Mg Tablet 1 Tab PO DAILY Vitals/I & O Vital Sign - Last 24 Hours 02/23/20 02/23/20 02/23/20 02/23/20 19:21 19:30 22:33 23:28 Temp 98.1 98.1 98.1 98.1 Pulse 104 95 Resp 20 B/P (MAP) 175/78 (110) 175/65 (101) Pulse Ox 94 94 92 O2 Delivery Room Air Room Air Room Air Room Air 02/23/20 02/24/20 02/24/20 02/24/20 23:45 02:52 03:53 04:54 Temp 98.5 98.5 Pulse 86 Resp 20 B/P (MAP) 165/72 (103) Pulse Ox 92 92 92 92 O2 Delivery Room Air Room Air Room Air Room Air 02/24/20 02/24/20 02/24/20 02/24/20 07:00 08:00 11:00 15:04 Temp 97.8 97.7 97.8 97.8 97.7 97.8 Pulse 84 82 80 Resp B/P (MAP) 170/68 (102) 162/64 (96) 158/60 (92) Pulse Ox 92 93 94 O2 Delivery Room Air Room Air Room Air Room Air Intake and Output 02/23/20 02/23/20 02/24/20 15:00 23:00 07:00 Intake Total 300 ml 530 ml Output Total 100 ml 50 ml 1040 ml Balance 200 ml -50 ml -510 ml RASHARD SANCHEZ MD Feb 24, 2020 15:17
--- NOTE | 2020-02-24 17:10 | PDOC ---
PROGRESS NOTES Subjective Subjective some pain Objective Objective Vital Signs Date Time Temp Pulse Resp B/P (MAP) Pulse Ox O2 Delivery O2 Flow Rate FiO2 02/24/20 15:04 97.8 80 19 158/60 (92) 94 Room Air 97.8 02/22/20 15:00 2.0 Intake and Output 02/24/20 07:00 Intake Total 830 ml Output Total 1190 ml Balance -360 ml Intake Oral 780 ml IV Total 50 ml Output Urine Total 1000 ml Drainage Total 190 ml # Voids 1 # Bowel Movements 1 Physical Exam Abdomen: Soft (LUIS E serosang, incision good) Assessment Assessment Problems Medical Problems: (1) Pancreatitis Status: Acute (2) Suspected 2019 novel coronavirus infection Status: Acute (3) UTI (urinary tract infection) Status: Acute Plan Plan of Care Postop care Comment Review of Relevant I have reviewed the following items shae (where applicable) has been applied. Labs Laboratory Tests Test 02/22/20 20:50 02/23/20 07:16 02/23/20 11:33 02/23/20 16:45 Glucose (Fingerstick) 104 mg/dL (70-99) 103 mg/dL (70-99) 95 mg/dL (70-99) 103 mg/dL (70-99) Test 02/23/20 19:34 02/24/20 07:11 02/24/20 11:44 02/24/20 16:54 Glucose (Fingerstick) 134 mg/dL (70-99) 88 mg/dL (70-99) 99 mg/dL (70-99) 85 mg/dL (70-99) Laboratory Tests Test 02/23/20 19:34 02/24/20 07:11 02/24/20 11:44 02/24/20 16:54 Glucose (Fingerstick) 134 mg/dL (70-99) 88 mg/dL (70-99) 99 mg/dL (70-99) 85 mg/dL (70-99) Microbiology 02/16/20 Blood Culture - Final, Complete NO GROWTH AFTER 5 DAYS 02/16/20 Urine Culture - Final, Complete 02/16/20 Antimicrobic Susceptibility - Final, Complete Medications Current Medications Fentanyl Citrate (Fentanyl 2ml Vial) 50 mcg 1X ONCE IVP Last administered on 02/16/20at 15:11; Start 02/16/20 at 15:15; Stop 02/16/20 at 15:16; Status DC Ceftriaxone Sodium (Rocephin) 1 gm 1X ONCE IVP Last administered on 02/16/20at 17:02; Start 02/16/20 at 16:30; Stop 02/16/20 at 16:31; Status DC Sodium Chloride 1,000 ml @ 1,000 mls/hr 1X ONCE IV Last administered on 02/16/20at 17:02; Start 02/16/20 at 16:30; Stop 02/16/20 at 17:29; Status DC Fentanyl Citrate (Fentanyl 2ml Vial) 50 mcg 1X ONCE IVP Last administered on 02/16/20at 17:11; Start 02/16/20 at 17:15; Stop 02/16/20 at 17:16; Status DC Sodium Chloride 1,000 ml @ 1,000 mls/hr 1X ONCE IV Last administered on 02/16/20at 17:11; Start 02/16/20 at 17:15; Stop 02/16/20 at 18:14; Status DC Ondansetron HCl (Zofran) 4 mg PRN Q8HRS PRN IV NAUSEA/VOMITING; Start 02/16/20 at 17:15; Stop 02/17/20 at 17:14; Status Cancel Fentanyl Citrate (Fentanyl 2ml Vial) 50 mcg PRN Q1HR PRN IV PAIN Last administered on 02/17/20at 15:55; Start 02/16/20 at 17:15; Stop 02/17/20 at 17:27; Status DC Sodium Chloride 1,000 ml @ 150 mls/hr Q6H40M IV Last administered on 02/16/20at 18:33; Start 02/16/20 at 17:14; Stop 02/17/20 at 17:27; Status DC Hydralazine HCl (Apresoline Inj) 10 mg PRN Q4HRS PRN IVP ELEVATED BP, 1ST CHOICE; Start 02/16/20 at 17:45 Sodium Chloride (Normal Saline Flush) 3 ml QSHIFT PRN IV AFTER MEDS AND BLOOD DRAWS; Start 02/16/20 at 17:45 Sodium Chloride 1,000 ml @ 100 mls/hr Q10H IV Last administered on 02/23/20at 00:35; Start 02/16/20 at 17:43; Stop 02/23/20 at 16:00; Status DC Ondansetron HCl (Zofran) 4 mg PRN Q4HRS PRN IV NAUSEA/VOMITING Last administered on 02/16/20at 23:39; Start 02/16/20 at 17:45 Acetaminophen (Tylenol Supp) 650 mg PRN Q4HRS PRN [place] TEMP OVER 100.4F OR MILD PAIN; Start 02/16/20 at 17:45 Sodium Monofluorophosphate (Fleet Adult) 133 ml PRN DAILY PRN [place] CONSTIPATION; Start 02/16/20 at 17:45 Docusate Sodium (Colace) 100 mg PRN BID PRN PO HARD STOOLS; Start 02/16/20 at 17:45 Albuterol Sulfate (Ventolin Neb Soln) 2.5 mg PRN Q4HRS PRN NEB SHORTNESS OF BREATH; Start 02/16/20 at 17:45 Guaifenesin (Robitussin) 200 mg PRN Q4HRS PRN PO COUGH; Start 02/16/20 at 17:45 Lorazepam (Ativan) 0.5 mg PRN Q4HRS PRN PO ANXIETY / AGITATION Last administered on 02/22/20at 22:00; Start 02/16/20 at 17:45 Enoxaparin Sodium (Lovenox 40mg Syringe) 40 mg BID SQ Last administered on 02/16/20at 22:16; Start 02/16/20 at 21:00; Stop 02/17/20 at 08:18; Status DC Piperacillin Sod/ Tazobactam Sod 3.375 gm/Sodium Chloride 50 ml @ 100 mls/hr Q6HRS IV Last administered on 02/24/20at 11:49; Start 02/16/20 at 18:00 Enoxaparin Sodium (Lovenox 40mg Syringe) 40 mg Q24H SQ Last administered on 02/23/20at 21:28; Start 02/17/20 at 21:00 Pantoprazole Sodium (PROTONIX VIAL for IV PUSH) 40 mg DAILYAC IVP Last administered on 02/23/20at 09:17; Start 02/18/20 at 07:30; Stop 02/23/20 at 10:36; Status DC Potassium Chloride/Water 100 ml @ 50 mls/hr 1X ONCE IV Last administered on 02/17/20at 16:30; Start 02/17/20 at 15:45; Stop 02/17/20 at 17:44; Status DC Fentanyl Citrate (Fentanyl 2ml Vial) 50 mcg PRN Q1HR PRN IVP SEVERE PAIN (2nd Choice) Last administered on 02/17/20at 17:50; Start 02/17/20 at 17:45 Morphine Sulfate (Morphine Sulfate) 4 mg PRN Q2HR PRN IV MODERATE PAIN Last administered on 02/23/20at 12:29; Start 02/17/20 at 19:00 Morphine Sulfate (Morphine Sulfate) 6 mg PRN Q2HR PRN IV SEVERE PAIN Last administered on 02/22/20at 21:08; Start 02/17/20 at 19:00 Insulin Human Lispro (HumaLOG) 0-5 UNITS TIDWMEALS SQ ; Start 02/18/20 at 08:00 Dextrose (Dextrose 50%-Water Syringe) 12.5 gm PRN Q15MIN PRN IV SEE COMMENTS Last administered on 02/19/20at 06:20; Start 02/17/20 at 19:00 Iohexol (Omnipaque 300 Mg/ml) 75 ml 1X ONCE IV ; Start 02/18/20 at 11:00; Stop 02/18/20 at 11:01; Status DC Iohexol (Omnipaque 240 Mg/ml) 50 ml 1X ONCE PO Last administered on 02/18/20at 11:10; Start 02/18/20 at 11:00; Stop 02/18/20 at 11:01; Status DC Info (CONTRAST GIVEN -- Rx MONITORING) 1 each PRN DAILY PRN MC SEE COMMENTS; Start 02/18/20 at 11:15; Stop 02/20/20 at 11:14; Status DC Fentanyl Citrate (Fentanyl 2ml Vial) 25 mcg PRN Q5MIN PRN IV MILD PAIN 1-3; Start 02/19/20 at 07:00; Stop 02/20/20 at 06:59; Status DC Fentanyl Citrate (Fentanyl 2ml Vial) 50 mcg PRN Q5MIN PRN IV MODERATE TO SEVERE PAIN Last administered on 02/19/20at 17:41; Start 02/19/20 at 07:00; Stop 02/20/20 at 06:59; Status DC Morphine Sulfate (Morphine Sulfate) 1 mg PRN Q10MIN PRN IV SEVERE PAIN 7-10; Start 02/19/20 at 07:00; Stop 02/20/20 at 06:59; Status DC Ringer's Solution 1,000 ml @ 30 mls/hr Q24H IV Last administered on 02/19/20at 12:48; Start 02/19/20 at 07:00; Stop 02/19/20 at 18:59; Status DC Hydromorphone HCl (Dilaudid) 0.5 mg PRN Q10MIN PRN IV SEV PAIN, Second choice; Start 02/19/20 at 07:00; Stop 02/20/20 at 06:59; Status DC Prochlorperazine Edisylate (Compazine) 5 mg PACU PRN PRN IV NAUSEA, MRX1 Last administered on 02/19/20at 17:27; Start 02/19/20 at 07:00; Stop 02/20/20 at 06:59; Status DC Labetalol HCl (Normodyne Iv Push) 10 mg PRN Q4HRS PRN IVP HYPERTENSION, 2ND CHOICE Last administered on 02/19/20at 17:40; Start 02/19/20 at 09:15 Iohexol (Omnipaque 300 Mg/ml) 50 ml STK-MED ONCE .ROUTE ; Start 02/19/20 at 12:17; Stop 02/19/20 at 12:17; Status DC Cellulose (Surgicel Hemostat 4x8) 1 each STK-MED ONCE .ROUTE ; Start 02/19/20 at 12:17; Stop 02/19/20 at 12:17; Status DC Bupivacaine HCl (Sensorcaine Mpf 0.5%) 30 ml STK-MED ONCE .ROUTE ; Start 02/19/20 at 12:17; Stop 02/19/20 at 12:17; Status DC Cefazolin Sodium 2 gm/Dextrose 50 ml @ 100 mls/hr 1X ONCE IV ; Start 02/19/20 at 13:00; Stop 02/19/20 at 13:22; Status DC Lidocaine HCl (Lidocaine Pf 2% Vial) 5 ml STK-MED ONCE .ROUTE ; Start 02/19/20 at 12:47; Stop 02/19/20 at 12:47; Status DC Propofol 50 ml @ As Directed STK-MED ONCE IV ; Start 02/19/20 at 12:47; Stop 02/19/20 at 12:47; Status DC Ondansetron HCl (Zofran) 4 mg STK-MED ONCE .ROUTE ; Start 02/19/20 at 12:47; Stop 02/19/20 at 12:47; Status DC Dexamethasone Sodium Phosphate (Decadron) 4 mg STK-MED ONCE .ROUTE ; Start 02/19/20 at 12:47; Stop 02/19/20 at 12:47; Status DC Fentanyl Citrate (Fentanyl 2ml Vial) 100 mcg STK-MED ONCE .ROUTE ; Start 02/19/20 at 13:01; Stop 02/19/20 at 13:01; Status DC Metoprolol Tartrate (Lopressor Vial) 5 mg STK-MED ONCE IVP ; Start 02/19/20 at 13:33; Stop 02/19/20 at 13:33; Status DC Fentanyl Citrate (Fentanyl 2ml Vial) 100 mcg STK-MED ONCE .ROUTE ; Start 02/19/20 at 14:10; Stop 02/19/20 at 14:10; Status DC Sevoflurane (Ultane) 90 ml STK-MED ONCE IH ; Start 02/19/20 at 14:14; Stop 02/19/20 at 14:15; Status DC Rocuronium [employer] (Zemuron) 50 mg STK-MED ONCE .ROUTE ; Start 02/19/20 at 14:43; Stop 02/19/20 at 14:44; Status DC Neostigmine [employer] (Neostigmine Methylsulfate) 5 mg STK-MED ONCE .ROUTE ; Start 02/19/20 at 14:58; Stop 02/19/20 at 14:59; Status DC Glycopyrrolate (Robinul) 1 mg STK-MED ONCE .ROUTE ; Start 02/19/20 at 14:59; Stop 02/19/20 at 14:59; Status DC Fentanyl Citrate (Fentanyl 2ml Vial) 100 mcg STK-MED ONCE .ROUTE ; Start 02/19/20 at 15:00; Stop 02/19/20 at 15:01; Status DC Naloxone HCl (Narcan) 0.4 mg PRN Q2MIN PRN IV SEE INSTRUCTIONS; Start 02/19/20 at 16:45; Stop 02/21/20 at 12:31; Status DC Sodium Chloride 1,000 ml @ 25 mls/hr Q24H IV ; Start 02/19/20 at 16:34; Stop 02/21/20 at 12:31; Status DC Hydromorphone HCl 30 ml @ 0 mls/hr CONT PRN PRN IV PER PROTOCOL Last administ ered on 02/19/20at 17:10; Start 02/19/20 at 16:45; Stop 02/21/20 at 12:31; Status DC Labetalol HCl (Normodyne Iv Push) 10 mg Q4HRS PRN IVP HYPERTENSION; Start 02/20/20 at 08:45; Status UNV Lactobacillus Rhamnosus (Culturelle) 1 cap BID PO Last administered on 02/24/20at 09:11; Start 02/20/20 at 21:00 Acetaminophen/ Hydrocodone Bitart (Lortab 5/325) 1 tab PRN Q4HRS PRN PO MODERATE PAIN Last administered on 02/24/20at 11:49; Start 02/21/20 at 12:30 Acetaminophen/ Hydrocodone Bitart (Lortab 5/325) 2 tab PRN Q4HRS PRN PO SEVERE PAIN Last administered on 02/24/20at 09:12; Start 02/21/20 at 12:45 Pantoprazole Sodium (Protonix) 40 mg DAILYAC PO Last administered on 02/24/20at 09:11; Start 02/24/20 at 07:30 Active Scripts Active Reported Crestor (Rosuvastatin Calcium) 5 Mg Tablet 10 Mg PO HS Pantoprazole Sodium (Pantoprazole Sodium) 40 Mg Tablet.dr 40 Mg PO DAILYAC Benazepril Hcl 10 Mg Tablet 10 Mg PO DAILY Lopressor (Metoprolol Tartrate) 100 Mg Tablet 1 Tab PO DAILY 30 Days Citalopram Hbr (Citalopram Hydrobromide) 20 Mg Tablet 1 Tab PO DAILY Vitals/I & O Vital Sign - Last 24 Hours 02/23/20 02/23/20 02/23/20 02/23/20 19:21 19:30 22:33 23:28 Temp 98.1 98.1 98.1 98.1 Pulse 104 95 Resp 20 20 B/P (MAP) 175/78 (110) 175/65 (101) Pulse Ox 94 94 92 O2 Delivery Room Air Room Air Room Air Room Air 6/8/20 6/9/20 6/9/20 6/9/20 23:45 02:52 03:53 04:54 Temp 98.5 98.5 Pulse 86 Resp 20 B/P (MAP) 165/72 (103) Pulse Ox 92 92 92 92 O2 Delivery Room Air Room Air Room Air Room Air 02/24/20 02/24/20 02/24/20 02/24/20 07:00 08:00 11:00 15:04 Temp 97.8 97.7 97.8 97.8 97.7 97.8 Pulse 84 82 80 Resp 19 19 19 B/P (MAP) 170/68 (102) 162/64 (96) 158/60 (92) Pulse Ox 92 93 94 O2 Delivery Room Air Room Air Room Air Room Air Intake and Output 02/23/20 02/23/20 02/24/20 15:00 23:00 07:00 Intake Total 300 ml 530 ml Output Total 100 ml 50 ml 1040 ml Balance 200 ml -50 ml -510 ml DAVE EVANS MD Feb 24, 2020 17:10
[2020-02-24 19:00] VITALS: BP 181/80
[2020-02-24] MEDS: ENOXAPARIN 40 MG/0.4 ML SYRINGE. SQ SCH (19:55)
[2020-02-24] MEDS: hydrALAZINE 20 MG/ML VIAL. IVP PRN (19:56)
[2020-02-24 23:00] VITALS: BP 158/74
[2020-02-25] VITALS (7 sets, daily range): BP systolic 159–189; BP diastolic 60–79
[2020-02-25] MEDS: HYDROcodone/APAP 5/325MG 1 TAB TABLET PO PRN ×4 (04:04→21:45)
[2020-02-25] MEDS: PIPERACILLIN/TAZOBACTAM 3.375 GM in IV NORMAL SALINE 50ML 50 ML IV SCH ×4 (06:33→23:47)
[2020-02-25] MEDS: INSULIN LISPRO 300 UNITS/3 ML VIAL. SQ SCH ×3 (08:00→17:00)
[2020-02-25] MEDS: LACTOBACILLUS RHAMNOSUS GG 1 CAPSULE. PO SCH ×2 (09:02→21:42)
[2020-02-25] MEDS: PANTOPRAZOLE 40 MG TABLET.DR. PO SCH (09:02)
--- NOTE | 2020-02-25 09:49 | PDOC ---
PROGRESS NOTES Subjective Subjective doing ok Objective Objective Vital Signs Date Time Temp Pulse Resp B/P (MAP) Pulse Ox O2 Delivery O2 Flow Rate FiO2 02/25/20 09:16 95 Room Air 2.0 02/25/20 07:00 98.6 87 16 165/78 (107) 98.6 Intake and Output 02/25/20 07:00 Intake Total 1700 ml Output Total 1500 ml Balance 200 ml Intake Oral 1700 ml Output Urine Total 1500 ml # Voids 2 # Bowel Movements 1 Physical Exam Abdomen: Soft (LUIS E serous) Assessment Assessment Problems Medical Problems: (1) Pancreatitis Status: Acute (2) Suspected 2019 novel coronavirus infection Status: Acute (3) UTI (urinary tract infection) Status: Acute Plan Plan of Care DC drain; ok from surgery standpoint for discharge Comment Review of Relevant I have reviewed the following items shae (where applicable) has been applied. Labs Laboratory Tests Test 02/23/20 11:33 02/23/20 16:45 02/23/20 19:34 02/24/20 07:11 Glucose (Fingerstick) 95 mg/dL (70-99) 103 mg/dL (70-99) 134 mg/dL (70-99) 88 mg/dL (70-99) Test 02/24/20 11:44 02/24/20 16:54 02/24/20 20:10 02/25/20 07:39 Glucose (Fingerstick) 99 mg/dL (70-99) 85 mg/dL (70-99) 98 mg/dL (70-99) 88 mg/dL (70-99) Laboratory Tests Test 02/24/20 11:44 02/24/20 16:54 02/24/20 20:10 02/25/20 07:39 Glucose (Fingerstick) 99 mg/dL (70-99) 85 mg/dL (70-99) 98 mg/dL (70-99) 88 mg/dL (70-99) Microbiology 02/16/20 Blood Culture - Final, Complete NO GROWTH AFTER 5 DAYS 02/16/20 Urine Culture - Final, Complete 02/16/20 Antimicrobic Susceptibility - Final, Complete Medications Current Medications Fentanyl Citrate (Fentanyl 2ml Vial) 50 mcg 1X ONCE IVP Last administered on 02/16/20at 15:11; Start 02/16/20 at 15:15; Stop 02/16/20 at 15:16; Status DC Ceftriaxone Sodium (Rocephin) 1 gm 1X ONCE IVP Last administered on 02/16/20at 17:02; Start 02/16/20 at 16:30; Stop 02/16/20 at 16:31; Status DC Sodium Chloride 1,000 ml @ 1,000 mls/hr 1X ONCE IV Last administered on 02/16/20at 17:02; Start 02/16/20 at 16:30; Stop 02/16/20 at 17:29; Status DC Fentanyl Citrate (Fentanyl 2ml Vial) 50 mcg 1X ONCE IVP Last administered on 02/16/20at 17:11; Start 02/16/20 at 17:15; Stop 02/16/20 at 17:16; Status DC Sodium Chloride 1,000 ml @ 1,000 mls/hr 1X ONCE IV Last administered on 02/16/20at 17:11; Start 02/16/20 at 17:15; Stop 02/16/20 at 18:14; Status DC Ondansetron HCl (Zofran) 4 mg PRN Q8HRS PRN IV NAUSEA/VOMITING; Start 02/16/20 at 17:15; Stop 02/17/20 at 17:14; Status Cancel Fentanyl Citrate (Fentanyl 2ml Vial) 50 mcg PRN Q1HR PRN IV PAIN Last administered on 02/17/20at 15:55; Start 02/16/20 at 17:15; Stop 02/17/20 at 17:27; Status DC Sodium Chloride 1,000 ml @ 150 mls/hr Q6H40M IV Last administered on 02/16/20at 18:33; Start 02/16/20 at 17:14; Stop 02/17/20 at 17:27; Status DC Hydralazine HCl (Apresoline Inj) 10 mg PRN Q4HRS PRN IVP ELEVATED BP, 1ST CHOICE Last administered on 02/24/20at 19:56; Start 02/16/20 at 17:45 Sodium Chloride (Normal Saline Flush) 3 ml QSHIFT PRN IV AFTER MEDS AND BLOOD DRAWS; Start 02/16/20 at 17:45 Sodium Chloride 1,000 ml @ 100 mls/hr Q10H IV Last administered on 02/23/20at 00:35; Start 02/16/20 at 17:43; Stop 02/23/20 at 16:00; Status DC Ondansetron HCl (Zofran) 4 mg PRN Q4HRS PRN IV NAUSEA/VOMITING Last administer ed on 02/16/20at 23:39; Start 02/16/20 at 17:45 Acetaminophen (Tylenol Supp) 650 mg PRN Q4HRS PRN [place] TEMP OVER 100.4F OR MILD PAIN; Start 02/16/20 at 17:45 Sodium Monofluorophosphate (Fleet Adult) 133 ml PRN DAILY PRN [place] CONSTIPATION; Start 02/16/20 at 17:45 Docusate Sodium (Colace) 100 mg PRN BID PRN PO HARD STOOLS; Start 02/16/20 at 17:45 Albuterol Sulfate (Ventolin Neb Soln) 2.5 mg PRN Q4HRS PRN NEB SHORTNESS OF BREATH; Start 02/16/20 at 17:45 Guaifenesin (Robitussin) 200 mg PRN Q4HRS PRN PO COUGH; Start 02/16/20 at 17:45 Lorazepam (Ativan) 0.5 mg PRN Q4HRS PRN PO ANXIETY / AGITATION Last administered on 02/22/20at 22:00; Start 02/16/20 at 17:45 Enoxaparin Sodium (Lovenox 40mg Syringe) 40 mg BID SQ Last administered on 02/16/20at 22:16; Start 02/16/20 at 21:00; Stop 02/17/20 at 08:18; Status DC Piperacillin Sod/ Tazobactam Sod 3.375 gm/Sodium Chloride 50 ml @ 100 mls/hr Q6HRS IV Last administered on 02/25/20at 06:33; Start 02/16/20 at 18:00 Enoxaparin Sodium (Lovenox 40mg Syringe) 40 mg Q24H SQ Last administered on 02/24/20at 19:55; Start 02/17/20 at 21:00 Pantoprazole Sodium (PROTONIX VIAL for IV PUSH) 40 mg DAILYAC IVP Last administered on 02/23/20at 09:17; Start 02/18/20 at 07:30; Stop 02/23/20 at 10:36; Status DC Potassium Chloride/Water 100 ml @ 50 mls/hr 1X ONCE IV Last administered on 02/17/20at 16:30; Start 02/17/20 at 15:45; Stop 02/17/20 at 17:44; Status DC Fentanyl Citrate (Fentanyl 2ml Vial) 50 mcg PRN Q1HR PRN IVP SEVERE PAIN (2nd Choice) Last administered on 02/17/20at 17:50; Start 02/17/20 at 17:45 Morphine Sulfate (Morphine Sulfate) 4 mg PRN Q2HR PRN IV MODERATE PAIN Last administered on 02/23/20at 12:29; Start 02/17/20 at 19:00 Morphine Sulfate (Morphine Sulfate) 6 mg PRN Q2HR PRN IV SEVERE PAIN Last administered on 02/22/20at 21:08; Start 02/17/20 at 19:00 Insulin Human Lispro (HumaLOG) 0-5 UNITS TIDWMEALS SQ ; Start 02/18/20 at 08:00 Dextrose (Dextrose 50%-Water Syringe) 12.5 gm PRN Q15MIN PRN IV SEE COMMENTS Last administered on 02/19/20at 06:20; Start 02/17/20 at 19:00 Iohexol (Omnipaque 300 Mg/ml) 75 ml 1X ONCE IV ; Start 02/18/20 at 11:00; Stop 02/18/20 at 11:01; Status DC Iohexol (Omnipaque 240 Mg/ml) 50 ml 1X ONCE PO Last administered on 02/18/20at 11:10; Start 02/18/20 at 11:00; Stop 02/18/20 at 11:01; Status DC Info (CONTRAST GIVEN -- Rx MONITORING) 1 each PRN DAILY PRN MC SEE COMMENTS; Start 02/18/20 at 11:15; Stop 02/20/20 at 11:14; Status DC Fentanyl Citrate (Fentanyl 2ml Vial) 25 mcg PRN Q5MIN PRN IV MILD PAIN 1-3; Start 02/19/20 at 07:00; Stop 02/20/20 at 06:59; Status DC Fentanyl Citrate (Fentanyl 2ml Vial) 50 mcg PRN Q5MIN PRN IV MODERATE TO SEVERE PAIN Last administered on 02/19/20at 17:41; Start 02/19/20 at 07:00; Stop 02/20/20 at 06:59; Status DC Morphine Sulfate (Morphine Sulfate) 1 mg PRN Q10MIN PRN IV SEVERE PAIN 7-10; Start 02/19/20 at 07:00; Stop 02/20/20 at 06:59; Status DC Ringer's Solution 1,000 ml @ 30 mls/hr Q24H IV Last administered on 02/19/20at 12:48; Start 02/19/20 at 07:00; Stop 02/19/20 at 18:59; Status DC Hydromorphone HCl (Dilaudid) 0.5 mg PRN Q10MIN PRN IV SEV PAIN, Second choice; Start 02/19/20 at 07:00; Stop 02/20/20 at 06:59; Status DC Prochlorperazine Edisylate (Compazine) 5 mg PACU PRN PRN IV NAUSEA, MRX1 Last administered on 02/19/20at 17:27; Start 02/19/20 at 07:00; Stop 02/20/20 at 06:59; Status DC Labetalol HCl (Normodyne Iv Push) 10 mg PRN Q4HRS PRN IVP HYPERTENSION, 2ND CHOICE Last administered on 02/19/20at 17:40; Start 02/19/20 at 09:15 Iohexol (Omnipaque 300 Mg/ml) 50 ml STK-MED ONCE .ROUTE ; Start 02/19/20 at 12:17; Stop 02/19/20 at 12:17; Status DC Cellulose (Surgicel Hemostat 4x8) 1 each STK-MED ONCE .ROUTE ; Start 02/19/20 at 12:17; Stop 02/19/20 at 12:17; Status DC Bupivacaine HCl (Sensorcaine Mpf 0.5%) 30 ml STK-MED ONCE .ROUTE ; Start 02/19/20 at 12:17; Stop 02/19/20 at 12:17; Status DC Cefazolin Sodium 2 gm/Dextrose 50 ml @ 100 mls/hr 1X ONCE IV ; Start 02/19/20 at 13:00; Stop 02/19/20 at 13:22; Status DC Lidocaine HCl (Lidocaine Pf 2% Vial) 5 ml STK-MED ONCE .ROUTE ; Start 02/19/20 at 12:47; Stop 02/19/20 at 12:47; Status DC Propofol 50 ml @ As Directed STK-MED ONCE IV ; Start 02/19/20 at 12:47; Stop 02/19/20 at 12:47; Status DC Ondansetron HCl (Zofran) 4 mg STK-MED ONCE .ROUTE ; Start 02/19/20 at 12:47; Stop 02/19/20 at 12:47; Status DC Dexamethasone Sodium Phosphate (Decadron) 4 mg STK-MED ONCE .ROUTE ; Start 02/19/20 at 12:47; Stop 02/19/20 at 12:47; Status DC Fentanyl Citrate (Fentanyl 2ml Vial) 100 mcg STK-MED ONCE .ROUTE ; Start 02/19/20 at 13:01; Stop 02/19/20 at 13:01; Status DC Metoprolol Tartrate (Lopressor Vial) 5 mg STK-MED ONCE IVP ; Start 02/19/20 at 13:33; Stop 02/19/20 at 13:33; Status DC Fentanyl Citrate (Fentanyl 2ml Vial) 100 mcg STK-MED ONCE .ROUTE ; Start 02/19/20 at 14:10; Stop 02/19/20 at 14:10; Status DC Sevoflurane (Ultane) 90 ml STK-MED ONCE IH ; Start 02/19/20 at 14:14; Stop 02/19/20 at 14:15; Status DC Rocuronium [place] (Zemuron) 50 mg STK-MED ONCE .ROUTE ; Start 02/19/20 at 14:43; Stop 02/19/20 at 14:44; Status DC Neostigmine [place] (Neostigmine Methylsulfate) 5 mg STK-MED ONCE .ROUTE ; Start 02/19/20 at 14:58; Stop 02/19/20 at 14:59; Status DC Glycopyrrolate (Robinul) 1 mg STK-MED ONCE .ROUTE ; Start 02/19/20 at 14:59; Stop 02/19/20 at 14:59; Status DC Fentanyl Citrate (Fentanyl 2ml Vial) 100 mcg STK-MED ONCE .ROUTE ; Start 02/19/20 at 15:00; Stop 02/19/20 at 15:01; Status DC Naloxone HCl (Narcan) 0.4 mg PRN Q2MIN PRN IV SEE INSTRUCTIONS; Start 02/19/20 at 16:45; Stop 02/21/20 at 12:31; Status DC Sodium Chloride 1,000 ml @ 25 mls/hr Q24H IV ; Start 02/19/20 at 16:34; Stop 02/21/20 at 12:31; Status DC Hydromorphone HCl 30 ml @ 0 mls/hr CONT PRN PRN IV PER PROTOCOL Last administered on 02/19/20at 17:10; Start 02/19/20 at 16:45; Stop 02/21/20 at 12:31; Status DC Labetalol HCl (Normodyne Iv Push) 10 mg Q4HRS PRN IVP HYPERTENSION; Start 02/20/20 at 08:45; Status UNV Lactobacillus Rhamnosus (Culturelle) 1 cap BID PO Last administered on 02/25/20at 09:02; Start 02/20/20 at 21:00 Acetaminophen/ Hydrocodone Bitart (Lortab 5/325) 1 tab PRN Q4HRS PRN PO MODERATE PAIN Last administered on 02/25/20at 09:16; Start 02/21/20 at 12:30 Acetaminophen/ Hydrocodone Bitart (Lortab 5/325) 2 tab PRN Q4HRS PRN PO SEVERE PAIN Last administered on 02/24/20at 18:29; Start 02/21/20 at 12:45 Pantoprazole Sodium (Protonix) 40 mg DAILYAC PO Last administered on 02/25/20at 09:02; Start 02/24/20 at 07:30 Active Scripts Active Reported Crestor (Rosuvastatin Calcium) 5 Mg Tablet 10 Mg PO HS Pantoprazole Sodium (Pantoprazole Sodium) 40 Mg Tablet.dr 40 Mg PO DAILYAC Benazepril Hcl 10 Mg Tablet 10 Mg PO DAILY Lopressor (Metoprolol Tartrate) 100 Mg Tablet 1 Tab PO DAILY 30 Days Citalopram Hbr (Citalopram Hydrobromide) 20 Mg Tablet 1 Tab PO DAILY Vitals/I & O Vital Sign - Last 24 Hours 02/24/20 02/24/20 02/24/20 02/24/20 11:00 15:04 19:00 19:30 Temp 97.7 97.8 98.0 97.7 97.8 98.0 Pulse 82 80 88 Resp 20 B/P (MAP) 162/64 (96) 158/60 (92) 181/80 (113) Pulse Ox 93 94 94 94 O2 Delivery Room Air Room Air Room Air Room Air 602/24/20 02/24/20 02/25/20 19:56 20:00 23:00 03:00 Temp 98.2 98.2 98.2 98.2 Pulse 75 98 92 Resp 20 22 B/P (MAP) 185/80 158/74 (102) 172/67 (102) Pulse Ox 97 95 O2 Delivery Room Air Room Air Room Air 02/25/20 02/25/20 02/25/20 02/25/20 04:04 05:14 07:00 07:52 Temp 98.6 98.6 Pulse 87 Resp 16 B/P (MAP) 165/78 (107) Pulse Ox 95 95 97 95 O2 Delivery Room Air Room Air Room Air Room Air 02/25/20 02/25/20 08:00 09:16 Pulse Ox 95 O2 Delivery Room Air Room Air O2 Flow Rate 2.0 Intake and Output 02/24/20 02/24/20 02/25/20 15:00 23:00 07:00 Intake Total 300 ml 200 ml 1200 ml Output Total 1500 ml Balance 300 ml 200 ml -300 ml DAVE EVANS MD Feb 25, 2020 09:49
--- NOTE | 2020-02-25 10:06 | PDOC ---
Subjective: Subjective: RUQ pain the same, eating okay, stooling. Objective: Vital Signs: Vital Signs Date Time Temp Pulse Resp B/P (MAP) Pulse Ox O2 Delivery O2 Flow Rate FiO2 02/25/20 09:16 95 Room Air 2.0 02/25/20 07:00 98.6 87 16 165/78 (107) 98.6 Labs: Laboratory Tests Test 02/24/20 11:44 02/24/20 16:54 02/24/20 20:10 02/25/20 07:39 Glucose (Fingerstick) 99 mg/dL (70-99) 85 mg/dL (70-99) 98 mg/dL (70-99) 88 mg/dL (70-99) PE: GEN: NAD LUNGS: CTAB HEART: RRR ABD: soft, doesn't seem particularly tender NEURO/PSYCH: A & O 3, smiling A/P: Gallstone pancreatitis, dilated CBD - s/p open teresita 02/19/20 Elevated LFTs - improved -- DC per primary/surgery. Justicifation of Admission Dx: Justifications for Admission: Justification of Admission Dx: Yes Chronic Renal Failure: Hypertension Sepsis: Infection KRYS ROBLEDO Feb 25, 2020 10:06
[2020-02-25] MEDS ORDERED: ENOX40DI3 SQ (13:05)
[2020-02-25] MEDS ORDERED: LACT1CAP19 PO (13:05)
[2020-02-25] MEDS ORDERED: HYDR-2761 PO (13:07)
--- NOTE | 2020-02-25 13:33 | PDOC3 ---
Discharge Summary Visit Information Date of Admission: Feb 16, 2020 Date of Discharge: Feb 25, 2020 Admitting Diagnosis Comment: 1. GALLSTONE Pancreatitis, acute 2. Dilated common bile duct. MRCP can further evaluate as clinically warranted. 3. Cholelithiasis. 4. Hepatomegaly with increased echotexture, // steatosis. 5. morbid obesity 6. transaminitis 7. diabetes 8. HYPERTENSION 9. HX CVA 10. UTI 11. Low lung volumes with patchy bibasilar opacities, most likely atelectasis. Final Diagnosis Problems Medical Problems: (1) Pancreatitis Status: Acute (2) Cholelithiasis, s/p open cholecystectomy Status: Acute (3) UTI (urinary tract infection) Klebsiella pneumoniae Status: Acute Brief Hospital Course Allergies Allergies Coded Allergies Type Severity Reaction Last Updated Verified No Known Drug Allergies 02/19/20 No Vital Signs Vital Signs Date Time Temp Pulse Resp B/P (MAP) Pulse Ox O2 Delivery O2 Flow Rate FiO2 02/25/20 11:05 98.0 88 179/60 (99) 95 Room Air 98.0 02/25/20 10:28 2.0 02/25/20 07:00 16 Lab Results Laboratory Tests Test 02/23/20 16:45 02/23/20 19:34 02/24/20 07:11 02/24/20 11:44 Glucose (Fingerstick) 103 mg/dL (70-99) 134 mg/dL (70-99) 88 mg/dL (70-99) 99 mg/dL (70-99) Test 02/24/20 16:54 02/24/20 20:10 02/25/20 07:39 02/25/20 11:04 Glucose (Fingerstick) 85 mg/dL (70-99) 98 mg/dL (70-99) 88 mg/dL (70-99) 100 mg/dL (70-99) Laboratory Tests Test 02/24/20 16:54 02/24/20 20:10 02/25/20 07:39 02/25/20 11:04 Glucose (Fingerstick) 85 mg/dL (70-99) 98 mg/dL (70-99) 88 mg/dL (70-99) 100 mg/dL (70-99) Brief Hospital Course PHYSICIAN SERVICES History & Physical : [id number] Signed Patient: AZEB PABON Acct:[id number] Unit: [id number] : 1955 Loc: [facility]Bed: 113-1 Age/Sex: 64 / F ADM Status: ADM IN ADM Date: 02/16/20 History and Physical Date of Admission Date of Admission DATE: 02/16/20 TIME: 17:29 Identification/Chief Complaint Chief Complaint SEEN IN ER WITH 15 DAY HX EPIGASTRIC PAIN , 64 year old female who presents with here by EMS for right-sided abdominal pain. Patient has had a past stroke of which she has some speech deficits and right- sided deficits. Patient is a poor historian. Patient lives at a care facility. Patient states that she was at [facility] this morning and had a scan but unable to tell me what kind of scan or if she was in the ED 02/17/2020 Patient seen and examined in the ICU She is trying to walk with physical therapy Her urine is extremely dark orange with cloudiness Chart reviewed Discussed with RN and physical therapist 02/18/2020 No acute events reported overnight, case discussed with nursing staff patient in no acute distress no complaints during my visit 02/19/2020 Patient with no new complaints. Her pain is still present but not as prominent as it was yesterday or the day before. Seems to be eager to try some clear liquids sometimes gets frustrated due to her aphasia reassurance has been provided plan of care explained in detail Operative Note Operative Note Operative Note: Preoperative Diagnosis: Gallstone pancreatitis Postoperative Diagnosis: Gallstone pancreatitis, severe acute and chronic calculus cholecystitis Procedure: Laparoscopic converted to open cholecystectomy Surgeon: Broderick Finishing Machine Tender: Geetha Fisher FA, Edgar GARCÍA Anesthesia: Gen EBL: 200 ml Specimen: Gallbladder to pathology Drains: 19 Fr LUIS E drain Complications: None Indication: The patient is a 64-year-old female who was admitted with abdominal pain. Her evaluation is consistent with gallstone pancreatitis. Her liver function tests and white count were markedly elevated however they had improved. The plan is to proceed with a laparoscopic cholecystectomy for definitive surgical treatment. The risks of surgery were discussed which include bleeding, infection, bile duct injury, bile leak, pain, potential need for additional surgery procedure. She understands and would like to proceed. Description: The patient was taken to the operating room and placed supine on the operating table. General anesthesia was performed. The abdomen was prepped with ChloraPrep and draped in a standard surgical manner. A small supraumbilical incision was made in the skin through which a Veress needle was inserted. Pneumoperitoneum was created and the laparoscope was introduced. In the upper mid abdomen a 12 mm trocar was inserted. In the right upper quadrant two 5 mm trochars were inserted. Initial inspection showed some free fluid consistent with pancreatitis. In the area of the gallbladder there were marked adhesions which obscured visualization. These adhesions were gradually taken down revealing a densely fibrotic and hardened gallbladder. The gallbladder appeared both acutely inflamed and very chronically scarred. This made mobilization and dissection very difficult. We did retract the gallbladder cephalad and began dissecting along the wall inferiorly. There were no clearly identifiable structures due to a somewhat encasing fibrotic reaction. We elected to convert to an open procedure given these findings. A right subcostal incision was made with a scalpel. Cautery dissection was carried down to the fascia. The anterior and posterior fascial layers were divided with cautery. The Omni retractor was used for the remainder of the case to facilitate exposu re. The laparoscopic ports were removed. The gallbladder was mobilized in a top-down manner. We then gradually identified what appeared to be a dilated, fibrotic cystic duct. The gallbladder was opened and several large stones were extracted. We fully freed the gallbladder and clipped what appeared to be the cystic artery. We attempted to cannulate the cystic duct for a cholangiogram. We encountered some stones and sludge which were extracted. Following this however we had continued difficulty due to apparent obstruction of the cystic duct. After repeated attempts we elected to forego the cholangiogram and secure the cystic duct. The duct was ligated with 2-0 silk and the gallbladder was fully excised and sent to pathology. The right upper quadrant was irrigated with sterile saline which was suctioned. Hemostasis was good. A 19 Danish LUIS E drain was left in the gallbladder fossa with an exit site in the right lateral port incision. This was secured to the skin with 2-0 silk. The posterior fascia layer was closed with 0 PDS. The anterior fascia layer was closed with 1 PDS. The subcutaneous tissue was closed with 3-0 Vicryl. Skin was approximated with 4-0 Monocryl. Steri-Strips and a sterile dressing were applied. The patient tolerated the procedure well and was sent to the recovery room in stable condition. At the end the case all counts were correct. EVANS,DAVE D MD Feb 19, 2020 16:34 02/20/2020 No acute events reported overnight, case discussed with nursing staff patient in no acute distress no complaints during my visit 02/21/2020 No acute events reported overnight, case discussed with nursing staff patient in no acute distress no complaints during my visit, advancing diet as per clinical program consultant 02/22/2020 Patient seems to have improvement but still quite painful over her abdominal area. She has been able to tolerate some solids but seems to be quite picky wh en it comes to her food. I have related the message to the nursing staff who will aid the patient 02/23/2020 Slowly getting better, ate some toast. Patient in good spirits. no new compalitns, no abdoominal pain reported. 02/24/2020 No acute events reported overnight, case discussed with nursing staff patient in no acute distress no complaints during my visit, patient seems to be a picky eater according to nursing staff since the patient was offered yesterday goulash and she did quite well with the meal, reassurance provided Pathology report available and results are as follow: Material submitted: . gallbladder - GALLBLADDER . 01 Clinical history: . Cholelithiasis . 02 Diagnosis: Gallbladder, laparoscopic cholecystectomy: - Cholelithiasis. - Acute, chronic, and focal xanthogranulomatous cholecystitis. (JPM:nato; 02/23/2020) S 02/23/2020 1029 [facility] . 02 Comment: There is no evidence of malignancy. (JPM:nato; 02/23/2020) Patient will be transitioned to long term facility and noted to continue with her recovery from the open cholecystectomy. Of note is that she is quite a picky eater but now she is eating more solid foods finely. However also recommend keeping her on a bowel regimen given the narcotic medication she has been receiving can prompt constipation. Greater than 30 minutes were spent in the discharge process the patient counseling coronation of care and arrangement for a safe discharge Assessment Assessment IMAGING REPORT Signed PATIENT: AZEB PABON ACCOUNT: [id number] : 1955 LOCATION: SOUTH AGE: 64 SEX: F EXAM STATUS: ADM IN ORD. PHYSICIAN: DAVE EVANS MD REASON: pancreatitis PROCEDURE: CT ABD PELV W/ORAL&IV CONTRAST Exam: CT abdomen and pelvis with contrast INDICATION: Pancreatitis TECHNIQUE: Sequential axial images through the abdomen and pelvis obtained following the administration of 75 mL of Omni 300 IV contrast. Sagittal and coronal reformatted images were reconstructed from the axial data and reviewed. Comparisons: None FINDINGS: Heart size is normal. No pericardial effusion. Trace left pleural effusion. Bibasilar atelectasis. Liver is unremarkable. Trace perihepatic ascites. Spleen is enlarged. Gallbladder is nonenlarged. There is gallstone noted within the gallbladder. There is a left adrenal nodule measuring approximately 1.9 cm. Pancreas demonstrates homogenous enhancement. There is fat stranding surrounding the pancreas. No peripancreatic fluid collection or ductal dilatation. Kidneys demonstrate symmetric enhancement. No perinephric inflammation. No renal or ureteral calculi are identified. Bladder is decompressed not well evaluated. Glover balloon noted within the bladder. Uterus is absent. No abnormal adnexal. Diverticulosis noted within the descending and sigmoid colon. Small and large large bowel are unremarkable. No obstruction. No free intra-abdominal air or fluid. Abdominal aorta has a normal course and caliber. Abdominal vasculature is patent. No enlarged abdominal lymph nodes are identified. No suspicious osseous lesions or acute fractures. IMPRESSION: 1. Findings of acute interstitial pancreatitis. No evidence for necrosis or peripancreatic fluid collection. 2. Cholelithiasis. 3. Small amount of perihepatic ascites, likely reactive. 4. Left adrenal nodule measuring up to 1.9 cm incompletely characterized on this CT. 5. Diverticulosis without evidence of acute diverticulitis. Exposure: One or more of the following in the visualized dose reduction techniques were utilized for this examination: 1. Automated exposure control 2. Adjustment of the MA and/or KV according to patient size 3. Use of iterative of reconstructive technique [facility] [address] [place] [address] IMAGING REPORT Signed PATIENT: AZEB PABON ACCOUNT: [id number] : 1955 LOCATION: [address] [place] [address] AGE: 64 SEX: F EXAM STATUS: ADM IN ORD. PHYSICIAN: CHANDLER VERONICA MD REASON: POST CENTRAL LINE PROCEDURE: CHEST AP ONLY CHEST AP ONLY Clinical indications: Post central line placement COMPARISON: February 16, 2020. Findings: Left IJ central line has been placed and the tip is seen within the lower SVC at the junction with the right atrium. No pneumothorax or pleural effusion or lung consolidation or pulmonary edema is seen. Decreased lung volumes are again evident. The heart size and pulmonary vasculature and mediastinum and both bunny are stable. IMPRESSION: Placement of left IJ central line without pneumothorax. Electronically signed by: Manolo Daniels MD (02/17/2020 4:07 PM) [id number] IMAGING REPORT Signed PATIENT: AZEB PABON ACCOUNT: [id number] : 1955 LOCATION: ER AGE: 64 SEX: F EXAM STATUS: REG ER ORD. PHYSICIAN: GLENROY LEACH APRN REASON: gall bladder, pancreatitis, ct done at [facility] PROCEDURE: ABDOMEN LTD ABDOMEN LTD History: Reason: gall bladder, pancreatitis, ct done at [facility]. Instructions: / History: Comparison: CT February 16, 2020. Technique: Transabdominal ultrasound images are obtained of the right upper quadrant. Findings: Visualized pancreas is normal seen due to overlying bowel gas. Liver is increased in echogenicity. Right hepatic lobe measures 20.1 cm. Portal flow is hepatopedal. Cholelithiasis. No gallbladder wall thickening. No pericholecystic fluid. Dilated common bile duct measures up to 1.1 cm. The right kidney measures 11.8 x 4.9 x 5.5 cm. No hydronephrosis. IVC not well seen due to overlying bowel gas. IMPRESSION: 1. Dilated common bile duct. MRCP can further evaluate as clinically warranted. 2. Cholelithiasis. 3. Hepatomegaly with increased echotexture, may indicate steatosis. Discharge Information Condition at Discharge: Improved Follow Up: Weeks Disposition/Orders: D/C to Another Facility Scheduled Benazepril Hcl (Benazepril Hcl) 10 Mg Tablet, 10 MG PO DAILY for HTN, (Reported) Entered as Reported by: YARED BALTAZAR RN on 02/17/20120 Last Taken: UNKNOWN on Unknown Date & Time Last Action: New Order on 02/17/20120 by YARED BALTAZAR RN Citalopram Hydrobromide (Citalopram Hbr) 20 Mg Tablet, 1 TAB PO DAILY for anxiety, #30 Ref 5 (Reported) Entered as Reported by: YARED BALTAZAR RN on 02/17/20120 Last Taken: UNKNOWN on Unknown Date & Time Last Action: New Order on 02/17/20120 by YARED BALTAZAR RN Enoxaparin Sodium (Enoxaparin Sodium) 40 Mg/0.4 Ml Disp.syrin, 40 MG SQ Q24H for dvt for 14 Days, #14 Prescribed by: RASHARD SANCHEZ MD on 02/25/20 1305 Lactobacillus Rhamnosus Gg (Culturelle) 1 Each Cap.sprink, 1 CAP PO BID for probiotic for 30 Days, #60 Prescribed by: RASHARD SANCHEZ MD on 02/25/20 1305 Metoprolol Tartrate (Lopressor) 100 Mg Tablet, 1 TAB PO DAILY for HTN for 30 Days, #30 Ref 0 (Reported) Entered as Reported by: YARED BALTAZAR RN on 02/17/20120 Last Taken: UNKNOWN on Unknown Date & Time Last Action: New Order on 02/17/20120 by YARED BALTAZAR RN Pantoprazole Sodium (Pantoprazole Sodium ) 40 Mg Tablet.dr, 40 MG PO DAILYAC for GERD, (Reported) Entered as Reported by: YARED BALTAZAR RN on 02/17/20120 Last Taken: UNKNOWN on Unknown Date & Time Last Action: New Order on 02/17/20120 by YARED BALTAZAR RN Rosuvastatin Calcium (Crestor) 5 Mg Tablet, 10 MG PO HS for FOR CHOLESTEROL, #30 Ref 0 (Reported) Entered as Reported by: YARED BALTAZAR RN on 02/17/20120 Last Taken: UNKNOWN on Unknown Date & Time Last Action: New Order on 02/17/20120 by YARED BALTAZAR RN Scheduled PRN Hydrocodone Bit/Acetaminophen (Hydrocodone-Apap 5-325 ) 1 Tab Tablet, 1 TAB PO PRN Q6HRS PRN for MODERATE PAIN for 7 Days, #28 Prescribed by: RASHARD SANCHEZ MD on 02/25/20 1307 Justicifation of Admission Dx: Justifications for Admission: Justification of Admission Dx: Yes Chronic Renal Failure: Hypertension Sepsis: Infection RASHARD SANCHEZ MD Feb 25, 2020 13:33
[2020-02-25] MEDS: hydrALAZINE 20 MG/ML VIAL. IVP PRN (17:47)
[2020-02-25] MEDS: ENOXAPARIN 40 MG/0.4 ML SYRINGE. SQ SCH (21:42)
[2020-02-26 03:00] VITALS: BP 155/68
[2020-02-26] MEDS: PIPERACILLIN/TAZOBACTAM 3.375 GM in IV NORMAL SALINE 50ML 50 ML IV SCH ×2 (06:12→13:16)
[2020-02-26] MEDS: HYDROcodone/APAP 5/325MG 1 TAB TABLET PO PRN ×2 (06:18→10:30)
[2020-02-26 07:00] VITALS: BP 190/72
[2020-02-26] MEDS: INSULIN LISPRO 300 UNITS/3 ML VIAL. SQ SCH ×2 (08:00→12:00)
[2020-02-26] MEDS: PANTOPRAZOLE 40 MG TABLET.DR. PO SCH (09:16)
[2020-02-26] MEDS: LACTOBACILLUS RHAMNOSUS GG 1 CAPSULE. PO SCH (09:16)
[2020-02-26] MEDS: hydrALAZINE 20 MG/ML VIAL. IVP PRN (09:18)
--- NOTE | 2020-02-26 09:47 | PDOC ---
Subjective: Subjective: Ate biscuits and gravy. Abd pain 5 or 6. Stooled yesterday. Nurse present - probably DC today. Objective: Vital Signs: Vital Signs Date Time Temp Pulse Resp B/P (MAP) Pulse Ox O2 Delivery O2 Flow Rate FiO2 02/26/20 09:18 80 190/72 02/26/20 07:18 17 Room Air 02/26/20 07:00 98.2 98 98.2 02/25/20 18:41 2.0 Labs: Laboratory Tests Test 02/25/20 11:04 02/25/20 15:48 02/25/20 20:35 02/26/20 07:51 Glucose (Fingerstick) 100 mg/dL 98 mg/dL 92 mg/dL 89 mg/dL PE: GEN: NAD LUNGS: CTAB HEART: RRR ABD: soft NEURO/PSYCH: A & O 3 A/P: Gallstone pancreatitis, dilated CBD - s/p open teresita 02/19/20 Elevated LFTs - improved HTN -- DC per primary/surgery. Justicifation of Admission Dx: Justifications for Admission: Justification of Admission Dx: Yes Chronic Renal Failure: Hypertension Sepsis: Infection KRYS ROBLEDO Feb 26, 2020 09:47
[2020-02-26 11:00] VITALS: BP 161/58
--- NOTE | 2020-02-26 11:26 | PDOC ---
[employer] PROGRESS NOTE Chief Complaint Chief Complaint Gallstone pancreatitis Dilated common bile duct. MRCP can further evaluate as clinically warranted. Cholelithiasis. No surgical intervention planned at the present time. Hepatomegaly with increased echotexture, // steatosis. Obesity Transaminitis Diabetes Hypertension HX CVA Severe UTI Low lung volumes with patchy bibasilar opacities, most likely atelectasis. History of Present Illness History of Present Illness 02-26-2020 Patient seen and examined She has expressive aphasia Chart reviewed Discussed with RN 02/17/2020 Patient seen and examined in the ICU She is trying to walk with physical therapy Her urine is extremely dark orange with cloudiness Chart reviewed Discussed with RN and physical therapist 02/18/2020 No acute events reported overnight, case discussed with nursing staff patient in no acute distress no complaints during my visit 02/19/2020 Patient with no new complaints. Her pain is still present but not as prominent as it was yesterday or the day before. Seems to be eager to try some clear liquids sometimes gets frustrated due to her aphasia reassurance has been provided plan of care explained in detail 02/20/2020 No acute events reported overnight, case discussed with nursing staff patient in no acute distress no complaints during my visit 02/21/2020 No acute events reported overnight, case discussed with nursing staff patient in no acute distress no complaints during my visit, advancing diet as per information resource consultant 02/22/2020 Patient seems to have improvement but still quite painful over her abdominal area. She has been able to tolerate some solids but seems to be quite picky when it comes to her food. I have related the message to the nursing staff who will aid the patient 02/23/2020 Slowly getting better, ate some toast. Patient in good spirits. no new compalitns, no abdoominal pain reported. 02/24/2020 No acute events reported overnight, case discussed with nursing staff patient in no acute distress no complaints during my visit, patient seems to be a picky eater according to nursing staff since the patient was offered yesterday goulash and she did quite well with the meal, reassurance provided Pathology report available and results are as follow: Material submitted: . gallbladder - GALLBLADDER . 01 Clinical history: . Cholelithiasis . 02 Diagnosis: Gallbladder, laparoscopic cholecystectomy: - Cholelithiasis. - Acute, chronic, and focal xanthogranulomatous cholecystitis. (JPM:nato; 02/23/2020) QMS 02/23/2020 1029 Local . 02 Comment: There is no evidence of malignancy. (JPM:nato; 02/23/2020) Vitals/I&O Vitals/I&O: Vital Signs Date Time Temp Pulse Resp B/P (MAP) Pulse Ox O2 Delivery O2 Flow Rate FiO2 02/26/20 10:30 18 Room Air 02/26/20 09:18 80 190/72 02/26/20 07:00 98.2 98 98.2 02/25/20 18:41 2.0 I & O 02/25/20 02/25/20 02/26/20 15:00 23:00 07:00 Intake Total 350 ml 440 ml 340 ml Output Total 300 ml Balance 350 ml 440 ml 40 ml Physical Exam General: Alert, Cooperative Heart: Regular rate Lungs: Clear Abdomen: Soft (LUIS E serous) Extremities: No clubbing, No cyanosis Skin: Other (JAUNDICED) Labs Labs: Laboratory Tests Test 02/25/20 15:48 02/25/20 20:35 02/26/20 07:51 Glucose (Fingerstick) 98 mg/dL (70-99) 92 mg/dL (70-99) 89 mg/dL (70-99) Assessment and Plan Assessmemt and Plan Problems Medical Problems: (1) Pancreatitis Status: Acute (2) Suspected 2019 novel coronavirus infection Status: Acute (3) UTI (urinary tract infection) Status: Acut Gallstone pancreatitis Dilated common bile duct. MRCP can further evaluate as clinically warranted. Cholelithiasis. No surgical intervention planned at the present time. Hepatomegaly with increased echotexture, // steatosis. Obesity Transaminitis Diabetes Hypertension HX CVA Severe UTI Low lung volumes with patchy bibasilar opacities, most likely atelectasis. Plan: night monitor Trend labs Home meds DVT prophylaxis PRN pain meds Full code IV fluids Appreciate subspecialist input continue with pain management diet as per registered nurse surgical services. Appreciate surgical recommendations Comment Review of Relevant I have reviewed the following items shae (where applicable) has been applied. Justicifation of Admission Dx: Justifications for Admission: Justification of Admission Dx: Yes Chronic Renal Failure: Hypertension Sepsis: Infection MARITZA MARTIN III DO Feb 26, 2020 11:26
--- NOTE | 2020-02-26 11:41 | SNU/HH DC ---
DISCHARGE ORDERS DISCHARGE INFORMATION: FINAL DIAGNOSIS Problems Medical Problems: (1) Pancreatitis Status: Acute (2) Suspected 2019 novel coronavirus infection Status: Acute (3) UTI (urinary tract infection) Status: Acute CONDITION ON DISCHARGE: Stable CODE STATUS: Code Status: Full USP: SNF STAY <30 DAYS: Yes HOSPICE: HOSPICE: No HOSPICE EVAL & TREAT: No LTAC: ADMIT TO LTAC: No POST DISCHARGE ORDERS: DIET AFTER DISCHARGE: Cardiac TREATMENT/EQUIPMENT ORDERS: Physical Therapy For: Evalulation/Treatment Occupational Therapy For: Evaluation/Treatment Speech Language Pathology For: Evaluation/Treatment DISCHARGE MEDICATIONS: Home Meds Active Scripts Hydrocodone Bit/Acetaminophen (HYDROCODONE-APAP 5-325 ) 1 Tab Tablet, 1 TAB PO PRN Q6HRS PRN for MODERATE PAIN for 7 Days, #28 TAB Prov:RASHARD SANCHEZ MD 02/25/20 Lactobacillus Rhamnosus Gg (CULTURELLE) 1 Each Cap.sprink, 1 CAP PO BID for probiotic for 30 Days, #60 CAP Prov:RASHARD SANCHEZ MD 02/25/20 Enoxaparin Sodium (ENOXAPARIN SODIUM) 40 Mg/0.4 Ml Disp.syrin, 40 MG SQ Q24H for dvt for 14 Days, #14 DIS.SYR Prov:RASHARD SANCHEZ MD 02/25/20 Reported Medications Rosuvastatin Calcium (CRESTOR) 5 Mg Tablet, 10 MG PO HS for FOR CHOLESTEROL, #30 TAB 0 Refills 02/17/20 Pantoprazole Sodium (PANTOPRAZOLE SODIUM ) 40 Mg Tablet.dr, 40 MG PO DAILYAC for GERD, TAB 2/20 Benazepril Hcl (BENAZEPRIL HCL) 10 Mg Tablet, 10 MG PO DAILY for HTN, TAB 6/2/20 Metoprolol Tartrate (Lopressor) 100 Mg Tablet, 1 TAB PO DAILY for HTN for 30 Days, #30 TAB 0 Refills 20 Citalopram Hydrobromide (CITALOPRAM HBR) 20 Mg Tablet, 1 TAB PO DAILY for anxiety, #30 TAB 5 Refills /2/20 MARITZA MARTIN III DO Feb 26, 2020 11:41
--- NOTE | 2020-02-26 13:49 | PDOC ---
NICOLÁS GREER LIQUOR BLENDER 02/26/20 1349: SURGICAL PROGRESS NOTE Subjective pain persists no n/v plans for SNU Vital Signs Vital Signs Date Time Temp Pulse Resp B/P (MAP) Pulse Ox O2 Delivery O2 Flow Rate FiO2 02/26/20 11:30 18 Room Air 02/26/20 11:00 97.9 87 161/58 (92) 97 97.9 02/26/20 08:00 2.0 I&O Intake and Output 02/26/20 07:00 Intake Total 1130 ml Output Total 300 ml Balance 830 ml Intake Oral 980 ml IV Total 150 ml Output Urine Total 300 ml # Bowel Movements 2 General: Cooperative, No acute distress Abdomen: Soft, Other (dressing in place, some serous drainage around previous drain site, incision c/d/i, no erythema ) Labs Laboratory Tests Test 02/24/20 16:54 02/24/20 20:10 02/25/20 07:39 02/25/20 11:04 Glucose (Fingerstick) 85 mg/dL (70-99) 98 mg/dL (70-99) 88 mg/dL (70-99) 100 mg/dL (70-99) Test 02/25/20 15:48 02/25/20 20:35 02/26/20 07:51 02/26/20 11:44 Glucose (Fingerstick) 98 mg/dL (70-99) 92 mg/dL (70-99) 89 mg/dL (70-99) 92 mg/dL (70-99) Laboratory Tests Test 02/25/20 15:48 02/25/20 20:35 02/26/20 07:51 02/26/20 11:44 Glucose (Fingerstick) 98 mg/dL (70-99) 92 mg/dL (70-99) 89 mg/dL (70-99) 92 mg/dL (70-99) Problem List Problems Medical Problems: (1) Pancreatitis Status: Acute (2) Suspected 2019 novel coronavirus infection Status: Acute (3) UTI (urinary tract infection) Status: Acute Assessment/Plan s/p teresita ok to dc FU in clinic Justicifation of Admission Dx: Justifications for Admission: Justification of Admission Dx: Yes Chronic Renal Failure: Hypertension Sepsis: Infection DAVE EVANS MD 02/26/20 1358: SURGICAL PROGRESS NOTE Assessment/Plan Agree with above NICOLÁS GREER APRN Feb 26, 2020 13:49 DAVE EVANS MD Feb 26, 2020 13:58
--- NOTE | 2020-02-26 14:51 | DS ---
DATE OF DISCHARGE: ADMISSION DIAGNOSES: Postop laparoscopic converted to open cholecystectomy, pancreatitis. DISCHARGE DIAGNOSES: Resolving pancreatitis, history of stroke, expressive aphasia. CONSULTS: Dr. Gunderson and Dr. Villafana. HOSPITAL COURSE: The patient is a pleasant middle-aged female who presented with gallstone pancreatitis. She was admitted. The above consults were obtained. She was taken to the OR on 02/19/2020. Postoperatively, she has had some pain and nausea and wound issues, but today, I saw and examined, she was at her baseline. We plan to discharge with close outpatient followup. She is going to residential. DISPOSITION: half-way. ACTIVITY: As tolerated. DIET: Low sodium. MEDICATIONS: Please see MRAD. TOTAL TIME: 33 minutes. MARITZA MARTIN DO DR: BILLY/saul JOB#: [id number] / [id number]
== END 2020-02-26 14:25 | DRG 414 ==
LOC: ER 14:04 → 1 WEST ICU 17:08 → 6 SOUTH 02-17 16:24
PROVIDERS: ADMIT Family Medicine; ATTEND Family Medicine
PROC: 02HV33Z Insertion of Infusion Device into Superior Vena Cava, Percutaneous Approach (ICD-10-PCS; 2020-02-17)
PROC: B548ZZA Ultrasonography of Superior Vena Cava, Guidance (ICD-10-PCS; 2020-02-17)
PROC: 0FJ44ZZ Inspection of Gallbladder, Percutaneous Endoscopic Approach (ICD-10-PCS; 2020-02-19)
PROC: BF101ZZ Fluoroscopy of Bile Ducts using Low Osmolar Contrast (ICD-10-PCS; 2020-02-19)
PROC: 0FT40ZZ Resection of Gallbladder, Open Approach (ICD-10-PCS; principal; 2020-02-19 14:15)
DX: K85.10 Biliary acute pancreatitis without necrosis or infection (principal); R65.11 Systemic inflammatory response syndrome (SIRS) of non-infectious origin with acute organ dysfunction; K80.13 Calculus of gallbladder with acute and chronic cholecystitis with obstruction; N39.0 Urinary tract infection, site not specified; R18.8 Other ascites; J98.11 Atelectasis; N18.9 Chronic kidney disease, unspecified; K82.8 Other specified diseases of gallbladder; K57.90 Diverticulosis of intestine, part unspecified, without perforation or abscess without bleeding; E27.8 Other specified disorders of adrenal gland; E11.22 Type 2 diabetes mellitus with diabetic chronic kidney disease; E66.01 Morbid (severe) obesity due to excess calories; I12.9 Hypertensive chronic kidney disease with stage 1 through stage 4 chronic kidney disease, or unspecified chronic kidney disease; K83.8 Other specified diseases of biliary tract; M19.90 Unspecified osteoarthritis, unspecified site; R16.0 Hepatomegaly, not elsewhere classified; K76.0 Fatty (change of) liver, not elsewhere classified; R74.0 Nonspecific elevation of levels of transaminase and lactic acid dehydrogenase [LDH]; Z20.828 Contact with and (suspected) exposure to other viral communicable diseases; B96.1 Klebsiella pneumoniae [K. pneumoniae] as the cause of diseases classified elsewhere; Z90.710 Acquired absence of both cervix and uterus; Z87.891 Personal history of nicotine dependence; Z82.49 Family history of ischemic heart disease and other diseases of the circulatory system; Z83.49 Family history of other endocrine, nutritional and metabolic diseases; Z53.31 Laparoscopic surgical procedure converted to open procedure; I69.320 Aphasia following cerebral infarction; Z68.39 Body mass index [BMI] 39.0-39.9, adult; Z79.899 Other long term (current) drug therapy
CPT/HCPCS: 36415; 36556; 71045; 74177; 76705; 76937; 80053; 80076; 80307; 81001; 82962; 83605; 83690; 84484; 85007; 85025; 85610; 86705; 86709; 86803; 87040; 87086; 87340; 88304; 93005; 94760; 96361; 96374; 96375; 96376; A7015; C1892; C9113; J0360; J0696; J0780; J1100; J1170; J1650; J1815; J2270; J2405; J2543; J2704; J2710; J3010; J3480; J3490; J7030; J7042; J7120; Q9966; Q9967; 97530-GP; 97535-GO; 99285-25; G0378; U0003-CS

== ENCOUNTER 2020-03-12 13:00 | Inpatient (IN) | payer MEDICARE ==
[~2020-03-12] VITALS: Ht 167.6 cm; Wt 108.1 kg
[~2020-03-12 13:00] MED LIST: BENA10TA55 PO; CITA20TA6 PO; CRESTOR5 MG PO; ENOX40DI3 SQ; HYDR-2761 PO; LACT1CAP19 PO; METO-313 PO; PANT40TA77 PO
[2020-03-12 13:58] LABS: BILIRUBIN,URINE NEGATIVE (NEG); CLARITY,URINE CLEAR; COLOR,URINE YELLOW; NITRITE,URINE POSITIVE (NEG); PROTEIN,URINE NEGATIVE (NEG-TRACE)
[2020-03-12 14:03] LABS: BACTERIA,URINE MANY /HPF (0-FEW); RBC,URINE 0 /HPF (0-2); SQUAMOUS EPITHELIAL CELL,UR FEW /LPF
--- NOTE | 2020-03-12 15:22 | RAD ---
EXAM: CT Head without IV contrast CLINICAL HISTORY: LEFT LEG WEAKNESS FOR TWO DAYS-PREV STROKE WITH R SIDE DEFICIT COMPARISON: None. TECHNIQUE: Routine CT of the head without contrast. Soft tissues and bone windows were reviewed. PQRS compliance statement - One or more of the following individualized dose reduction techniques were utilized for this study: 1. Automated exposure control 2. Adjustment of the mA and/or kV according to patient size 3. Use of iterative reconstruction technique FINDINGS: There is no evidence of hemorrhage, mass or extra-axial fluid collection. Chronic appearing encephalomalacia involving the left frontal region extending into the internal capsule and portions of the left insula and left basal ganglia from old left cerebral infarct. White matter hypoattenuation in the radiology bilaterally may represent changes of chronic small vessel disease. There is no mass effect or shift of the intracranial structures. The ventricles, basilar cisterns and cortical sulci are normal in size and configuration for the patients stated age. The cerebellum and brainstem are unremarkable. The calvarium demonstrates no evidence of fracture or focal lesion. Chronic postsurgical calvarial changes are seen in the left frontoparietal region. There is normal aeration of the visualized paranasal sinuses and mastoid air cells. The visualized portions of the orbits are normal. IMPRESSION: 1. No evidence for acute intracranial process. 2. Right matter changes likely chronic small vessel disease. 3. Chronic encephalomalacia likely from old infarct in the left cerebral hemisphere. Electronically signed by: Hair Dominique MD (03/12/2020 3:18 PM) FREDDY
--- NOTE | 2020-03-12 15:31 | PHYS DOC ---
Past Medical History Past Medical History: Diabetes-Type II, GERD, High Cholesterol, Hypertension, Stroke, UTI Additional Past Medical Histor: RT SIDE DEFICIT Past Surgical History: Cholecystectomy Smoking Status: Former Smoker Alcohol Use: None General Adult EDM: Chief Complaint: WEAKNESS/GENERALIZED HPI: HPI: Patient is a 64 year old female who was brought here for evaluation due to left leg weakness. Patient had stroke that affected her right side. She was in rehab, was discharged home from rehab about 3 days ago. While she was in rehab, she was able to get out of her wheelchair and transfer herself to a chair to seat but since coming home, she was too weak to do so. Her 90 years old mother is her main acute care occupational therapist at home. Today, her home health nurse came out, found her sitting on the chair with her pant down. Patient said she was too weak to get back into the wheelchair herself. Patient denied any chest pain, no cough, no fever, no shortness of air. patient denied any headache. Review of Systems: Review of Systems: Constitutional: Denies fever or chills. [] Eyes: Denies change in visual acuity. [] HENT: Denies nasal congestion or sore throat. [] Respiratory: Denies cough or shortness of breath. [] Cardiovascular: Denies chest pain or edema. [] GI: Denies abdominal pain, nausea, vomiting, bloody stools or diarrhea. [] : Denies dysuria. [] Musculoskeletal: Denies back pain or joint pain. [] Integument: Denies rash. [] Neurologic: Denies headache,positive for generalized weakness, left leg is getting weaker. Endocrine: Denies polyuria or polydipsia. [] Lymphatic: Denies swollen glands. [] Psychiatric: Denies depression or anxiety. [] Heart Score: Risk Factors: Risk Factors: DM, Current or recent (<one month) smoker, HTN, HLP, family history of CAD, obesity. Risk Scores: Score 0 - 3: 2.5% MACE over next 6 weeks - Discharge Home Score 4 - 6: 20.3% MACE over next 6 weeks - Admit for Clinical Observation Score 7 - 10: 72.7% MACE over next 6 weeks - Early Invasive Strategies Allergies: Allergies: Allergies Coded Allergies Type Severity Reaction Last Updated Verified No Known Drug Allergies 02/19/20 No Physical Exam: PE: Constitutional: Well developed, well nourished, no acute distress, non-toxic appearance. [] HENT: Normocephalic, atraumatic, bilateral external ears normal, oropharynx mo ist, no oral exudates, nose normal. [] Eyes: PERRLA, EOMI, conjunctiva normal, no discharge. [] Neck: Normal range of motion, no tenderness, supple, no stridor. [] Cardiovascular:Heart rate regular rhythm, no murmur [] Lungs & Thorax: Bilateral breath sounds clear to auscultation [] Abdomen: Bowel sounds normal, soft, no tenderness, no masses, no pulsatile masses. [] Skin: Warm, dry, no erythema, no rash. [] Back: No tenderness, no CVA tenderness. [] Extremities: No tenderness, no cyanosis, no clubbing, ROM intact, no edema. [] Neurologic: Alert and oriented X 3, right side paralysis from previous stroke. While in bed, patient can move her left upper and lower extremities without any problem. Her speech is slurred with expressive aphasia from previous stroke. Psychologic: Affect normal, judgement normal, mood normal. [] Current Patient Data: Labs: Laboratory Tests Test 03/12/20 13:45 Urine Collection Type U cath Urine Color Yellow Urine Clarity Clear Urine pH 6.0 (<5.0-8.0) Urine Specific [place] 1.015 (1.000-1.030) Urine Protein Negative mg/dL (NEG-TRACE) Urine Glucose (UA) Negative mg/dL (NEG) Urine Ketones (Stick) Negative mg/dL (NEG) Urine Blood Negative (NEG) Urine Nitrite Positive (NEG) Urine Bilirubin Negative (NEG) Urine Urobilinogen Dipstick 1.0 mg/dL (0.2 mg/dL) Urine Leukocyte Esterase Small (NEG) Urine RBC 0 /HPF (0-2) Urine WBC 5-10 /HPF (0-4) Urine Squamous Epithelial Cells Few /LPF Urine Bacteria Many /HPF (0-FEW) Urine Mucus Mod /LPF Vital Signs: Vital Signs Date Time Temp Pulse Resp B/P (MAP) Pulse Ox O2 Delivery O2 Flow Rate FiO2 03/12/20 13:00 98.1 77 18 165/73 (103) 94 Room Air 98.1 EKG: EKG: EKG was done at 1455, sinus rhythm, right bundle branch block, no ST segment elevation. Radiology/Procedures: Radiology/Procedures: [][facility] [address] [place] [address] IMAGING REPORT Signed PATIENT: AZEB PABON ACCOUNT: [id number] : 1955 LOCATION: ER AGE: 64 SEX: F EXAM STATUS: REG ER ORD. PHYSICIAN: LOUANN JACINTO DO REASON: LEFT LEG WEAKNESS FOR TWO DAYS-PREV STROKE WITH R SIDE DEFICIT PROCEDURE: CT HEAD WO CONTRAST EXAM: CT Head without IV contrast CLINICAL HISTORY: LEFT LEG WEAKNESS FOR TWO DAYS-PREV STROKE WITH R SIDE DEFICIT COMPARISON: None. TECHNIQUE: Routine CT of the head without contrast. Soft tissues and bone windows were reviewed. PQRS compliance statement - One or more of the following individualized dose reduction techniques were utilized for this study: 1. Automated exposure control 2. Adjustment of the mA and/or kV according to patient size 3. Use of iterative reconstruction technique FINDINGS: There is no evidence of hemorrhage, mass or extra-axial fluid collection. Chronic appearing encephalomalacia involving the left frontal region extending into the internal capsule and portions of the left insula and left basal ganglia from old left cerebral infarct. White matter hypoattenuation in the radiology bilaterally may represent changes of chronic small vessel disease. There is no mass effect or shift of the intracranial structures. The ventricles, basilar cisterns and cortical sulci are normal in size and configuration for the patients stated age. The cerebellum and brainstem are unremarkable. The calvarium demonstrates no evidence of fracture or focal lesion. Chronic postsurgical calvarial changes are seen in the left frontoparietal region. There is normal aeration of the visualized paranasal sinuses and mastoid air cells. The visualized portions of the orbits are normal. IMPRESSION: 1. No evidence for acute intracranial process. 2. Right matter changes likely chronic small vessel disease. 3. Chronic encephalomalacia likely from old infarct in the left cerebral hemisphere. Electronically signed by: Hair Montemayor MD (03/12/2020 3:18 PM) [facility] DICTATED and SIGNED BY: HAIR MONTEMAYOR MD DATE: 03/12/20 4146 Course & Med Decision Making: Course & Med Decision Making Pertinent Labs and Imaging studies reviewed. (See chart for details) We were going to discharge patient home but she lives with her 90 years old mother who is her main acute care occupational therapist, patient said she was able to get up out of the wheelchair to transfer her to the chair herself but she is too weak to do it and her mother cannot help her. Will get her admitted to the hospital, would need physical therapy again to help her getting stronger. Dragon Disclaimer: Dragon Disclaimer: This electronic medical record was generated, in whole or in part, using a voice recognition dictation system. Departure Departure Impression: Primary Impression: UTI (urinary tract infection) Additional Impression: Weakness Disposition: ADMITTED INPATIENT Admitting Physician: [facility] (Dr. Joaquin) Condition: STABLE Referrals: BRUCE MILES DO (PCP) please follow up with your doctor on Sunday for reevaluation. Patient Instructions: Urinary Tract Infection, Weakness Scripts Sulfamethoxazole/Trimethoprim (BACTRIM DS TABLET) 1 Each Tablet 1 TAB PO BID for 7 Days, #14 TAB 0 Refills Prov: LOUANN JACINTO DO 03/12/20 Justicifation of Admission Dx: Justifications for Admission: Justification of Admission Dx: N/A Chronic Renal Failure: Hypertension Sepsis: Infection LOUANN JACINTO DO Mar 12, 2020 15:31
[2020-03-12] MEDS ORDERED: SULF1TAB24 PO (16:44)
[2020-03-12] MEDS ORDERED: cefTRIAXone IV Push 1 GM VIAL. IVP ONE (17:30)
[2020-03-12] MEDS ORDERED: DOCUSATE SODIUM 100 MG CAPSULE. PO PRN (18:15)
[2020-03-12] MEDS ORDERED: ONDANSETRON PF 4 MG/2 ML VIAL. IV PRN (18:15)
[2020-03-12] MEDS ORDERED: ACETAMINOPHEN 325 MG TABLET. PO PRN (18:15)
[2020-03-12 18:21] LABS: BASO # 0.2 x10^3/uL (0.0-0.2); BASO % 2 % (0-3); EOS # 0.1 x10^3/uL (0.0-0.7); EOS % 1 % (0-3); HEMATOCRIT 36.8 % (36.0-47.0); HEMOGLOBIN 12.3 g/dL (12.0-15.5); LYMPH % 23 % (24-48); MEAN CORPUSCULAR HEMOGLOBIN 29 pg (25-35); MEAN CORPUSCULAR HGB CONC 33 g/dL (31-37); MEAN CORPUSCULAR VOLUME 86 fL (79-100); MONO # 0.7 x10^3/uL (0.0-1.1); MONO % 8 % (0-9); NEUT # 5.8 x10^3/uL (1.8-7.7); NEUT % 66 % (31-73); PLATELET COUNT 228 x10^3/uL (140-400); RED BLOOD COUNT 4.26 x10^6/uL (3.50-5.40); RED CELL DISTRIBUTION WIDTH 19.5 % (11.5-14.5); WHITE BLOOD COUNT 8.8 x10^3/uL (4.0-11.0)
--- NOTE | 2020-03-12 18:27 | PDOC1 ---
History and Physical Date of Admission Date of Admission DATE: 03/12/20 TIME: 18:19 Identification/Chief Complaint Chief Complaint weakness. can't get out of chair Problems: (1) Weakness (2) UTI (urinary tract infection) Source Source: Chart review, Patient History of Present Illness History of Present Illness 64 year old CF hx of CVA, obesity, DM, HLD, HTN, recent admission for gallstone pancreatitis s/p lap choly this month discharged to rehab for 2 weeks thensent home. patient was receiving home health services and aid reported patient has been unable to get up from chair due to weakness. receives food via meals on wheels. patient has no complaints. denies chest pain sob nausea vomiting diarrhea. no fevers. no dysuria. patient lives alone. UA concerning for UTI and ER started IV abx. hospitalist called for admission and further evaluation due to weakness. Past Medical History Cardiovascular: HTN Musculoskeletal: Osteoarthritis Endocrine: Diabetes Past Surgical History Past Surgical History lap choly Family History Family History: High Cholestrol, Hypertension Social History Smoke: No ALCOHOL: none Drugs: None Current Problem List Problem List Problems Medical Problems: (1) UTI (urinary tract infection) Status: Acute (2) Weakness Status: Acute Current Medications Current Medications Current Medications Ceftriaxone Sodium (Rocephin) 1 gm 1X ONCE IVP ; Start 03/12/20 at 17:30; Stop 03/12/20 at 17:32; Status DC Active Scripts Active Bactrim Ds Tablet (Sulfamethoxazole/Trimethoprim) 1 Each Tablet 1 Tab PO BID 7 Days Hydrocodone-Apap 5-325 (Hydrocodone Bit/Acetaminophen) 1 Tab Tablet 1 Tab PO PRN Q6HRS PRN 7 Days Culturelle (Lactobacillus Rhamnosus Gg) 1 Each Cap.sprink 1 Cap PO BID 30 Days Enoxaparin Sodium 40 Mg/0.4 Ml Disp.syrin 40 Mg SQ Q24H 14 Days Reported Crestor (Rosuvastatin Calcium) 5 Mg Tablet 10 Mg PO HS Pantoprazole Sodium (Pantoprazole Sodium) 40 Mg Tablet.dr 40 Mg PO DAILYAC Benazepril Hcl 10 Mg Tablet 10 Mg PO DAILY Lopressor (Metoprolol Tartrate) 100 Mg Tablet 1 Tab PO DAILY 30 Days Citalopram Hbr (Citalopram Hydrobromide) 20 Mg Tablet 1 Tab PO DAILY Allergies Allergies: Coded Allergies: No Known Drug Allergies (Unverified , 02/19/20) ROS Review of System CONSTITUTIONAL: No fever or chills EYES: No recent changes SKIN: No rash or itching CARDIOVASCULAR: No chest pain, syncope, palpitations, or edema RESPIRATORY: No SOB or cough GASTROINTESTINAL: No nausea, vomiting or abdominal pain NEUROLOGICAL: No headaches or weakness ENDOCRINE: No cold or heat intolerance GENITOURINARY: No urgency or frequency of urination MUSCULOSKELETAL: No back pain or joint pain LYMPHATICS: No enlarged lymph nodes PSYCHIATRIC: No anxiety or depression Physical Exam Physical Exam GENERAL: No apparent distress. Alert and oriented. HEENT: Head normocephalic, atraumatic. NECK: Supple LUNGS: Clear to auscultation. HEART: RRR, S1, S2 present, pulses intact ABDOMEN: Soft, positive bowel sounds. EXTREMITIES: No cyanosis or edema. NEUROLOGIC: Normal speech, normal tone PSYCHIATRIC: Normal affect, normal mood. SKIN: No ulceration. Vitals Vitals Vital Signs Date Time Temp Pulse Resp B/P (MAP) Pulse Ox O2 Delivery O2 Flow Rate FiO2 03/12/20 16:45 76 23 93 03/12/20 13:00 98.1 165/73 (103) Room Air 98.1 Labs Labs Laboratory Tests Test 03/12/20 13:45 Urine Collection Type U cath Urine Color Yellow Urine Clarity Clear Urine pH 6.0 (<5.0-8.0) Urine Specific [place] 1.015 (1.000-1.030) Urine Protein Negative mg/dL (NEG-TRACE) Urine Glucose (UA) Negative mg/dL (NEG) Urine Ketones (Stick) Negative mg/dL (NEG) Urine Blood Negative (NEG) Urine Nitrite Positive (NEG) Urine Bilirubin Negative (NEG) Urine Urobilinogen Dipstick 1.0 mg/dL (0.2 mg/dL) Urine Leukocyte Esterase Small (NEG) Urine RBC 0 /HPF (0-2) Urine WBC 5-10 /HPF (0-4) Urine Squamous Epithelial Cells Few /LPF Urine Bacteria Many /HPF (0-FEW) Urine Mucus Mod /LPF Laboratory Tests Test 03/12/20 13:45 Urine Collection Type U cath Urine Color Yellow Urine Clarity Clear Urine pH 6.0 (<5.0-8.0) Urine Specific [place] 1.015 (1.000-1.030) Urine Protein Negative mg/dL (NEG-TRACE) Urine Glucose (UA) Negative mg/dL (NEG) Urine Ketones (Stick) Negative mg/dL (NEG) Urine Blood Negative (NEG) Urine Nitrite Positive (NEG) Urine Bilirubin Negative (NEG) Urine Urobilinogen Dipstick 1.0 mg/dL (0.2 mg/dL) Urine Leukocyte Esterase Small (NEG) Urine RBC 0 /HPF (0-2) Urine WBC 5-10 /HPF (0-4) Urine Squamous Epithelial Cells Few /LPF Urine Bacteria Many /HPF (0-FEW) Urine Mucus Mod /LPF VTE Prophylaxis Ordered VTE Prophylaxis Devices: Yes VTE Pharmacological Prophylaxi: Yes Assessment/Plan Assessment/Plan ASSESSMENT Functional Quadraplegia UTI HTN hx of DM HLD Obesity hx of gallstone pancreatitis s/p lap chol GERD PLAN admit to medical floor start IV rocephin, follow urine cultures PT/OT check b12, vit D level restart home meds ER labs pending DVT ppx full code will need placement: sw consult Justicifation of Admission Dx: Justifications for Admission: Justification of Admission Dx: N/A Chronic Renal Failure: Hypertension Sepsis: Infection MANASA MATHUR MD Mar 12, 2020 18:27
[2020-03-12 18:29] LABS: CALCIUM 8.6 mg/dL (8.5-10.1); CREATININE 0.7 mg/dL (0.6-1.0); GFR 84.8; POTASSIUM 3.7 mmol/L (3.5-5.1)
[2020-03-12] MEDS ORDERED: cefTRIAXone IV Push 1 GM VIAL. IVP SCH (18:30)
[2020-03-12 18:35] LABS: ALBUMIN/GLOBULIN RATIO 0.9 (1.0-1.7); MAGNESIUM 1.5 mg/dL (1.8-2.4); TOTAL BILIRUBIN 0.9 mg/dL (0.2-1.0); TOTAL PROTEIN 6.2 g/dL (6.4-8.2)
[2020-03-12 19:50] VITALS: BP 163/68
--- NOTE | 2020-03-12 20:00 | NUR ---
Admit from ER w/ UTI and weakness. Had CVA 15 years ago-right side flaccid and expressive aphasia noted. Lives alone but "has help". Apparently, she was unable to get out of a chair at home due to weakness. Dismissed from [facility] 2 days ago. Recent lap teresita-some steri strips on RUQ.
[2020-03-12] MEDS ORDERED: SMZ/TMP 800/160MG TABLET. PO SCH (21:00)
[2020-03-12] MEDS: ATORVASTATIN CALCIUM 40 MG TABLET. PO SCH (21:38)
[2020-03-12 23:00] VITALS: BP 155/54
[2020-03-13 03:00] VITALS: BP 149/68
[2020-03-13 07:00] VITALS: BP 155/55
[2020-03-13] MEDS: LISINOPRIL 10 MG TABLET PO SCH (08:42)
[2020-03-13] MEDS: PANTOPRAZOLE 40 MG TABLET.DR. PO SCH (08:42)
[2020-03-13] MEDS: HYDROcodone/APAP 5/325MG 1 TAB TABLET PO PRN (08:42)
[2020-03-13] MEDS ORDERED: METOPROLOL SUCC 24HR ER 100 MG TAB.ER.24H. PO SCH (09:00)
--- NOTE | 2020-03-13 10:06 | PDOC ---
PROGRESS NOTES Chief Complaint Chief Complaint ASSESSMENT Functional Quadraplegia UTI HTN hx of DM HLD Obesity hx of gallstone pancreatitis s/p lap chol GERD Hypomag PLAN continue rocephin D2, follow urine cultures PT/OT check b12, vit D level--both normal restarted home meds DVT ppx full code will need placement: sw consult History of Present Illness History of Present Illness doing well. no issues overnight. denies chest pain sob nausea vomiting diarrhea. Vitals Vitals Vital Signs Date Time Temp Pulse Resp B/P (MAP) Pulse Ox O2 Delivery O2 Flow Rate FiO2 03/13/20 09:46 95 Room Air 03/13/20 08:42 91 155/55 03/13/20 07:00 98.4 16 98.4 Physical Exam General: Alert, Oriented X3 Heart: Regular rate, Normal S1, Normal S2 Lungs: Clear Abdomen: Normal bowel sounds Extremities: No clubbing Skin: No rashes Labs LABS Laboratory Tests Test 03/12/20 13:45 03/12/20 18:15 03/12/20 18:20 Urine Collection Type U cath Urine Color Yellow Urine Clarity Clear Urine pH 6.0 (<5.0-8.0) Urine Specific [place] 1.015 (1.000-1.030) Urine Protein Negative mg/dL (NEG-TRACE) Urine Glucose (UA) Negative mg/dL (NEG) Urine Ketones (Stick) Negative mg/dL (NEG) Urine Blood Negative (NEG) Urine Nitrite Positive (NEG) Urine Bilirubin Negative (NEG) Urine Urobilinogen Dipstick 1.0 mg/dL (0.2 mg/dL) Urine Leukocyte Esterase Small (NEG) Urine RBC 0 /HPF (0-2) Urine WBC 5-10 /HPF (0-4) Urine Squamous Epithelial Cells Few /LPF Urine Bacteria Many /HPF (0-FEW) Urine Mucus Mod /LPF White Blood Count 8.8 x10^3/uL (4.0-11.0) Red Blood Count 4.26 x10^6/uL (3.50-5.40) Hemoglobin 12.3 g/dL (12.0-15.5) Hematocrit 36.8 % (36.0-47.0) Mean Corpuscular Volume 86 fL (79-100) Mean Corpuscular Hemoglobin 29 pg (25-35) Mean Corpuscular Hemoglobin Concent 33 g/dL (31-37) Red Cell Distribution Width 19.5 % (11.5-14.5) Platelet Count 228 x10^3/uL (140-400) Neutrophils (%) (Auto) 66 % (31-73) Lymphocytes (%) (Auto) 23 % (24-48) Monocytes (%) (Auto) 8 % (0-9) Eosinophils (%) (Auto) 1 % (0-3) Basophils (%) (Auto) 2 % (0-3) Neutrophils # (Auto) 5.8 x10^3/uL (1.8-7.7) Lymphocytes # (Auto) 2.0 x10^3/uL (1.0-4.8) Monocytes # (Auto) 0.7 x10^3/uL (0.0-1.1) Eosinophils # (Auto) 0.1 x10^3/uL (0.0-0.7) Basophils # (Auto) 0.2 x10^3/uL (0.0-0.2) Sodium Level 142 mmol/L (136-145) Potassium Level 3.7 mmol/L (3.5-5.1) Chloride Level 104 mmol/L (98-107) Carbon Dioxide Level 31 mmol/L (21-32) Anion Gap 7 (6-14) Blood Urea Nitrogen 8 mg/dL (7-20) Creatinine 0.7 mg/dL (0.6-1.0) Estimated GFR (Cockcroft-Gault) 84.8 BUN/Creatinine Ratio 11 (6-20) Glucose Level 106 mg/dL (70-99) Calcium Level 8.6 mg/dL (8.5-10.1) Magnesium Level 1.5 mg/dL (1.8-2.4) Total Bilirubin 0.9 mg/dL (0.2-1.0) Aspartate Amino Transf (AST/SGOT) 35 U/L (15-37) Alanine Aminotransferase (ALT/SGPT) 19 U/L (14-59) Alkaline Phosphatase 131 U/L (46-116) Total Protein 6.2 g/dL (6.4-8.2) Albumin 3.0 g/dL (3.4-5.0) Albumin/Globulin Ratio 0.9 (1.0-1.7) Vitamin B12 Level 1017 pg/mL (247-911) 25-Hydroxy Vitamin D Total 34.0 ng/mL (30-100) Assessment and Plan Assessmemt and Plan Problems Medical Problems: (1) UTI (urinary tract infection) Status: Acute (2) Weakness Status: Acute Comment Review of Relevant I have reviewed the following items shae (where applicable) has been applied. Labs Laboratory Tests Test 03/12/20 13:45 03/12/20 18:15 03/12/20 18:20 Urine Collection Type U cath Urine Color Yellow Urine Clarity Clear Urine pH 6.0 (<5.0-8.0) Urine Specific [place] 1.015 (1.000-1.030) Urine Protein Negative mg/dL (NEG-TRACE) Urine Glucose (UA) Negative mg/dL (NEG) Urine Ketones (Stick) Negative mg/dL (NEG) Urine Blood Negative (NEG) Urine Nitrite Positive (NEG) Urine Bilirubin Negative (NEG) Urine Urobilinogen Dipstick 1.0 mg/dL (0.2 mg/dL) Urine Leukocyte Esterase Small (NEG) Urine RBC 0 /HPF (0-2) Urine WBC 5-10 /HPF (0-4) Urine Squamous Epithelial Cells Few /LPF Urine Bacteria Many /HPF (0-FEW) Urine Mucus Mod /LPF White Blood Count 8.8 x10^3/uL (4.0-11.0) Red Blood Count 4.26 x10^6/uL (3.50-5.40) Hemoglobin 12.3 g/dL (12.0-15.5) Hematocrit 36.8 % (36.0-47.0) Mean Corpuscular Volume 86 fL (79-100) Mean Corpuscular Hemoglobin 29 pg (25-35) Mean Corpuscular Hemoglobin Concent 33 g/dL (31-37) Red Cell Distribution Width 19.5 % (11.5-14.5) Platelet Count 228 x10^3/uL (140-400) Neutrophils (%) (Auto) 66 % (31-73) Lymphocytes (%) (Auto) 23 % (24-48) Monocytes (%) (Auto) 8 % (0-9) Eosinophils (%) (Auto) 1 % (0-3) Basophils (%) (Auto) 2 % (0-3) Neutrophils # (Auto) 5.8 x10^3/uL (1.8-7.7) Lymphocytes # (Auto) 2.0 x10^3/uL (1.0-4.8) Monocytes # (Auto) 0.7 x10^3/uL (0.0-1.1) Eosinophils # (Auto) 0.1 x10^3/uL (0.0-0.7) Basophils # (Auto) 0.2 x10^3/uL (0.0-0.2) Sodium Level 142 mmol/L (136-145) Potassium Level 3.7 mmol/L (3.5-5.1) Chloride Level 104 mmol/L (98-107) Carbon Dioxide Level 31 mmol/L (21-32) Anion Gap 7 (6-14) Blood Urea Nitrogen 8 mg/dL (7-20) Creatinine 0.7 mg/dL (0.6-1.0) Estimated GFR (Cockcroft-Gault) 84.8 BUN/Creatinine Ratio 11 (6-20) Glucose Level 106 mg/dL (70-99) Calcium Level 8.6 mg/dL (8.5-10.1) Magnesium Level 1.5 mg/dL (1.8-2.4) Total Bilirubin 0.9 mg/dL (0.2-1.0) Aspartate Amino Transf (AST/SGOT) 35 U/L (15-37) Alanine Aminotransferase (ALT/SGPT) 19 U/L (14-59) Alkaline Phosphatase 131 U/L (46-116) Total Protein 6.2 g/dL (6.4-8.2) Albumin 3.0 g/dL (3.4-5.0) Albumin/Globulin Ratio 0.9 (1.0-1.7) Vitamin B12 Level 1017 pg/mL (247-911) 25-Hydroxy Vitamin D Total 34.0 ng/mL (30-100) Laboratory Tests Test 03/12/20 13:45 03/12/20 18:15 03/12/20 18:20 Urine Collection Type U cath Urine Color Yellow Urine Clarity Clear Urine pH 6.0 (<5.0-8.0) Urine Specific [place] 1.015 (1.000-1.030) Urine Protein Negative mg/dL (NEG-TRACE) Urine Glucose (UA) Negative mg/dL (NEG) Urine Ketones (Stick) Negative mg/dL (NEG) Urine Blood Negative (NEG) Urine Nitrite Positive (NEG) Urine Bilirubin Negative (NEG) Urine Urobilinogen Dipstick 1.0 mg/dL (0.2 mg/dL) Urine Leukocyte Esterase Small (NEG) Urine RBC 0 /HPF (0-2) Urine WBC 5-10 /HPF (0-4) Urine Squamous Epithelial Cells Few /LPF Urine Bacteria Many /HPF (0-FEW) Urine Mucus Mod /LPF White Blood Count 8.8 x10^3/uL (4.0-11.0) Red Blood Count 4.26 x10^6/uL (3.50-5.40) Hemoglobin 12.3 g/dL (12.0-15.5) Hematocrit 36.8 % (36.0-47.0) Mean Corpuscular Volume 86 fL (79-100) Mean Corpuscular Hemoglobin 29 pg (25-35) Mean Corpuscular Hemoglobin Concent 33 g/dL (31-37) Red Cell Distribution Width 19.5 % (11.5-14.5) Platelet Count 228 x10^3/uL (140-400) Neutrophils (%) (Auto) 66 % (31-73) Lymphocytes (%) (Auto) 23 % (24-48) Monocytes (%) (Auto) 8 % (0-9) Eosinophils (%) (Auto) 1 % (0-3) Basophils (%) (Auto) 2 % (0-3) Neutrophils # (Auto) 5.8 x10^3/uL (1.8-7.7) Lymphocytes # (Auto) 2.0 x10^3/uL (1.0-4.8) Monocytes # (Auto) 0.7 x10^3/uL (0.0-1.1) Eosinophils # (Auto) 0.1 x10^3/uL (0.0-0.7) Basophils # (Auto) 0.2 x10^3/uL (0.0-0.2) Sodium Level 142 mmol/L (136-145) Potassium Level 3.7 mmol/L (3.5-5.1) Chloride Level 104 mmol/L (98-107) Carbon Dioxide Level 31 mmol/L (21-32) Anion Gap 7 (6-14) Blood Urea Nitrogen 8 mg/dL (7-20) Creatinine 0.7 mg/dL (0.6-1.0) Estimated GFR (Cockcroft-Gault) 84.8 BUN/Creatinine Ratio 11 (6-20) Glucose Level 106 mg/dL (70-99) Calcium Level 8.6 mg/dL (8.5-10.1) Magnesium Level 1.5 mg/dL (1.8-2.4) Total Bilirubin 0.9 mg/dL (0.2-1.0) Aspartate Amino Transf (AST/SGOT) 35 U/L (15-37) Alanine Aminotransferase (ALT/SGPT) 19 U/L (14-59) Alkaline Phosphatase 131 U/L (46-116) Total Protein 6.2 g/dL (6.4-8.2) Albumin 3.0 g/dL (3.4-5.0) Albumin/Globulin Ratio 0.9 (1.0-1.7) Vitamin B12 Level 1017 pg/mL (247-911) 25-Hydroxy Vitamin D Total 34.0 ng/mL (30-100) Medications Current Medications Ceftriaxone Sodium (Rocephin) 1 gm 1X ONCE IVP Last administered on 03/12/20at 18:15; Start 03/12/20 at 17:30; Stop 03/12/20 at 17:32; Status DC Ondansetron HCl (Zofran) 4 mg PRN Q4HRS PRN IV NAUSEA/VOMITING; Start 03/12/20 at 18:15 Acetaminophen (Tylenol) 650 mg PRN Q4HRS PRN PO TEMP OVER 100.4F OR MILD PAIN; Start 03/12/20 at 18:15 Docusate Sodium (Colace) 100 mg PRN BID PRN PO HARD STOOLS; Start 03/12/20 at 18:15 Acetaminophen/ Hydrocodone Bitart (Lortab 5/325) 1 tab PRN Q6HRS PRN PO MODERATE PAIN Last administered on 03/13/20at 08:42; Start 03/12/20 at 18:30 Pantoprazole Sodium (Protonix) 40 mg DAILYAC PO Last administered on 03/13/20at 08:42; Start 03/13/20 at 07:30 Trimethoprim/ Sulfamethoxazole (Bactrim Ds) 1 tab BID PO ; Start 03/12/20 at 21:00; Status UNV Lisinopril (Prinivil) 10 mg DAILY PO Last administered on 03/13/20at 08:42; Start 03/13/20 at 09:00 Metoprolol Succinate (Toprol Xl) 100 mg DAILY PO Last administered on 03/13/20at 08:42; Start 03/13/20 at 09:00 Atorvastatin Calcium (Lipitor) 40 mg QHS PO Last administered on 03/12/20at 21:38; Start 03/12/20 at 21:00 Ceftriaxone Sodium (Rocephin) 1 gm Q24H IVP Last administered on 03/12/20at 18:15; Start 03/12/20 at 18:30; Stop 03/12/20 at 18:59; Status DC Ceftriaxone Sodium (Rocephin) 1 gm Q24H IVP ; Start 03/13/20 at 18:00 Active Scripts Active Bactrim Ds Tablet (Sulfamethoxazole/Trimethoprim) 1 Each Tablet 1 Tab PO BID 7 Days Hydrocodone-Apap 5-325 (Hydrocodone Bit/Acetaminophen) 1 Tab Tablet 1 Tab PO PRN Q6HRS PRN 7 Days Culturelle (Lactobacillus Rhamnosus Gg) 1 Each Cap.sprink 1 Cap PO BID 30 Days Enoxaparin Sodium 40 Mg/0.4 Ml Disp.syrin 40 Mg SQ Q24H 14 Days Reported Crestor (Rosuvastatin Calcium) 5 Mg Tablet 10 Mg PO HS Pantoprazole Sodium (Pantoprazole Sodium) 40 Mg Tablet.dr 40 Mg PO DAILYAC Benazepril Hcl 10 Mg Tablet 10 Mg PO DAILY Lopressor (Metoprolol Tartrate) 100 Mg Tablet 1 Tab PO DAILY 30 Days Citalopram Hbr (Citalopram Hydrobromide) 20 Mg Tablet 1 Tab PO DAILY Vitals/I & O Vital Sign - Last 24 Hours 03/12/20 03/12/20 03/12/20 03/12/20 13:00 13:36 14:06 14:36 Temp 98.1 98.1 Pulse 77 74 74 76 Resp 18 16 24 30 B/P (MAP) 165/73 (103) Pulse Ox 94 93 94 94 O2 Delivery Room Air 03/12/20 03/12/20 03/12/20 03/12/20 15:15 16:15 16:45 19:50 Temp 98.3 98.3 Pulse 78 76 76 79 Resp 30 24 23 16 B/P (MAP) 163/68 (99) Pulse Ox 94 92 93 94 O2 Delivery Room Air 03/12/20 03/13/20 03/13/20 03/13/20 23:00 03:00 07:00 08:42 Temp 98.5 98.2 98.4 98.5 98.2 98.4 Pulse 96 64 91 Resp 16 16 16 B/P (MAP) 155/54 (87) 149/68 (95) 155/55 (88) Pulse Ox 92 95 93 95 O2 Delivery Room Air Room Air Room Air Room Air 03/13/20 03/13/20 03/13/20 08:42 08:42 09:46 Pulse 91 91 B/P (MAP) 155/55 155/55 Pulse Ox 95 O2 Delivery Room Air MANASA MATHUR MD Mar 13, 2020 10:06
[2020-03-13] MEDS ORDERED: NYSTATIN TOPICAL POWDER 15GM BOTTLE. TP PRN (10:30)
[2020-03-13] MEDS ORDERED: MAGNESIUM SULFATE 2GM 50 ML IV ONE (10:30)
[2020-03-13 11:00] VITALS: BP 148/57
--- NOTE | 2020-03-13 11:26 | NUR ---
Report and transfer of care given to VIVIEN Valentine.
[2020-03-13] MEDS: LACTOBACILLUS RHAMNOSUS GG 1 CAPSULE. PO SCH ×2 (14:08→21:33)
[2020-03-13 15:18] VITALS: BP 127/51
[2020-03-13] MEDS: cefTRIAXone IV Push 1 GM VIAL. IVP SCH (18:17)
[2020-03-13 19:00] VITALS: BP 149/75
[2020-03-13] MEDS: ATORVASTATIN CALCIUM 40 MG TABLET. PO SCH (21:31)
[2020-03-13] MEDS: METOPROLOL SUCC 24HR ER 100 MG TAB.ER.24H. PO SCH (21:32)
[2020-03-13 23:00] VITALS: BP 135/77
[2020-03-14 03:00] VITALS: BP 144/70
[2020-03-14] MEDS: PANTOPRAZOLE 40 MG TABLET.DR. PO SCH (06:12)
[2020-03-14 07:00] VITALS: BP 156/72
--- NOTE | 2020-03-14 07:53 | PDOC ---
PROGRESS NOTES Chief Complaint Chief Complaint ASSESSMENT Functional Quadraplegia UTI - klebsiella Constipation HTN hx of DM HLD Obesity hx of gallstone pancreatitis s/p lap chol GERD Hypomagnesemia PLAN continue rocephin D2 PT/OT check b12, vit D level--both normal restarted home meds DVT ppx DNR/DNI will need placement: sw consult History of Present Illness History of Present Illness Ms Pratt is a 64 yo F hx of CVA, obesity, DM, HLD, HTN, recent admission for gallstone pancreatitis s/p lap choly this month discharged to rehab for 2 weeks thensent home. patient was receiving home health services and aid reported patient has been unable to get up from chair due to weakness. receives food via meals on wheels. patient has no complaints. denies chest pain sob nausea vomiting diarrhea. no fevers. no dysuria. patient lives alone. doing well. no issues overnight. denies chest pain sob nausea vomiting diarrhea. Urine with klebsiella pneumonia. She has dense right hemiparesis, unable to care for herself. 2 person assist. Has not had a BM Vitals Vitals Vital Signs Date Time Temp Pulse Resp B/P (MAP) Pulse Ox O2 Delivery O2 Flow Rate FiO2 03/14/20 03:00 98.1 70 18 144/70 (94) 93 98.1 03/13/20 19:35 Room Air Physical Exam General: Alert, Oriented X3 Heart: Regular rate, Normal S1, Normal S2 Lungs: Clear Abdomen: Normal bowel sounds Extremities: No clubbing Skin: No rashes Assessment and Plan Assessmemt and Plan Problems Medical Problems: (1) UTI (urinary tract infection) Status: Acute (2) Weakness Status: Acute Comment Review of Relevant I have reviewed the following items shae (where applicable) has been applied. Labs Laboratory Tests Test 03/12/20 13:45 03/12/20 18:15 03/12/20 18:20 Urine Collection Type U cath Urine Color Yellow Urine Clarity Clear Urine pH 6.0 (<5.0-8.0) Urine Specific [place] 1.015 (1.000-1.030) Urine Protein Negative mg/dL (NEG-TRACE) Urine Glucose (UA) Negative mg/dL (NEG) Urine Ketones (Stick) Negative mg/dL (NEG) Urine Blood Negative (NEG) Urine Nitrite Positive (NEG) Urine Bilirubin Negative (NEG) Urine Urobilinogen Dipstick 1.0 mg/dL (0.2 mg/dL) Urine Leukocyte Esterase Small (NEG) Urine RBC 0 /HPF (0-2) Urine WBC 5-10 /HPF (0-4) Urine Squamous Epithelial Cells Few /LPF Urine Bacteria Many /HPF (0-FEW) Urine Mucus Mod /LPF White Blood Count 8.8 x10^3/uL (4.0-11.0) Red Blood Count 4.26 x10^6/uL (3.50-5.40) Hemoglobin 12.3 g/dL (12.0-15.5) Hematocrit 36.8 % (36.0-47.0) Mean Corpuscular Volume 86 fL (79-100) Mean Corpuscular Hemoglobin 29 pg (25-35) Mean Corpuscular Hemoglobin Concent 33 g/dL (31-37) Red Cell Distribution Width 19.5 % (11.5-14.5) Platelet Count 228 x10^3/uL (140-400) Neutrophils (%) (Auto) 66 % (31-73) Lymphocytes (%) (Auto) 23 % (24-48) Monocytes (%) (Auto) 8 % (0-9) Eosinophils (%) (Auto) 1 % (0-3) Basophils (%) (Auto) 2 % (0-3) Neutrophils # (Auto) 5.8 x10^3/uL (1.8-7.7) Lymphocytes # (Auto) 2.0 x10^3/uL (1.0-4.8) Monocytes # (Auto) 0.7 x10^3/uL (0.0-1.1) Eosinophils # (Auto) 0.1 x10^3/uL (0.0-0.7) Basophils # (Auto) 0.2 x10^3/uL (0.0-0.2) Sodium Level 142 mmol/L (136-145) Potassium Level 3.7 mmol/L (3.5-5.1) Chloride Level 104 mmol/L (98-107) Carbon Dioxide Level 31 mmol/L (21-32) Anion Gap 7 (6-14) Blood Urea Nitrogen 8 mg/dL (7-20) Creatinine 0.7 mg/dL (0.6-1.0) Estimated GFR (Cockcroft-Gault) 84.8 BUN/Creatinine Ratio 11 (6-20) Glucose Level 106 mg/dL (70-99) Calcium Level 8.6 mg/dL (8.5-10.1) Magnesium Level 1.5 mg/dL (1.8-2.4) Total Bilirubin 0.9 mg/dL (0.2-1.0) Aspartate Amino Transf (AST/SGOT) 35 U/L (15-37) Alanine Aminotransferase (ALT/SGPT) 19 U/L (14-59) Alkaline Phosphatase 131 U/L (46-116) Total Protein 6.2 g/dL (6.4-8.2) Albumin 3.0 g/dL (3.4-5.0) Albumin/Globulin Ratio 0.9 (1.0-1.7) Vitamin B12 Level 1017 pg/mL (247-911) 25-Hydroxy Vitamin D Total 34.0 ng/mL (30-100) Microbiology 03/12/20 Urine Culture - Preliminary, Resulted Medications Current Medications Ceftriaxone Sodium (Rocephin) 1 gm 1X ONCE IVP Last administered on 03/12/20at 18:15; Start 03/12/20 at 17:30; Stop 03/12/20 at 17:32; Status DC Ondansetron HCl (Zofran) 4 mg PRN Q4HRS PRN IV NAUSEA/VOMITING; Start 03/12/20 at 18:15 Acetaminophen (Tylenol) 650 mg PRN Q4HRS PRN PO TEMP OVER 100.4F OR MILD PAIN; Start 03/12/20 at 18:15 Docusate Sodium (Colace) 100 mg PRN BID PRN PO HARD STOOLS; Start 03/12/20 at 18:15 Acetaminophen/ Hydrocodone Bitart (Lortab 5/325) 1 tab PRN Q6HRS PRN PO MODERATE PAIN Last administered on 03/13/20at 08:42; Start 03/12/20 at 18:30 Pantoprazole Sodium (Protonix) 40 mg DAILYAC PO Last administered on 03/14/20at 06:12; Start 03/13/20 at 07:30 Trimethoprim/ Sulfamethoxazole (Bactrim Ds) 1 tab BID PO ; Start 03/12/20 at 21:00; Status UNV Lisinopril (Prinivil) 10 mg DAILY PO Last administered on 03/13/20at 08:42; Start 03/13/20 at 09:00 Metoprolol Succinate (Toprol Xl) 100 mg DAILY PO Last administered on 03/13/20at 08:42; Start 03/13/20 at 09:00; Stop 03/13/20 at 10:19; Status DC Atorvastatin Calcium (Lipitor) 40 mg QHS PO Last administered on 03/13/20at 21:31; Start 03/12/20 at 21:00 Ceftriaxone Sodium (Rocephin) 1 gm Q24H IVP Last administered on 03/12/20at 18:15; Start 03/12/20 at 18:30; Stop 03/12/20 at 18:59; Status DC Ceftriaxone Sodium (Rocephin) 1 gm Q24H IVP Last administered on 03/13/20at 18:17; Start 03/13/20 at 18:00 Magnesium Sulfate 50 ml @ 25 mls/hr 1X ONCE IV Last administered on 03/13/20at 10:44; Start 03/13/20 at 10:30; Stop 03/13/20 at 12:29; Status DC Metoprolol Succinate (Toprol Xl) 100 mg BID PO Last administered on 03/13/20at 21:32; Start 03/13/20 at 21:00 Nystatin (Nystop) 1 colton PRN BID PRN TP SKIN IRRITATION; Start 03/13/20 at 10:30 Lactobacillus Rhamnosus (Culturelle) 1 cap BID PO Last administered on 03/13/20at 21:33; Start 03/13/20 at 13:00 Active Scripts Active Bactrim Ds Tablet (Sulfamethoxazole/Trimethoprim) 1 Each Tablet 1 Tab PO BID 7 Days Hydrocodone-Apap 5-325 (Hydrocodone Bit/Acetaminophen) 1 Tab Tablet 1 Tab PO PRN Q6HRS PRN 7 Days Culturelle (Lactobacillus Rhamnosus Gg) 1 Each Cap.sprink 1 Cap PO BID 30 Days Enoxaparin Sodium 40 Mg/0.4 Ml Disp.syrin 40 Mg SQ Q24H 14 Days Reported Crestor (Rosuvastatin Calcium) 5 Mg Tablet 10 Mg PO HS Pantoprazole Sodium (Pantoprazole Sodium) 40 Mg Tablet.dr 40 Mg PO DAILYAC Benazepril Hcl 10 Mg Tablet 10 Mg PO DAILY Lopressor (Metoprolol Tartrate) 100 Mg Tablet 1 Tab PO DAILY 30 Days Citalopram Hbr (Citalopram Hydrobromide) 20 Mg Tablet 1 Tab PO DAILY Vitals/I & O Vital Sign - Last 24 Hours 03/13/20 03/13/20 03/13/20 03/13/20 08:42 08:42 08:42 09:46 Pulse 91 91 B/P (MAP) 155/55 155/55 Pulse Ox 95 95 O2 Delivery Room Air Room Air 03/13/20 03/13/20 03/13/20 03/13/20 11:00 15:18 19:00 19:35 Temp 98.3 98.5 98.8 98.3 98.5 98.8 Pulse 84 76 77 Resp 16 18 18 B/P (MAP) 148/57 (87) 127/51 (76) 149/75 (99) Pulse Ox 92 96 94 O2 Delivery Room Air Room Air Room Air 03/13/20 03/13/20 03/14/20 21:32 23:00 03:00 Temp 98.2 98.1 98.2 98.1 Pulse 77 77 70 Resp 18 18 B/P (MAP) 149/75 135/77 (96) 144/70 (94) Pulse Ox 94 93 Intake and Output 03/13/20 03/13/20 03/14/20 15:00 23:00 07:00 Intake Total 250 ml 300 ml 200 ml Output Total 1 ml Balance 249 ml 300 ml 200 ml MARK SANTOS MD Mar 14, 2020 07:53
[2020-03-14] MEDS: LACTOBACILLUS RHAMNOSUS GG 1 CAPSULE. PO SCH ×2 (08:00→20:51)
[2020-03-14] MEDS: METOPROLOL SUCC 24HR ER 100 MG TAB.ER.24H. PO SCH ×2 (08:00→20:51)
[2020-03-14] MEDS: LISINOPRIL 10 MG TABLET PO SCH (08:00)
[2020-03-14] MEDS: HYDROcodone/APAP 5/325MG 1 TAB TABLET PO PRN ×2 (08:00→22:29)
[2020-03-14 09:32] LABS: CALCIUM 8.3 mg/dL (8.5-10.1); CREATININE 0.8 mg/dL (0.6-1.0); GFR 72.7; MAGNESIUM 1.6 mg/dL (1.8-2.4); POTASSIUM 3.9 mmol/L (3.5-5.1)
[2020-03-14 11:00] VITALS: BP 148/54
[2020-03-14] MEDS: AMOXICILLIN/K CLAV 875/125MG TABLET. PO SCH ×2 (11:59→20:51)
[2020-03-14] MEDS ORDERED: MAGNESIUM SULFATE 4GM 100 ML IV ONE (12:00)
[2020-03-14 15:00] VITALS: BP 129/71
[2020-03-14] MEDS: cefTRIAXone IV Push 1 GM VIAL. IVP SCH (17:15)
[2020-03-14 19:00] VITALS: BP 138/73
[2020-03-14] MEDS: ATORVASTATIN CALCIUM 40 MG TABLET. PO SCH (20:51)
[2020-03-14] MEDS: POLYETHYLENE GLYCOL 3350 17 GM PACKET. PO SCH (20:51)
[2020-03-14] MEDS: PSYLLIUM HUSK (SUGAR FREE) 1 PKT PACKET PO SCH (20:51)
[2020-03-14 23:00] VITALS: BP 139/68
[2020-03-15] VITALS (7 sets, daily range): BP systolic 119–151; BP diastolic 49–64
[2020-03-15 05:16] LABS: ALBUMIN 2.7 g/dL (3.4-5.0); CALCIUM 8.4 mg/dL (8.5-10.1); CREATININE 0.7 mg/dL (0.6-1.0); GFR 84.8; MAGNESIUM 2.3 mg/dL (1.8-2.4); POTASSIUM 4.1 mmol/L (3.5-5.1); TOTAL BILIRUBIN 0.6 mg/dL (0.2-1.0); TOTAL PROTEIN 5.5 g/dL (6.4-8.2)
[2020-03-15] MEDS: PANTOPRAZOLE 40 MG TABLET.DR. PO SCH (07:44)
[2020-03-15] MEDS: AMOXICILLIN/K CLAV 875/125MG TABLET. PO SCH ×2 (08:38→21:20)
[2020-03-15] MEDS: METOPROLOL SUCC 24HR ER 100 MG TAB.ER.24H. PO SCH ×2 (08:38→20:52)
[2020-03-15] MEDS: LACTOBACILLUS RHAMNOSUS GG 1 CAPSULE. PO SCH ×2 (08:38→20:51)
[2020-03-15] MEDS: LISINOPRIL 10 MG TABLET PO SCH (08:38)
[2020-03-15] MEDS ORDERED: METO-247 PO (09:19)
[2020-03-15] MEDS ORDERED: PSYL3.4P PO (09:19)
[2020-03-15] MEDS ORDERED: HYDR-2761 PO (09:19)
[2020-03-15] MEDS ORDERED: AMOX1TAB11 PO (09:19)
[2020-03-15] MEDS ORDERED: POLY17PO28 PO (09:19)
--- NOTE | 2020-03-15 09:20 | PDOC ---
PROGRESS NOTES Chief Complaint Chief Complaint ASSESSMENT Functional Quadraplegia UTI - klebsiella Constipation HTN hx of DM HLD Obesity hx of gallstone pancreatitis s/p lap chol GERD Hypomagnesemia PLAN continue rocephin D2 PT/OT check b12, vit D level--both normal restarted home meds DVT ppx DNR/DNI will need placement: sw consult History of Present Illness History of Present Illness Ms Pratt is a 64 yo F hx of CVA, obesity, DM, HLD, HTN, recent admission for gallstone pancreatitis s/p lap choly this month discharged to rehab for 2 weeks thensent home. patient was receiving home health services and aid reported patient has been unable to get up from chair due to weakness. receives food via meals on wheels. patient has no complaints. denies chest pain sob nausea vomiting diarrhea. no fevers. no dysuria. patient lives alone. 03/14: Doing well. no issues overnight. denies chest pain sob nausea vomiting diarrhea. Urine with klebsiella pneumonia. She has dense right hemiparesis, unable to care for herself. 2 person assist. Has not had a BM Afebrile, still very weak, changed to oral antibiotics. No chest pain or shortness of breath. Surgical site clean dry and intact. PT and OT recommend SNF. Vitals Vitals Vital Signs Date Time Temp Pulse Resp B/P (MAP) Pulse Ox O2 Delivery O2 Flow Rate FiO2 03/15/20 08:38 76 145/64 03/15/20 07:00 98.3 18 92 Room Air 98.3 Physical Exam General: Alert, Oriented X3 Heart: Regular rate, Normal S1, Normal S2 Lungs: Clear Abdomen: Normal bowel sounds Extremities: No clubbing Skin: No rashes Labs LABS Laboratory Tests Test 03/15/20 03:45 Sodium Level 141 mmol/L (136-145) Potassium Level 4.1 mmol/L (3.5-5.1) Chloride Level 104 mmol/L (98-107) Carbon Dioxide Level 30 mmol/L (21-32) Anion Gap 7 (6-14) Blood Urea Nitrogen 6 mg/dL (7-20) Creatinine 0.7 mg/dL (0.6-1.0) Estimated GFR (Cockcroft-Gault) 84.8 BUN/Creatinine Ratio 9 (6-20) Glucose Level 98 mg/dL (70-99) Calcium Level 8.4 mg/dL (8.5-10.1) Magnesium Level 2.3 mg/dL (1.8-2.4) Total Bilirubin 0.6 mg/dL (0.2-1.0) Aspartate Amino Transf (AST/SGOT) 31 U/L (15-37) Alanine Aminotransferase (ALT/SGPT) 17 U/L (14-59) Alkaline Phosphatase 115 U/L (46-116) Total Protein 5.5 g/dL (6.4-8.2) Albumin 2.7 g/dL (3.4-5.0) Albumin/Globulin Ratio 1.0 (1.0-1.7) Assessment and Plan Assessmemt and Plan Problems Medical Problems: (1) UTI (urinary tract infection) Status: Acute (2) Weakness Status: Acute Comment Review of Relevant I have reviewed the following items shae (where applicable) has been applied. Labs Laboratory Tests Test 03/14/20 08:40 03/15/20 03:45 Sodium Level 141 mmol/L (136-145) 141 mmol/L (136-145) Potassium Level 3.9 mmol/L (3.5-5.1) 4.1 mmol/L (3.5-5.1) Chloride Level 103 mmol/L (98-107) 104 mmol/L (98-107) Carbon Dioxide Level 31 mmol/L (21-32) 30 mmol/L (21-32) Anion Gap 7 (6-14) 7 (6-14) Blood Urea Nitrogen 6 mg/dL (7-20) 6 mg/dL (7-20) Creatinine 0.8 mg/dL (0.6-1.0) 0.7 mg/dL (0.6-1.0) Estimated GFR (Cockcroft-Gault) 72.7 84.8 Glucose Level 159 mg/dL (70-99) 98 mg/dL (70-99) Calcium Level 8.3 mg/dL (8.5-10.1) 8.4 mg/dL (8.5-10.1) Magnesium Level 1.6 mg/dL (1.8-2.4) 2.3 mg/dL (1.8-2.4) BUN/Creatinine Ratio 9 (6-20) Total Bilirubin 0.6 mg/dL (0.2-1.0) Aspartate Amino Transf (AST/SGOT) 31 U/L (15-37) Alanine Aminotransferase (ALT/SGPT) 17 U/L (14-59) Alkaline Phosphatase 115 U/L (46-116) Total Protein 5.5 g/dL (6.4-8.2) Albumin 2.7 g/dL (3.4-5.0) Albumin/Globulin Ratio 1.0 (1.0-1.7) Laboratory Tests Test 03/15/20 03:45 Sodium Level 141 mmol/L (136-145) Potassium Level 4.1 mmol/L (3.5-5.1) Chloride Level 104 mmol/L (98-107) Carbon Dioxide Level 30 mmol/L (21-32) Anion Gap 7 (6-14) Blood Urea Nitrogen 6 mg/dL (7-20) Creatinine 0.7 mg/dL (0.6-1.0) Estimated GFR (Cockcroft-Gault) 84.8 BUN/Creatinine Ratio 9 (6-20) Glucose Level 98 mg/dL (70-99) Calcium Level 8.4 mg/dL (8.5-10.1) Magnesium Level 2.3 mg/dL (1.8-2.4) Total Bilirubin 0.6 mg/dL (0.2-1.0) Aspartate Amino Transf (AST/SGOT) 31 U/L (15-37) Alanine Aminotransferase (ALT/SGPT) 17 U/L (14-59) Alkaline Phosphatase 115 U/L (46-116) Total Protein 5.5 g/dL (6.4-8.2) Albumin 2.7 g/dL (3.4-5.0) Albumin/Globulin Ratio 1.0 (1.0-1.7) Microbiology 03/12/20 Urine Culture - Final, Complete 03/12/20 Antimicrobic Susceptibility - Final, Complete Medications Current Medications Ceftriaxone Sodium (Rocephin) 1 gm 1X ONCE IVP Last administered on 03/12/20at 18:15; Start 03/12/20 at 17:30; Stop 03/12/20 at 17:32; Status DC Ondansetron HCl (Zofran) 4 mg PRN Q4HRS PRN IV NAUSEA/VOMITING; Start 03/12/20 at 18:15 Acetaminophen (Tylenol) 650 mg PRN Q4HRS PRN PO TEMP OVER 100.4F OR MILD PAIN; Start 03/12/20 at 18:15 Docusate Sodium (Colace) 100 mg PRN BID PRN PO HARD STOOLS Last administered on 03/14/20at 08:04; Start 03/12/20 at 18:15 Acetaminophen/ Hydrocodone Bitart (Lortab 5/325) 1 tab PRN Q6HRS PRN PO MODERATE PAIN Last administered on 03/14/20at 22:29; Start 03/12/20 at 18:30 Pantoprazole Sodium (Protonix) 40 mg DAILYAC PO Last administered on 03/15/20at 07:44; Start 03/13/20 at 07:30 Trimethoprim/ Sulfamethoxazole (Bactrim Ds) 1 tab BID PO ; Start 03/12/20 at 21:00; Status UNV Lisinopril (Prinivil) 10 mg DAILY PO Last administered on 03/15/20at 08:38; Start 03/13/20 at 09:00 Metoprolol Succinate (Toprol Xl) 100 mg DAILY PO Last administered on 03/13/20at 08:42; Start 03/13/20 at 09:00; Stop 03/13/20 at 10:19; Status DC Atorvastatin Calcium (Lipitor) 40 mg QHS PO Last administered on 03/14/20at 20:51; Start 03/12/20 at 21:00 Ceftriaxone Sodium (Rocephin) 1 gm Q24H IVP Last administered on 03/12/20at 18:15; Start 03/12/20 at 18:30; Stop 03/12/20 at 18:59; Status DC Ceftriaxone Sodium (Rocephin) 1 gm Q24H IVP Last administered on 03/14/20at 17:15; Start 03/13/20 at 18:00; Stop 03/14/20 at 18:01; Status DC Magnesium Sulfate 50 ml @ 25 mls/hr 1X ONCE IV Last administered on 03/13/20at 10:44; Start 03/13/20 at 10:30; Stop 03/13/20 at 12:29; Status DC Metoprolol Succinate (Toprol Xl) 100 mg BID PO Last administered on 03/15/20at 08:38; Start 03/13/20 at 21:00 Nystatin (Nystop) 1 colton PRN BID PRN TP SKIN IRRITATION; Start 03/13/20 at 10:30 Lactobacillus Rhamnosus (Culturelle) 1 cap BID PO Last administered on 03/15/20at 08:38; Start 03/13/20 at 13:00 Magnesium Sulfate 100 ml @ 25 mls/hr 1X ONCE IV Last administered on 03/14/20at 12:01; Start 03/14/20 at 12:00; Stop 03/14/20 at 15:59; Status DC Amoxicillin/ Clavulanate Potassium (Augmentin 875/ 125mg) 1 tab BID PO Last administered on 03/15/20at 08:38; Start 03/14/20 at 12:00 Psyllium Hydrophilic Mucilloid (Metamucil Fiber Packet) 1 pkt QHS PO Last administered on 03/14/20at 20:51; Start 03/14/20 at 21:00 Polyethylene Glycol (miraLAX PACKET) 17 gm QHS PO Last administered on 03/14/20at 20:51; Start 03/14/20 at 21:00 Active Scripts Active Bactrim Ds Tablet (Sulfamethoxazole/Trimethoprim) 1 Each Tablet 1 Tab PO BID 7 Days Hydrocodone-Apap 5-325 (Hydrocodone Bit/Acetaminophen) 1 Tab Tablet 1 Tab PO PRN Q6HRS PRN 7 Days Culturelle (Lactobacillus Rhamnosus Gg) 1 Each Cap.sprink 1 Cap PO BID 30 Days Enoxaparin Sodium 40 Mg/0.4 Ml Disp.syrin 40 Mg SQ Q24H 14 Days Reported Crestor (Rosuvastatin Calcium) 5 Mg Tablet 10 Mg PO HS Pantoprazole Sodium (Pantoprazole Sodium) 40 Mg Tablet.dr 40 Mg PO DAILYAC Benazepril Hcl 10 Mg Tablet 10 Mg PO DAILY Lopressor (Metoprolol Tartrate) 100 Mg Tablet 1 Tab PO DAILY 30 Days Citalopram Hbr (Citalopram Hydrobromide) 20 Mg Tablet 1 Tab PO DAILY Vitals/I & O Vital Sign - Last 24 Hours 03/14/20 03/14/20 03/14/20 03/14/20 11:00 15:00 19:00 20:00 Temp 97.9 97.8 97.7 97.9 97.8 97.7 Pulse 71 75 77 Resp 16 16 20 B/P (MAP) 148/54 (85) 129/71 (90) 138/73 (94) Pulse Ox 95 94 O2 Delivery Room Air Room Air 03/14/20 03/14/20 03/14/20 03/14/20 20:51 22:29 23:00 23:29 Temp 98.7 98.7 Pulse 77 75 Resp 18 B/P (MAP) 138/73 139/68 (91) Pulse Ox 94 95 94 O2 Delivery Room Air Room Air 03/15/20 03/15/20 03/15/20 03/15/20 03:00 07:00 08:38 08:38 Temp 98.5 98.3 98.5 98.3 Pulse 64 76 76 76 Resp 16 18 B/P (MAP) 134/64 (87) 145/64 (91) 145/64 145/64 Pulse Ox 94 92 O2 Delivery Room Air MARK SANTOS MD Mar 15, 2020 09:20
--- NOTE | 2020-03-15 10:03 | SNU/HH DC ---
DISCHARGE ORDERS DISCHARGE INFORMATION: DISCHARGE DATE: Mar 15, 2020 FINAL DIAGNOSIS Problems Medical Problems: (1) UTI (urinary tract infection) Status: Acute (2) Weakness Status: Acute CONDITION ON DISCHARGE: Stable CODE STATUS: Code Status: DNR/DNI CARE HOME: SNF STAY <30 DAYS: Yes POST DISCHARGE ORDERS: ACTIVITY ORDERS: Resume previous activity WEIGHT BEARING STATUS: Full weight bearing DIET AFTER DISCHARGE: Cardiac WOUND/INCISION CARE: Change dressing, Reinforce dressing PRN CHECKS AFTER DISCHARGE: CHECKS AFTER DISCHARGE: Check blood press - daily, Check your Temp as needed FOLLOW-UP: PHYSICIAN FOLLOW-UP: General surgery TREATMENT/EQUIPMENT ORDERS: Physical Therapy For: Evalulation/Treatment Occupational Therapy For: Evaluation/Treatment Speech Language Pathology For: Evaluation/Treatment DISCHARGE MEDICATIONS: Home Meds Active Scripts Polyethylene Glycol 3350 (POLYETHYLENE GLYCOL 3350) 17 Gm Powd.pack, 17 GM PO QHS for Constipation for 30 Days, #30 PKT Prov:MARK SANTOS MD 03/15/20 Psyllium Husk/Aspartame (METAMUCIL FIBER SINGLES PACKET) 3.4 Gm Powd.pack, 1 PKT PO QHS for Constipation for 30 Days, #30 PKT Prov:MARK SANTOS MD 03/15/20 Amoxicillin/Potassium Clav (AMOX TR-K CLV 875-125 MG TAB) 1 Each Tablet, 1 TAB PO BID for UTI for 3 Days, #6 TAB Prov:MARK SANTOS MD 03/15/20 Metoprolol Succinate (METOPROLOL SUCCINATE ( XL )) 100 Mg Tab.er.24h, 100 MG PO DAILY for CHF for 30 Days, #30 TAB.SR Prov:MARK SANTOS MD 03/15/20 Hydrocodone Bit/Acetaminophen (HYDROCODONE-APAP 5-325 ) 1 Tab Tablet, 1 TAB PO PRN Q6HRS PRN for MODERATE PAIN for 7 Days, #28 TAB Prov:MARK SANTOS MD 03/15/20 Lactobacillus Rhamnosus Gg (CULTURELLE) 1 Each Cap.sprink, 1 CAP PO BID for probiotic for 30 Days, #60 CAP Prov:RASHARD SANCHEZ MD 02/25/20 Reported Medications Rosuvastatin Calcium (CRESTOR) 5 Mg Tablet, 10 MG PO HS for FOR CHOLESTEROL, #30 TAB 0 Refills 02/17/20 Pantoprazole Sodium (PANTOPRAZOLE SODIUM ) 40 Mg Tablet.dr, 40 MG PO DAILYAC for GERD, TAB 02/17/20 Benazepril Hcl (BENAZEPRIL HCL) 10 Mg Tablet, 10 MG PO DAILY for HTN, TAB 02/17/20 Citalopram Hydrobromide (CITALOPRAM HBR) 20 Mg Tablet, 1 TAB PO DAILY for anxiety, #30 TAB 5 Refills 02/17/20 Discontinued Reported Medications Metoprolol Tartrate (Lopressor) 100 Mg Tablet, 1 TAB PO DAILY for HTN for 30 Days, #30 TAB 0 Refills 02/17/20 Discontinued Scripts Sulfamethoxazole/Trimethoprim (BACTRIM DS TABLET) 1 Each Tablet, 1 TAB PO BID for 7 Days, #14 TAB 0 Refills Prov:LOUANN JACINTO DO 03/12/20 Enoxaparin Sodium (ENOXAPARIN SODIUM) 40 Mg/0.4 Ml Disp.syrin, 40 MG SQ Q24H for dvt for 14 Days, #14 DIS.SYR Prov:RASHARD SANCHEZ MD 02/25/20 MARK SANTOS MD Mar 15, 2020 10:03
--- NOTE | 2020-03-15 10:06 | PDOC3 ---
Discharge Summary Visit Information Date of Admission: Mar 12, 2020 Date of Discharge: Mar 15, 2020 Admitting Diagnosis: UTI, weakness Final Diagnosis Problems Medical Problems: (1) UTI (urinary tract infection) Status: Acute (2) Weakness Status: Acute Brief Hospital Course Allergies Allergies Coded Allergies Type Severity Reaction Last Updated Verified No Known Drug Allergies 02/19/20 No Vital Signs Vital Signs Date Time Temp Pulse Resp B/P (MAP) Pulse Ox O2 Delivery O2 Flow Rate FiO2 03/15/20 08:38 76 145/64 03/15/20 07:00 98.3 18 92 Room Air 98.3 Lab Results Laboratory Tests Test 03/14/20 08:40 03/15/20 03:45 Sodium Level 141 mmol/L (136-145) 141 mmol/L (136-145) Potassium Level 3.9 mmol/L (3.5-5.1) 4.1 mmol/L (3.5-5.1) Chloride Level 103 mmol/L (98-107) 104 mmol/L (98-107) Carbon Dioxide Level 31 mmol/L (21-32) 30 mmol/L (21-32) Anion Gap 7 (6-14) 7 (6-14) Blood Urea Nitrogen 6 mg/dL (7-20) 6 mg/dL (7-20) Creatinine 0.8 mg/dL (0.6-1.0) 0.7 mg/dL (0.6-1.0) Estimated GFR (Cockcroft-Gault) 72.7 84.8 Glucose Level 159 mg/dL (70-99) 98 mg/dL (70-99) Calcium Level 8.3 mg/dL (8.5-10.1) 8.4 mg/dL (8.5-10.1) Magnesium Level 1.6 mg/dL (1.8-2.4) 2.3 mg/dL (1.8-2.4) BUN/Creatinine Ratio 9 (6-20) Total Bilirubin 0.6 mg/dL (0.2-1.0) Aspartate Amino Transf (AST/SGOT) 31 U/L (15-37) Alanine Aminotransferase (ALT/SGPT) 17 U/L (14-59) Alkaline Phosphatase 115 U/L (46-116) Total Protein 5.5 g/dL (6.4-8.2) Albumin 2.7 g/dL (3.4-5.0) Albumin/Globulin Ratio 1.0 (1.0-1.7) Laboratory Tests Test 03/15/20 03:45 Sodium Level 141 mmol/L (136-145) Potassium Level 4.1 mmol/L (3.5-5.1) Chloride Level 104 mmol/L (98-107) Carbon Dioxide Level 30 mmol/L (21-32) Anion Gap 7 (6-14) Blood Urea Nitrogen 6 mg/dL (7-20) Creatinine 0.7 mg/dL (0.6-1.0) Estimated GFR (Cockcroft-Gault) 84.8 BUN/Creatinine Ratio 9 (6-20) Glucose Level 98 mg/dL (70-99) Calcium Level 8.4 mg/dL (8.5-10.1) Magnesium Level 2.3 mg/dL (1.8-2.4) Total Bilirubin 0.6 mg/dL (0.2-1.0) Aspartate Amino Transf (AST/SGOT) 31 U/L (15-37) Alanine Aminotransferase (ALT/SGPT) 17 U/L (14-59) Alkaline Phosphatase 115 U/L (46-116) Total Protein 5.5 g/dL (6.4-8.2) Albumin 2.7 g/dL (3.4-5.0) Albumin/Globulin Ratio 1.0 (1.0-1.7) Brief Hospital Course Ms Pratt is a 64 yo F hx of CVA, obesity, DM, HLD, HTN, recent admission for gallstone pancreatitis s/p lap choly this month discharged to rehab for 2 weeks thensent home. patient was receiving home health services and aid reported patient has been unable to get up from chair due to weakness. receives food via meals on wheels. patient has no complaints. denies chest pain sob nausea vomiting diarrhea. no fevers. no dysuria. patient lives alone. 03/14: Doing well. no issues overnight. denies chest pain sob nausea vomiting diarrhea. Urine with klebsiella pneumonia. She has dense right hemiparesis, unable to care for herself. 2 person assist. Has not had a BM Afebrile, still very weak, changed to oral antibiotics. No chest pain or shortness of breath. Surgical site clean dry and intact. PT and OT recommend SNF. Problem list: Functional Quadraplegia UTI - klebsiella Constipation HTN hx of DM HLD Obesity hx of gallstone pancreatitis s/p lap chol GERD Hypomagnesemia PLAN PT/OT DNR/DNI will need placement: sw consult Greater than 30 minutes spent on d/c Discharge Information Condition at Discharge: Stable Follow Up: Weeks (1) Disposition/Orders: D/C to Another Facility Scheduled Amoxicillin/Potassium Clav (Amox Tr-K Clv 875-125 Mg Tab) 1 Each Tablet, 1 TAB PO BID for UTI for 3 Days, #6 Prescribed by: MARK SANTOS MD on 03/15/20918 Benazepril Hcl (Benazepril Hcl) 10 Mg Tablet, 10 MG PO DAILY for HTN, (Reported) Entered as Reported by: YARED BALTAZAR RN on 02/17/20120 Last Action: Converted on 03/12/201816 by MANASA MATHUR MD Citalopram Hydrobromide (Citalopram Hbr) 20 Mg Tablet, 1 TAB PO DAILY for anxiety, #30 Ref 5 (Reported) Entered as Reported by: YARED BALTAZAR RN on 02/17/20120 Last Action: HELD on 03/12/201816 by MANASA MATHUR MD Lactobacillus Rhamnosus Gg (Culturelle) 1 Each Cap.sprink, 1 CAP PO BID for probiotic for 30 Days, #60 Prescribed by: RASHARD SANCHEZ MD on 02/25/20 1305 Last Action: HELD on 03/12/201816 by MANASA MATHUR MD Metoprolol Succinate (Metoprolol Succinate ( Xl )) 100 Mg Tab.er.24h, 100 MG PO DAILY for CHF for 30 Days, #30 Prescribed by: MARK SANTOS MD on 03/15/20918 Pantoprazole Sodium (Pantoprazole Sodium ) 40 Mg Tablet.dr, 40 MG PO DAILYAC for GERD, (Reported) Entered as Reported by: YARED BALTAZAR RN on 02/17/20120 Last Action: Continued on 03/12/201816 by MANASA MAHTUR MD Polyethylene Glycol 3350 (Polyethylene Glycol 3350) 17 Gm Powd.pack, 17 GM PO QHS for Constipation for 30 Days, #30 Prescribed by: MARK SANTOS MD on 03/15/20918 Psyllium Husk/Aspartame (Metamucil Fiber Singles Packet) 3.4 Gm Powd.pack, 1 PKT PO QHS for Constipation for 30 Days, #30 Prescribed by: MARK SANTOS MD on 03/15/20918 Rosuvastatin Calcium (Crestor) 5 Mg Tablet, 10 MG PO HS for FOR CHOLESTEROL, #30 Ref 0 (Reported) Entered as Reported by: YARED BALTAZAR RN on 02/17/20120 Last Action: Converted on 03/12/201816 by MANASA MATHUR MD Scheduled PRN Hydrocodone Bit/Acetaminophen (Hydrocodone-Apap 5-325 ) 1 Tab Tablet, 1 TAB PO PRN Q6HRS PRN for MODERATE PAIN for 7 Days, #28 Prescribed by: MARK SANTOS MD on 03/15/20918 Discontinued Medications Enoxaparin Sodium (Enoxaparin Sodium) 40 Mg/0.4 Ml Disp.syrin, 40 MG SQ Q24H for dvt for 14 Days, #14 Prescribed by: RASHARD SANCHEZ MD on 02/25/20 1305 Last Action: HELD on 03/12/201816 by MANASA MATHUR MD Metoprolol Tartrate (Lopressor) 100 Mg Tablet, 1 TAB PO DAILY for HTN for 30 Days, #30 Ref 0 (Reported) Entered as Reported by: YARED BALTAZAR RN on 02/17/20120 Last Action: Converted on 03/12/201816 by MANASA MATHUR MD Sulfamethoxazole/Trimethoprim (Bactrim Ds Tablet) 1 Each Tablet, 1 TAB PO BID for 7 Days, #14 Ref 0 Prescribed by: LOUANN JACINTO D.O. on 03/12/20 1644 Last Action: Continued on 03/12/201816 by MANASA MATHUR MD Justicifation of Admission Dx: Justifications for Admission: Justification of Admission Dx: N/A Chronic Renal Failure: Hypertension Sepsis: Infection MARK SANTOS MD Mar 15, 2020 10:06
--- NOTE | 2020-03-15 11:53 | NUR ---
SW following. Chart reviewed, PT/OT recommending SNU. ORIANA met with pt (no isolation precautions at the time), pt does not want to return to [facility], would like referral to [facility]. Pt choice of vendor form signed. ORIANA verified pt left [facility] on 03/10/2020. Referral and discharge paperwork faxed to [facility], awaiting acceptance decision, insurance auth and pending COVID-19 test result. Addendum: 03/15/20 at 1426 by AILEEN GASTELUM [facility] advised pt has about 5 days of fully covered SNU remaining and they would want 7 days of copays upfront (about $1246.00). ORIANA met with pt and pt's mother, Prachi at bedside. Pt cannot afford $1246 upfront. Pt agreeable to referral being sent to [facility], as they had said pt can return. ORIANA faxed referral, awaiting confirmation and whether pt would have to pay anything upfront. COVID pending. ORIANA will continue to follow.
--- NOTE | 2020-03-15 12:46 | NUR ---
Covid swab taken to lab
[2020-03-15] MEDS: ATORVASTATIN CALCIUM 40 MG TABLET. PO SCH (20:51)
[2020-03-15] MEDS: PSYLLIUM HUSK (SUGAR FREE) 1 PKT PACKET PO SCH (20:53)
[2020-03-15] MEDS: POLYETHYLENE GLYCOL 3350 17 GM PACKET. PO SCH (20:53)
[2020-03-15] MEDS: HYDROcodone/APAP 5/325MG 1 TAB TABLET PO PRN (23:37)
[2020-03-16 02:44] VITALS: BP 142/50
[2020-03-16 07:00] VITALS: BP 143/50
[2020-03-16] MEDS: PANTOPRAZOLE 40 MG TABLET.DR. PO SCH (07:28)
[2020-03-16] MEDS: AMOXICILLIN/K CLAV 875/125MG TABLET. PO SCH ×2 (08:58→21:15)
[2020-03-16] MEDS: METOPROLOL SUCC 24HR ER 100 MG TAB.ER.24H. PO SCH ×2 (08:58→21:19)
[2020-03-16] MEDS: LACTOBACILLUS RHAMNOSUS GG 1 CAPSULE. PO SCH ×2 (08:58→21:15)
[2020-03-16] MEDS: LISINOPRIL 10 MG TABLET PO SCH (08:58)
--- NOTE | 2020-03-16 10:08 | NUR ---
SW following. Discussed with RN, pt accepted at [facility], pending insurance auth. SW will continue to follow.
[2020-03-16 11:00] VITALS: BP 133/52
--- NOTE | 2020-03-16 11:58 | PDOC ---
[employer] PROGRESS NOTE Chief Complaint Chief Complaint ASSESSMENT Functional Quadraplegia UTI - klebsiella Constipation HTN hx of DM HLD Obesity hx of gallstone pancreatitis s/p lap chol GERD Hypomagnesemia History of Present Illness History of Present Illness 03/16/2020 Patient seen and examined chart reviewed Discussed with RN Ms Pratt is a 64 yo F hx of CVA, obesity, DM, HLD, HTN, recent admission for gallstone pancreatitis s/p lap choly this month discharged to rehab for 2 weeks thensent home. patient was receiving home health services and aid reported patient has been unable to get up from chair due to weakness. receives food via meals on wheels. patient has no complaints. denies chest pain sob nausea vomiting diarrhea. no fevers. no dysuria. patient lives alone. 03/14: Doing well. no issues overnight. denies chest pain sob nausea vomiting diarrhea. Urine with klebsiella pneumonia. She has dense right hemiparesis, unable to care for herself. 2 person assist. Has not had a BM Afebrile, still very weak, changed to oral antibiotics. No chest pain or shortness of breath. Surgical site clean dry and intact. PT and OT recommend SNF. Vitals/I&O Vitals/I&O: Vital Signs Date Time Temp Pulse Resp B/P (MAP) Pulse Ox O2 Delivery O2 Flow Rate FiO2 03/16/20 11:00 98.2 76 16 133/52 (79) 99 Room Air 98.2 I & O 03/15/20 03/15/20 03/16/20 15:00 23:00 07:00 Intake Total 240 ml 240 ml 60 ml Balance 240 ml 240 ml 60 ml Physical Exam General: Alert, Oriented X3 Heart: Regular rate, Normal S1, Normal S2 Lungs: Clear Abdomen: Normal bowel sounds Extremities: No clubbing Skin: No rashes Labs Labs: Laboratory Tests Test 03/15/20 12:40 Coronavirus (COVID-19)(PCR) Negative (NEGATIVE) Assessment and Plan Assessmemt and Plan Problems Medical Problems: (1) UTI (urinary tract infection) Status: Acute (2) Weakness Status: Acute ASSESSMENT Functional Quadraplegia UTI - klebsiella Constipation HTN hx of DM HLD Obesity hx of gallstone pancreatitis s/p lap chol GERD Hypomagnesemia PLAN continue rocephin D2 PT/OT check b12, vit D level--both normal restarted home meds DVT ppx DNR/DNI will need placement: sw consult Comment Review of Relevant I have reviewed the following items shae (where applicable) has been applied. Justicifation of Admission Dx: Justifications for Admission: Justification of Admission Dx: N/A Chronic Renal Failure: Hypertension Sepsis: Infection MARITZA MARTIN III DO Mar 16, 2020 11:58
[2020-03-16 15:00] VITALS: BP 145/54
[2020-03-16 19:00] VITALS: BP 134/70
[2020-03-16] MEDS: PSYLLIUM HUSK (SUGAR FREE) 1 PKT PACKET PO SCH (21:00)
[2020-03-16] MEDS: POLYETHYLENE GLYCOL 3350 17 GM PACKET. PO SCH (21:00)
[2020-03-16] MEDS: ATORVASTATIN CALCIUM 40 MG TABLET. PO SCH (21:15)
[2020-03-16] MEDS: HYDROcodone/APAP 5/325MG 1 TAB TABLET PO PRN (21:15)
[2020-03-16 23:00] VITALS: BP 133/66
[2020-03-17 03:00] VITALS: BP 130/70
[2020-03-17 07:15] VITALS: BP 144/71
[2020-03-17] MEDS: LACTOBACILLUS RHAMNOSUS GG 1 CAPSULE. PO SCH ×2 (08:33→20:27)
[2020-03-17] MEDS: METOPROLOL SUCC 24HR ER 100 MG TAB.ER.24H. PO SCH ×2 (08:33→20:28)
[2020-03-17] MEDS: PANTOPRAZOLE 40 MG TABLET.DR. PO SCH (08:33)
[2020-03-17] MEDS: LISINOPRIL 10 MG TABLET PO SCH (08:33)
[2020-03-17] MEDS: AMOXICILLIN/K CLAV 875/125MG TABLET. PO SCH ×2 (08:33→20:27)
--- NOTE | 2020-03-17 10:18 | NUR ---
ORIANA following. Discussed with RN, pt ready for discharge pending insurance auth for SNU. Bere at [facility] advised it looks like medical equipment technician of insurance is reviewing. privacy compliance manager calling insurance to determine hold up, and acceptance decision. ORIANA will continue to follow. Addendum: 03/17/20 at 1034 by AILEEN GASTELUM ORIANA left voicemail for Charito LUKE at [facility] (ph: [phone]). Awaiting call back. Addendum: 03/17/20 at 1132 by AILEEN GASTELUM Charito contacted ORIANA to advise she is not the contact for this patient or this area. Charito gave number for Anu ([phone]), ORIANA left voicemail for Anu requesting update on SNU auth. ORIANA will continue to follow. Addendum: 03/17/20 at 1245 by AILEEN GASTELUM Anu contacted ORIANA back, advised [facility] had initiated auth today at 8:18am, and it had not been assigned to anyone yet. Anu stated she is not the person that does the SNU auth but can see in the system when it is assigned to someone. ORIANA spoke with Alicia at [facility], Alicia advised she had submitted for auth on 03/15/2020 and received a fax from [employer] with a pre auth number. Alicia faxing this to [employer]. ORIANA called Anu again and advised of this. ORIANA requested a sort operations supervisor or phone number for someone who actually handles the SNU auth because to get clarification on what is taking so long and why it appears this submission was not dealt with in a timely manner. Awaiting call back from Anu or someone from [employer] who handles SNU. ORIANA will continue to follow. Addendum: 03/17/20 at 1349 by AILEEN GASTELUM ORIANA called Anu at [facility], Anu advised she sent an email to the person auth got assigned to, with my phone number, requesting they give me a call SW will continue to follow.
[2020-03-17 11:13] VITALS: BP 147/71
--- NOTE | 2020-03-17 12:22 | PDOC ---
[employer] PROGRESS NOTE Chief Complaint Chief Complaint Functional Quadraplegia aphasia UTI - klebsiella Constipation HTN hx of DM HLD Obesity hx of gallstone pancreatitis s/p lap chol GERD Hypomagnesemia History of Present Illness History of Present Illness 03/17/2022 Patient seen and examined She seems to be approaching her baseline Chart reviewed Discussed with RN 03/16/2020 Patient seen and examined chart reviewed Discussed with RN Ms Pratt is a 64 yo F hx of CVA, obesity, DM, HLD, HTN, recent admission for gallstone pancreatitis s/p lap choly this month discharged to rehab for 2 weeks thensent home. patient was receiving home health services and aid reported patient has been unable to get up from chair due to weakness. receives food via meals on wheels. patient has no complaints. denies chest pain sob nausea vomiting diarrhea. no fevers. no dysuria. patient lives alone. 03/14: Doing well. no issues overnight. denies chest pain sob nausea vomiting diarrhea. Urine with klebsiella pneumonia. She has dense right hemiparesis, unable to care for herself. 2 person assist. Has not had a BM Afebrile, still very weak, changed to oral antibiotics. No chest pain or shortness of breath. Surgical site clean dry and intact. PT and OT recommend SNF. Vitals/I&O Vitals/I&O: Vital Signs Date Time Temp Pulse Resp B/P (MAP) Pulse Ox O2 Delivery O2 Flow Rate FiO2 03/17/20 11:13 99.0 72 18 147/71 (96) 95 Room Air 99.0 I & O 03/16/20 03/16/20 03/17/20 15:00 23:00 07:00 Intake Total 240 ml 200 ml Balance 240 ml 200 ml Physical Exam General: Alert, Oriented X3, Other (Has expressive aphasia) Heart: Regular rate, Normal S1, Normal S2 Lungs: Clear Abdomen: Normal bowel sounds Extremities: No clubbing Skin: No rashes Assessment and Plan Assessmemt and Plan Problems Medical Problems: (1) UTI (urinary tract infection) Status: Acute (2) Weakness Status: Acute Functional Quadraplegia UTI - klebsiella Constipation HTN hx of DM HLD Obesity hx of gallstone pancreatitis s/p lap chol GERD Hypomagnesemia PLAN continue rocephin D2 PT/OT check b12, vit D level--both normal restarted home meds DVT ppx DNR/DNI Discharge disposition pending I suspect she can go to prison in the morning? Comment Review of Relevant I have reviewed the following items shae (where applicable) has been applied. Justicifation of Admission Dx: Justifications for Admission: Justification of Admission Dx: N/A Chronic Renal Failure: Hypertension Sepsis: Infection MARITZA MARTIN III DO Mar 17, 2020 12:22
[2020-03-17 15:11] VITALS: BP 129/74
[2020-03-17 19:00] VITALS: BP 128/48
[2020-03-17] MEDS: ATORVASTATIN CALCIUM 40 MG TABLET. PO SCH (20:27)
[2020-03-17] MEDS: POLYETHYLENE GLYCOL 3350 17 GM PACKET. PO SCH (20:28)
[2020-03-17] MEDS: PSYLLIUM HUSK (SUGAR FREE) 1 PKT PACKET PO SCH (20:28)
[2020-03-17] MEDS: HYDROcodone/APAP 5/325MG 1 TAB TABLET PO PRN (21:16)
[2020-03-17 23:00] VITALS: BP 128/48
[2020-03-18 03:00] VITALS: BP 125/59
[2020-03-18 07:15] VITALS: BP 142/66
[2020-03-18] MEDS: PANTOPRAZOLE 40 MG TABLET.DR. PO SCH (08:48)
[2020-03-18] MEDS: LACTOBACILLUS RHAMNOSUS GG 1 CAPSULE. PO SCH (08:48)
[2020-03-18] MEDS: AMOXICILLIN/K CLAV 875/125MG TABLET. PO SCH ×2 (08:48→18:06)
--- NOTE | 2020-03-18 10:42 | SNU/HH DC ---
DISCHARGE ORDERS DISCHARGE INFORMATION: DISCHARGE DATE: Mar 15, 2020 FINAL DIAGNOSIS Problems Medical Problems: (1) UTI (urinary tract infection) Status: Acute (2) Weakness Status: Acute CONDITION ON DISCHARGE: Stable CODE STATUS: Code Status: Full [facility]: SNF STAY <30 DAYS: Yes HOSPICE: HOSPICE: No HOSPICE EVAL & TREAT: No LTAC: ADMIT TO LTAC: No POST DISCHARGE ORDERS: ACTIVITY ORDERS: Resume previous activity WEIGHT BEARING STATUS: Full weight bearing DIET AFTER DISCHARGE: Cardiac WOUND/INCISION CARE: Change dressing, Reinforce dressing PRN CHECKS AFTER DISCHARGE: CHECKS AFTER DISCHARGE: Check blood press - daily, Check your Temp as needed FOLLOW-UP: PHYSICIAN FOLLOW-UP: General surgery TREATMENT/EQUIPMENT ORDERS: Physical Therapy For: Evalulation/Treatment Occupational Therapy For: Evaluation/Treatment Speech Language Pathology For: Evaluation/Treatment DISCHARGE MEDICATIONS: Home Meds Active Scripts Polyethylene Glycol 3350 (POLYETHYLENE GLYCOL 3350) 17 Gm Powd.pack, 17 GM PO QHS for Constipation for 30 Days, #30 PKT Prov:MARK SANTOS MD 03/15/20 Psyllium Husk/Aspartame (METAMUCIL FIBER SINGLES PACKET) 3.4 Gm Powd.pack, 1 PKT PO QHS for Constipation for 30 Days, #30 PKT Prov:MARK SANTOS MD 03/15/20 Amoxicillin/Potassium Clav (AMOX TR-K CLV 875-125 MG TAB) 1 Each Tablet, 1 TAB PO BID for UTI for 3 Days, #6 TAB Prov:MARK SANTOS MD 03/15/20 Metoprolol Succinate (METOPROLOL SUCCINATE ( XL )) 100 Mg Tab.er.24h, 100 MG PO DAILY for CHF for 30 Days, #30 TAB.SR Prov:MARK SANTOS MD 03/15/20 Hydrocodone Bit/Acetaminophen (HYDROCODONE-APAP 5-325 ) 1 Tab Tablet, 1 TAB PO PRN Q6HRS PRN for MODERATE PAIN for 7 Days, #28 TAB Prov:MARK SANTOS MD 03/15/20 Lactobacillus Rhamnosus Gg (CULTURELLE) 1 Each Cap.sprink, 1 CAP PO BID for pro biotic for 30 Days, #60 CAP Prov:RASHARD SANCHEZ MD 02/25/20 Reported Medications Rosuvastatin Calcium (CRESTOR) 5 Mg Tablet, 10 MG PO HS for FOR CHOLESTEROL, #30 TAB 0 Refills 02/17/20 Pantoprazole Sodium (PANTOPRAZOLE SODIUM ) 40 Mg Tablet.dr, 40 MG PO DAILYAC for GERD, TAB 02/17/20 Benazepril Hcl (BENAZEPRIL HCL) 10 Mg Tablet, 10 MG PO DAILY for HTN, TAB 02/17/20 Citalopram Hydrobromide (CITALOPRAM HBR) 20 Mg Tablet, 1 TAB PO DAILY for anxiety, #30 TAB 5 Refills 02/17/20 Discontinued Reported Medications Metoprolol Tartrate (Lopressor) 100 Mg Tablet, 1 TAB PO DAILY for HTN for 30 Days, #30 TAB 0 Refills 02/17/20 Discontinued Scripts Sulfamethoxazole/Trimethoprim (BACTRIM DS TABLET) 1 Each Tablet, 1 TAB PO BID for 7 Days, #14 TAB 0 Refills Prov:LOUANN JACINTO DO 03/12/20 Enoxaparin Sodium (ENOXAPARIN SODIUM) 40 Mg/0.4 Ml Disp.syrin, 40 MG SQ Q24H for dvt for 14 Days, #14 DIS.SYR Prov:RASHARD SANCHEZ MD 02/25/20 MARITZA MARTIN III DO Mar 18, 2020 10:42
[2020-03-18 11:03] VITALS: BP 151/66
--- NOTE | 2020-03-18 11:24 | NUR ---
ORIANA following. Discussed with RN, pt awaiting insurance auth for SNU. ORIANA received call from Aurea with [place] ([phone]) at 0947 this morning, advising she had just been assigned the auth case. ORIANA had been told yesterday by Anu at [facility], the case had been assigned and she had provided SW contact info to the assignee. ORIANA reported this to Aurea who continued to say she just got it this morning and the facility had only submitted it yesterday. ORIANA notified Aurea the facility had a fax from [facility] on Sunday afternoon with the pre auth number. ORIANA stated to Aurea, ORIANA at the hospital is getting involved because this is now day 4 of the referral and the patient has had discharge order for 2 days now, and has been sitting here waiting. Aurea reported the PT/OT notes are old and she needs updated ones. ORIANA faxed updated notes as well as the discharge orders to Aurea at [facility] (fax: [phone]) ref # [id number], ID # [id number]. Oriana called Aurea again at 11:11 - updates were received, medical record assistant is reviewing. ORIANA will continue to follow. Addendum: 03/18/20 at 1251 by AILEEN GASTELUM Insurance denied halfway. Message sent to Dr. Barvo about option to do a peer to peer. Awaiting response. Peer to peer to be done by 1630 today, ph: [phone], option 4 ref# [id number]. ORIANA notified pt's mother of denial. SW will continue to follow. Addendum: 03/18/20 at 15[address] SW [address]. Bravo is declining to do the peer to peer at this time for SNU denial. ORIANA met with pt, pt agreeable to home health, wanted SW to check with her mother about company preference. Pt's mother, Prachi does not have a preference. Lydia CHEATHAM sending home health referral to find home health provider for pt.
[2020-03-18] MEDS: METOPROLOL SUCC 24HR ER 100 MG TAB.ER.24H. PO SCH (11:31)
[2020-03-18] MEDS: LISINOPRIL 10 MG TABLET PO SCH (11:32)
--- NOTE | 2020-03-18 12:19 | DS ---
DATE OF DISCHARGE: 03/18/2020 ADMISSION DIAGNOSES: Urinary tract infection and weakness, functional quadriplegia, aphasia. DISCHARGE DIAGNOSES: Resolving urinary tract infection, resolving weakness. She does have chronic functional quadriplegia, history of stroke, expressive aphasia, obesity, hyperlipidemia, gastroesophageal reflux disease, history of gallstone pancreatitis with laparoscopic cholecystectomy, hypomagnesemia. CONSULTS: None. PROCEDURES: None. HOSPITAL COURSE: The patient is a pleasant middle-aged female who presented with mental status change, was noted to have weakness and had UTI. She was admitted. We gave her IV antibiotics and fluids and over the past couple of days, she has returned to baseline. This morning, I saw her and examined her, she is doing well, but is still somewhat weak. We plan to discharge to [facility]. DISPOSITION: Skilled. ACTIVITY: As tolerated. DIET: Low sodium. MEDICATIONS: Please see the MRAD. TOTAL TIME: 33 minutes. MARITZA MARTIN DO DR: BILLY/saul JOB#: [id number] / [id number]
[2020-03-18 14:57] VITALS: BP 124/62
--- NOTE | 2020-03-18 15:57 | NUR ---
SS following up with discharge planning. SS assisting SW with home healthcare referral. SS phoned and faxed discharge orders and referral to [facility], ; fax [phone].
--- NOTE | 2020-03-18 16:27 | SNU/HH DC ---
DISCHARGE WITH HOME HEALTH DISCHARGE INFORMATION: Discharge Date: Mar 15, 2020 Final Diagnosis: Problems Medical Problems: (1) UTI (urinary tract infection) Status: Acute (2) Weakness Status: Acute Condition on Discharge: Stable CODE STATUS: Code Status: Full HOME HEALTH: Face to Face: I certify this patient is under my care and that I, or a nurse practitioner or physician's farm assistant working with me, had a face to face encounter that meets the physician face to face encounter requirements with this patient on []. Medical Complications: Other (DEBILITY) Custodial For: Assess & Educate Safety RN For Eval/Treatment: Yes Physical Therapy For: Evalulation/Treatment Speech Language Pathology For: Evaluation/Treatment Home Health Aide For: Self-care TURF MANAGER For: Community Resources Pt Meets Homebound Status: Poor coordination w/ amb. POST DISCHARGE ORDERS: Activity Instructions for Disc: Resume previous activity Weight Bearing Status after Di: Full weight bearing DIET AFTER DISCHARGE: Cardiac Wound/Incision Care: Change dressing, Reinforce dressing PRN CHECKS AFTER DISCHARGE: Checks after discharge: Check blood press - daily, Check your Temp as needed FOLLOW-UP: Follow up with: General surgery CERTIFICATION STATEMENT: Certification Statement: Certification Statement: Based on the above finding, I certify that this patient is confined to the home and needs intermittent usp care, physical therapy and/or speech therapy, or continues to need occupational therapy.~ This patient is under my care, and I have initiated the establishment of the plan of care.~ This patient will be followed by myself or a community physician who will periodically review the plan of care. Home Meds Active Scripts Polyethylene Glycol 3350 (POLYETHYLENE GLYCOL 3350) 17 Gm Powd.pack, 17 GM PO QHS for Constipation for 30 Days, #30 PKT Prov:MARK SANTOS MD 03/15/20 Psyllium Husk/Aspartame (METAMUCIL FIBER SINGLES PACKET) 3.4 Gm Powd.pack, 1 PKT PO QHS for Constipation for 30 Days, #30 PKT Prov:MARK SANTOS MD 03/15/20 Amoxicillin/Potassium Clav (AMOX TR-K CLV 875-125 MG TAB) 1 Each Tablet, 1 TAB PO BID for UTI for 3 Days, #6 TAB Prov:MARK SANTOS MD 03/15/20 Metoprolol Succinate (METOPROLOL SUCCINATE ( XL )) 100 Mg Tab.er.24h, 100 MG PO DAILY for CHF for 30 Days, #30 TAB.SR Prov:MARK SANTOS MD 03/15/20 Hydrocodone Bit/Acetaminophen (HYDROCODONE-APAP 5-325 ) 1 Tab Tablet, 1 TAB PO PRN Q6HRS PRN for MODERATE PAIN for 7 Days, #28 TAB Prov:MARK SANTOS MD 03/15/20 Lactobacillus Rhamnosus Gg (CULTURELLE) 1 Each Cap.sprink, 1 CAP PO BID for probiotic for 30 Days, #60 CAP Prov:RASHARD SANCHEZ MD 02/25/20 Reported Medications Rosuvastatin Calcium (CRESTOR) 5 Mg Tablet, 10 MG PO HS for FOR CHOLESTEROL, #30 TAB 0 Refills 02/17/20 Pantoprazole Sodium (PANTOPRAZOLE SODIUM ) 40 Mg Tablet.dr, 40 MG PO DAILYAC for GERD, TAB 02/17/20 Benazepril Hcl (BENAZEPRIL HCL) 10 Mg Tablet, 10 MG PO DAILY for HTN, TAB 02/17/20 Citalopram Hydrobromide (CITALOPRAM HBR) 20 Mg Tablet, 1 TAB PO DAILY for anxiety, #30 TAB 5 Refills 02/17/20 Discontinued Reported Medications Metoprolol Tartrate (Lopressor) 100 Mg Tablet, 1 TAB PO DAILY for HTN for 30 Days, #30 TAB 0 Refills 02/17/20 Discontinued Scripts Sulfamethoxazole/Trimethoprim (BACTRIM DS TABLET) 1 Each Tablet, 1 TAB PO BID for 7 Days, #14 TAB 0 Refills Prov:LOUANN JACINTO DO 03/12/20 Enoxaparin Sodium (ENOXAPARIN SODIUM) 40 Mg/0.4 Ml Disp.syrin, 40 MG SQ Q24H for dvt for 14 Days, #14 DIS.SYR Prov:RASHARD SANCHEZ MD 02/25/20 MARITZA MARTIN III DO Mar 18, 2020 16:27
--- NOTE | 2020-03-18 17:30 | NUR ---
Notified patient's mother about discharge. Will meet patient at the apartment with ld.
--- NOTE | 2020-03-18 18:20 | NUR ---
Discharge instructions given. Evening dose of amoxicillin given. [facility]ing for [facility] to transport.
--- NOTE | 2020-03-18 19:00 | NUR ---
Pt discharged by [facility] to pt's home.
== END 2020-03-18 19:00 | DRG 689 ==
LOC: ER 13:00 → 4 NORTH 18:28
PROVIDERS: ADMIT Internal Medicine; ATTEND Internal Medicine
DX: N39.0 Urinary tract infection, site not specified (principal); R53.2 Functional quadriplegia; G81.91 Hemiplegia, unspecified affecting right dominant side; E11.51 Type 2 diabetes mellitus with diabetic peripheral angiopathy without gangrene; E66.9 Obesity, unspecified; E78.00 Pure hypercholesterolemia, unspecified; E78.5 Hyperlipidemia, unspecified; E83.42 Hypomagnesemia; G93.89 Other specified disorders of brain; I10 Essential (primary) hypertension; I69.320 Aphasia following cerebral infarction; K21.9 Gastro-esophageal reflux disease without esophagitis; K59.00 Constipation, unspecified; Z82.49 Family history of ischemic heart disease and other diseases of the circulatory system; Z87.891 Personal history of nicotine dependence; M19.90 Unspecified osteoarthritis, unspecified site; Z20.828 Contact with and (suspected) exposure to other viral communicable diseases; B96.1 Klebsiella pneumoniae [K. pneumoniae] as the cause of diseases classified elsewhere; Z68.38 Body mass index [BMI] 38.0-38.9, adult
CPT/HCPCS: 36415; 70450; 80048; 80053; 81001; 82306; 82607; 83735; 85025; 87077; 87086; 87186; 96374; 99285; J0696; J3475; 97116-GP; 97530-GO; 97530-GP; 97535-GO; G0378; U0003-CS